=== PATIENT | male | born 1955 | race Caucasian/White ===

== ENCOUNTER 2024-07-01 12:00 | Inpatient (IN) ==
[2024-07-01 13:02] LABS: Basophils # (auto) 0.03 K/uL (0.00-0.20); Basophils % (auto) 0.5 %; Eosinophils # (auto) 0.03 K/uL (0.00-0.50); Eosinophils % (auto) 0.5 %; Hematocrit (blood only) 30.3 % (42.0-52.0); Hemoglobin 11.2 g/dl (14.0-18.0); Immature Granulocytes # (auto) 0.04 K/uL (0.01-0.20); Immature Granulocytes % (auto) 0.6 %; Lymphocytes # (auto) 1.42 K/uL (1.20-3.40); Lymphocytes % (auto) 22.4 %; Mean Corpuscular Hemoglobin 38.4 pg (25.0-34.0); Mean Corpuscular Volume 103.8 fL (80.0-100.0); Mean Platelet Volume 9.4 fL (9.4-12.4); Monocytes # (auto) 0.81 K/uL (0.11-0.59); Monocytes % (auto) 12.8 %; Neutrophils % (auto) 63.2 %; Platelet Count 232 K/uL (130-400); RDW Coefficient of Variation 14.2 % (11.5-14.5); Red Blood Count 2.92 M/uL (4.70-6.10); White Blood Count 6.33 K/ul (4.8-10.8)
[2024-07-01 13:09] LABS: Alanine Aminotransferase 49 U/L (7-52); Alkaline Phosphatase 73 U/L (34-104); Anion Gap 12 (3-11); Aspartate Aminotransferase 97 U/L (13-39); Bilirubin Direct 0.7 mg/dl (0-0.2); Bilirubin,Total 2.5 mg/dl (0.2-1.0); Blood Urea Nitrogen 14 mg/dl (6-23); Calcium 10.3 mg/dl (8.6-10.3); Carbon Dioxide 25 mmol/L (21-32); Chloride 87 mmol/L (98-107); Glucose 103 mg/dl (70-99(Fasting)); Potassium 4.4 mmol/L (3.5-5.1); Sodium 124 mmol/L (136-145); Total Protein 7.7 gm/dl (6.0-8.3)
--- NOTE | 2024-07-01 13:26 | CT Scan Report ---
CT head/brain wo con CLINICAL HISTORY: 69 years-old Male with Fall, head trauma. Acute head trauma status post fall TECHNIQUE: Multiple axial CT images of the head were obtained without contrast. A dose lowering tech nique was utilized adhering to the principles of ALARA. CT DOSE: 625.8 mGy.cm COMPARISON: None. FINDINGS: No acute intracranial hemorrhage, midline shift, intracranial mass, hydrocephalus, territorial ischem ia or abnormal extra-axial collection. Involutional changes with white matter hypodensities suggestiv e of chronic microvascular ischemic disease. The calvarium is intact. The paranasal sinuses, mastoid air cells, and middle ear cavities are clear . IMPRESSION: No acute intracranial abnormality or calvarial fracture. ACT 112: Negative or not required by law. The above report was generated using voice recognition software. It may contain grammatical, syntax o r spelling errors. Electronically signed by: Michael Rangel M.D. 07/01/2024 1:00 PM
--- NOTE | 2024-07-01 13:41 | History & Physical Report ---
Date of Service July 01, 2024 Assessment & Plan (1) Recurrent falls: Plan: Simba is a 69-year-old male without significant PMH. He presented on 07/01 for lower extremity weakness bilaterally and multiple falls over the past several weeks. Patient lives by himself. He presents here today with his sister (Asia) at bedside, who brought him to the hospital today. Patient reports that he has had gait instability for the past 1.5 months. This is led to multiple falls over that period of time. PT/OT evaluations appreciated Fall precautions (2) Hyponatremia: Plan: NA 124 on arrival; no prior for comparison SIADH labs ordered, pending Patient has struck his head over the past 2 months with falls Beer potomania is also within the differential given daily alcohol use Seizure precautions Trend BMP (3) Right rib fracture: Plan: Pain/bruising at right posterior rib cage Chest CT revealed fracture of the medial aspect of T12 near costovertebral junction Lidocaine patch application Incentive spirometry q4h with >1500 goal (4) Tobacco use: Plan: Current everyday tobacco cigarette smoker; just under 1 PPD 20-year pack history Patient reports that his father had lung cancer, and he has never been screened for lung cancer in the past Given significant weight loss, and 20-year history of smoking, chest CT was also to screen for malignancy Nicotine patch PRN (5) Alcohol use: Plan: Everyday alcohol use; scotch Last drink was the evening of 06/30 (3 scotch cocktails) Patient denies history of alcohol withdrawal, seizures, or DTs Last alcohol cessation was around 10 years ago AWSS at risk protocol with Ativan as needed (6) Cachexia: Plan: Patient's sister reports 20 pounds of weight loss over the past 2 months Patient denies any change in diet Weight ordered to calculate BMI Dietitian consult appreciated (7) Megaloblastic anemia: Plan: Hgb 11.2 on arrival; MCV greater than 100 Suspected secondary to alcohol use Vitamin B12 and folate levels ordered, pending Will plan to start supplements (8) Elevated bilirubin: Plan: Elevated bilirubin at 2.5 on arrival AST:ALT 2:1 PT/INR ordered, pending Liver ultrasound ordered, pending Additional labs pending results Trend CMP Plan Disposition: Admit to [facility] telemetry Full code Regular diet VTE PPx: High fall risk; SCDs for now History of Present Illness Chief Complaint: Leg weakness, bilateral Primary Care Provider: NO PCP Simba is a 69-year-old male without significant PMH. He presented on 07/01 for lower extremity weakness bilaterally and multiple falls over the past several weeks. Patient lives by himself. He presents here today with his sister (Asia) at bedside, who brought him to the hospital today. Patient reports that he has had gait instability for the past 1.5 months. This is led to multiple falls over that period of time. He denies any syncope, LOC, or tripping on things. He is not dizzy or lightheaded prior to falling, but reports that his "legs gave out" on him. His most recent/worst fall was on Thursday when he was standing in the kitchen, and "out of the blue", ended up on the ground. Patient struck the back of his head as well as his right rib cage. No LOC. He was able to get back up on his own after a minute or so. Patient is not currently on blood thinners. He does not take any medicine on a daily basis. No recent change in diet. 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 He reports that he has a diet of steak, potatoes, pasta, and fish regularly. Additionally, the patient has lost significant weight over the past 2 months. While he is unsure how much he is lost, his sister believes it is around 20 pounds over the past 2 months. Patient does not weigh himself regularly, but reports he used to be around 165 to 170 pounds. Additionally, the patient has gone from having a regular walk to having a "shuffling" walk. He reports he takes long steps because he is terrified of falling. Patient reports he has no stability when he stands. No sick contacts. No rashes or tick bites noted on his body. He is a current everyday tobacco cigarette smoker; <1 PPD. He is also a current everyday alcohol user; he reports he drinks scotch daily, last had 3 cocktails yesterday evening on 06/30. He denies history of alcohol withdrawal, DTs, or seizures. No PMH of seizures, CVA, stroke, cancer, or diabetes. He does have a family history of cancer (his dad had lung cancer); he reports he does not get normal screenings for lung cancer despite smoking. While patient denies any new life stressors on admission, patient sister at bedside does report that their mother has had health problems recently, which has been stressful. Patient denies any thoughts of self-harm, harming others, or suicidal ideations. Patient's vitals are stable at time of admission. ED course: ROS: Patient endorses gait instability, LE weakness, weight loss, Patient denies fever, chills, night-sweats, dizziness, lightheadedness, headache, changes in vision, tinnitus, ear pain, No numbness/tingling in hands or legs Allergies Allergy/AdvReac Type Severity Reaction Status Date / Time DUST Allergy Unknown Uncoded 07/28/02 16:47 [id number] Allergy Unknown Uncoded 07/28/02 16:47 N Allergy Unknown Uncoded 07/28/02 16:47 Home Medications Medication Instructions Recorded Confirmed Type No Known Home Medications 07/01/24 07/01/24 History Past Med/Surg History Problem List (Updated 07/01/24 @ 16:09 by Fadi Cotton PA-C) Right rib fracture Elevated bilirubin Cachexia Rib pain on right side Megaloblastic anemia Alcohol use Tobacco use Acute head trauma (Acute) Lower extremity weakness (Acute) Hyponatremia (Acute) Recurrent falls (Acute) Social History Smoking Status: Current every day smoker Preferred Language: Maori Feels Safe at Home: Yes Review of Systems Review of Systems: See HPI above Physical Exam Physical Exam: General: no acute distress; pleasant affect; sister at bedside; non-toxic appearing; thin; cachectic-appearing; cooperative; SpO2 100% on RA HEENT: Superficial abrasion and erythematous hematoma noted on the posterior left scalp; no scleral icterus; PERRLA w/ EOMs intact; vision and hearing grossly intact Neck: supple; no lymphadenopathy; trachea midline Skin: Dark purple bruising noted on the left forearm; bruise noted on the posterior right rib cage towards the back; warm, dry without signs of tenting; no cyanosis; no rashes CV: chest wall NTP; RRR; S1/S2 normal; no murmurs/rubs/gallops; pulses intact and symmetric at radial, DP, and PT Lungs: no acute respiratory distress; symmetrical chest wall expansion; clear breath sounds across all lung reich w/o adventitious sounds; no wheezing ABD: Soft, NTP; BS present; no rebound/guarding; no distention MSK: no tics or fasciculations; no edema noted in the LEs b/l, nonerythematous; 3/5 strength in lower extremities bilaterally when lifting from the bed Neuro: A&Ox3; normal mood and affect; fluent speech; no focal deficits; sensation intact and symmetric in lower extremities bilaterally Results & Data Results & Data Vital Signs (Past 12 Hours) Vital Signs Temp Pulse Resp BP Pulse Ox O2 Del Method 07/01/24 12:13 72 07/01/24 12:03 36.1 C L 103 H 16 116/75 100 Room Air Laboratory Results Abnormal lab results 07/01/24 Range/Units 12:30 RBC 2.92 L (4.70-6.10) M/uL Hgb 11.2 L (14.0-18.0) g/dl Hct 30.3 L (42.0-52.0) % MCV 103.8 H (80.0-100.0) fL MCH 38.4 H (25.0-34.0) pg MCHC 37.0 H (32.0-36.0) g/dL RDW Std Deviation 54.0 H (36.4-46.3) fL [place] # (Auto) 0.81 H (0.11-0.59) K/uL Sodium 124 L (136-145) mmol/L Chloride 87 L (98-107) mmol/L Anion Gap 12 H (3-11) Glucose 103 H (70-99(Fasting)) mg/dl Total Bilirubin 2.5 H (0.2-1.0) mg/dl Direct Bilirubin 0.7 H (0-0.2) mg/dl AST 97 H (13-39) U/L Diagnostic Findings Head CT 07/01/24 12:15 CT head/brain wo con CLINICAL HISTORY: 69 years-old Male with Fall, head trauma. Acute head trauma status post fall TECHNIQUE: Multiple axial CT images of the head were obtained without contrast. A dose lowering technique was utilized adhering to the principles of ALARA. CT DOSE: 625.8 mGy.cm COMPARISON: None. FINDINGS: No acute intracranial hemorrhage, midline shift, intracranial mass, hydrocephalus, territorial ischemia or abnormal extra-axial collection. Involutional changes with white matter hypodensities suggestive of chronic microvascular ischemic disease. The calvarium is intact. The paranasal sinuses, mastoid air cells, and middle ear cavities are clear. IMPRESSION: No acute intracranial abnormality or calvarial fracture. ACT 112: Negative or not required by law. The above report was generated using voice recognition software. It may contain grammatical, syntax or spelling errors. Electronically signed by: Michael Rangel M.D. 07/01/2024 1:00 PM Code Status & VTE Plan Code Status Full code VTE Prophylaxis Plan VTE Prophylaxis will be ordered: Yes Supervising Physician Co-Signing Physician Notes Patient seen and examined, chart reviewed, case discussed with Fadi Cotton PA-C and I agree with the assessment and plan as above except as otherwise noted above. 69yo M with a PMHx of weight loss, cachexia, megaloblastic anemia, tobacco abuse, and recurrent falls who presents with bilateral lower extremity weakness, increased global fatigue, and falls. Pt has had difficulty walking and progressive weakness over the last ~6 weeks. Multiple falls, but no focal weakness. CT-H naf. Denies sensory change. He is hyponatremic at 124. SIADH labs pending, ddx includes ETOH, SIADH of malignancy (progressive weight loss, chronic cough, hx intermediate tobacco use, and fhx of lung cancer), and solute depletion. He does have rib pain after his fall. He is focally tender at the right 12th rib at the mid axillary line. Slight scleral icterus is present. No abdominal pain. No significant fluid wave on exam. Appears cachectic. Hyponatremia Differential includes potomania/alcohol induced, solute depletion with poor diet and only eats 1 meal generally only with some form of protein, and SIADH with potential malignancy given progressive weight loss over many weeks and longstanding history of tobacco abuse Sodium 124. BMP every 4 hours. He looks volume contracted, urine studies for SIADH are pending. If urine sodium is elevated then fluid restrict to 1300s, if it is conserved continue rehydration encourage oral intake. He has been started on maintenance fluids. If his sodium drops with these discontinue fluids and again fluid restrict Chronic alcohol use A handle of [employer] last in approximately 1 week. Has been drinking daily for "a very long time ", but did go 10 consecutive alcohol free days last month without any withdrawal symptoms. Suspect moderate risk of alcohol withdrawal. Agree with RENTAL REPRESENTATIVE assess protocol Does show signs of nutritional deficiency including megaloblastic anemia and eats a mostly protein diet with very little vegetable intake. Suspect he is thiamine/B12 depleted. Placed on high-dose thiamine repletion with 300 mg x 1 now, 100 mg IV 3 times daily for 1 day tomorrow, and then 100 mg p.o. daily thereafter in addition to folic acid supplementation Megaloblastic anemia Suspect vitamin deficiency with both poor diet and chronic alcohol use. Repletion as noted. Hemoglobin 11.2. No active bleeding. Trend daily Transaminitis With chronic alcohol use INR ordered. Albumin is normal. No significant fluid wave/ascites on exam. AST is elevated, total bilirubin is elevated. Denies pain with meals Liver ultrasound ordered. Suspect alcohol induced, DDx includes obstructive and infectious although lower suspicion for these Chronic tobacco use With 40 years of 1 pack/day tobacco use, progressive weight loss and weakness, and hyponatremia potentially concerning for SIADH of malignancy CTchest to both evaluate for any pulmonary lesions, and also for right rib pain. No lesions are seen. Does show a fracture of the medial aspect of T12 near its costovertebral junction. Lidocaine patch ordered, supportive care for this. Incentive spirometry ordered. Assessment and management above PG Care Time/CCT Total # of Minutes Spent Total Time Spent with Patient: Total time spent is greater than 50% in coordination of care (as documented) at patient's floor/unit and/or counseling patient: [place] [address] INT INP/OBS CARE 3/75MIN Patient Type New History Comprehensive Exam Comprehensive Medical Decision Making High Complexity Diagnoses Recurrent falls R29.6 Hyponatremia E87.1 Right rib fracture S22.31XA Tobacco use Z72.0 Alcohol use F10.90 Cachexia R64 Megaloblastic anemia D53.1 Elevated bilirubin R17
--- NOTE | 2024-07-01 13:45 | Emergency Department Note ---
Impression & Plan Hyponatremia, Recurrent falls, Lower extremity weakness, Acute head trauma ED Provider Note NAME: DANIEL SHIRLEY AGE: 69 SEX: M : 1955 ARRIVES VIA: Walk-In INFORMANT: Patient, ED PROVIDER(S): Lisa Pereira MD CHIEF COMPLAINT: Balance issues HPI: This is a 69-year-old male present for balance issues and fall. Patient notes that over the past 1+ month he has had difficulty with his ambulation. He states he feels somewhat off balance. This is persistent. He does not feel vertiginous at baseline. Unsure if he had significant weight loss but his sister is concerned that he is lost weight. Otherwise he notes no night sweats, chills, chest pain, nausea, vomiting or diarrhea. He notes he usually eats without much difficulty. Normal appetite. ROS: See above HPI for pertinent positives & negatives. A total of 10 systems reviewed and were otherwise negative. PAST MEDICAL HISTORY: See Below PAST SURGICAL HISTORY: See Below FAMILY HISTORY: See Below SOCIAL HISTORY: See Below HOME MEDICATIONS: See Below ALLERGIES: See Below VITALS: See Below PHYSICAL EXAMINATION: General: resting comfortably in no acute distress thin, cachectic Head: Normocephalic and atraumatic Eyes: Normal inspection, extraocular muscles intact Ear, nose, throat: Normal external exam Neck: Normal range of motion Respiratory: lungs clear to auscultation bilaterally Cardiovascular: Regular rate/rhythm, no murmur GI: soft, nontender, no guarding or rebound Extremities: nontender, moves all extremities Neuro: The patient awake and alert, appropriately conversive, no focal deficits, symmetric faces cranial 2 through 12 grossly intact Skin: Warm, dry, and intact MEDICAL DECISION MAKING: This is a 69-year-old male presenting for balance issues/fall. Patient does not have any night sweats, chills. Otherwise eating and drinking normally as per self-report. Sister concern about weight loss. Will do screening blood work, EKG, CT of the head due to fall with head trauma. -CT head negative -No significant leukocytosis or anemia is noted. Electrolytes are abnormal showing hyponatremia to 124, hypochloremia. Total bilirubin is 2.5 with a direct bili 0.7 with a slight AST elevation. No significant abdominal tenderness on my exam. -The patient's hyponatremia, will have to be required mission at this time -Care discussed Dr. Gatica and SANDRA Cotton PA-C for admission Differential diagnosis: Cancer, intracranial hemorrhage, mass, stroke, hyponatremia, dehydration Independent History obtained from: Sister Diagnostics interpreted by me: ECG: ECG independently interpreted by me with normal sinus rhythm, rate of 71, normal axis, normal MD, normal QRS, normal QTc, no ST segment elevations consistent with STEMI criteria Cardiac Monitoring: An order was placed for continuous cardiac monitoring. The monitor shows a rate of 76 with sinus rhythm. Past Med/Surg History Problem List (Updated 07/01/24 @ 14:37 by Lisa Pereira MD) Acute head trauma (Acute) Lower extremity weakness (Acute) Hyponatremia (Acute) Recurrent falls (Acute) Social History Smoking Status: Current every day smoker Preferred Language: Sierra Leonean Feels Safe at Home: Yes Allergies Allergies Allergy/AdvReac Type Severity Reaction Status Date / Time DUST Allergy Unknown Uncoded 07/28/02 16:47 [id number] Allergy Unknown Uncoded 07/28/02 16:47 N Allergy Unknown Uncoded 07/28/02 16:47 Home Meds Home Medications Medication Instructions Recorded Confirmed No Known Home Medications 07/01/24 07/01/24 Results & Data (ED) Vital Signs Vital Signs - 24 hr 07/01/24 12:03 07/01/24 12:12 07/01/24 12:13 Temperature 36.1 C L Temperature Source Temporal Artery Scan Pulse Rate 103 H 74 72 Pulse Rate from SpO2 Sensor 76 Pulse Strength Normal Respiratory Rate 16 14 Respiratory Effort / Characteristics Non-Labored Spontaneous Respiratory Depth Normal Respiratory Pattern Regular Blood Pressure 116/75 173/103 H Blood Pressure Mean 88 126 Blood Pressure Position Sitting Pulse Oximetry 100 100 Oxygen Delivery Method Room Air Sepsis Recent Fever Within 48 Hours No Sepsis New/Unexplained Change in Mental Status No Sepsis Action Taken by Nursing No Action Required 07/01/24 12:30 07/01/24 12:42 07/01/24 13:03 Temperature Temperature Source Pulse Rate 74 82 73 Pulse Rate from SpO2 Sensor 81 Pulse Strength Respiratory Rate 15 17 12 Respiratory Effort / Characteristics Respiratory Depth Respiratory Pattern Blood Pressure 160/88 H Blood Pressure Mean 100 Blood Pressure Position Pulse Oximetry 100 Oxygen Delivery Method Sepsis Recent Fever Within 48 Hours Sepsis New/Unexplained Change in Mental Status Sepsis Action Taken by Nursing 07/01/24 13:21 07/01/24 13:36 07/01/24 13:42 Temperature Temperature Source Pulse Rate 83 76 76 Pulse Rate from SpO2 Sensor Pulse Strength Respiratory Rate 16 12 16 Respiratory Effort / Characteristics Respiratory Depth Respiratory Pattern Blood Pressure Blood Pressure Mean Blood Pressure Position Pulse Oximetry Oxygen Delivery Method Sepsis Recent Fever Within 48 Hours Sepsis New/Unexplained Change in Mental Status Sepsis Action Taken by Nursing Laboratory Data 07/01/24 12:30 07/01/24 12:30 Lab Results 07/01/24 Range/Units 12:30 WBC 6.33 (4.8-10.8) K/ul RBC 2.92 L (4.70-6.10) M/uL Hgb 11.2 L (14.0-18.0) g/dl Hct 30.3 L (42.0-52.0) % MCV 103.8 H (80.0-100.0) fL MCH 38.4 H (25.0-34.0) pg MCHC 37.0 H (32.0-36.0) g/dL RDW Std Deviation 54.0 H (36.4-46.3) fL RDW Coeff of Selvin 14.2 (11.5-14.5) % Plt Count 232 (130-400) K/uL MPV 9.4 (9.4-12.4) fL Immature Gran % (Auto) 0.6 % Neut % (Auto) 63.2 % Lymph % (Auto) 22.4 % [place] % (Auto) 12.8 % Eos % (Auto) 0.5 % Baso % (Auto) 0.5 % Neut # (Auto) 4.00 (1.40-6.50) K/uL Lymph # (Auto) 1.42 (1.20-3.40) K/uL [place] # (Auto) 0.81 H (0.11-0.59) K/uL Eos # (Auto) 0.03 (0.00-0.50) K/uL Baso # (Auto) 0.03 (0.00-0.20) K/uL Immature Gran # (Auto) 0.04 (0.01-0.20) K/uL Sodium 124 L (136-145) mmol/L Potassium 4.4 (3.5-5.1) mmol/L Chloride 87 L (98-107) mmol/L Carbon Dioxide 25 (21-32) mmol/L Anion Gap 12 H (3-11) BUN 14 (6-23) mg/dl Creatinine 1.08 (0.6-1.4) mg/dl Est Cr Clr Drug Dosing Not Reportable eGFR 74.75 BUN/Creatinine Ratio 13.0 (10-20) Glucose 103 H (70-99(Fasting)) mg/dl Calcium 10.3 (8.6-10.3) mg/dl Total Bilirubin 2.5 H (0.2-1.0) mg/dl Direct Bilirubin 0.7 H (0-0.2) mg/dl AST 97 H (13-39) U/L ALT 49 (7-52) U/L Alkaline Phosphatase 73 (34-104) U/L Total Protein 7.7 (6.0-8.3) gm/dl Albumin 5.0 (3.4-5.0) gm/dl Imaging Data Radiologist's Impression: Head CT 07/01/24 12:15 CT head/brain wo con CLINICAL HISTORY: 69 years-old Male with Fall, head trauma. Acute head trauma status post fall TECHNIQUE: Multiple axial CT images of the head were obtained without contrast. A dose lowering technique was utilized adhering to the principles of ALARA. CT DOSE: 625.8 mGy.cm COMPARISON: None. FINDINGS: No acute intracranial hemorrhage, midline shift, intracranial mass, hydrocephalus, territorial ischemia or abnormal extra-axial collection. Involutional changes with white matter hypodensities suggestive of chronic microvascular ischemic disease. The calvarium is intact. The paranasal sinuses, mastoid air cells, and middle ear cavities are clear. IMPRESSION: No acute intracranial abnormality or calvarial fracture. ACT 112: Negative or not required by law. The above report was generated using voice recognition software. It may contain grammatical, syntax or spelling errors. Electronically signed by: Michael Rangel M.D. 07/01/2024 1:00 PM Discharge Plan Visit Data Chief Complaint: Leg Weakness, Bilateral Stated Complaint: UNBALANCED, WEAK LEGS ED Provider: Lisa Pereira Discharge Problem: Hyponatremia, Recurrent falls, Lower extremity weakness, Acute head trauma Forms Stand Alone Forms: My [facility] [employer] Prescriptions Prescriptions: No Action No Known Home Medications Referrals Referrals: PCP,NO [Primary Care Provider] -
[2024-07-01 14:50] LABS: Magnesium 1.5 mg/dl (1.7-2.4)
[2024-07-01 15:06] LABS: Thyroid Stimulating Hormone 1.916 uIu/ml (0.300-4.500)
[2024-07-01 15:21] LABS: Folate (Folic Acid),Ser orPlas 4.42 ng/ml (>5.38)
--- NOTE | 2024-07-01 16:05 | CT Scan Report ---
CT chest diagnostic wo con CLINICAL HISTORY: Right posterior rib injury/pain; ?malignancy TECHNIQUE: Multidetector row helical CT of the chest was performed. Coronal and sagittal reformations were obtained. Automated dose lowering techniques and/or adjustment according to patient size were u tilized for this exam. CT DOSE: 396.74 mGy.cm Comparison: None available at the time of this dictation. FINDINGS: Lungs and pleura: Normal. Heart and pericardium: Heart size is normal. No pericardial effusion. Vessels: Severe atherosclerotic changes in the aorta and coronary arteries. Mediastinum and melania: Unremarkable. Chest wall and lower neck: Unremarkable. Abdomen: Unremarkable. Bones: There is a fracture of the medial aspect of T12 near the costovertebral junction. IMPRESSION: Fracture of the medial aspect of T12 near the costovertebral junction. ACT 112: Negative or not required by law. Electronically signed by: Charles Huoston M.D. 07/01/2024 3:52 PM
[2024-07-01] MEDS: NICOTINE 14 MG/24 HR PATCH TD SCH (16:18)
[2024-07-01] MEDS: FOLIC ACID 1 MG in SYRINGE 9.8 ML IV STA (16:19)
[2024-07-01] MEDS ORDERED: ONDANSETRON INJ 2 MG/ML 2 ML VIAL IV PRN (17:07)
[2024-07-01] MEDS: SODIUM CHLORIDE 0.9% 1,000 ML IV SCH (17:16)
[2024-07-01] MEDS: THIAMINE HCL 300 MG in SODIUM CHLORIDE 0.9% 50 ML IV STA (17:18)
[2024-07-01 17:22] LABS: INR 0.9 (0.9-1.1); Prothrombin Time 10.3 Seconds (9.0-12.0)
[2024-07-01] MEDS: LIDOCAINE 5% 1 PATCH TD STA (18:18)
[2024-07-01 19:32] LABS: BUN Creatinine Ratio 12.4 (10-20); Calcium 9.6 mg/dl (8.6-10.3); Creatinine Clr Calc Pharmacy 42.4 ml/min; Potassium 3.9 mmol/L (3.5-5.1)
[2024-07-01] MEDS: ACETAMINOPHEN 325 MG TAB PO PRN (19:41)
[2024-07-01 23:23] LABS: BUN Creatinine Ratio 14.1 (10-20); Calcium 9.5 mg/dl (8.6-10.3); Potassium 3.7 mmol/L (3.5-5.1)
--- NOTE | 2024-07-02 02:08 | Ultrasound Report ---
Exam(s): US LIVER EXAM: US Abdomen Limited, Right Upper Quadrant CLINICAL HISTORY: ETOH, transaminitis. TECHNIQUE: Real-time ultrasound of the right upper quadrant with image documentation. COMPARISON: No relevant prior studies available. FINDINGS: Liver: 15.4 cm. Mildly echogenic/fatty No mass. No intrahepatic bile duct dilation. Gallbladder: Contracted. No gallbladder wall thickening or pericholecystic fluid. No gallstones. Common bile duct: 6.3 mm, top normal for age. No stones. . Pancreas: Partially obscured by bowel gas. Visualized pancreas is unremarkable. Right kidney: 10.2 cm length. No stones. No solid mass. No hydronephrosis. IMPRESSION: Mildly echogenic/fatty liver. Contracted gallbladder. Common bile duct top normal in size. No evidence for cholelithiasis or biliary obstruction. Electronically signed by: Simba Painting M.D. 07/02/24 02:08 AM
[2024-07-02 07:17] LABS: Albumin Level 3.9 gm/dl (3.4-5.0); BUN Creatinine Ratio 16.3 (10-20); Bilirubin,Total 1.4 mg/dl (0.2-1.0); Calcium 9.1 mg/dl (8.6-10.3); Creatinine Clr Calc Pharmacy 56.9 ml/min; Potassium 3.8 mmol/L (3.5-5.1); Total Protein 5.9 gm/dl (6.0-8.3)
--- NOTE | 2024-07-02 07:33 | Electrocardiogram Report ---
Test Reason : Blood Pressure : */* mmHG Vent. Rate : 71 BPM Atrial Rate : 71 BPM P-R Int : 134 ms QRS Dur : 70 ms QT Int : 396 ms P-R-T Axes : 78 73 77 degrees QTcB Int : 430 ms Normal sinus rhythm Possible Left atrial enlargement Abnormal ECG No previous ECGs available Confirmed by Pietro Palma ([id number]) on 07/02/2024 7:32:52 AM Referred By: REFERRED SELF Confirmed By: Pietro Palma
[2024-07-02] MEDS: MULTIVITAMIN TAB PO SCH (07:57)
[2024-07-02] MEDS: FOLIC ACID 1 MG TAB PO SCH (07:57)
[2024-07-02] MEDS: THIAMINE HCL 100 MG in SYRINGE 9 ML IV SCH (07:57)
--- NOTE | 2024-07-02 09:58 | Hospitalist Progress Note ---
Date of Service July 02, 2024 Assessment & Plan (1) Recurrent falls: Plan: PT/OT evaluation Fall precautions (2) Hyponatremia: Plan: NA 124 on arrival; now 126 SIADH labs ordered, pending Patient has struck his head over the past 2 months with falls Beer potomania is also within the differential given daily alcohol use Seizure precautions Trend BMP Nephrology consulted (3) Right rib fracture: Plan: Pain/bruising at right posterior rib cage Chest CT revealed fracture of the medial aspect of T12 near costovertebral junction Lidocaine patch application Incentive spirometry q4h with >1500 goal (4) Tobacco use: Plan: Nicotine patch PRN (5) Alcohol use: Plan: AWSS at risk protocol with Ativan as needed (6) Cachexia: Plan: Dietitian consult appreciated (7) Megaloblastic anemia: Plan: -b12, and folate supplementation (8) Elevated bilirubin: Plan: Elevated bilirubin at 2.5 on arrival AST:ALT 2:1 PT/INR ordered, pending Liver ultrasound negative Likely related to etoh use Plan Disposition: Admit to [facility] telemetry Full code Regular diet VTE PPx: High fall risk; SCDs for now Admission and Anticipated Discharge Date Admission Date: July 01, 2024 Subjective No events overnight. Pt resting comfortably in bed. Review of Systems Review of Systems: CONST: Negative for fever, body aches and chills. HENT: Negative for neck pain/stiffness, headache, congestion, sore throat, swelling. EYES: Negative for discharge/pain or vision changes. RESP: Negative for cough/hemoptysis and shortness of breath. CV: Negative chest pain, difficulty breathing, palpitations. ABD: Negative pain, nausea, vomiting. : Negative increase frequency, dysuria, blood in urine or stool. MUSC: Negative for muscle aches, edema. SKIN: Negative rash, lesions/sores. NEURO: Negative headache, dizziness, weakness. Physical Exam Physical Exam: GENERAL APPEARANCE NAD, activity normal for age, well developed/ well nourished, no cyanosis, pallor, or diaphoresis. EYES lids/conjunctiva normal. EARS/NOSE/THROAT Mucous membranes moist, nares normal, lips/teeth normal uvula midline without oral pharyngeal erythema, exudate or swelling TMs normal bilaterally. No lymphangitis/lymphedema. HEAD/NECK normocephalic atraumatic, no facial trauma, neck is supple. RESPIRATORY respiratory effort normal, speaks in full sentences, no tripod position, no accessory muscle use. Lungs clear to auscultation without rhonchi, wheezes, rales CARDIAC Regular rate and rhythm, no edema. ABDOMINAL Soft, ND/NT. No evidence of fluid wave. No pulsatile masses on exam, rebound tenderness, Warner sign or pain over Mcburney's point. MUSCLES/EXTREMITIES No abnormal range of motion, no swelling. SKIN Warm, pink and dry. No rashes, dermatoses, petechiae or lesions. NEUROLOGICAL Speech is clear and appropriate. Normal level of consciousness. Gait and coordination are normal. 5/5 strength in all extremities. PSYCH Normal mood and affect. Judgement/competence is appropriate Results & Data Results & Data Vital Signs (Past 12 Hours) Vital Signs Temp Pulse Pulse Resp BP Pulse Ox O2 Del Method 07/02/24 07:32 36.3 C L 75 18 133/79 99 Room Air 07/02/24 07:30 Room Air 07/02/24 07:07 76 07/02/24 03:57 36.5 C 81 18 129/72 100 Room Air 07/01/24 23:15 36.6 C 99 H 18 105/62 99 Room Air 07/01/24 22:40 87 PG Care Time/CCT Total # of Minutes Spent Total Time Spent with Patient: Total time spent is greater than 50% in coordination of care (as documented) at patient's floor/unit and/or counseling patient: Coding Level of Care Code 59000 SUB INP/OBS CARE 2/35MIN Diagnoses Recurrent falls R29.6 Hyponatremia E87.1 Right rib fracture S22.31XA Tobacco use Z72.0 Alcohol use F10.90 Cachexia R64 Megaloblastic anemia D53.1 Elevated bilirubin R17
--- NOTE | 2024-07-02 11:24 | Nephrology Consultation ---
Date of Consultation July 02, 2024 Assessment & Plan (1) Hyponatremia: * Clinically euvolemic, hypoosmolar hyponatremia. Urine osmolality is inappropriately elevated. Urine sodium greater than 10. Suspect SIADH * Restrict free water to 1500 cc/day * No neurologic symptoms at this time * Patient is able to swallow medications * Start sodium chloride 2 g p.o. twice daily * Start furosemide 20 mg p.o. every morning to reduce urinary concentration * Monitor BMP, Uosm (2) Cachexia: * Unintentional weight loss and cachexia are concerning for underlying malignancy * Chest CT is negative for pulmonary mass * Will order FOBT, PSA (3) Tobacco use: * Will need smoking cessation counseling (4) Alcohol use: * Agree with B12, folate supplementation. * Will need monitoring for withdrawal symptoms History of Present Illness Reason for Consultation: hyponatremia Attending Physician: Gary Valenzuela MD History of Present Illness Mr. Whitaker is a 69-year-old white male who is seen at the request of the [facility] hospitalist service for evaluation of hyponatremia. Information for the HPI is obtained from direct patient interview and review of the EMR. HPI summarized as follows: Mr. Whitaker reports a history of good health. This is his 1st [facility] hospitalization. He does not take any chronic medications. 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 Unfortunately he has a longstanding history of tobacco use. He continues to smoke cigarettes up to 1 pack/day. In addition he drinks alcohol 1-3 glasses each evening. Over the last 2 months Mr. Whitaker has experienced an unintentional 30 pound weight loss. He has also become progressively weak and has fallen on several occasions. Mr. Whitaker presented to the [facility] EMD 07/01/2024 for evaluation of weakness. He was found to be hemodynamically stable. Serum sodium was 124 mmol/L, Uosm 519, Jada 24. Head CT was negative for intracranial abnormality. Chest CT without contrast revealed a fracture of T12 near the costovertebral junction. No infiltrate or lung mass reported. Liver ultrasound revealed a mildly echogenic/fatty liver. No evidence of cholelithiasis or biliary obstruction. Allergies Allergy/AdvReac Type Severity Reaction Status Date / Time DUST Allergy Unknown Uncoded 07/28/02 16:47 [id number] Allergy Unknown Uncoded 07/28/02 16:47 N Allergy Unknown Uncoded 07/28/02 16:47 Home Medications Medication Instructions Recorded Confirmed Type No Known Home Medications 07/01/24 07/01/24 History Patient History Social History Smoking Status: Current every day smoker Tobacco Type: Cigarettes Hx Alcohol Use: Yes Alcohol type: hard liquor Hx Substance Use: No Preferred Language: [place] Communication Ability: Effective Learning Strategist Required: No Beliefs That Will Affect Care: None Current Living Situation: Alone Feels Safe at Home: Yes Safety Concerns: Feels Safe At This Time Assistive Devices: Glasses Review of Systems Constitutional: no fever Eyes: no problem reported Ear, Nose, Mouth, Throat: no problem reported Respiratory: no cough and no dyspnea Cardiovascular: no chest pain Gastrointestinal: no abdominal pain, no nausea, no vomiting and no diarrhea/loose stools Genitourinary: no dysuria, no hematuria or no flank pain Integumentary: no rash Neurologic: + falls Physical Exam Constitutional: + cachectic (6 foot, 123 pounds) Eyes: PERRL, conjunctivae normal, anicteric sclerae ENMT: external ear and nose normal, oropharynx normal Neck: trachea midline, no thyromegaly Respiratory: normal respiratory effort, lungs clear to auscultation Cardiovascular: RRR, no murmur, no edema Gastrointestinal (Abdomen): normal bowel sounds, soft, nontender, no hepatosplenomegaly Musculoskeletal: Extremities: no cyanosis and no clubbing Skin: no rashes, warm and dry Neurologic: Speech / Cognition: normal speech and normal cognition Psychiatric: Affect: euthymic affect Results & Data Vital Signs (Past 12 Hours) Vital Signs Temp Pulse Pulse Resp BP Pulse Ox O2 Del Method 07/02/24 07:32 36.3 C L 75 18 133/79 99 Room Air 07/02/24 07:30 Room Air 07/02/24 07:07 76 07/02/24 03:57 36.5 C 81 18 129/72 100 Room Air 07/01/24 23:15 36.6 C 99 H 18 105/62 99 Room Air Laboratory Results Laboratory Results WBC 6.33 K/ul (4.8-10.8) 07/01/24 12:30 RBC 2.92 M/uL (4.70-6.10) L 07/01/24 12:30 Hgb 11.2 g/dl (14.0-18.0) L 07/01/24 12:30 Hct 30.3 % (42.0-52.0) L 07/01/24 12: MCV 103.8 fL (80.0-100.0) H 07/01/24 12:30 MCH 38.4 pg (25.0-34.0) H 07/01/24 12:30 MCHC 37.0 g/dL (32.0-36.0) H 07/01/24 12:30 RDW Std Deviation 54.0 fL (36.4-46.3) H 07/01/24 12: RDW Coeff of Selvin 14.2 % (11.5-14.5) 07/01/24 12: Plt Count 232 K/uL (130-400) 07/01/24 12: MPV 9.4 fL (9.4-12.4) 07/01/24 12:30 Immature Gran % (Auto) 0.6 % 07/01/24 12:30 Neut % (Auto) 63.2 % 07/01/24 12:30 Lymph % (Auto) 22.4 % 07/01/24 12:30 Cabell % (Auto) 12.8 % 07/01/24 12:30 Eos % (Auto) 0.5 % 07/01/24 12:30 Baso % (Auto) 0.5 % 07/01/24 12:30 Neut # (Auto) 4.00 K/uL (1.40-6.50) 07/01/24 12:30 Lymph # (Auto) 1.42 K/uL (1.20-3.40) 07/01/24 12:30 Cabell # (Auto) 0.81 K/uL (0.11-0.59) H 07/01/24 12:30 Eos # (Auto) 0.03 K/uL (0.00-0.50) 07/01/24 12:30 Baso # (Auto) 0.03 K/uL (0.00-0.20) 07/01/24 12:30 Immature Gran # (Auto) 0.04 K/uL (0.01-0.20) 07/01/24 12:30 PT 10.3 Seconds (9.0-12.0) 07/01/24 12:30 INR 0.9 (0.9-1.1) 07/01/24 12:30 Sodium 126 mmol/L (136-145) L 07/02/24 05:27 Potassium 3.8 mmol/L (3.5-5.1) 07/02/24 05:27 Chloride 93 mmol/L (98-107) L 07/02/24 05:27 Carbon Dioxide 23 mmol/L (21-32) 07/02/24 05:27 Anion Gap 10 (3-11) 07/02/24 05:27 BUN 16 mg/dl (6-23) 07/02/24 05:27 Creatinine 0.98 mg/dl (0.6-1.4) D 07/02/24 05:27 Est Cr Clr Drug Dosing 56.9 ml/min 07/02/24 05:27 eGFR 83.99 07/02/24 05:27 BUN/Creatinine Ratio 16.3 (10-20) 07/02/24 05:27 Glucose 89 mg/dl (70-99(Fasting)) 07/02/24 05:27 Osmolality 264 mOsm/kg (280-300) L 07/01/24 12:30 Calcium 9.1 mg/dl (8.6-10.3) 07/02/24 05:27 Magnesium 1.5 mg/dl (1.7-2.4) L 07/01/24 12:30 Total Bilirubin 1.4 mg/dl (0.2-1.0) H 07/02/24 05:27 Direct Bilirubin 0.7 mg/dl (0-0.2) H 07/01/24 12:30 AST 49 U/L (13-39) H 07/02/24 05:27 ALT 31 U/L (7-52) 07/02/24 05:27 Alkaline Phosphatase 62 U/L (34-104) 07/02/24 05:27 Total Protein 5.9 gm/dl (6.0-8.3) L D 07/02/24 05:27 Albumin 3.9 gm/dl (3.4-5.0) 07/02/24 05:27 Globulin 2.0 gm/dl (2.5-4.0) L 07/02/24 05:27 Albumin/Globulin Ratio 2.0 (0.9-2) 07/02/24 05:27 Vitamin B12 261 pg/ml (180-914) 07/01/24 12:15 Folate 4.42 ng/ml (>5.38) L 07/01/24 12:15 TSH 1.916 uIu/ml (0.300-4.500) 07/01/24 12:30 Urine Osmolality 519 mOsm/kg (500-800) 07/01/24 20:44 Ur Random Sodium 24 mmol/L 07/01/24 20:[address] 07/01/24 12:15 CT head/brain wo con CLINICAL HISTORY: 69 years-old Male with Fall, head trauma. Acute head trauma status post fall TECHNIQUE: Multiple axial CT images of the head were obtained without contrast. A dose lowering technique was utilized adhering to the principles of ALARA. CT DOSE: 625.8 mGy.cm COMPARISON: None. FINDINGS: No acute intracranial hemorrhage, midline shift, intracranial mass, hydrocephalus, territorial ischemia or abnormal extra-axial collection. Involutional changes with white matter hypodensities suggestive of chronic microvascular ischemic disease. The calvarium is intact. The paranasal sinuses, mastoid air cells, and middle ear cavities are clear. IMPRESSION: No acute intracranial abnormality or calvarial fracture. ACT 112: Negative or not required by law. The above report was generated using voice recognition software. It may contain grammatical, syntax or spelling errors. Electronically signed by: Michael Rangel M.D. 07/01/2024 1:[address] 07/01/24 14:35 CT chest diagnostic wo con CLINICAL HISTORY: Right posterior rib injury/pain; ?malignancy TECHNIQUE: Multidetector row helical CT of the chest was performed. Coronal and sagittal reformations were obtained. Automated dose lowering techniques and/or adjustment according to patient size were utilized for this exam. CT DOSE: 396.74 mGy.cm Comparison: None available at the time of this dictation. FINDINGS: Lungs and pleura: Normal. Heart and pericardium: Heart size is normal. No pericardial effusion. Vessels: Severe atherosclerotic changes in the aorta and coronary arteries. Mediastinum and melania: Unremarkable. Chest wall and lower neck: Unremarkable. Abdomen: Unremarkable. Bones: There is a fracture of the medial aspect of T12 near the costovertebral junction. IMPRESSION: Fracture of the medial aspect of T12 near the costovertebral junction. ACT 112: Negative or not required by law. Electronically signed by: Charles Houston M.D. 07/01/2024 3:52 PM Liver Ultrasound 07/01/24 15:55 Exam(s): US LIVER EXAM: US Abdomen Limited, Right Upper Quadrant CLINICAL HISTORY: ETOH, transaminitis. TECHNIQUE: Real-time ultrasound of the right upper quadrant with image documentation. COMPARISON: No relevant prior studies available. FINDINGS: Liver: 15.4 cm. Mildly echogenic/fatty No mass. No intrahepatic bile duct dilation. Gallbladder: Contracted. No gallbladder wall thickening or pericholecystic fluid. No gallstones. Common bile duct: 6.3 mm, top normal for age. No stones. . Pancreas: Partially obscured by bowel gas. Visualized pancreas is unremarkable. Right kidney: 10.2 cm length. No stones. No solid mass. No hydronephrosis. IMPRESSION: Mildly echogenic/fatty liver. Contracted gallbladder. Common bile duct top normal in size. No evidence for cholelithiasis or biliary obstruction. Electronically signed by: Simba Painting M.D. 07/02/24 02:08 AM PG Care Time/CCT Total # of Minutes Spent Total Time Spent with Patient: Total time spent is greater than 50% in coordination of care (as documented) at patient's floor/unit and/or counseling patient: Coding Level of Care Code 79256 IN/OBS CONSULT LVL 5,80M Diagnoses Hyponatremia E87.1 Cachexia R64 Tobacco use Z72.0 Alcohol use F10.90
[2024-07-02] MEDS: SODIUM CHLORIDE 1 GM TABLET PO SCH (12:00)
[2024-07-02] MEDS: FUROSEMIDE 20 MG TAB PO SCH (12:00)
[2024-07-02 16:27] LABS: BUN Creatinine Ratio 15.2 (10-20); Calcium 9.4 mg/dl (8.6-10.3); Creatinine Clr Calc Pharmacy 56.4 ml/min; Potassium 4.1 mmol/L (3.5-5.1)
[2024-07-03 06:33] LABS: BUN Creatinine Ratio 19.8 (10-20); Calcium 9.4 mg/dl (8.6-10.3); Creatinine Clr Calc Pharmacy 61.3 ml/min; Potassium 3.6 mmol/L (3.5-5.1)
[2024-07-03] MEDS: THIAMINE HCL 100 MG TAB PO SCH (08:08)
--- NOTE | 2024-07-03 08:31 | Nephrology Progress Note ---
Date of Service July 03, 2024 Assessment & Plan (1) Hyponatremia: Plan: * Clinically euvolemic, hypoosmolar hyponatremia. Urine osmolality is inappropriately elevated. Urine sodium greater than 10. Suspect SIADH * Continue to restrict free water to 1500 cc/day * No neurologic symptoms at this time * Continue sodium chloride 2 g p.o. twice daily * Uosm as dropped from 519 to 242 mOsm/kg w/ loop diuretic therapy * Continue furosemide 20 mg p.o. every morning to reduce urinary concentration * Recheck BMP, Uosm in am (2) Cachexia: Plan: * Unintentional weight loss and cachexia are concerning for underlying malignancy * Chest CT is negative for pulmonary mass * PSA 0.7 * Await FOBT (3) Tobacco use: Plan: * Will need smoking cessation counseling (4) Alcohol use: Plan: * Agree with B12, folate supplementation. * Will need monitoring for withdrawal symptoms Admission and Anticipated Discharge Date Admission Date: July 01, 2024 Subjective Mr. Farfan was evaluated in his hospital room this morning. He was seated in a chair and reported improved stamina. He is tolerating salt tablets without GI upset and voiced no new medical concerns. Review of Systems Constitutional: no fever Eyes: no problem reported Ear, Nose, Mouth, Throat: no problem reported Respiratory: no cough and no dyspnea Cardiovascular: no chest pain Gastrointestinal: no abdominal pain, no nausea, no vomiting and no diarrhea/loose stools Genitourinary: no dysuria, no hematuria or no flank pain Integumentary: no rash Neurologic: + falls Physical Exam Constitutional: + cachectic (6 foot, 123 pounds) Eyes: PERRL, conjunctivae normal, anicteric sclerae ENMT: external ear and nose normal, oropharynx normal Neck: trachea midline, no thyromegaly Respiratory: normal respiratory effort, lungs clear to auscultation Cardiovascular: RRR, no murmur, no edema Gastrointestinal (Abdomen): normal bowel sounds, soft, nontender, no hepatosplenomegaly Musculoskeletal: Extremities: no cyanosis and no clubbing Skin: no rashes, warm and dry Neurologic: Speech / Cognition: normal speech and normal cognition Psychiatric: Affect: euthymic affect Results & Data Vital Signs (Past 12 Hours) Vital Signs Temp Pulse Pulse Resp BP Pulse Ox O2 Del Method 07/03/24 08:09 36.3 C L 78 16 130/73 100 Room Air 01/19/25 07:10 81 07/03/24 02:40 36.4 C L 82 16 105/60 99 Room Air 07/02/24 23:27 36.7 C 88 16 122/71 99 Room Air 07/02/24 22:30 88 Laboratory Results Laboratory Results - last 24 hr 07/02/24 07/02/24 07/03/24 11:26 15:49 05:44 Sodium 125 L 131 L Potassium 4.1 3.6 Chloride 93 L 97 L Carbon Dioxide 22 26 Anion Gap 10 8 BUN 15 18 Creatinine 0.99 0.91 Est Cr Clr Drug Dosing 56.4 61.3 eGFR 82.98 91.80 BUN/Creatinine Ratio 15.2 19.8 Glucose 95 117 H Calcium 9.4 9.4 Prostate Specific Ag 0.710 PG Care Time/CCT Total # of Minutes Spent Total Time Spent with Patient: Total time spent is greater than 50% in coordination of care (as documented) at patient's floor/unit and/or counseling patient: Coding Level of Care Code 58728 SUB INP/OBS CARE 3/50MIN Diagnoses Hyponatremia E87.1 Cachexia R64 Tobacco use Z72.0 Alcohol use F10.90
--- NOTE | 2024-07-03 10:48 | Hospitalist Progress Note ---
Date of Service July 03, 2024 Assessment & Plan (1) Recurrent falls: Plan: PT/OT evaluation pending Fall precautions (2) Hyponatremia: Plan: NA 124 on arrival; now 131 Nephrology consult appreciated SIADH suspected Con't salt tabs BID Con't lasix Qam to reduce urinary concentration F/U bMP and Uosm in am (3) Right rib fracture: Plan: Pain/bruising at right posterior rib cage Chest CT revealed fracture of the medial aspect of T12 near costovertebral junction Lidocaine patch application Incentive spirometry q4h with >1500 goal (4) Tobacco use: Plan: Nicotine patch PRN (5) Alcohol use: Plan: AWSS at risk protocol with Ativan as needed (6) Cachexia: Plan: Dietitian consult appreciated (7) Megaloblastic anemia: Plan: -b12, and folate supplementation (8) Elevated bilirubin: Plan: Elevated bilirubin at 2.5 on arrival AST:ALT 2:1 PT/INR ordered, pending Liver ultrasound negative Likely related to etoh use Plan Pt is a 69 y/o male who with b/l lower extremity weakness and multiple falls, found to have hyponatremia, and cachexia. 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 F/u Na+ levels in am 07/04, if improving D/C as per PT recommendations. Admission and Anticipated Discharge Date Admission Date: July 01, 2024 Subjective Pt feeling better this am. Has been tolerating his meals. No events overnight. Review of Systems Review of Systems: CONST: Negative for fever, body aches and chills. HENT: Negative for neck pain/stiffness, headache, congestion, sore throat, swelling. EYES: Negative for discharge/pain or vision changes. RESP: Negative for cough/hemoptysis and shortness of breath. CV: Negative chest pain, difficulty breathing, palpitations. ABD: Negative pain, nausea, vomiting. : Negative increase frequency, dysuria, blood in urine or stool. MUSC: Negative for muscle aches, edema. SKIN: Negative rash, lesions/sores. NEURO: Negative headache, dizziness, weakness. Physical Exam Physical Exam: GENERAL APPEARANCE NAD, activity normal for age, well developed/ well nourished, no cyanosis, pallor, or diaphoresis. EYES lids/conjunctiva normal. EARS/NOSE/THROAT Mucous membranes moist, nares normal, lips/teeth normal uvula midline without oral pharyngeal erythema, exudate or swelling TMs normal bilaterally. No lymphangitis/lymphedema. HEAD/NECK normocephalic atraumatic, no facial trauma, neck is supple. RESPIRATORY respiratory effort normal, speaks in full sentences, no tripod position, no accessory muscle use. Lungs clear to auscultation without rhonchi, wheezes, rales CARDIAC Regular rate and rhythm, no edema. ABDOMINAL Soft, ND/NT. No evidence of fluid wave. No pulsatile masses on exam, rebound tenderness, Warner sign or pain over Mcburney's point. MUSCLES/EXTREMITIES No abnormal range of motion, no swelling. SKIN Warm, pink and dry. No rashes, dermatoses, petechiae or lesions. NEUROLOGICAL Speech is clear and appropriate. Normal level of consciousness. Gait and coordination are normal. 5/5 strength in all extremities. PSYCH Normal mood and affect. Judgement/competence is appropriate Results & Data Results & Data Vital Signs (Past 12 Hours) Vital Signs Temp Pulse Pulse Resp BP Pulse Ox O2 Del Method 07/03/24 08:10 Room Air 07/03/24 08:09 36.3 C L 78 16 130/73 100 Room Air 07/03/24 07:10 81 07/03/24 02:40 36.4 C L 82 16 105/60 99 Room Air 07/02/24 23:27 36.7 C 88 16 122/71 99 Room Air PG Care Time/CCT Total # of Minutes Spent Total Time Spent with Patient: Total time spent is greater than 50% in coordination of care (as documented) at patient's floor/unit and/or counseling patient: Coding Level of Care Code 41606 SUB INP/OBS CARE 2/35MIN Diagnoses Recurrent falls R29.6 Hyponatremia E87.1 Right rib fracture S22.31XA Tobacco use Z72.0 Alcohol use F10.90 Cachexia R64 Megaloblastic anemia D53.1 Elevated bilirubin R17
--- NOTE | 2024-07-04 08:32 | Nephrology Progress Note ---
Date of Service July 04, 2024 Assessment & Plan (1) Hyponatremia: Plan: * Clinically euvolemic, hypoosmolar hyponatremia. Urine osmolality is inappropriately elevated. Urine sodium greater than 10. Suspect SIADH * Continue to restrict free water to 1500 cc/day * Continue sodium chloride 2 g p.o. twice daily * Uosm as dropped from 519 to 242 mOsm/kg w/ loop diuretic therapy * Continue furosemide 20 mg p.o. every morning to reduce urinary concentration * Recheck BMP, Uosm in am (2) Cachexia: Plan: * Unintentional weight loss and cachexia are concerning for underlying malignancy * Chest CT is negative for pulmonary mass * PSA 0.7 * Awaiting FOBT. Will order CEA (3) Tobacco use: Plan: * Will need smoking cessation counseling (4) Alcohol use: Plan: * Agree with B12, folate supplementation. * Will need monitoring for withdrawal symptoms Admission and Anticipated Discharge Date Admission Date: July 01, 2024 Subjective Mr. Whitaker was evaluated in his hospital room this morning. He is tolerating salt tablets without GI upset and voiced no new medical concerns. Review of Systems Constitutional: no fever Eyes: no problem reported Ear, Nose, Mouth, Throat: no problem reported Respiratory: no cough and no dyspnea Cardiovascular: no chest pain Gastrointestinal: no abdominal pain, no nausea, no vomiting and no diarrhea/loose stools Genitourinary: no dysuria, no hematuria or no flank pain Integumentary: no rash Neurologic: + falls Physical Exam Constitutional: + cachectic (6 foot, 123 pounds) Eyes: PERRL, conjunctivae normal, anicteric sclerae ENMT: external ear and nose normal, oropharynx normal Neck: trachea midline, no thyromegaly Respiratory: normal respiratory effort, lungs clear to auscultation Cardiovascular: RRR, no murmur, no edema Gastrointestinal (Abdomen): normal bowel sounds, soft, nontender, no hepatosplenomegaly Musculoskeletal: Extremities: no cyanosis and no clubbing Skin: no rashes, warm and dry Neurologic: Speech / Cognition: normal speech and normal cognition Psychiatric: Affect: euthymic affect Results & Data Vital Signs (Past 12 Hours) Vital Signs Temp Pulse Pulse Resp BP Pulse Ox O2 Del Method 07/04/24 07:37 81 07/04/24 03:59 36.6 C 82 16 131/84 99 Room Air 07/04/24 00:23 36.5 C 80 16 126/68 99 Room Air 07/03/24 22:22 91 H Laboratory Results Laboratory Results - last 24 hr 07/04/24 08:30 Sodium 133 L Potassium 3.9 Chloride 100 Carbon Dioxide 27 Anion Gap 6 BUN 22 Creatinine 1.18 Est Cr Clr Drug Dosing 49.7 eGFR 67.21 BUN/Creatinine Ratio 18.6 Glucose 114 H Calcium 9.5 PG Care Time/CCT Total # of Minutes Spent Total Time Spent with Patient: Total time spent is greater than 50% in coordination of care (as documented) at patient's floor/unit and/or counseling patient: Coding Level of Care Code 21199 SUB INP/OBS CARE 3/50MIN Diagnoses Hyponatremia E87.1 Cachexia R64 Tobacco use Z72.0 Alcohol use F10.90
[2024-07-04 09:15] LABS: BUN Creatinine Ratio 18.6 (10-20); Calcium 9.5 mg/dl (8.6-10.3); Creatinine Clr Calc Pharmacy 49.7 ml/min; Potassium 3.9 mmol/L (3.5-5.1)
--- NOTE | 2024-07-04 14:39 | Psychiatric Consultation ---
Date of Consultation July 04, 2024 Impression / Recommendations Impression Consistent with unspecified depression likely adjustment disorder with depressed mood vs depression 2/2 alcohol use. Acute risk of self-harm is low given denial of SI. He consistently speaks to his decision to return home, to alternative options, risks/benefits and his rationale. Can speak to his sister's perspective but also why he feels he will do well at home and why he wishes to return home. Overall, I spent a total of 60 minutes with this case including review of chart records, review of labwork, review of EKG QTc, direct evaluation of the patient at bedside, counseling the patient, discussion of the patient with the hospitalist provider, discussion with the psychiatric liason during clinical rounds and documentation in the electronic health record. (1) Depression: (2) Alcohol use: (3) Hyponatremia: Plan -Consider mirtazapine 15mg HS (monitor Na+, can cause hyponatremia but lower risk compared to SSRIs) -He has dispositional decision making capacity to return home -Liason to look into options for outpatient therapy and/or case management Psych History Identifying Data 69 yo man without significant past medical history admitted for falls and found to have hyponatremia and increased alcohol use. Psychiatry consulted for depression recommendations. Chief Complaint "I function ok, I might have a little depression". History of Present Illness Simba was admitted for recent falls and found to have hyponatremia. He also discussed increased alcohol use and his sister reported concerns about the state of his home noting urine on the couch cushions and fearing that he might not be able to care for himself. Today Simab reports that he was shocked by how much weight he had lost when weighed on admission and that he plans to stop drinking alcohol as this is likely what caused his hyponatremia and falls. He feels he'll be able to do this without needing additional support but understands AA and residential programs are available if needed. Identifies depression due to recent stressors including his mother having dementia and now that his dog had to be put to sleep. He self identifies that his sister has concerns about his living environment but he denies that it is "toxic" noting "it's disorganized and dirty" and reflects he struggled to clean up after his dog's frequent urinary accidents. But he wants to return home and feels he can care for his needs, speaks to how he does this, and is willing to have a professional hand glove cleaner come in. He is open to starting medication to help with depression and getting any additional supports such as CM or therapy if available. He continues to work but is considering retiring. 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 Sleep has been stable. Denies hopelessness. Denies any current or past thoughts of suicide. Allergies Allergy/AdvReac Type Severity Reaction Status Date / Time DUST Allergy Unknown Uncoded 07/28/02 16:47 [id number] Allergy Unknown Uncoded 07/28/02 16:47 N Allergy Unknown Uncoded 07/28/02 16:47 Home Medications Medication Instructions Recorded Confirmed Type No Known Home Medications 07/01/24 07/01/24 History Patient History Social History Smoking Status: Current every day smoker Tobacco Type: Cigarettes Hx Alcohol Use: Yes Alcohol type: hard liquor Hx Substance Use: No Preferred Language: Korean Communication Ability: Effective Head Of Sales And Marketing Required: No Beliefs That Will Affect Care: None Current Living Situation: Alone Feels Safe at Home: Yes Safety Concerns: Feels Safe At This Time Assistive Devices: None Physical Exam Psychiatric: Orientation: alert and oriented x 3 Speech: normal rate/rhyt hm/volume of speech Affect: euthymic affect Mood: + depressed mood Thought Content: reality based without delusions Suicidal Thoughts: denies suicidal thoughts Vital Signs (Past 24 Hours): Last Vital Signs Temp 36.3 C L 07/04/24 12:15 Pulse 85 07/04/24 12:15 Resp 18 07/04/24 12:15 BP 96/57 L 07/04/24 12:15 Pulse Ox 99 07/04/24 12:15 O2 Del Method Room Air 07/04/24 12:15 Results & Data (PSY) Medications Administered Acetaminophen (Acetaminophen 325 Mg Tab) 650 mg PO Q4H PRN PRN Reason: Pain or Fever Stop: 07/31/24 17:06 Last Admin: 07/03/24 21:56 Dose: 650 mg Documented By: Admin: 07/03/24 08:51 Dose: 650 mg Documented By: Admin: 07/02/24 13:48 Dose: 650 mg Documented By: Admin: 07/02/24 07:57 Dose: 650 mg Documented By: Admin: 07/01/24 19:41 Dose: 650 mg Documented By: BMS Folic Acid (Folic Acid 1 Mg Tab) 1 mg PO [facility] Stop: 08/01/24 08:59 Last Admin: 07/04/24 08:55 Dose: 1 mg Documented By: Admin: 07/03/24 08:08 Dose: 1 mg Documented By: Admin: 07/02/24 07:57 Dose: 1 mg Documented By: TMP Furosemide (Furosemide 20 Mg Tab) 20 mg PO [facility] Stop: 08/01/24 11:14 Last Admin: 07/04/24 08:55 Dose: 20 mg Documented By: Admin: 07/03/24 08:08 Dose: 20 mg Documented By: Admin: 07/02/24 12:00 Dose: 20 mg Documented By: TMP Miscellaneous (Remove Nicoderm Patch) 1 each N/A DAILY@0859 [facility] Stop: 08/01/24 08:58 Last Admin: 07/04/24 08:51 Dose: 1 each Documented By: Admin: 07/03/24 08:09 Dose: 1 each Documented By: Admin: 07/02/24 10:42 Dose: 1 each Documented By: ANIL Miscellaneous (Remove Lidoderm Patch) 1 each N/A DAILY@2100 [facility] Stop: 07/31/24 20:59 Last Admin: 07/03/24 21:56 Dose: Not Given Documented By: Admin: 07/02/24 19:34 Dose: Not Given Documented By: Admin: 07/01/24 19:42 Dose: Not Given Documented By: AURORA Multivitamins (Multivitamin Tab) 1 tab PO [facility] Stop: 08/01/24 08:59 Last Admin: 07/04/24 08:55 Dose: 1 tab Documented By: Admin: 07/03/24 08:08 Dose: 1 tab Documented By: Admin: 07/02/24 07:57 Dose: 1 tab Documented By: ANIL Nicotine (Nicotine 14 Mg/24 Hr Patch) 1 patch TD [facility] Stop: 07/31/24 14:59 Last Admin: 07/04/24 08:52 Dose: 1 patch Documented By: Admin: 07/03/24 08:08 Dose: 1 patch Documented By: Admin: 07/02/24 10:41 Dose: 1 patch Documented By: Admin: 07/01/24 16:18 Dose: 1 patch Documented By: ELIAN Sodium Chloride (Sodium Chloride 1 Gm Tablet) 2 gm PO BID [facility] Stop: 08/01/24 11:14 Last Admin: 07/04/24 08:54 Dose: 2 gm Documented By: Admin: 07/03/24 21:56 Dose: 2 gm Documented By: Admin: 07/03/24 08:08 Dose: 2 gm Documented By: Admin: 07/02/24 19:31 Dose: 2 gm Documented By: Admin: 07/02/24 12:00 Dose: 2 gm Documented By: ANIL Thiamine HCl (Thiamine Hcl 100 Mg Tab) 100 mg PO QAM [facility] Stop: 08/02/24 08:59 Last Admin: 07/04/24 08:58 Dose: 100 mg Documented By: Admin: 07/03/24 08:08 Dose: 100 mg Documented By: ANIL Coding Level of Care Code 59560 IN/OBS CONSULT LVL 4,60M Diagnoses Depression F32.A Alcohol use F10.90 Hyponatremia E87.1
--- NOTE | 2024-07-04 21:28 | Hospitalist Progress Note ---
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 Con't salt tabs BID Con't lasix Qam to reduce urinary concentration sodium improved (3) Right rib fracture: Plan: Pain/bruising at right posterior rib cage Chest CT revealed fracture of the medial aspect of T12 near costovertebral junction Lidocaine patch application Incentive spirometry q4h with >1500 goal (4) Tobacco use: Plan: Nicotine patch PRN (5) Alcohol use: Plan: AWSS at risk protocol with Ativan as needed symptoms appear controlled (6) Cachexia: Plan: Dietitian consult appreciated consulted psych for depression (7) Megaloblastic anemia: Plan: -b12, and folate supplementation (8) Elevated bilirubin: Plan: Elevated bilirubin at 2.5 on arrival AST:ALT 2:1 PT/INR ordered, pending Liver ultrasound negative Likely related to etoh use Plan Pt is a 69 y/o male who with b/l lower extremity weakness and multiple falls, found to have hyponatremia, and cachexia. 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 F/u Na+ levels in am 07/04, if improving D/C as per PT recommendations. Admission and Anticipated Discharge Date Admission Date: July 01, 2024 Subjective Patient reports no new tremors. Physical Exam Physical Exam: GENERAL APPEARANCE NAD HEAD/NECK normocephalic atraumatic, no facial trauma, neck is supple. RESPIRATORY respiratory effort normal, speaks in full sentences, no tripod position, no accessory muscle use. Lungs clear to auscultation without rhonchi, wheezes, rales CARDIAC Regular rate and rhythm, no edema. ABDOMINAL Soft, ND/NT. No evidence of fluid wave. No pulsatile masses on exam, rebound tenderness, Warner sign or pain over Mcburney's point. Results & Data Results & Data Vital Signs (Past 12 Hours) Vital Signs Temp Pulse Resp BP BP Pulse Ox O2 Del Method 07/04/24 20:08 36.6 C 87 17 124/74 98 Room Air 07/04/24 16:02 36.4 C L 93 H 18 119/73 99 Room Air 07/04/24 12:15 36.3 C L 85 18 96/57 L 99 Room Air PG Care Time/CCT Total # of Minutes Spent Total Time Spent with Patient: Total time spent is greater than 50% in coordination of care (as documented) at patient's floor/unit and/or counseling patient: Coding Level of Care Code 33543 SUB INP/OBS CARE 2/35MIN Diagnoses Recurrent falls R29.6 Hyponatremia E87.1 Right rib fracture S22.31XA Tobacco use Z72.0 Alcohol use F10.90 Cachexia R64 Megaloblastic anemia D53.1 Elevated bilirubin R17
[2024-07-04] MEDS: MIRTAZAPINE TAB 15 MG TAB PO SCH (21:58)
[2024-07-05 07:21] LABS: Hematocrit (blood only) 26.3 % (42.0-52.0); Hemoglobin 9.3 g/dl (14.0-18.0); Mean Corpuscular Hemoglobin 38.4 pg (25.0-34.0); Mean Corpuscular Hgb Conc 35.4 g/dL (32.0-36.0); Mean Corpuscular Volume 108.7 fL (80.0-100.0); Mean Platelet Volume 9.5 fL (9.4-12.4); Platelet Count 230 K/uL (130-400); RDW Coefficient of Variation 14.9 % (11.5-14.5); RDW Standard Deviation 60.3 fL (36.4-46.3); Red Blood Count 2.42 M/uL (4.70-6.10); White Blood Count 6.23 K/ul (4.8-10.8)
[2024-07-05 08:14] LABS: Albumin Globulin Ratio 1.8 (0.9-2); Albumin Level 3.9 gm/dl (3.4-5.0); BUN Creatinine Ratio 21.7 (10-20); Bilirubin,Total 0.4 mg/dl (0.2-1.0); Calcium 9.8 mg/dl (8.6-10.3); Globulin 2.2 gm/dl (2.5-4.0); Total Protein 6.1 gm/dl (6.0-8.3)
--- NOTE | 2024-07-05 08:25 | Nephrology Progress Note ---
Date of Service July 05, 2024 Assessment & Plan (1) Hyponatremia: Plan: * Clinically euvolemic, hypoosmolar hyponatremia. Urine osmolality is inappropriately elevated. Urine sodium greater than 10. Suspect SIADH * Serum sodium has corrected to 136 mmol/L today * Continue to restrict free water to 1500 cc/day * Reduce sodium chloride 1 g p.o. twice daily * Uosm as dropped from 519 to 242 mOsm/kg w/ loop diuretic therapy * Continue furosemide 20 mg p.o. every morning to reduce urinary concentration * Recheck BMP in am (2) Cachexia: Plan: * Unintentional weight loss and cachexia are concerning for underlying malignancy * Chest CT is negative for pulmonary mass * PSA 0.7 * CEA is mildly elevated * FOBT+ x1 yesterday. Will consult gastroenterology * Patient reports last colonoscopy > 10 years ago (3) Tobacco use: Plan: * Will need smoking cessation counseling (4) Alcohol use: Plan: * Agree with B12, folate supplementation. * Will need monitoring for withdrawal symptoms Admission and Anticipated Discharge Date Admission Date: July 01, 2024 Subjective Mr. Whitaker was evaluated in his hospital room this morning. He is tolerating salt tablets without GI upset and voiced no new medical concerns. FOBT was + x1 yesterday Review of Systems Constitutional: no fever Eyes: no problem reported Ear, Nose, Mouth, Throat: no problem reported Respiratory: no cough and no dyspnea Cardiovascular: no chest pain Gastrointestinal: no abdominal pain, no nausea, no vomiting and no diarrhea/loose stools Genitourinary: no dysuria, no hematuria or no flank pain Integumentary: no rash Neurologic: + falls Physical Exam Constitutional: + cachectic (6 foot, 123 pounds) Eyes: PERRL, conjunctivae normal, anicteric sclerae ENMT: external ear and nose normal, oropharynx normal Neck: trachea midline, no thyromegaly Respiratory: normal respiratory effort, lungs clear to auscultation Cardiovascular: RRR, no murmur, no edema Gastrointestinal (Abdomen): normal bowel sounds, soft, nontender, no hepatosplenomegaly Musculoskeletal: Extremities: no cyanosis and no clubbing Skin: no rashes, warm and dry Neurologic: Speech / Cognition: normal speech and normal cognition Psychiatric: Affect: euthymic affect Results & Data Vital Signs (Past 12 Hours) Vital Signs Temp Pulse Pulse Resp BP Pulse Ox O2 Del Method 07/05/24 07:40 36.6 C 77 16 161/83 H 100 Room Air 07/05/24 03:26 36.5 C 82 17 160/88 H 100 Room Air 07/04/24 23:29 36.6 C 76 17 122/68 99 Room Air 07/04/24 21:51 82 Laboratory Results Laboratory Results - last 24 hr 07/04/24 07/04/24 07/04/24 08:30 11:18 14:27 WBC RBC Hgb Hct MCV MCH MCHC RDW Std Deviation RDW Coeff of Selvin Plt Count MPV Sodium 133 L Potassium 3.9 Chloride 100 Carbon Dioxide 27 Anion Gap 6 BUN 22 Creatinine 1.18 Est Cr Clr Drug Dosing 49.7 eGFR 67.21 BUN/Creatinine Ratio 18.6 Glucose 114 H Calcium 9.5 Total Bilirubin AST ALT Alkaline Phosphatase Total Protein Albumin Globulin Albumin/Globulin Ratio Carcinoembryonic Ag 3.5 H Stool Occult Bld Scrn Positive A 07/05/24 06:51 WBC 6.23 RBC 2.42 L Hgb 9.3 L Hct 26.3 L MCV 108.7 H MCH 38.4 H MCHC 35.4 RDW Std Deviation 60.3 H RDW Coeff of Selvin 14.9 H Plt Count 230 MPV 9.5 Sodium 136 Potassium 4.0 Chloride 102 Carbon Dioxide 28 Anion Gap 6 BUN 25 H Creatinine 1.15 Est Cr Clr Drug Dosing 52.0 eGFR 69.32 BUN/Creatinine Ratio 21.7 H Glucose 97 Calcium 9.8 Total Bilirubin 0.4 AST 29 ALT 20 Alkaline Phosphatase 72 Total Protein 6.1 Albumin 3.9 Globulin 2.2 L Albumin/Globulin Ratio 1.8 Carcinoembryonic Ag Stool Occult Bld Scrn PG Care Time/CCT Total # of Minutes Spent Total Time Spent with Patient: Total time spent is greater than 50% in coordination of care (as documented) at patient's floor/unit and/or counseling patient: Coding Level of Care Code 94654 SUB INP/OBS CARE 3/50MIN Diagnoses Hyponatremia E87.1 Cachexia R64 Tobacco use Z72.0 Alcohol use F10.90
[2024-07-05] MEDS: SODIUM CHLORIDE 1 GM TABLET PO SCH (08:50)
--- NOTE | 2024-07-05 10:36 | Gastrointestinal Consultation ---
Date of Consultation July 05, 2024 Assessment & Plan (1) Weight loss: 69 year old male w/ history of cachexia, weight loss, recurrent falls, SIADH, depression and others below admitted through the ED w/ ambulation difficulty - GI was asked to evaluate for weight loss and FOBT + He denies abd pain, nausea/vomiting, GERD, dysphagia, black/bloody stools or change in bowel habits. He has concerns about the safety of tolerating a bowel preparation at home due to some ambulation concerns and is requesting endoscopic evaluation while admitted if appropriate. 1. Weight loss, anemia, heme positive stools - CTAP w/ IV and oral contrast - EGD/Colonoscopy timing to be determined, tentative plan for - Check iron panel, ferritin - Celiac studies - ETOH cessation - Smoking cessation - Add boost/ensure or some supplemental nutrition - Encouraged to try smaller, more frequent meals I spent a total of 60 minutes on the date of service in review of patient's record, and previously obtained information in person and appropriate medical visit, discussion and education of plan, with patient and/or caregiver, placing orders for tests/referral/procedures as medically necessary and documentation of pertinent clinical information in patient's medical records for their visit today.Thank you for allowing us to participate in the care of this patient. Please call with any acute changes, questions or concerns. Please see addendum below with additional recommendation from my supervising physician. Supervising Physician Co-Signing Physician Notes Reviewed with nurse practitioner. Notes above reviewed. Patient examined at the bedside. Does appear thin and cachectic. Appears orientated x 3. Patient's fall seems to be a balance issue. He has megaloblastic anemia and is currently being supplemented with thiamine and B12. CT scan does show duodenitis versus duodenal ulcer though no obvious neoplasia. It is not clear that his cachexia is related to an absorption problem but may be more related to calorie ingestion. He lives alone and cooks for himself. Does seem to drink on a regular basis. To complete workup for weight loss and cachexia would be reasonable to have him undergo an upper endoscopy. CT does suggest some duodenal changes which will be visualized. Can evaluate for changes of celiac at that time. May consider biopsies for Whipple's disease also. The colon looks normal on CT though we will evaluate for polyps neoplasia and/or Crohn's. Patient's falls may be related to cachexia weakness though cerebellar ataxia from chronic alcoholism is on the differential. Reviewed EGD colonoscopy with the patient is agreeable to proceed. Will do so tomorrow. History of Present Illness Reason for Consultation: weight loss, FOBT + Requesting Physician: Lawrence Hinojosa Attending Physician: Lawrence Hinojosa History of Present Illness 69 year old male w/ history of cachexia, weight loss, recurrent falls, SIADHs, depression and others below admitted through the ED w/ ambulation difficulty - GI was asked to evaluate for weight loss and FOBT +. Pt was seen and evaluated, chart reviewed. Notes he is feeling well. Denies abd pain. No nausea/vomiting. Tolerating PO intake well but endorses chronic decreased appetite and only eats one meal a day. Denies reflux/regurgitation. No dysphagia. Stools move daily. No black or bloody stools. Typically one semi-formed movement daily. He endorses a 20+ lb weight loss over the last 3-4 months. No fever, chills, CP, SOB. NSAIDs: denies ETOH: 3-4 shots daily in mixed drinks Tobacco: 1ppd GI labs: 9.3, MCV 108 GI stools: + occult blood ABD US 2024: Mildly echogenic/fatty liver. Contracted gallbladder. Common bile duct top normal in size. No evidence for cholelithiasis or biliary obstruction. EGD: none Colonoscopy: 10+ years ago in [place] Family history of GI malignancy: none Family history of celiac: none Family history of IBD: none Allergies Allergy/AdvReac Type Severity Reaction Status Date / Time DUST Allergy Unknown Uncoded 07/28/02 16:47 [id number] Allergy Unknown Uncoded 07/28/02 16:47 N Allergy Unknown Uncoded 07/28/02 16:47 Home Medications Medication Instructions Recorded Confirmed Type No Known Home Medications 07/01/24 07/01/24 History Patient History Social History Smoking Status: Current every day smoker Tobacco Type: Cigarettes Hx Alcohol Use: Yes Alcohol type: hard liquor Hx Substance Use: No Preferred Language: [place] Leonean Communication Ability: Effective Shadowgraph Operator Required: No Beliefs That Will Affect Care: None Current Living Situation: Alone Feels Safe at Home: Yes Safety Concerns: Feels Safe At This Time Assistive Devices: None Review of Systems Review of Systems: All other findings negative except as noted in HPI. Physical Exam Constitutional: WD/WN, vitals as above Respiratory: normal respiratory effort, lungs clear to auscultation Cardiovascular: Rate/Rhythm: regular rate and regular rhythm Gastrointestinal (Abdomen): normal bowel sounds, soft, nontender, no hepatosplenomegaly Skin: no rashes, warm and dry Results & Data Vital Signs (Past 12 Hours) Vital Signs Temp Pulse Resp BP Pulse Ox O2 Del Method 07/05/24 07:40 97.9 F 77 16 161/83 H 100 Room Air 07/05/24 03:26 97.7 F 82 17 160/88 H 100 Room Air 07/04/24 23:29 97.9 F 76 17 122/68 99 Room Air Laboratory Results 07/05/24 07/04/24 07/04/24 Range/Units 06:51 14:27 11:18 WBC 6.23 (4.8-10.8) K/ul RBC 2.42 L (4.70-6.10) M/uL Hgb 9.3 L (14.0-18.0) g/dl Hct 26.3 L (42.0-52.0) % MCV 108.7 H (80.0-100.0) fL MCH 38.4 H (25.0-34.0) pg MCHC 35.4 (32.0-36.0) g/dL RDW Std Deviation 60.3 H (36.4-46.3) fL RDW Coeff of Selvin 14.9 H (11.5-14.5) % Plt Count 230 (130-400) K/uL MPV 9.5 (9.4-12.4) fL Sodium 136 (136-145) mmol/L Potassium 4.0 (3.5-5.1) mmol/L Chloride 102 (98-107) mmol/L Carbon Dioxide 28 (21-32) mmol/L Anion Gap 6 (3-11) BUN 25 H (6-23) mg/dl Creatinine 1.15 (0.6-1.4) mg/dl Est Cr Clr Drug Dosing 52.0 ml/min eGFR 69.32 BUN/Creatinine Ratio 21.7 H (10-20) Glucose 97 (70-99(Fasting)) mg/dl Calcium 9.8 (8.6-10.3) mg/dl Total Bilirubin 0.4 (0.2-1.0) mg/dl AST 29 (13-39) U/L ALT 20 (7-52) U/L Alkaline Phosphatase 72 (34-104) U/L Total Protein 6.1 (6.0-8.3) gm/dl Albumin 3.9 (3.4-5.0) gm/dl Globulin 2.2 L (2.5-4.0) gm/dl Albumin/Globulin Ratio 1.8 (0.9-2) Carcinoembryonic Ag 3.5 H (0-2.5) ng/ml Stool Occult Bld Scrn Positive A (Negative) PG Care Time/CCT Total # of Minutes Spent Total Time Spent with Patient: Total time spent is greater than 50% in coordination of care (as documented) at patient's floor/unit and/or counseling patient: Coding Level of Care Code 35806 INT INP/OBS CARE 2/55MIN Diagnoses Weight loss R63.4
[2024-07-05 12:04] LABS: Ferritin 426.2 ng/ml (8-388)
[2024-07-05] MEDS: OPTIRAY 320 100ml IV ONE (13:32)
--- NOTE | 2024-07-05 15:00 | CT Scan Report ---
ABDOMEN AND PELVIS CT WITH IV AND ORAL CONTRAST CT DOSE: 532.82 mGy.cm HISTORY: chachexia/ GI bleed/ cncern for malignancy TECHNIQUE: Multiaxial CT images of the abdomen and pelvis were performed following the IV administrat ion of 90 cc of Optiray and oral contrast. A dose lowering technique was utilized adhering to the pr inciples of RAJIV. COMPARISON STUDY: None FINDINGS: ABDOMEN: There is a tiny cyst in the right hepatic lobe. Otherwise the liver, gallbladder, spleen, pa ncreas, and adrenal glands are unremarkable. Kidneys show no hydronephrosis or calculi. No renal mass . There are scattered atherosclerotic calcifications. No abdominal aortic aneurysm. There is moderate wall thickening at the duodenum, duodenitis versus ulcer. Pelvis: Prostate is mildly enlarged. Urinary bladder is nondistended. There is mild sigmoid diverticu losis. No acute diverticulitis. No bowel inflammation or obstruction. No free fluid, free air, or abs cess. No enlarged adenopathy. Osseous structures: There is degenerative disc disease at L5-S1. IMPRESSION: 1. Duodenitis versus duodenal ulcer. 2. No other acute findings seen. Otherwise as described. ACT 112: Positive. There are findings on this exam that require communication between the performing entity and the patient following Patient Test Result Information Act ([place] Act 112) guidelines. The above report was generated using voice recognition software. It may contain grammatical, syntax o r spelling errors. Electronically signed by: Guzman Perez M.D. 07/05/2024 2:58 PM
[2024-07-05] MEDS: PANTOprazole 40 MG TAB PO SCH (21:15)
--- NOTE | 2024-07-05 22:58 | Hospitalist Progress Note ---
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 Con't salt tabs BID Con't lasix Qam to reduce urinary concentration sodium improved (3) Right rib fracture: Plan: Pain/bruising at right posterior rib cage Chest CT revealed fracture of the medial aspect of T12 near costovertebral junction Lidocaine patch application Incentive spirometry q4h with >1500 goal (4) Tobacco use: Plan: Nicotine patch PRN (5) Alcohol use: Plan: AWSS at risk protocol with Ativan as needed symptoms appear controlled (6) Cachexia: Plan: Dietitian consult appreciated consulted psych for depression due to weight loss will consult gastro as concern ofr gastro malignancy ordered ct scan of abd/pelvis clear liquid diet. (7) Megaloblastic anemia: Plan: -b12, and folate supplementation (8) Elevated bilirubin: Plan: Elevated bilirubin at 2.5 on arrival AST:ALT 2:1 PT/INR ordered, pending Liver ultrasound negative Likely related to etoh use Plan Pt is a 69 y/o male who with b/l lower extremity weakness and multiple falls, found to have hyponatremia, and cachexia. 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 F/u Na+ levels in am 1/20, if improving D/C as per PT recommendations. Admission and Anticipated Discharge Date Admission Date: July 01, 2024 Subjective Patient reports no new symptoms. Physical Exam Physical Exam: GENERAL APPEARANCE NAD HEAD/NECK normocephalic atraumatic, no facial trauma, neck is supple. RESPIRATORY respiratory effort normal, speaks in full sentences, no tripod position, no accessory muscle use. Lungs clear to auscultation without rhonchi, wheezes, rales CARDIAC Regular rate and rhythm, no edema. ABDOMINAL Soft, ND/NT. No evidence of fluid wave. No pulsatile masses on exam, rebound tenderness, Warner sign or pain over Mcburney's point. Results & Data Results & Data Vital Signs (Past 12 Hours) Vital Signs Temp Pulse Pulse Resp BP BP Pulse Ox 07/05/24 22:33 36.4 C L 74 16 157/83 H 100 07/05/24 19:01 36.6 C 92 H 16 128/78 98 07/05/24 15:27 36.6 C 80 18 112/67 95 07/05/24 15:21 80 07/05/24 11:46 36.4 C L 87 18 121/73 100 O2 Del Method 07/05/24 22:33 Room Air 07/05/24 19:01 Room Air 07/05/24 15:27 Room Air 07/05/24 15:21 07/05/24 11:46 Room Air PG Care Time/CCT Total # of Minutes Spent Total Time Spent with Patient: Total time spent is greater than 50% in coordination of care (as documented) at patient's floor/unit and/or counseling patient: Coding Level of Care Code 47041 SUB INP/OBS CARE 3/50MIN Diagnoses Recurrent falls R29.6 Hyponatremia E87.1 Right rib fracture S22.31XA Tobacco use Z72.0 Alcohol use F10.90 Cachexia R64 Megaloblastic anemia D53.1 Elevated bilirubin R17
--- NOTE | 2024-07-06 08:20 | Nephrology Progress Note ---
Date of Service July 06, 2024 Assessment & Plan (1) Hyponatremia: Plan: * Clinically euvolemic, hypoosmolar hyponatremia. Urine osmolality is inappropriately elevated. Urine sodium greater than 10. Suspect SIADH * Serum sodium has corrected to 136 mmol/L today * Continue to restrict free water to 1500 cc/day * Reduce sodium chloride 1 g p.o. twice daily * Uosm as dropped from 519 to 242 mOsm/kg w/ loop diuretic therapy * Continue furosemide 20 mg p.o. every morning to reduce urinary concentration * Recheck BMP in am (2) Cachexia: Plan: * Unintentional weight loss and cachexia are concerning for underlying malignancy * Chest CT is negative for pulmonary mass * PSA 0.7 * CEA is mildly elevated * FOBT+ x1 yesterday. Plan for colonoscopy in am * Patient reports last colonoscopy > 10 years ago (3) Tobacco use: Plan: * Will need smoking cessation counseling (4) Alcohol use: Plan: * Agree with B12, folate supplementation. * Will need monitoring for withdrawal symptoms Admission and Anticipated Discharge Date Admission Date: July 01, 2024 Subjective Mr. Whitaker was evaluated in his hospital room this morning. He is tolerating salt tablets without GI upset and voiced no new medical concerns. He reports colonoscopy is scheduled for am Review of Systems Constitutional: no fever Eyes: no problem reported Ear, Nose, Mouth, Throat: no problem reported Respiratory: no cough and no dyspnea Cardiovascular: no chest pain Gastrointestinal: no abdominal pain, no nausea, no vomiting and no diarrhea/loose stools Genitourinary: no dysuria, no hematuria or no flank pain Integumentary: no rash Neurologic: + falls Physical Exam Constitutional: + cachectic (6 foot, 123 pounds) Eyes: PERRL, conjunctivae normal, anicteric sclerae ENMT: external ear and nose normal, oropharynx normal Neck: trachea midline, no thyromegaly Respiratory: normal respiratory effort, lungs clear to auscultation Cardiovascular: RRR, no murmur, no edema Gastrointestinal (Abdomen): normal bowel sounds, soft, nontender, no hepatosplenomegaly Musculoskeletal: Extremities: no cyanosis and no clubbing Skin: no rashes, warm and dry Neurologic: Speech / Cognition: normal speech and normal cognition Psychiatric: Affect: euthymic affect Results & Data Vital Signs (Past 12 Hours) Vital Signs Temp Pulse Pulse Resp BP BP Pulse Ox 07/06/24 07:52 36.6 C 70 20 164/89 H 97 07/06/24 07:11 74 07/06/24 03:44 36.6 C 75 16 143/69 H 100 07/05/24 22:58 79 07/05/24 22:33 36.4 C L 74 16 157/83 H 100 O2 Del Method 07/06/24 07:52 Room Air 07/06/24 07:11 07/06/24 03:44 Room Air 07/05/24 22:58 07/05/24 22:33 Room Air Laboratory Results Laboratory Results - last 24 hr 07/05/24 07/05/24 11:07 12:18 Iron 45 TIBC 385 Transferrin 275 Transferrin % Sat 12 L Ferritin 426.2 H Urine Osmolality 374 L IgA Pending Tiss Transglutamin IgA Pending Celiac Disease Interp Pending Laboratory Results - last 24 hr 07/05/24 07/05/24 07/06/24 11:07 12:18 07:36 WBC 5.00 RBC 2.45 L Hgb 9.4 L Hct 26.7 L MCV 109.0 H MCH 38.4 H MCHC 35.2 RDW Std Deviation 60.1 H RDW Coeff of Selvin 15.3 H Plt Count 258 MPV 9.4 Sodium 136 Potassium 3.9 Chloride 101 Carbon Dioxide 28 Anion Gap 7 BUN 16 Creatinine 0.91 Est Cr Clr Drug Dosing 64.5 eGFR 91.80 BUN/Creatinine Ratio 17.6 Glucose 93 Calcium 9.5 Iron 45 TIBC 385 Transferrin 275 Transferrin % Sat 12 L Ferritin 426.2 H Urine Osmolality 374 L IgA Pending Tiss Transglutamin IgA Pending Celiac Disease Interp Pending PG Care Time/CCT Total # of Minutes Spent Total Time Spent with Patient: Total time spent is greater than 50% in coordination of care (as documented) at patient's floor/unit and/or counseling patient: Coding Level of Care Code 88265 SUB INP/OBS CARE 3/50MIN Diagnoses Hyponatremia E87.1 Cachexia R64 Tobacco use Z72.0 Alcohol use F10.90
[2024-07-06 08:39] LABS: Hematocrit (blood only) 26.7 % (42.0-52.0); Hemoglobin 9.4 g/dl (14.0-18.0); Mean Corpuscular Hemoglobin 38.4 pg (25.0-34.0); Mean Corpuscular Hgb Conc 35.2 g/dL (32.0-36.0); Mean Platelet Volume 9.4 fL (9.4-12.4); Platelet Count 258 K/uL (130-400); RDW Coefficient of Variation 15.3 % (11.5-14.5); RDW Standard Deviation 60.1 fL (36.4-46.3); Red Blood Count 2.45 M/uL (4.70-6.10)
[2024-07-06 08:56] LABS: BUN Creatinine Ratio 17.6 (10-20); Calcium 9.5 mg/dl (8.6-10.3); Creatinine Clr Calc Pharmacy 64.5 ml/min; Potassium 3.9 mmol/L (3.5-5.1)
--- NOTE | 2024-07-06 09:56 | Gastroenterology Progress Note ---
Date of Service July 06, 2024 Assessment & Plan (1) Weight loss: Plan: 69 year old male w/ history of cachexia, weight loss, recurrent falls, SIADH, depression and others below admitted through the ED w/ ambulation difficulty - GI was asked to evaluate for weight loss and FOBT + He denies abd pain, nausea/vomiting, GERD, dysphagia, black/bloody stools or change in bowel habits. He has concerns about the safety of tolerating a bowel preparation at home due to some ambulation concerns and is requesting endoscopic evaluation while admitted if appropriate. 1. Weight loss, anemia, heme positive stools - CTAP w/ Duodenitis versus duodenal ulcer. - Pantoprazole 40 twice daily - Clear liquid diet today - Golytely bowel prep - NPO after midnight - EGD/Colonoscopy - Check iron panel, ferritin - Celiac studies - ETOH cessation - Smoking cessation - Add boost/ensure or some supplemental nutrition - Encouraged to try smaller, more frequent meals I spent a total of 40 minutes on the date of service in review of patient's record, and previously obtained information in person and appropriate medical visit, discussion and education of plan, with patient and/or caregiver, placing orders for tests/referral/procedures as medically necessary and documentation of pertinent clinical information in patient's medical records for their visit today.Thank you for allowing us to participate in the care of this patient. Please call with any acute changes, questions or concerns. Please see addendum below with additional recommendation from my supervising physician. Admission and Anticipated Discharge Date Admission Date: July 01, 2024 Supervising Physician Co-Signing Physician Notes Patient was seen at the bedside. Appears comfortable. Drinking his GoLytely. Plan for EGD colonoscopy tomorrow. Evaluate for weight loss failure to thrive. Subjective Offers no concerns this AM. Denies abd pain, nausea/vomiting. Moving bowels, brown stools. No report of black or bloody stools. Feels stronger, more steady w/ ambulation. GI labs: 9.09/07, MCV 108 GI stools: + occult blood CTAP 2024: Duodenitis versus duodenal ulcer. ABD US 2024: Mildly echogenic/fatty liver. Contracted gallbladder. Common bile duct top normal in size. No evidence for cholelithiasis or biliary obstruction. EGD: none Colonoscopy: 10+ years ago in [place] Family history of GI malignancy: none Family history of celiac: none Family history of IBD: none Review of Systems Review of Systems: All other findings negative except as noted in HPI. Physical Exam Constitutional: WD/WN, vitals as above Respiratory: normal respiratory effort Cardiovascular: Rate/Rhythm: regular rate Gastrointestinal (Abdomen): normal bowel sounds, soft, nontender, no hepatosplenomegaly Skin: no rashes, warm and dry Results & Data Results & Data Vital Signs (Past 12 Hours) Vital Signs Temp Pulse Pulse Resp BP BP Pulse Ox 07/06/24 09:08 07/06/24 07:52 97.9 F 70 20 164/89 H 97 07/06/24 07:11 74 07/06/24 03:44 97.9 F 75 16 143/69 H 100 07/05/24 22:58 79 07/05/24 22:33 97.5 F L 74 16 157/83 H 100 O2 Del Method 07/06/24 09:08 Room Air 07/06/24 07:52 Room Air 07/06/24 07:11 07/06/24 03:44 Room Air 07/05/24 22:58 07/05/24 22:33 Room Air Laboratory Results 07/06/24 07/05/24 07/05/24 Range/Units 07:36 12:18 11:07 WBC 5.00 (4.8-10.8) K/ul RBC 2.45 L (4.70-6.10) M/uL Hgb 9.4 L (14.0-18.0) g/dl Hct 26.7 L (42.0-52.0) % MCV 109.0 H (80.0-100.0) fL MCH 38.4 H (25.0-34.0) pg MCHC 35.2 (32.0-36.0) g/dL RDW Std Deviation 60.1 H (36.4-46.3) fL RDW Coeff of Selvin 15.3 H (11.5-14.5) % Plt Count 258 (130-400) K/uL MPV 9.4 (9.4-12.4) fL Sodium 136 (136-145) mmol/L Potassium 3.9 (3.5-5.1) mmol/L Chloride 101 (98-107) mmol/L Carbon Dioxide 28 (21-32) mmol/L Anion Gap 7 (3-11) BUN 16 (6-23) mg/dl Creatinine 0.91 (0.6-1.4) mg/dl Est Cr Clr Drug Dosing 64.5 ml/min eGFR 91.80 BUN/Creatinine Ratio 17.6 (10-20) Glucose 93 (70-99(Fasting)) mg/dl Calcium 9.5 (8.6-10.3) mg/dl Iron 45 (35-175) mcg/dl TIBC 385 (250-450) mcg/dl Transferrin 275 (200-360) mg/dl Transferrin % Sat 12 L (20-50) % Ferritin 426.2 H (8-388) ng/ml Urine Osmolality 374 L (500-800) mOsm/kg IgA Pending Tiss Transglutamin IgA Pending Celiac Disease Interp Pending PG Care Time/CCT Total # of Minutes Spent Total Time Spent with Patient: Total time spent is greater than 50% in coordination of care (as documented) at patient's floor/unit and/or counseling patient: Coding Level of Care Code 76336 SUB INP/OBS CARE 1/25MIN Diagnoses Weight loss R63.4
[2024-07-06] MEDS: LAVAGE SOLUTION 4000ML PO SCH (16:11)
[2024-07-06] MEDS: LORazepam 2 MG/1 ML VIAL IV PRN (20:34)
--- NOTE | 2024-07-06 22:29 | Hospitalist Progress Note ---
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 Con't salt tabs BID Con't lasix Qam to reduce urinary concentration sodium improved (3) Right rib fracture: Plan: Pain/bruising at right posterior rib cage Chest CT revealed fracture of the medial aspect of T12 near costovertebral junction Lidocaine patch application Incentive spirometry q4h with >1500 goal (4) Tobacco use: Plan: Nicotine patch PRN (5) Alcohol use: Plan: AWSS at risk protocol with Ativan as needed symptoms appear controlled (6) Cachexia: Plan: Dietitian consult appreciated consulted psych for depression due to weight loss will consult gastro as concern ofr gastro malignancy ordered ct scan of abd/pelvis: negative. due to +fobt and weight loss will plan for scope on 07/07 upper and lower GI by gastroenterology reviewed blood work on 07/06, hemoglobin stable. (7) Megaloblastic anemia: Plan: -b12, and folate supplementation (8) Elevated bilirubin: Plan: Elevated bilirubin at 2.5 on arrival AST:ALT 2:1 PT/INR ordered, pending Liver ultrasound negative Likely related to etoh use Plan Pt is a 69 y/o male who with b/l lower extremity weakness and multiple falls, found to have hyponatremia, and cachexia. 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 F/u Na+ levels in am 20, if improving D/C as per PT recommendations. Admission and Anticipated Discharge Date Admission Date: July 01, 2024 Subjective 69 yo male reports no new symptoms. Review of Systems Review of Systems: All systems reviewed & are unremarkable except as noted in HPI & below Physical Exam Physical Exam: GENERAL APPEARANCE NAD HEAD/NECK normocephalic atraumatic, no facial trauma, neck is supple. RESPIRATORY respiratory effort normal, speaks in full sentences, no tripod position, no accessory muscle use. Lungs clear to auscultation without rhonchi, wheezes, rales CARDIAC Regular rate and rhythm, no edema. ABDOMINAL Soft, ND/NT. No evidence of fluid wave. No pulsatile masses on exam, rebound tenderness, Warner sign or pain over Mcburney's point. Results & Data Results & Data Vital Signs (Past 12 Hours) Vital Signs Temp Pulse Pulse Resp BP BP Pulse Ox 07/06/24 20:52 07/06/24 19:30 36.5 C 77 16 172/95 H 100 07/06/24 16:01 36.6 C 71 16 146/84 H 100 07/06/24 13:56 91 H 07/06/24 11:54 36.6 C 68 16 143/80 H 100 O2 Del Method 07/06/24 20:52 Room Air 07/06/24 19:30 Room Air 07/06/24 16:01 Room Air 07/06/24 13:56 07/06/24 11:54 Room Air PG Care Time/CCT Total # of Minutes Spent Total Time Spent with Patient: Total time spent is greater than 50% in coordination of care (as documented) at patient's floor/unit and/or counseling patient: Coding Level of Care Code 29113 SUB INP/OBS CARE 3/50MIN Diagnoses Recurrent falls R29.6 Hyponatremia E87.1 Right rib fracture S22.31XA Tobacco use Z72.0 Alcohol use F10.90 Cachexia R64 Megaloblastic anemia D53.1 Elevated bilirubin R17
[2024-07-07 01:27] LABS: IgA Serum 176 mg/dL (70-320); Tis Trans IgA <1.0 U/mL
[2024-07-07 06:08] LABS: Hematocrit (blood only) 26.9 % (42.0-52.0); Hemoglobin 9.4 g/dl (14.0-18.0); Mean Corpuscular Hemoglobin 37.8 pg (25.0-34.0); Mean Corpuscular Hgb Conc 34.9 g/dL (32.0-36.0); Platelet Count 276 K/uL (130-400); RDW Coefficient of Variation 14.7 % (11.5-14.5); RDW Standard Deviation 57.9 fL (36.4-46.3); Red Blood Count 2.49 M/uL (4.70-6.10); White Blood Count 5.07 K/ul (4.8-10.8)
[2024-07-07 06:26] LABS: BUN Creatinine Ratio 12.5 (10-20); Calcium 9.5 mg/dl (8.6-10.3); Creatinine Clr Calc Pharmacy 62.7 ml/min; Potassium 3.9 mmol/L (3.5-5.1)
--- NOTE | 2024-07-07 08:20 | Nephrology Progress Note ---
Date of Service July 07, 2024 Assessment & Plan (1) Hyponatremia: Plan: * Clinically euvolemic, hypoosmolar hyponatremia. Urine osmolality is inappropriately elevated. Urine sodium greater than 10. Suspect SIADH * Serum sodium has corrected to 136 mmol/L today * Continue to restrict free water to 1500 cc/day * Reduce sodium chloride 1 g p.o. twice daily * Uosm as dropped from 519 to 242 mOsm/kg w/ loop diuretic therapy * Continue furosemide 20 mg po every morning to reduce urinary concentration * Recheck BMP in am (2) Cachexia: Plan: * Unintentional weight loss and cachexia are concerning for underlying malignancy * Chest CT is negative for pulmonary mass * PSA 0.7 * CEA is mildly elevated * FOBT+ x1 yesterday. Plan for colonoscopy today * Patient reports last colonoscopy > 10 years ago (3) Tobacco use: Plan: * Will need smoking cessation counseling (4) Alcohol use: Plan: * Agree with B12, folate supplementation. * Will need monitoring for withdrawal symptoms Admission and Anticipated Discharge Date Admission Date: July 01, 2024 Subjective Mr. Whitaker was evaluated in his hospital room this morning. He is tolerating salt tablets without GI upset and voiced no new medical concerns. He is awaiting colonoscopy Review of Systems Constitutional: no fever Eyes: no problem reported Ear, Nose, Mouth, Throat: no problem reported Respiratory: no cough and no dyspnea Cardiovascular: no chest pain Gastrointestinal: no abdominal pain, no nausea, no vomiting and no diarrhea/loose stools Genitourinary: no dysuria, no hematuria or no flank pain Integumentary: no rash Neurologic: + falls Physical Exam Constitutional: + cachectic (6 foot, 123 pounds) Eyes: PERRL, conjunctivae normal, anicteric sclerae ENMT: external ear and nose normal, oropharynx normal Neck: trachea midline, no thyromegaly Respiratory: normal respiratory effort, lungs clear to auscultation Cardiovascular: RRR, no murmur, no edema Gastrointestinal (Abdomen): normal bowel sounds, soft, nontender, no hepatosplenomegaly Musculoskeletal: Extremities: no cyanosis and no clubbing Skin: no rashes, warm and dry Neurologic: Speech / Cognition: normal speech and normal cognition Psychiatric: Affect: euthymic affect Results & Data Vital Signs (Past 12 Hours) Vital Signs Temp Pulse Pulse Resp BP BP Pulse Ox 07/07/24 07:33 36.5 C 76 20 154/83 H 99 07/07/24 07:18 70 07/07/24 02:49 36.6 C 77 18 153/77 H 99 07/07/24 00:44 74 07/06/24 22:30 36.4 C L 72 16 163/87 H 99 07/06/24 20:52 O2 Del Method 07/07/24 07:33 Room Air 07/07/24 07:18 07/07/24 02:49 Room Air 07/07/24 00:44 07/06/24 22:30 Room Air 07/06/24 20:52 Room Air Laboratory Results Laboratory Results - last 24 hr 07/05/24 07/06/24 07/07/24 11:07 07:36 05:28 WBC 5.00 5.07 RBC 2.45 L 2.49 L Hgb 9.4 L 9.4 L Hct 26.7 L 26.9 L MCV 109.0 H 108.0 H MCH 38.4 H 37.8 H MCHC 35.2 34.9 RDW Std Deviation 60.1 H 57.9 H RDW Coeff of Selvin 15.3 H 14.7 H Plt Count 258 276 MPV 9.4 9.0 L Sodium 136 136 Potassium 3.9 3.9 Chloride 101 100 Carbon Dioxide 28 28 Anion Gap 7 8 BUN 16 12 Creatinine 0.91 0.96 Est Cr Clr Drug Dosing 64.5 62.7 eGFR 91.80 86.10 BUN/Creatinine Ratio 17.6 12.5 Glucose 93 85 Calcium 9.5 9.5 IgA 176 Tiss Transglutamin IgA <1.0 Celiac Disease Interp SEE NOTE PG Care Time/CCT Total # of Minutes Spent Total Time Spent with Patient: Total time spent is greater than 50% in coordination of care (as documented) at patient's floor/unit and/or counseling patient: Coding Level of Care Code 79486 SUB INP/OBS CARE 3/50MIN Diagnoses Hyponatremia E87.1 Cachexia R64 Tobacco use Z72.0 Alcohol use F10.90
--- NOTE | 2024-07-07 09:51 | Gastroenterology Progress Note ---
Date of Service July 07, 2024 Assessment & Plan (1) Weight loss: Plan: 69 year old male w/ history of cachexia, weight loss, recurrent falls, SIADH, depression and others below admitted through the ED w/ ambulation difficulty - GI was asked to evaluate for weight loss and FOBT + He denies abd pain, nausea/vomiting, GERD, dysphagia, black/bloody stools or change in bowel habits. He has concerns about the safety of tolerating a bowel preparation at home due to some ambulation concerns and is requesting endoscopic evaluation while admitted if appropriate. Maintain NPO status for EGD/Colon today. Pantoprazole 40 twice daily We appreciate assistance in the management of any serological abnormality and corrections to include: hemoglobin >7, INR <2, platelets >50,000, potassium levels >3.5 but <5.3, and sodium levels within 5 points of the reference range prior to endoscopic evaluation. Plan EGD colon Admission and Anticipated Discharge Date Admission Date: July 01, 2024 Subjective Tolerated prep Endorses liquid, clear stools. No black or bloody stools with prep Review of Systems Review of Systems: All other findings negative except as noted in HPI. Physical Exam Constitutional: WD/WN, vitals as above Respiratory: normal respiratory effort, lungs clear to auscultation Cardiovascular: Rate/Rhythm: regular rate and regular rhythm Gastrointestinal (Abdomen): normal bowel sounds, soft, nontender, no hepatosplenomegaly Skin: no rashes, warm and dry Results & Data Results & Data Vital Signs (Past 12 Hours) Vital Signs Temp Pulse Pulse Resp BP BP Pulse Ox 07/07/24 08:51 07/07/24 07:33 97.7 F 76 20 154/83 H 99 07/07/24 07:18 70 07/07/24 02:49 97.9 F 77 18 153/77 H 99 07/07/24 00:44 74 07/06/24 22:30 97.5 F L 72 16 163/87 H 99 O2 Del Method 07/07/24 08:51 Room Air 07/07/24 07:33 Room Air 07/07/24 07:18 07/07/24 02:49 Room Air 07/07/24 00:44 07/06/24 22:30 Room Air Laboratory Results 07/07/24 07/05/24 Range/Units 05:28 11:07 WBC 5.07 (4.8-10.8) K/ul RBC 2.49 L (4.70-6.10) M/uL Hgb 9.4 L (14.0-18.0) g/dl Hct 26.9 L (42.0-52.0) % MCV 108.0 H (80.0-100.0) fL MCH 37.8 H (25.0-34.0) pg MCHC 34.9 (32.0-36.0) g/dL RDW Std Deviation 57.9 H (36.4-46.3) fL RDW Coeff of Selvin 14.7 H (11.5-14.5) % Plt Count 276 (130-400) K/uL MPV 9.0 L (9.4-12.4) fL Sodium 136 (136-145) mmol/L Potassium 3.9 (3.5-5.1) mmol/L Chloride 100 (98-107) mmol/L Carbon Dioxide 28 (21-32) mmol/L Anion Gap 8 (3-11) BUN 12 (6-23) mg/dl Creatinine 0.96 (0.6-1.4) mg/dl Est Cr Clr Drug Dosing 62.7 ml/min eGFR 86.10 BUN/Creatinine Ratio 12.5 (10-20) Glucose 85 (70-99(Fasting)) mg/dl Calcium 9.5 (8.6-10.3) mg/dl IgA 176 (70-320) mg/dL Tiss Transglutamin IgA <1.0 U/mL Celiac Disease Interp SEE NOTE PG Care Time/CCT Total # of Minutes Spent Total Time Spent with Patient: Total time spent is greater than 50% in coordination of care (as documented) at patient's floor/unit and/or counseling patient: Coding Level of Care Code None Diagnoses Weight loss R63.4
[2024-07-07] MEDS: SODIUM CHLORIDE 0.9% 500 ML IV SCH (10:47)
--- NOTE | 2024-07-07 10:53 | Communication Note ---
Date of Service: July 07, 2024 Preop assessment. Patient states he feels well. No chest pain no shortness of breath. States he did well with his colon preparation and believes his return is clear. Proceed with EGD colonoscopy today for evaluation of failure to thrive and weight loss risks benefits discussed informed consent obtained for both upper and lower endoscopy
--- NOTE | 2024-07-07 11:07 | Anesthesiology Consultation ---
Date of Service July 07, 2024 Assessment & Plan Chart Review Chart Review: Acceptable Risk for Surgery and Patient NOT seen in Pre Admission Testing Consults Requested none ASA ASA4 Proposed Anesthesia Anesthesia Type: MAC History Surgery Operation Date: 07/07/24 16:30 Proposed Procedures p Colonoscopy EGD Dr. Jacob James MD Height/Weight Height: 6 ft Weight: 60.2 kg Allergies Allergy/AdvReac Type Severity Reaction Status Date / Time DUST Allergy Unknown Uncoded 07/28/02 16:47 [id number] Allergy Unknown Uncoded 07/28/02 16:47 N Allergy Unknown Uncoded 07/28/02 16:47 Medications Home Medications Medication Instructions Recorded Confirmed Last Taken No Known Home Medications 07/01/24 07/01/24 Unknown Active Medications Generic Name Dose Route Start Last Admin Trade Name Freq PRN Reason Stop Dose Admin Acetaminophen 650 mg 07/01/24 17:07 07/06/24 20:34 Acetaminophen 325 Mg Tab PO 07/31/24 17:06 650 mg Q4H PRN Administration Pain or Fever Folic Acid 1 mg 07/02/24 09:00 07/07/24 08:42 Folic Acid 1 Mg Tab PO 08/01/24 08:59 1 mg QAM RAKAN Administration Furosemide 20 mg 07/02/24 11:15 07/07/24 08:42 Furosemide 20 Mg Tab PO 08/01/24 11:14 20 mg QAM RAKAN Administration Sodium Chloride 500 mls @ 15 mls/hr 07/07/24 07:30 07/07/24 10:47 Nss IV 07/08/24 07:29 15 mls/hr .Q24H RAKAN Administration Mirtazapine 15 mg 07/04/24 21:35 07/06/24 20:29 Mirtazapine Tab 15 Mg Tab PO 08/03/24 21:34 15 mg HS RAKAN Administration Miscellaneous 1 each 07/02/24 08:59 07/07/24 08:43 Remove Nicoderm Patch N/A 08/01/24 08:58 1 each DAILY@0859 RAKAN Administration Miscellaneous 1 each 07/01/24 21:00 07/06/24 20:29 Remove Lidoderm Patch N/A 07/31/24 20:59 Not Given DAILY@2100 RAKAN Multivitamins 1 tab 07/02/24 09:00 07/07/24 08:42 Multivitamin Tab PO 08/01/24 08:59 1 tab QAM RAKAN Administration Nicotine 1 patch 07/01/24 15:00 07/07/24 08:42 Nicotine 14 Mg/24 Hr Patch TD 07/31/24 14:59 1 patch QAM RAKAN Administration Pantoprazole Sodium 40 mg 07/05/24 21:00 07/07/24 08:42 Pantoprazole 40 Mg Tab PO 08/04/24 20:59 40 mg BID RAKAN Administration Sodium Chloride 1 gm 07/05/24 09:00 07/07/24 08:42 Sodium Chloride 1 Gm Tablet PO 08/04/24 08:59 1 gm BID RAKAN Administration Thiamine HCl 100 mg 07/03/24 09:00 07/07/24 08:42 Thiamine Hcl 100 Mg Tab PO 08/02/24 08:59 100 mg QAM RAKAN Administration NPO Date Last Intake of Fluids: 07/07/24 Time Last Intake of Fluids: 08:00 Date Last Intake of Solids: 07/05/24 Time Last Intake of Solids: 16:30 Past Medical History anemia weight loss cachexia tobacco abuse ETOH abuse HLD ASCVD Aorta/CAD Hyponatremia Exercise / Class Metabolic Activity III < 4 Walking/Shop/Light housework Past Anesthesia History No Hx of Anesthesia Complications and No Family Hx of Anesthesia Complications History of PONV No Hx of PONV and No Hx of Motion Sickness Social History Smoking Status: Current every day smoker Hx Alcohol Use: Yes Alcohol type: hard liquor alcohol intake frequency: 3 or more drinks per day Alcohol Intake Frequency Comment: scotch, max 4/day Hx Substance Use: No substance use type: does not use Physical Exam Vital Signs Last Vital Signs Temp 36.4 C L 07/07/24 10:39 Pulse 88 07/07/24 10:39 Resp 16 07/07/24 10:39 BP 154/93 H 07/07/24 10:39 Pulse Ox 99 07/07/24 10:39 O2 Del Method Room Air 07/07/24 10:39 Testing Laboratory Results 07/07/24 05:28 07/07/24 05:28 PT 10.3 Seconds (9.0-12.0) 07/01/24 12:30 INR 0.9 (0.9-1.1) 07/01/24 12:30 Electrocardiogram Date: 07/01/24 Findings: + NSR @ (@ 71)
[2024-07-07] MEDS ORDERED: ePHEDrine sulfate 50 MG/ML AMP IV PRN (11:09)
[2024-07-07] MEDS ORDERED: ATROPINE SULFATE 0.1 MG/ML 10ML SYR IV PRN (11:09)
--- NOTE | 2024-07-07 12:37 | GI REPORT ---
[facility] Patient: DANIEL SHIRLEY : 1955 Sex at : Male Age: 69 Years Procedure: Upper GI endoscopy Date: 07/07/2024 Attending Physician: Max James MD Referring MD: Referred Self Indications: - Weight loss failure to thrive. Abnormal CT of the duodenum Medications: - Monitored Anesthesia Care Complications: - No immediate complications. Estimated Blood Loss: - Estimated blood loss was minimal. Procedure: - The egd scope was introduced through the mouth and advanced to the third part of the duodenum. - The upper GI endoscopy was accomplished without difficulty. - The patient tolerated the procedure well. Findings: - LA Grade B (one or more mucosal breaks greater than 5 mm, not extending between the tops of two mucosal folds) esophagitis with no bleeding was found at the gastroesophageal junction (on retroflexion). - Multiple small erosions were found in the prepyloric region of the stomach. Biopsies were taken with a cold forceps for histology. Estimated blood loss was minimal. - Four non-bleeding cratered duodenal ulcers with no stigmata of bleeding were found in the duodenal bulb. The largest lesion was 20 mm in largest dimension. Biopsies were taken with a cold forceps for histology. Estimated blood loss was minimal. - Patchy mild mucosal changes characterized by flattening were found in the second portion of the duodenum. Biopsies were taken with a cold forceps for histology. Estimated blood loss was minimal. Impression: - LA Grade B reflux esophagitis with no bleeding. - Erosive gastropathy. Biopsied. - Non-bleeding duodenal ulcers with no stigmata of bleeding. Biopsied. - Mucosal changes in the duodenum. Biopsied. Recommendation: - Await pathology results. - PPI therapy. Treat H. pylori if present. Based on multiple duodenal ulcers through the bulb and into the second part of the duodenum perform a serum gastrin. Procedure Code(s): - 01202, Esophagogastroduodenoscopy, flexible, transoral; with biopsy, single or multiple Diagnosis Code(s): - K21.00, Gastro-esophageal reflux disease with esophagitis, without bleeding - K31.89, Other diseases of stomach and duodenum - K26.9, Duodenal ulcer, unspecified as acute or chronic, without hemorrhage or perforation CPT(R) - 202 copyright [employer]. All Rights Reserved. The CPT codes, CCI edits and ICD codes generated are intended as suggestions and were generated based on input data. These codes are preliminary and upon continuing education specialist review may be revised to meet current compliance and payer requirements. The provider is responsible for the final determination of appropriate codes, and modifiers. Max James MD This document has been electronically signed. Note Initiated:07/07/2024 Note Completed:07/07/2024 12:36 PM [email or web address]\Results\[email or web address]\[id number]
--- NOTE | 2024-07-07 12:40 | GI REPORT ---
[facility] Patient: DANIEL SHIRLEY : 1955 Sex at : Male Age: 69 Years Procedure: Colonoscopy Date: 07/07/2024 Attending Physician: Max Jamse MD Referring MD: Indications: - Weight loss heme positive stool Medications: - Monitored Anesthesia Care Complications: - No immediate complications. Estimated Blood Loss: - Estimated blood loss was minimal. Procedure: - The adult colonoscope was introduced through the anus and advanced to the terminal ileum, with identification of the appendiceal orifice and ileocecal valve. - The colonoscopy was performed without difficulty. - The quality of the bowel preparation was good. Findings: - The perianal examination was normal. - A small (4-6 mm) polyp was found in the sigmoid colon. The polyp was sessile. The polyp was removed with a cold snare. Resection and retrieval were complete. - A medium (7-9 mm) polyp was found in the transverse colon. The polyp was sessile. The polyp was removed with a cold snare. Resection and retrieval were complete. - The terminal ileum appeared normal. Dilated internal hemorrhoids identified - A small (4-6 mm) polyp was found in the rectum. The polyp was sessile. The polyp was removed with a cold snare. Resection and retrieval were complete. Impression: - One small (4-6 mm) polyp in the sigmoid colon, removed with a cold snare. Resected and retrieved. - One medium (7-9 mm) polyp in the transverse colon, removed with a cold snare. Resected and retrieved. - The examined portion of the ileum was normal. - One small (4-6 mm) polyp in the rectum, removed with a cold snare. Resected and retrieved. Recommendation: - Await pathology results. - Repeat colonoscopy in 5 years for surveillance. Procedure Code(s): - 17834, Colonoscopy, flexible; with removal of tumor(s), polyp(s), or other lesion(s) by snare technique Diagnosis Code(s): - D12.5, Benign neoplasm of sigmoid colon - D12.3, Benign neoplasm of transverse colon (hepatic flexure or splenic flexure) - D12.8, Benign neoplasm of rectum CPT(R) - 202 copyright [employer]. All Rights Reserved. The CPT codes, CCI edits and ICD codes generated are intended as suggestions and were generated based on input data. These codes are preliminary and upon senior software systems engineer review may be revised to meet current compliance and payer requirements. The provider is responsible for the final determination of appropriate codes, and modifiers. Max James MD This document has been electronically signed. Note Initiated:07/07/2024 Note Completed:07/07/2024 12:39 PM [email or web address]\Results\[email or web address]\[id number]
--- NOTE | 2024-07-07 12:41 | Communication Note ---
Date of Service: July 07, 2024 Date of Service: July 07, 2024 EGD For duodenal ulcers. Ulcers are irregular. With significant weight loss and the multiple ulcers found we did biopsy for histology. Also did biopsies of the duodenum for celiac and Whipple's. He did have flattening of the duodenum mucosa which I believe is probably peptic in nature. PPI therapy. Avoid NSAIDs. Treat H. pylori if present. Colonoscopy multiple polyps await pathology.
--- NOTE | 2024-07-07 13:19 | Anesthesiology Progress Note ---
Date of Service July 07, 2024 Anesthesia Post Procedure Vital Signs Vital Signs: Temp Pulse Pulse Resp BP BP Pulse Ox 07/07/24 13:01 63 18 160/87 H 99 07/07/24 12:46 65 16 157/86 H 100 07/07/24 12:31 72 12 125/88 100 07/07/24 10:39 36.4 C L 88 16 154/93 H 99 07/07/24 08:51 07/07/24 07:33 36.5 C 76 20 154/83 H 99 07/07/24 07:18 70 07/07/24 02:49 36.6 C 77 18 153/77 H 99 07/07/24 00:44 74 07/06/24 22:30 36.4 C L 72 16 163/87 H 99 07/06/24 20:52 07/06/24 19:30 36.5 C 77 16 172/95 H 100 07/06/24 16:01 36.6 C 71 16 146/84 H 100 07/06/24 13:56 91 H O2 Del Method 07/07/24 13:01 Room Air 07/07/24 12:46 Room Air 07/07/24 12:31 Room Air 07/07/24 10:39 Room Air 07/07/24 08:51 Room Air 07/07/24 07:33 Room Air 07/07/24 07:18 07/07/24 02:49 Room Air 07/07/24 00:44 07/06/24 22:30 Room Air 07/06/24 20:52 Room Air 07/06/24 19:30 Room Air 07/06/24 16:01 Room Air 07/06/24 13:56 Transfer of Care Handoff Completed per policy Notes Mental Status: alert / awake / arousable Patient Amnestic to Procedure: Yes Nausea / Vomiting: adequately controlled Pain: adequately controlled Airway Patency, RR, SpO2: stable & adequate BP & HR: stable & adequate Hydration State: stable & adequate Anesthetic Complications: no major complications apparent
[2024-07-07] MEDS: LIDOCAINE 2% 2 ML VIAL/AMP(20MG/ML) INFIL ONE (14:26)
[2024-07-07] MEDS: PROPOFOL IV EMULSION 10 MG/ML 20 ML VIAL IV ONE (14:27)
[2024-07-07] MEDS: ONDANSETRON INJ 2 MG/ML 2 ML VIAL ONE (14:27)
--- NOTE | 2024-07-07 22:58 | Hospitalist Progress Note ---
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 Con't salt tabs BID Con't lasix Qam to reduce urinary concentration sodium improved (3) Right rib fracture: Plan: Pain/bruising at right posterior rib cage Chest CT revealed fracture of the medial aspect of T12 near costovertebral junction Lidocaine patch application Incentive spirometry q4h with >1500 goal (4) Tobacco use: Plan: Nicotine patch PRN (5) Alcohol use: Plan: AWSS at risk protocol with Ativan as needed symptoms appear controlled (6) Cachexia: Plan: Dietitian consult appreciated consulted psych for depression due to weight loss will consult gastro as concern ofr gastro malignancy ordered ct scan of abd/pelvis: negative. due to +fobt and weight loss : colonoscopy showed polyps which were removed, upper scope showed signs of pepsia. continue PPI. reviewed blood work on 07/06, hemoglobin stable. (7) Megaloblastic anemia: Plan: -b12, and folate supplementation (8) Elevated bilirubin: Plan: Elevated bilirubin at 2.5 on arrival AST:ALT 2:1 PT/INR ordered, pending Liver ultrasound negative Likely related to etoh use Plan Pt is a 69 y/o male who with b/l lower extremity weakness and multiple falls, found to have hyponatremia, and cachexia. 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 Physical Exam Physical Exam: GENERAL APPEARANCE NAD HEAD/NECK normocephalic atraumatic, no facial trauma, neck is supple. RESPIRATORY respiratory effort normal, speaks in full sentences, no tripod position, no accessory muscle use. Lungs clear to auscultation without rhonchi, wheezes, rales CARDIAC Regular rate and rhythm, no edema. ABDOMINAL Soft, ND/NT. No evidence of fluid wave. No pulsatile masses on exam, rebound tenderness, Warner sign or pain over Mcburney's point. Results & Data Results & Data Vital Signs (Past 12 Hours) Vital Signs Temp Pulse Pulse Resp BP BP Pulse Ox 07/07/24 22:55 36.6 C 72 18 152/59 H 96 07/07/24 22:10 07/07/24 19:30 36.7 C 88 18 154/77 H 100 07/07/24 16:01 36.4 C L 95 H 18 137/73 100 07/07/24 13:50 75 07/07/24 13:01 63 18 160/87 H 99 07/07/24 12:46 65 16 157/86 H 100 07/07/24 12:31 72 12 125/88 100 O2 Del Method 07/07/24 22:55 Room Air 07/07/24 22:10 Room Air 07/07/24 19:30 Room Air 07/07/24 16:01 Room Air 07/07/24 13:50 07/07/24 13:01 Room Air 07/07/24 12:46 Room Air 07/07/24 12:31 Room Air PG Care Time/CCT Total # of Minutes Spent Total Time Spent with Patient: Total time spent is greater than 50% in coordination of care (as documented) at patient's floor/unit and/or counseling patient: Coding Level of Care Code 75451 SUB INP/OBS CARE 2/35MIN Diagnoses Recurrent falls R29.6 Hyponatremia E87.1 Right rib fracture S22.31XA Tobacco use Z72.0 Alcohol use F10.90 Cachexia R64 Megaloblastic anemia D53.1 Elevated bilirubin R17
[2024-07-08 07:45] LABS: Hematocrit (blood only) 25.6 % (42.0-52.0); Hemoglobin 8.9 g/dl (14.0-18.0); Mean Corpuscular Hemoglobin 37.6 pg (25.0-34.0); Mean Corpuscular Hgb Conc 34.8 g/dL (32.0-36.0); Mean Platelet Volume 8.9 fL (9.4-12.4); Platelet Count 292 K/uL (130-400); RDW Coefficient of Variation 14.7 % (11.5-14.5); RDW Standard Deviation 58.1 fL (36.4-46.3); Red Blood Count 2.37 M/uL (4.70-6.10); White Blood Count 5.97 K/ul (4.8-10.8)
[2024-07-08 08:03] LABS: BUN Creatinine Ratio 10.9 (10-20); Calcium 9.4 mg/dl (8.6-10.3); Creatinine Clr Calc Pharmacy 45.1 ml/min; Potassium 3.8 mmol/L (3.5-5.1)
--- NOTE | 2024-07-08 08:30 | Nephrology Progress Note ---
Date of Service July 08, 2024 Assessment & Plan (1) Hyponatremia: Plan: * Clinically euvolemic, hypoosmolar hyponatremia. Urine osmolality is inappropriately elevated. Urine sodium greater than 10. Suspect SIADH * Serum sodium has corrected to 136 mmol/L today * Continue to restrict free water to 1500 cc/day * Continue NaCl 1 g po BID * Continue furosemide 20 mg po qAM to reduce urinary concentration * No further nephrology testing indicated at this time. Will sign off. Recommend that patient follow up w/ PCP in 7-14 days for general medical reevaluation and ongoing monitoring of serum sodium (2) Cachexia: Plan: * Unintentional weight loss and cachexia are concerning for underlying malignancy * Chest CT is negative for pulmonary mass * PSA 0.7 * CEA is mildly elevated * FOBT+ x1 yesterday. * 07/07/24 colonoscopy - no overt malignancy reported. Polyps removed. Pathology pending (3) Tobacco use: Plan: * Will need smoking cessation counseling (4) Alcohol use: Plan: * Agree with B12, folate supplementation. * Will need monitoring for withdrawal symptoms Admission and Anticipated Discharge Date Admission Date: July 01, 2024 Subjective Mr. Whitaker was evaluated in his hospital room this morning. He is tolerating salt tablets without GI upset and voiced no new medical concerns. He reports that colonoscopy was negative for malignancy Review of Systems Constitutional: no fever Eyes: no problem reported Ear, Nose, Mouth, Throat: no problem reported Respiratory: no cough and no dyspnea Cardiovascular: no chest pain Gastrointestinal: no abdominal pain, no nausea, no vomiting and no diarrhea/loose stools Genitourinary: no dysuria, no hematuria or no flank pain Integumentary: no rash Neurologic: + falls Physical Exam Constitutional: + cachectic (6 foot, 123 pounds) Eyes: PERRL, conjunctivae normal, anicteric sclerae ENMT: external ear and nose normal, oropharynx normal Neck: trachea midline, no thyromegaly Respiratory: normal respiratory effort, lungs clear to auscultation Cardiovascular: RRR, no murmur, no edema Gastrointestinal (Abdomen): normal bowel sounds, soft, nontender, no hepatosp lenomegaly Musculoskeletal: Extremities: no cyanosis and no clubbing Skin: no rashes, warm and dry Neurologic: Speech / Cognition: normal speech and normal cognition Psychiatric: Affect: euthymic affect Results & Data Vital Signs (Past 12 Hours) Vital Signs Temp Pulse Pulse Resp BP BP Pulse Ox 07/08/24 08:15 36.7 C 85 20 151/80 H 100 07/08/24 07:26 74 07/08/24 03:55 36.8 C 83 18 153/80 H 98 07/07/24 22:55 36.6 C 72 18 152/59 H 96 07/07/24 22:10 07/07/24 21:51 91 H O2 Del Method 07/08/24 08:15 Room Air 07/08/24 07:26 07/08/24 03:55 Room Air 07/07/24 22:55 Room Air 07/07/24 22:10 Room Air 07/07/24 21:51 Laboratory Results Laboratory Results - last 24 hr 07/08/24 07:19 WBC 5.97 RBC 2.37 L Hgb 8.9 L Hct 25.6 L MCV 108.0 H MCH 37.6 H MCHC 34.8 RDW Std Deviation 58.1 H RDW Coeff of Selvin 14.7 H Plt Count 292 MPV 8.9 L Sodium 136 Potassium 3.8 Chloride 103 Carbon Dioxide 26 Anion Gap 7 BUN 14 Creatinine 1.29 D Est Cr Clr Drug Dosing 45.1 eGFR 60.40 BUN/Creatinine Ratio 10.9 Glucose 95 Calcium 9.4 Gastrin Pending PG Care Time/CCT Total # of Minutes Spent Total Time Spent with Patient: Total time spent is greater than 50% in coordination of care (as documented) at patient's floor/unit and/or counseling patient: Coding Level of Care Code 96908 SUB INP/OBS CARE 3/50MIN Diagnoses Hyponatremia E87.1 Cachexia R64 Tobacco use Z72.0 Alcohol use F10.90
[2024-07-08 14:39] VITALS: RESP 18; O2SAT 100
[2024-07-08 15:11] LABS: Hematocrit (blood only) 28.8 % (42.0-52.0); Hemoglobin 9.8 g/dl (14.0-18.0); Mean Corpuscular Hemoglobin 37.4 pg (25.0-34.0); Mean Corpuscular Volume 109.9 fL (80.0-100.0); Mean Platelet Volume 8.9 fL (9.4-12.4); Platelet Count 301 K/uL (130-400); RDW Coefficient of Variation 14.8 % (11.5-14.5); RDW Standard Deviation 59.6 fL (36.4-46.3); Red Blood Count 2.62 M/uL (4.70-6.10); White Blood Count 5.65 K/ul (4.8-10.8)
[2024-07-08 15:25] LABS: BUN Creatinine Ratio 10.1 (10-20); Calcium 9.7 mg/dl (8.6-10.3); Creatinine Clr Calc Pharmacy 42.2 ml/min; Potassium 4.2 mmol/L (3.5-5.1)
[2024-07-08 16:12] VITALS: BP 131/86; PULSE 84; TEMP 98.6
--- NOTE | 2024-07-09 08:58 | Discharge Summary ---
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 will continue on discharge (3) Right rib fracture: Pain/bruising at right posterior rib cage Chest CT revealed fracture of the medial aspect of T12 near costovertebral junction Lidocaine patch application Incentive spirometry q4h with >1500 goal (4) Tobacco use: Nicotine patch PRN (5) Alcohol use: AWSS at risk protocol with Ativan as needed symptoms appear controlled will discharge on thiamine and folic acid. (6) Cachexia: severe malnutrition Dietitian consult appreciated consulted psych for depression due to weight loss will consult gastro as concern of gastro malignancy ordered ct scan of abd/pelvis: negative. due to +fobt and weight loss : colonoscopy showed polyps which were removed, upper scope showed signs of non bleeding duodenal ulcers will be placed on PPI BID. reviewed blood work on 07/06, hemoglobin stable. (7) Megaloblastic anemia: -b12, and folate supplementation (8) Elevated bilirubin: Elevated bilirubin at 2.5 on arrival AST:ALT 2:1 PT/INR : 1.1 Liver ultrasound negative Likely related to etoh use Plan Pt is a 69 y/o male who with b/l lower extremity weakness and multiple falls, found to have hyponatremia, and cachexia. His sodium has been corrected, likely 2nd to SIADH, started on boost shakes for his cachexia,will discharge on 07/08 Admission HPI Per Admitting Provider Simba is a 69-year-old male without significant PMH. He presented on 07/01 for lower extremity weakness bilaterally and multiple falls over the past several weeks. Patient lives by himself. He presents here today with his sister (Asia) at bedside, who brought him to the hospital today. Patient reports that he has had gait instability for the past 1.5 months. This is led to multiple falls over that period of time. He denies any syncope, LOC, or tripping on things. He is not dizzy or lightheaded prior to falling, but reports that his "legs gave out" on him. His most recent/worst fall was on Thursday when he was standing in the kitchen, and "out of the blue", ended up on the ground. Patient struck the back of his head as well as his right rib cage. No LOC. He was able to get back up on his own after a minute or so. Patient is not currently on blood thinners. He does not take any medicine on a daily basis. No recent change in diet. 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 He reports that he has a diet of steak, potatoes, pasta, and fish regularly. Additionally, the patient has lost significant weight over the past 2 months. While he is unsure how much he is lost, his sister believes it is around 20 pounds over the past 2 months. Patient does not weigh himself regularly, but reports he used to be around 165 to 170 pounds. Additionally, the patient has gone from having a regular walk to having a "shuffling" walk. He reports he takes long steps because he is terrified of falling. Patient reports he has no stability when he stands. No sick contacts. No rashes or tick bites noted on his body. He is a current everyday tobacco cigarette smoker; <1 PPD. He is also a current everyday alcohol user; he reports he drinks scotch daily, last had 3 cocktails yesterday evening on 06/30. He denies history of alcohol withdrawal, DTs, or seizures. No PMH of seizures, CVA, stroke, cancer, or diabetes. He does have a family history of cancer (his dad had lung cancer); he reports he does not get normal screenings for lung cancer despite smoking. While patient denies any new life stressors on admission, patient sister at bedside does report that their mother has had health problems recently, which has been stressful. Patient d enies any thoughts of self-harm, harming others, or suicidal ideations. Patient's vitals are stable at time of admission. ED course: ROS: Patient endorses gait instability, LE weakness, weight loss, Patient denies fever, chills, night-sweats, dizziness, lightheadedness, headache, changes in vision, tinnitus, ear pain, No numbness/tingling in hands or legs Discharge Exam GENERAL APPEARANCE NAD HEAD/NECK normocephalic atraumatic, no facial trauma, neck is supple. RESPIRATORY respiratory effort normal, speaks in full sentences, no tripod position, no accessory muscle use. Lungs clear to auscultation without rhonchi, wheezes, rales CARDIAC Regular rate and rhythm, no edema. ABDOMINAL Soft, ND/NT. No evidence of fluid wave. No pulsatile masses on exam, rebound tenderness, Warner sign or pain over Mcburney's point. Discharge Plan Discharge Items Patient Disposition: Home - Self-Care Reason For Visit: RECURRENT FALLS, HYPONATREMIA Discharge Diagnosis: recurrent falls. Activity: Resume your previous activity Non-emergency contact: Primary Care Provider Call non-emergency contact if: you have any medication questions Follow-up/Referrals: PCP,NO [Primary Care Provider] - Diet: Regular Fluids: 1500ml (6 cups) Addtl Attending Provider Instructions: Recommend followup with PCP in 1-2 weeks Recommend rechecking Hemoglobin, creatinine and sodium level at your next appointment Please continue to abstain from alcohol. Pending Studies at Discharge: No Stand-Alone Forms: [employer], Work/School Release, Smoking Cessation Medications and DC Order Prescriptions: New nicotine 7 mg/24 hr Patch 24 Hour 1 patch transdermal QAM Qty: 28 0RF furosemide 20 mg Tablet 20 mg PO QAM Qty: 30 0RF mirtazapine 15 mg Tablet 15 mg PO HS Qty: 30 0RF pantoprazole 40 mg Tablet,Delayed Release (Dr/Ec) 40 mg PO BID Qty: 60 0RF sodium chloride 1,000 mg Tablet,Soluble 1,000 mg PO BID Qty: 60 0RF thiamine HCl (vitamin B1) 100 mg Tablet 100 mg PO QAM Qty: 30 0RF folic acid 1 mg Tablet 1 mg PO QAM Qty: 30 0RF Discharge Orders: Discharge Order (Routine); Ordered 07/08/24 Ordered By: Lawrence Hinojosa Admission Data Admit Date/Time: 07/01/24 14:37 Attending Provider: Lawrence Hinojosa Admit Provider: Jarred Gatica Primary Care Provider: PCP,NO Other Providers: Jarred Gatica; Barak Fernandes; Gricelda Mathis; Guzman Alicea; Dottie Garner; Amie Paredes; Timothy Zamora; Yocasta Coyle; Shira Benites; Romi Vines; Angel Galeas; Karishma Groves; Fidelina Melgar; Jacqui Lobato; Susannah Grigsby; Favian Coffey; Kathia Brantley; Mariluz Calderón; Vivek Carranza; Ronel Zamora; Dasha Smith; Daly Gil; Adry Eckert; Brady Guadalupe; Mango Tavarez; Maci Duvall; Pepe Plunkett Jr; Barry Rodriguez; Bonifacio Carlin; Tomasz Mar; Connor Ziegler; Cyndi Trujillo; Radhames Bass I; Imani Lopez; Max James Other Interventions: Discharge Summary Assessment (RN) Last Done: 07/08/24 15:37 Hospital Stay Data Consultations 07/01/24 13:47 ED Decision to Admit Stat 07/02/24 07:47 Consult Nephrology Routine 07/04/24 10:48 Consult Psychiatry Routine 07/05/24 10:21 Consult Gastroenterology Routine Procedures Performed Operation Date: 07/07/24 16:30 Actual Procedures p EGD Biopsy Cytology - Max James MD s Colonoscopy Polypectomy - Max James MD Diagnostic Imagining Performed 07/01/24 12:15 CT head/brain wo con Stat 07/01/24 14:35 CT chest diagnostic wo con Stat 07/01/24 15:55 US liver Urgent 07/05/24 10:44 CT Abd and Pelvis [CT abd pelvis oral and IV con] Urgent Pending Results Patient Have Any Pending Studies at Discharge: No Discharge Instructions Given to Patient (Per Discharging Provider) Recommend followup with PCP in 1-2 weeks Recommend rechecking Hemoglobin, creatinine and sodium level at your next appointment Please continue to abstain from alcohol. Total Time Total Time Spent Total Time Spent (In Minutes): 32 Coding Level of Care Code 51071 INP/OBS DISCH >30 MIN Diagnoses Recurrent falls R29.6 Hyponatremia E87.1 Right rib fracture S22.31XA Tobacco use Z72.0 Alcohol use F10.90 Cachexia R64 Megaloblastic anemia D53.1 Elevated bilirubin R17
== END 2024-07-08 17:08 | disposition home or self-care (01) | DRG 377 ==
LOC: ED 12:00 → SUATTDRO 14:37 → 2N 14:37

== ENCOUNTER 2024-12-18 09:09 | Inpatient (IN) ==
[2024-12-18 09:52] LABS: Hematocrit (blood only) 35.4 % (42.0-52.0); Hemoglobin 10.7 g/dl (14.0-18.0); Immature Granulocytes # (auto) 0.08 K/uL (0.01-0.20); Immature Granulocytes % (auto) 0.6 %; Mean Corpuscular Hemoglobin 27.6 pg (25.0-34.0); Mean Corpuscular Volume 91.2 fL (80.0-100.0); Platelet Count 445 K/uL (130-400); RDW Standard Deviation 50.4 fL (36.4-46.3); Red Blood Count 3.88 M/uL (4.70-6.10); White Blood Count 13.42 K/ul (4.8-10.8)
[2024-12-18 09:59] LABS: Base Excess VBG 9.6 mEq/L; HCO3 VBG 36 mmol/L; Oxygen Saturation VBG < 60.0 %; PCO2 VBG 54 mmHg (38-50); PO2 VBG 33 mmHg; pH VBG 7.43 (7.36-7.41)
--- NOTE | 2024-12-18 09:59 | Emergency Department Note ---
Impression & Plan Pneumonia, Dehydration, Hypercalcemia, Chronic hypoxic respiratory failure ED Provider Note ED Provider Note NAME: DANIEL SHIRLEY AGE:69 SEX: Male : 1955 ARRIVES VIA: EMS INFORMANT: Patient ED PROVIDER(s): Lisa Childers DO CHIEF COMPLAINT: cough, pneumonia on x-ray HPI: This is a 69-year-old female who presents to the emergency department due to concern for cough and recent diagnosis of an outpatient pneumonia. Her coming records from the facility were utilized patient was started on Levaquin yesterday. Patient does wear oxygen chronically. Patient with a prior significant admission for sepsis secondary to pneumonia back in August at an outside facility which ultimately required placement of a tracheostomy as well as a feeding tube. Patient does not otherwise take anything by mouth since that time and is still receiving tube feeds. His trach has since been decannulated and he states it is healing well. Patient states he does have a cough but it is only intermittently productive. He states he does not otherwise have any complaints and denies chest pain, fevers or chills, weakness, dizziness, abdominal pain, or nausea. PAST MEDICAL HISTORY:See Below PAST SURGICAL HISTORY:See Below FAMILY HISTORY:See Below SOCIAL HISTORY:See Below HOME MEDICATIONS:See Below ALLERGIES:See Below VITALS:See Below PHYSICAL EXAMINATION: GENERAL: alert, unwell appearing, frail appearing, no distress, non-toxic EYE EXAM: normal conjunctiva, PERRL and EOM's grossly intact OROPHARYNX: no exudate, no erythema, lips, buccal mucosa, and tongue normal and mucous membranes are moist NECK: supple, no nuchal rigidity, no adenopathy, non-tender,. Patient presents stoma well-appearing and healing, no drainage or bleeding, no surrounding erythema LUNGS: Decreased bilateral to auscultation. Normal chest wall mechanics, bilateral rhonchi, bilateral rails HEART: no murmurs, S1 normal and S2 normal ABDOMEN: abdomen soft, non-tender, normo-active bowel sounds, no masses, no rebound or guarding. SKIN: no rashes, petechiae, orbruising UPPER EXTREMITIES: upper extremities are grossly normal. FROM, nml pulses b/l. LOWER EXTREMITIES: No pitting edema. FROM, nml pulses b/l. NEURO EXAM: Normal sensorium, cranial nerves II-XII grossly intact, normal speech, no facial droop,nogross weakness of arms, no gross weakness of legs. Gross sensation intact. No ataxia. Vital Signs: reviewed and remarkable Differential Diagnosis: pneumonia, bronchitis, COPD/Asthma exacerbation, pneumothorax, pulmonary embolism, congestive heart failure, acute coronary syndrome, as well as others were considered MEDICAL DECISION MAKING: This is an ill-appearing 69-year-old male with a complicated recent past medical history who presents from a local rehab facility due to concern for recent diagnosis of pneumonia and worsening conditions. Patient labs drawn and sent, IV established, EKG and chest ray performed at bedside interpreted reviewed patient monitored on telemetry. He was started on gentle IV fluid hydration as he did appear clinically dehydrated. I did review outside facility notes which did accompany him showing that patient did have an outpatient chest x-ray confirming a new pneumonia and he was started on Levaquin. Patient with a complicated course of pneumonia requiring hospitalization for sepsis and mechanical ventilation in August. Patient noted to have a right upper lobe infiltrate here. Blood cultures were obtained and sent additionally. Lactic acid and procalcitonin reassuring. Patient did have a mild leukocytosis. Results discussed with patient at bedside. Upon arrival the patient's sister she was able to fill in with more details regarding his course through the spring and now at the facility where he was supposed to be performing rehab as well as for concerns for his care there. Given concern for high risk of deterioration, chronic oxygen requirements, recurrent infection and risk of recurrent pneumonia, case discussed with hospitalist team for additional evaluation and management. Patient also noted to be hypercalcemic. Unclear if this is related to dehydration, medication list, malignancy, or parathyroid dysfunction. Patient's BNP also noted to be elevated although sister denies any knowledge of any history of heart failure. Appearance of pulmonary edema also noted by read on chest x-ray. Consultation(s): 1220: Discussed with Dr. eMlgar, MELANI hospitalist team for additional evaluation and management. ER Treatment Provided: See below 1145: Stated extensive bedside conversation with patient's sister who presents to bedside. She discussed significant illness from what became a necrotizing bacterial lung infection requiring his admission to the ICU out at [facility] back in August. She states that he was initially to a stepdown rehab and then most recently to the [facility] and [facility]. She states he has not had any speech therapy or physical therapy. She states he completed long courses of antibiotics while in stepdown. Team through she had wanted him to be closer to home once he ran out of days and stepped on rehab however the only facility available was in [place]. She states since he has been there he has not had good care. She states the end of last week he started mentioning that he was not feeling well again. She was concerned that he was dehydrated. She states they also noted that their dietitian had quite and they had been giving him the wrong amount of his feeding in his tube. She states they did have an outpatient x-ray upon her request that confirmed a new pneumonia and he was started on Levaquin. He has been reports that he is sister reports no history of heart problems to her knowledge. Diagnostics Interpreted By Me: -ECG: Normal sinus at 90, normal axis, normal intervals, no acute ST/T wave changes -Cardiac Monitoring: An order was placed for continuous cardiac monitoring. The monitor shows a rate of 90 with normal sinus rhythm. -Laboratory studies: As stated above and show below. -Imaging studies: cxr: RUL pna, b/l effusions, incr interstitial markings b/l Triage Nursing Note Reviewed Prior/Outside Records Reviewed Critical Care: Critical care of 39 min performed to assess and manage high likelihood of life-threatening pneumonia, involving labs and imaging performed with assessment to evaluate dyspnea and chronic oxygen therapy diagnosis with frequent reassessment. This time includes bedside time, treatment discussions with patient/family/consultants, documentation time and excludes procedure time. Past Med/Surg History Problem List (Updated 12/18/24 @ 16:50 by Lisa Childers DO) Chronic hypoxic respiratory failure (Acute) Hypercalcemia (Acute) Dehydration (Acute) Pneumonia (Acute) Weight loss Depression Right rib fracture Elevated bilirubin Cachexia Rib pain on right side Megaloblastic anemia Alcohol use Tobacco use Acute head trauma (Acute) Lower extremity weakness (Acute) Hyponatremia (Acute) Recurrent falls (Acute) Social History Smoking Status: Former smoker Tobacco Type: Cigarettes Hx Alcohol Use: Yes Alcohol type: hard liquor Hx Substance Use: No Preferred Language: Romansh Communication Ability: Effective 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 Beliefs That Will Affect Care: None Current Living Situation: Alone Feels Safe at Home: Yes Assistive Devices: None Allergies Allergies Allergy/AdvReac Type Severity Reaction Status Date / Time DUST Allergy Unknown Uncoded 07/28/02 16:47 [id number] Allergy Unknown Uncoded 07/28/02 16:47 N Allergy Unknown Uncoded 07/28/02 16:47 Home Meds Previous Rx's Medication Instructions Recorded folic acid 1 mg tablet 1 mg PO QAM #30 tabs 07/08/24 furosemide 20 mg tablet 20 mg PO QAM #30 tabs 07/08/24 mirtazapine 15 mg tablet 15 mg PO HS #30 tabs 07/08/24 nicotine 7 mg/24 hr daily 1 patch transdermal QAM #28 ea 07/08/24 transdermal patch pantoprazole 40 mg tablet,delayed 40 mg PO BID #60 tabs 07/08/24 release sodium chloride 1,000 mg soluble 1,000 mg PO BID #60 tabs 07/08/24 tablet thiamine HCl (vitamin B1) 100 mg 100 mg PO QAM #30 tabs 07/08/24 tablet Results & Data (ED) Vital Signs Vital Signs - 24 hr 12/18/24 09:16 12/18/24 09:25 12/18/24 09:30 Temperature 37.0 C Temperature Source Oral Pulse Rate 93 H 89 90 Pulse Rate from SpO2 Sensor 90 Pulse Rhythm Regular Respiratory Rate 20 18 Respiratory Effort / Characteristics Non-Labored Spontaneous Respiratory Depth Normal Respiratory Pattern Regular Blood Pressure 130/70 145/76 H Blood Pressure Mean 90 99 Blood Pressure Position Sitting Pulse Oximetry 98 99 Oxygen Delivery Method Room Air Oxygen Flow Rate Sepsis Recent Fever Within 48 Hours No Sepsis New/Unexplained Change in Mental Status No Sepsis Action Taken by Nursing No Action Required 12/18/24 09:31 12/18/24 10:00 12/18/24 10:24 Temperature Temperature Source Pulse Rate 89 91 H Pulse Rate from SpO2 Sensor 87 91 H Pulse Rhythm Respiratory Rate 17 18 Respiratory Effort / Characteristics Respiratory Depth Respiratory Pattern Blood Pressure 135/75 Blood Pressure Mean 95 Blood Pressure Position Pulse Oximetry 98 100 100 Oxygen Delivery Method Nasal Cannula Nasal Cannula Oxygen Flow Rate 5 5 Sepsis Recent Fever Within 48 Hours Sepsis New/Unexplained Change in Mental Status Sepsis Action Taken by Nursing 12/18/24 10:27 12/18/24 10:30 12/18/24 10:45 Temperature Temperature Source Pulse Rate 89 88 Pulse Rate from SpO2 Sensor 89 Pulse Rhythm Respiratory Rate 15 17 Respiratory Effort / Characteristics Respiratory Depth Respiratory Pattern Blood Pressure 128/67 Blood Pressure Mean 82 Blood Pressure Position Pulse Oximetry 100 Oxygen Delivery Method Oxygen Flow Rate Sepsis Recent Fever Within 48 Hours Sepsis New/Unexplained Change in Mental Status Sepsis Action Taken by Nursing 12/18/24 11:06 12/18/24 11:24 12/18/24 11:30 Temperature Temperature Source Pulse Rate 86 89 Pulse Rate from SpO2 Sensor 86 89 Pulse Rhythm Respiratory Rate 15 14 Respiratory Effort / Characteristics Respiratory Depth Respiratory Pattern Blood Pressure 140/76 Blood Pressure Mean 100 Blood Pressure Position Pulse Oximetry 100 100 Oxygen Delivery Method Oxygen Flow Rate Sepsis Recent Fever Within 48 Hours Sepsis New/Unexplained Change in Mental Status Sepsis Action Taken by Nursing 12/18/24 11:30 12/18/24 11:30 12/18/24 11:42 Temperature Temperature Source Pulse Rate 87 86 Pulse Rate from SpO2 Sensor 86 90 Pulse Rhythm Respiratory Rate 17 20 Respiratory Effort / Characteristics Respiratory Depth Respiratory Pattern Blood Pressure 140/76 Blood Pressure Mean 100 Blood Pressure Position Pulse Oximetry 100 99 Oxygen Delivery Method Oxygen Flow Rate Sepsis Recent Fever Within 48 Hours Sepsis New/Unexplained Change in Mental Status Sepsis Action Taken by Nursing 12/18/24 12:00 12/18/24 12:06 Temperature Temperature Source Pulse Rate 91 H 89 Pulse Rate from SpO2 Sensor 91 H 89 Pulse Rhythm Respiratory Rate 19 16 Respiratory Effort / Characteristics Respiratory Depth Respiratory Pattern Blood Pressure Blood Pressure Mean Blood Pressure Position Pulse Oximetry 100 100 Oxygen Delivery Method Oxygen Flow Rate Sepsis Recent Fever Within 48 Hours Sepsis New/Unexplained Change in Mental Status Sepsis Action Taken by Nursing Laboratory Data 12/18/24 09:25 12/18/24 09:25 Lab Results 12/18/24 12/18/24 12/18/24 Range/Units 09:25 09:48 10:50 WBC 13.42 H (4.8-10.8) K/ul RBC 3.88 L (4.70-6.10) M/uL Hgb 10.7 L (14.0-18.0) g/dl Hct 35.4 L (42.0-52.0) % MCV 91.2 (80.0-100.0) fL MCH 27.6 (25.0-34.0) pg MCHC 30.2 L (32.0-36.0) g/dL RDW Std Deviation 50.4 H (36.4-46.3) fL RDW Coeff of Selvin 15.2 H (11.5-14.5) % Plt Count 445 H (130-400) K/uL MPV 9.7 (9.4-12.4) fL Immature Gran % (Auto) 0.6 % Neut % (Auto) 70.7 % Lymph % (Auto) 12.1 % Tripp % (Auto) 9.2 % Eos % (Auto) 7.0 % Baso % (Auto) 0.4 % Neut # (Auto) 9.49 H (1.40-6.50) K/uL Lymph # (Auto) 1.62 (1.20-3.40) K/uL Tripp # (Auto) 1.23 H (0.11-0.59) K/uL Eos # (Auto) 0.94 H (0.00-0.50) K/uL Baso # (Auto) 0.06 (0.00-0.20) K/uL Immature Gran # (Auto) 0.08 (0.01-0.20) K/uL PT 11.2 (9.0-12.0) Seconds INR 1.0 (0.9-1.1) VBG pH 7.43 H (7.36-7.41) VBG pCO2 54 H (38-50) mmHg VBG pO2 33 mmHg VBG HCO3 36 mmol/L VBG O2 Saturation < 60.0 % VBG Base Excess 9.6 mEq/L Sodium 131 L (136-145) mmol/L Potassium 4.2 (3.5-5.1) mmol/L Chloride 92 L (98-107) mmol/L Carbon Dioxide 33 H (21-32) mmol/L Anion Gap 6 (3-11) BUN 63 H (6-23) mg/dl Creatinine 1.43 H (0.6-1.4) mg/dl Est Cr Clr Drug Dosing 39.7 ml/min eGFR 53.37 BUN/Creatinine Ratio 44.1 H (10-20) Glucose 101 H (70-99(Fasting)) mg/dl Lactate 0.9 (0.4-2.0) mmol/L Calcium 12.6 H* (8.6-10.3) mg/dl Magnesium 2.1 (1.7-2.4) mg/dl Total Bilirubin 0.3 (0.2-1.0) mg/dl Direct Bilirubin 0.1 (0-0.2) mg/dl AST 60 H (13-39) U/L ALT 91 H (7-52) U/L Alkaline Phosphatase 153 H (34-104) U/L Troponin I High Sens 11.8 (0-20) pg/ml B-Natriuretic Peptide 386 H (0-100) pg/ml Total Protein 9.4 H (6.0-8.3) gm/dl Albumin 3.8 (3.4-5.0) gm/dl Procalcitonin 0.24 (0-0.5) ng/ml Urine Color Yellow Urine Appearance Turbid A (Clear) Urine pH 7.5 (4.5-7.5) Ur Specific [place] 1.012 (1.000-1.030) Urine Protein 1+ H (Negative) Urine Glucose (UA) Negative (Negative) Urine Ketones Negative (Negative) Urine Blood 1+ H (Negative) Urine Nitrite Positive A (Negative) Urine Bilirubin Negative (Negative) Urine Urobilinogen Negative (Negative) Ur Leukocyte Esterase 3+ H (Negative) Urine WBC (Auto) >50 H (0-5) /hpf Urine RBC (Auto) 0-2 (0-2) /hpf U Hyaline Cast (Auto) 6-10 H (0-2) /lpf U Epithel Cells (Auto) 0-2 (0-2) /hpf Urine Bacteria (Auto) 4+ H (None Seen) Ur Random Sodium 63 mmol/L Urine Comment Administered Medications Sodium Chloride (Nss) 1,000 mls @ 125 mls/hr IV .Q8H [facility] Stop: 12/21/24 10:14 Last Admin: 12/18/24 10:47 Dose: 125 mls/hr Documented By: MNE Discontinued Medications Vancomycin HCl 1,250 mg/ (Sodium Chloride) 525 mls @ 200 mls/hr IV NOW ONE Stop: 12/18/24 14:56 Last Admin: 12/18/24 12:41 Dose: 200 mls/hr Documented By: WESLEY Piperacillin Sod/Tazobactam Sod (Zosyn) 4.5 gm in 100 mls @ 200 mls/hr IV NOW ONE; Protocol Stop: 12/18/24 12:48 Last Infusion: 12/18/24 13:23 Dose: Infused Documented By: Admin: 12/18/24 12:31 Dose: 200 mls/hr Documented By: WESLEY Imaging Data Radiologist's Impression: Chest X-Ray 12/18/24 09:31 XR chest 1V portable CLINICAL HISTORY: Sepsis. COMPARISON STUDY: Chest CT July 01, 2024. FINDINGS: There is no pneumothorax. Small bilateral pleural effusions have developed. Cardiomediastinal silhouette is normal. Interstitial thickening has developed and there are bibasilar and right upper lung airspace opacities. IMPRESSION: 1. Interval development of interstitial pulmonary edema and small bilateral pleural effusions. 2. Right upper lung airspace opacity which is new since prior exam. This could represent pneumonia or alveolar pulmonary edema. Radiographic follow-up is recommended. Bibasilar opacities could represent atelectasis or pneumonia can be assessed on follow-up exams. ACT 112: Negative or not required by law. Electronically signed by: Neil Darden M.D. 12/18/2024 10:24 AM Discharge Plan Visit Data Chief Complaint: Cough Stated Complaint: ILLNESS ED Provider: Lisa Childers Discharge Problem: Pneumonia, Dehydration, Hypercalcemia, Chronic hypoxic respiratory failure Patient Disposition: Admitted As Inpatient Condition: Fair Discharge Instructions Interventions: ED Discharge Assessment Last Done: 12/18/24 15:30
[2024-12-18 10:13] LABS: Alanine Aminotransferase 91.0 U/L (7-52); Alkaline Phosphatase 153.0 U/L (34-104); Anion Gap 6.0 (3-11); Bilirubin,Total 0.3 mg/dl (0.2-1.0); Blood Urea Nitrogen 63.0 mg/dl (6-23); Calcium 12.6 mg/dl (8.6-10.3); Carbon Dioxide 33.0 mmol/L (21-32); Chloride 92.0 mmol/L (98-107); Creatinine Clr Calc Pharmacy 39.7 ml/min; Glucose 101.0 mg/dl (70-99(Fasting)); Magnesium 2.1 mg/dl (1.7-2.4); Potassium 4.2 mmol/L (3.5-5.1); Sodium 131.0 mmol/L (136-145); Total Protein 9.4 gm/dl (6.0-8.3)
[2024-12-18 10:17] LABS: INR 1.0 (0.9-1.1); Prothrombin Time 11.2 Seconds (9.0-12.0)
--- NOTE | 2024-12-18 10:26 | XRay Report ---
XR chest 1V portable CLINICAL HISTORY: Sepsis. COMPARISON STUDY: Chest CT July 01, 2024. FINDINGS: There is no pneumothorax. Small bilateral pleural effusions have developed. Cardiomediastin al silhouette is normal. Interstitial thickening has developed and there are bibasilar and right uppe r lung airspace opacities. IMPRESSION: 1. Interval development of interstitial pulmonary edema and small bilateral pleural effusions. 2. Right upper lung airspace opacity which is new since prior exam. This could represent pneumonia or alveolar pulmonary edema. Radiographic follow-up is recommended. Bibasilar opacities could represent atelectasis or pneumonia can be assessed on follow-up exams. ACT 112: Negative or not required by law. Electronically signed by: Neil Darden M.D. 12/18/2024 10:24 AM
[2024-12-18] MEDS: SODIUM CHLORIDE 0.9% 1,000 ML IV SCH (10:47)
--- NOTE | 2024-12-18 11:56 | Electrocardiogram Report ---
Test Reason : Blood Pressure : */* mmHG Vent. Rate : 90 BPM Atrial Rate : 90 BPM P-R Int : 140 ms QRS Dur : 70 ms QT Int : 346 ms P-R-T Axes : 43 -4 67 degrees QTcB Int : 423 ms Normal sinus rhythm Normal ECG When compared with ECG of 01-Jul-2024 12:21, Questionable change in QRS axis Confirmed by Charles Quinonez ([id number]) on 12/18/2024 11:56:31 AM Referred By: REFERRED SELF Confirmed By: Charles Quinonez
[2024-12-18] MEDS ORDERED: VANCOMYCIN CONSULT ACTIVE PRN ×2 (12:19→12:26)
[2024-12-18] MEDS ORDERED: ACETAMINOPHEN 325 MG TAB PO PRN (12:21)
[2024-12-18] MEDS ORDERED: VANCOMYCIN HCL 1,000 MG/270 ML BAG IV ONE (12:26)
[2024-12-18] MEDS: PIPERACILLIN/TAZOBACTAM 4.5 GM/100 ML BAG IV ONE (12:31)
[2024-12-18] MEDS: VANCOMYCIN HCL 1,250 MG in SODIUM CHLORIDE 0.9% 500 ML IV ONE (12:41)
[2024-12-18 13:21] LABS: Appearance Urine Turbid (Clear); Bacteria Urine Automated 4+ (None Seen); Epithelial Cell Urine Auto 0-2 /hpf (0-2); Glucose Urine UA Negative (Negative); RBC Urine Automated 0-2 /hpf (0-2); WBC Urine Automated >50 /hpf (0-5)
[2024-12-18 14:03] LABS: Chlamydia pneumoniae PCR Not Detected (NotDetected); Coronavirus 229E PCR Not Detected (NotDetected); Coronavirus CoV-2 (COVID19)PCR Not Detected (NotDetected); Coronavirus HKU1 PCR Not Detected (NotDetected); Coronavirus NL63 PCR Not Detected (NotDetected); Coronavirus OC43PCR Not Detected (NotDetected); Human Metapneumovirus PCR Not Detected (NotDetected); Parainfluenza Virus 1 PCR Not Detected (NotDetected); Parainfluenza Virus 2 PCR Not Detected (NotDetected); Parainfluenza Virus 3 PCR Not Detected (NotDetected); Parainfluenza Virus 4 PCR Not Detected (NotDetected); Respiratory Syncytial VirusPCR Not Detected (NotDetected); Rhinovirus/Enterovirus PCR Not Detected (NotDetected)
--- NOTE | 2024-12-18 17:00 | History & Physical Report ---
Date of Service December 18, 2024 Assessment & Plan (1) Sepsis: Plan: As above in the HPI. (2) Acute hyponatremia: Plan: As above in the HPI. (3) Hypercalcemia: Plan: As above in the HPI. (4) Acute kidney injury: Plan: As above in the HPI. (5) Transaminitis: Plan: As above in the HPI. (6) Sacral decubitus ulcer, stage III: Plan: As above in the HPI. (7) Failure to thrive in adult: Plan: As above in the HPI. Admission and Anticipated Discharge Date Admission Date: December 18, 2024 History of Present Illness Chief Complaint: "I feel weak and chilly, and I'm coughing a lot now. No blood, no mucous; can't spit it out. No fevers or sweats. I had a chest x-ray done last night (12/17/2024, 8:00pm) @ [facility] ([place], [place]), and it came back positive for pneumonia. They were treating me worse than an animal @ [facility] ([place]), so my si ster/POA, Ms. Asia Henry ( ) stood up for me and got me out of there and into [facility] ER today. I don't wanna go back to [facility] ([place]). I only saw the doctor there once, and that was on the day I entered [facility] ([place], [place])(11/19/2024). The cigar making machine operator never saw me once, and was ordering tube feeds for me on the basis of a 5' 1" tall man. I am 6' 1" tall. So, I was underfed @ [facility] ([place], [place])." Primary Care Provider: Jose Eduardo Allen DO 69 years old male with PMH of DNR/DNI @ [facility] ([place], [place]), since 11/19/2024, chronic macrocytic, hypochromic anemia with baseline Hb range, 9.3 - 9.8 g/dL (07/01/2024 - 07/08/2024), chronic hypovolemic hyponatremia with baseline Na range, 123-133 mmol/L (07/01/2024 - 07/04/2024), now on NaCl 1g PO bid with subsequent new baseline Na range, 136-138 mmol/L (07/05/2024 - 07/08/2024), former tobacco abuse with subsequent diagnosis of COPD, now on 5 liters/minute O2 via nasal cannula since admission to [facility] ([place], [place]) on 11/19/2024, not on home steroids, former ETOH abuse, abstinent since 06/15/2024, who was admitted to [facility] ([place], [place]) on 08/22/2024 with severe septic shock due to multi-lobar necrotizing CAP and acute hypoxic respiratory failure, followed by intubation (08/22/2024), failed extubation, s/p tracheostomy (09/05/2024, [facility] ([place], [place])), failure to thrive s/p PEG (09/05/2024, [facility]), followed by D/C to LTAC ([facility] ([place], [place])) on 10/01/2024, s/p decannulation of tracheostomy (10/06/2024, [place], [place]), followed by D/C to [facility] ([place], [place]) on 11/19/2024, with patient unable to ambulate at all leading to subsequent development of chronic stage III sacral decubitus ulcer (oblong, 7 cm x 13 cm), multiple stage II left lateral sole, left lateral 5th toe, and left lateral malleolar decubiti (circular, 1 cm in diameter or smaller), and central crown ulcer with scab formation (apple shape, 4 cm in diameter), excoriation/lichenification of penis and scrotum with diaper soaked in urine, present on admission date 12/18/2024, and experiencing non-bilious emesis without hematemesis x 1 episode while receiving tube feeds via PEG on (12/15/2024), for which patient was tentatively being considered for modified barium swallow @ On license of [facility] ([place], [place]) to evaluate patient for possible aspiration, but which was never scheduled or performed, followed by patient's complaints of: "I feel weak and chilly, and I'm coughing a lot now. No blood, no mucous; can't spit it out. No fevers or sweats. I had a chest x-ray done last night (12/17/2024, 8:00pm) @ [facility] ([place]), and it came back positive for pneumonia. They were treating me worse than an animal @ [facility] ([place]), so my sister/POA, Ms. Asia Henry ( ) stood up for me and got me out of there and into [facility] ER today. I don't wanna go back to [facility] ([place]). I only saw the doctor there once, and that was on the day I entered [facility] ([place])(11/19/2024). The cigar making machine operator never saw me once, and was ordering tube feeds for me on the basis of a 5' 1" tall man. I am 6' 1" tall. So, I was underfed @ [facility] ([place])." Patient also complains of 30 pounds of unintentional weight loss over the past 3 months with no complaints of early satiety, night sweats, or persistent vomiting/diarrhea/laxative (ab)use. Patient concedes to using lasix 20mg PO daily on a regular basis, but reports that he is "not peeing so much that I lost 30 pounds from peeing alone." Patient denies antecedent/coincident fevers, diaphoresis, wheeze, sore throat, hemoptysis, chest pains, palpitations, pleurisy, nausea, diarrhea, abdominal pain, pelvic pain, flank pain, hematemesis, hematochezia, melena, hematuria, dysuria, frequency, urgency, headaches, dizziness, lightheadedness, visual changes, hearing changes, falls, syncope, trauma, travel history, sick contacts, or food/drug ingestions novel or new. All other review of systems are reported as negative by the patient on admission date 12/18/2024. In [facility] ER bed #C7, patient was afebrile @ 37.0 degrees Celsius, HR 93, RR 20, O2 sat 98% on room air, and BP 130/70 (12/18/2024, 9:16am). Exam was noted for cachexia with bitemporal atrophy, dry skin with skin tenting, but no delay in capillary refill time > 2 seconds. In addition, patient's skin was in poor condition from head to toe, includin. Central crown ulcer with scab formation (apple shape, 4 cm in diameter), present on admission date 12/18/2024. 2. Multiple stage II left lateral sole, left lateral 5th toe, and left lateral malleolar decubiti (circular, 1 cm in diameter or smaller), present on admission date 12/18/2024. 3. Solitary stage III sacral decubitus ulcer (oblong, 7 cm x 13 cm) with surrounding erythema, warmth, and serous-suppurative discharge, but no tenderness, fluctuance, crepitus, malodor, or lymphangitic streaking, present on admission date 12/18/2024. 4. Excoriation/lichenification of penis and scrotum with diaper soaked in urine, present on admission date 12/18/2024. In addition, patient coughed frequently during my examination of the patient, but remained too weak to expectorate any mucous per se. Auscultation of chest revealed coarse breath sounds bilaterally, but no audible expiratory wheeze, egophony, pectoriloquy, increase in tactile fremitus, or flatness/dullness to percussion at the bases. Labs in [facility] ER bed #C7 included: WBC 13.42, N71 l12 M9 E7, Hb 10.7, MCV 91.2, MCHC 30.2, platelet 445 (12/18/2024, 9:25am). Lactic acid #1 0.9 mmol/L (12/18/2024, 9:48am). Lactic acid #2 0.9 mmol/L (12/18/2024, 1:06pm). Procalcitonin #1 0.24 ng/mL (12/18/2024, 9:25am). U/A: turbid yellow, LE 3+, nitrite+, WBC > 50, RBC 0-2, epithelial cells -2, bacteria 4+ (12/18/2024, 10:50am). Urine culture (12/18/2024, 10:50am): Blood culture #1 (12/18/2024, 9:25am): Blood culture #2 (12/18/2024, 9:48am): Sacral wound culture (12/18/2024, 7:16pm): __ MRSA nares negative (12/18/2024, 12:56pm). BIOFIRE respiratory pathogen panel negative (12/18/2024, 12:56pm). VBG 7.43 / 54 / 33 / 36 / O2 sat < 60% (12/18/2024, 9:48am). Na 131, K 4.2, BUN 63, creatinine 1.43, GFR 53.4 mL/min, glucose 101, Ca 12.6, Mg 2.1 (12/18/2024, 9:25am). AST 60, ALT 91, ALK PHOS 153, TBili 0.1 (12/18/2024, 9:25am). INR 1.0 (12/18/2024, 9:25am). Additional testing in [facility] ER bed #C7 included: Portable CXR (12/18/2024, 9:31am): 1. RUL, RLL, LLL infiltrates. Bilateral effusions. 2. No cardiomegaly, pulmonary vascular congestion, or pneumothorax. (by my review). EKG (12/18/2024, 9:22am): NSR @ 90, TN 140, QTC 423, no TWI, no acute ST depressions/elevations (by my review). EKG (07/01/2024, 12:21pm): NSR @ 71, TN 134, QTC 430, TWI in aVL, V2, no acute ST depressions/elevations (by my review). Patient was subsequently admitted to the inpatient hospitalist service @ [facility] on 12/18/2024 with the following diagnoses: 1. Sepsis due to (a) acute multi-lobar CAP and (2) acute UTI; R/O gram negative wil-associated bacteremia; R/O sacral wound infection. 2. Acute hypovolemic hyponatremia with admission Na 131 mmol/L (12/18/2024, 9:25am). 3. Acute hypercalcemia with admission Ca 12.6 mg/dL (12/18/2024, 9:25am). 4. Acute kidney injury with admission creatinine 1.43 mg/dL, GFR 53.4 mL/min (12/18/2024, 9:25am). 5. Acute transaminitis with admission AST 60 U/L, ALT 91 U/L, ALK PHOS 153 U/L (12/18/2024, 9:25am). 6. Chronic stage III sacral decubitus ulcer (oblong, 7 cm x 13 cm), multiple stage II left lateral sole, left lateral 5th toe, and left lateral malleolar decubiti (circular, 1 cm in diameter or smaller), and central crown ulcer with scab formation (apple shape, 4 cm in diameter), excoriation/lichenification of penis and scrotum with diaper soaked in urine, present on admission date 12/18/2024. 7. Chronic dgucdwo-ed-jsoiri s/p PEG (09/05/2024, [facility]), s/p non-bilious emesis without hematemesis x 1 episode while receiving tube feeds via PEG on (12/15/2024), for which patient was tentatively being considered for modified barium swallow @ On license of [facility] ([place], [place]) to evaluate patient for possible aspiration, but which was never scheduled or performed. 8. s/p decannulation of tracheostomy (10/06/2024, [facility] ([place], [place]). To address #1, patient received zosyn 4.5g IV x 1 dose (12/18/2024, 12:31pm) and vancomycin 1.25g IV x 1 dose (12/18/2024, 12:41pm) in [facility] ER bed #C7. Patient will continue with monotherapy utilizing zosyn 4.5g IV q8 (day #06/21 on 12/18, 5:46pm) in [facility] PCU bed #E219-1. I will check vitals, chest exam, genito-urinary exam (with olmedo catheter subsequently inserted in [facility] PCU bed #E219-1 on 12/18/2024, 5:30pm, to mitigate further penile, scrotal, and gluteal skin breakdown given the finding of wet diaper soaked in urine on arrival of patient from [facility] ([place], [place]) to [facility] ER on 12/18/2024, 9:00am), WBC w/diff, lactic acid, procalcitonin, urine culture (12/18/2024, 10:50am), blood culture #1 (12/18/2024, 9:25am), blood culture #2 (, 9:48am) and sacral wound culture (12/18/2024, 7:16pm) in the 12/19/2024 am. To address #2, patient received 1 liter of 0.9% NS @ 125 mL/hr (12/18/2024, 10:47am) in [facility] ER bed #C7. Patient was subsequently started on 1 liter of 0.9% NS @ 125 mL/hr (12/18/2024, 5:46pm) [facility]. I will check repeat Na level in the 12/19/2024 am while holding off patient's home-scheduled furosemide 20mg PO qam (given potential for this medication to exacerbate acute hypovolemic hyponatremia by inducing natri-uresis). Patient is also being held off his home-scheduled NaCl 1g PO bid given potential risk for aspiration of his home-scheduled NaCl 1g PO bid. To address #3, patient received 1 liter of 0.9% NS @ 125 mL/hr (12/18/2024, 10:47am) in [facility] ER bed #C7. Patient was subsequently started on 1 liter of 0.9% NS @ 125 mL/hr (12/18/2024, 5:46pm) [facility]. I will check repeat Ca level in the 12/19/2024 am while holding off patient's home-scheduled furosemide 20mg PO qam (given potential for this medication to exacerbate acute hypercalcemia by causing further acute dehydration, which is the principal cause of patient's acute hypercalcemia). To address #4, patient received 1 liter of 0.9% NS @ 125 mL/hr (12/18/2024, 10:47am) in [facility] ER bed #C7. Patient was subsequently started on 1 liter of 0.9% NS @ 125 mL/hr (12/18/2024, 5:46pm) in [facility] PCU bed #E219-1. I will check repeat creatinine level in the 12/19/2024 am while holding off patient's home- scheduled furosemide 20mg PO qam (given potential for this medication to cause further renal embarrassment, which is the principal cause of patient's acute kidney injury). To address #5, patient is being held off his home-scheduled mirtazapine 15mg PO qhs, which is a potential contributor to patient's acute transaminitis. I will check repeat LFT in the 12/19/2024 am. to address #6, patient awaits formal Wound Care Nurse evaluation in the 12/19/2024 am. In the interim, patient has been started on Mepilex dressing to the sacral decubitus and bed position changes q2h to mitigate further skin breakdown. In addition, patient was placed on a specialty bed with low air loss to offload pressure on patient's sacral decubitus and multiple stage II left lateral sole, left lateral 5th toe, and left lateral malleolar decubiti (circular, 1 cm in diameter or smaller). In addition, olmedo catheter was subsequently inserted [facility] on 12/18/2024, 5:30pm, to mitigate further penile, scrotal, and gluteal skin breakdown given the finding of wet diaper soaked in urine on arrival of patient from [facility] ([place], [place]) to [facility] ER on 12/18/2024, 9:00am. To address #7, patient awaits bedside swallow exam by nursing staff [facility]. Patient also awaits formal Engineering Research Manager Service evaluation in the 12/19/2024 am. To address #8, patient's sister/POA Ms. Asia Henry ( ) requested ENT Service evaluation to see if patient's former tracheostomy site c an be sutured/closed by ENT Service. Hence, I have solicited formal ENT Service evaluation with Dr. Fred Hawkins ( ) for the 12/19/2024 am. Allergies Allergy/AdvReac Type Severity Reaction Status Date / Time DUST Allergy Unknown Uncoded 07/28/02 16:47 [id number] Allergy Unknown Uncoded 07/28/02 16:47 N Allergy Unknown Uncoded 07/28/02 16:47 Home Medications Medication Instructions Recorded Confirmed Type folic acid 1 mg tablet 1 mg PO QAM #30 tabs 07/08/24 Rx furosemide 20 mg tablet 20 mg PO QAM #30 tabs 07/08/24 Rx mirtazapine 15 mg tablet 15 mg PO HS #30 tabs 07/08/24 Rx nicotine 7 mg/24 hr daily 1 patch transdermal QAM #28 ea 07/08/24 Rx transdermal patch pantoprazole 40 mg tablet,delayed 40 mg PO BID #60 tabs 07/08/24 Rx release sodium chloride 1,000 mg soluble 1,000 mg PO BID #60 tabs 07/08/24 Rx tablet thiamine HCl (vitamin B1) 100 mg 100 mg PO QAM #30 tabs 07/08/24 Rx tablet Past Med/Surg History Problem List (Updated 12/18/24 @ 19:15 by Josr Melgar MD, PhD) Failure to thrive in adult Sacral decubitus ulcer, stage III Transaminitis Acute kidney injury Acute hyponatremia Sepsis Chronic hypoxic respiratory failure (Acute) Hypercalcemia (Acute) Dehydration (Acute) Pneumonia (Acute) Weight loss Depression Right rib fracture Elevated bilirubin Cachexia Rib pain on right side Megaloblastic anemia Alcohol use Tobacco use Acute head trauma (Acute) Lower extremity weakness (Acute) Hyponatremia (Acute) Recurrent falls (Acute) Social History Smoking Status: Former smoker Tobacco Type: Cigarettes Second Hand Exposure: No; Do You Dip or Chew Tobacco: No; Hx Alcohol Use: No Hx Substance Use: No Preferred Language: Thai Communication Ability: Effective Personal Care Home Administrator Required: No Beliefs That Will Affect Care: None Current Living Situation: Alone Feels Safe at Home: Yes Assistive Devices: Other Review of Systems Constitutional: As above in the HPI. Physical Exam Constitutional: General: Comfortable, coherent, and cooperative. Not confused or obtunded, but lethargic. Patient speaks very slowly, but in complete, fluent, and articulate 3-5 word sentences without pause, interruption, cough, or wheeze with O2 sat 98% on room air (12/18/2024, 9:16am). HEENT: Normocephalic, atraumatic. No nystagmus, gaze paresis, anisocoria, miosis, mydriasis, hyphema, scleral injection, conjunctivitis, or pterygium. No otorrhea or rhinorrhea. No pharyngeal erythema, edema, or discharge. Neck: Supple, no stridor, bruit, goiter, or hepato-jugular reflux. Jugular venous pressure is estimated to be 3 cm above the sternal angle of Burke, which in turn, is 5 cm above the level of the right atrium; with jugular venous pressure estimated to be 8 cm, then, there is no jugular venous distention on 12/18/2024. Tracheostomy site well-healed, no underlying erythema, edema, induration, warmth, tenderness, crepitus, fluctuance, discharge, or lymphangitic streaking. Lymphatics: No cervical (anterior/posterior), supraclavicular, infraclavicular, axillary, epitrochlear, or inguinal adenopathy. Chest: Symmetric rise and fall with respirations. Non-tender to palpation. Lungs: Coarse breath sounds bilaterally. No audible expiratory wheeze, egophony, pectoriloquy, increase in tactile fremitus, or flatness/dullness to percussion at the bases. Heart: Regular rate and rhythm. S1 and S2 noted. No S3 or S4 summation gallop. No tripartite friction rub. Grade II/ early systolic murmur @ LLSB without radiation to the carotids, axilla, or back, and which remains invariant in regards to the respiratory cycle. Abdomen: Soft, non-tender, non-distended. No rebound, guarding, Warner's sign, or organomegaly. Bowel sounds auscultated in all 4 quadrants. Extremities: No clubbing, cyanosis, or edema. Skin: No exanthem or enanthem. Skin: 1. Central crown ulcer with scab format ion (apple shape, 4 cm in diameter), present on admission date 12/18/2024. 2. Multiple stage II left lateral sole, left lateral 5th toe, and left lateral malleolar decubiti (circular, 1 cm in diameter or smaller), present on admission date 12/18/2024. 3. Solitary stage III sacral decubitus ulcer (oblong, 7 cm x 13 cm) with surrounding erythema, warmth, and serous-suppurative discharge, but no tenderness, fluctuance, crepitus, malodor, or lymphangitic streaking, present on admission date 12/18/2024. 4. Excoriation/lichenification of penis and scrotum with diaper soaked in urine, present on admission date 12/18/2024. Neuro: Awake and oriented in regards to person, place, time, and situation. DTR+. 5/5 motor strength in all 4 extremities, both proximally and distally. No myoclonus, tremors, or tics. Genito-urinary: No urethral discharge. No olmedo catheter in [facility] ER bed #C7. Olmedo catheter subsequently inserted in [facility] PCU bed #E219-1 on 12/18/2024, 5:30pm, to mitigate further penile, scrotal, and gluteal skin breakdown given the finding of wet diaper soaked in urine on arrival of patient from [facility] ([place], [place]) to [facility] ER on 12/18/2024, 9:00am. Results & Data Results & Data Vital Signs (Past 12 Hours) Vital Signs Temp Pulse Resp BP Pulse Ox O2 Del Method O2 Flow Rate 12/18/24 15:30 91 H 18 134/82 98 Nasal Cannula 5 12/18/24 13:30 87 18 100 12/18/24 13:30 138/70 12/18/24 13:30 138/70 12/18/24 13:30 138/70 12/18/24 13:24 88 12/18/24 13:12 87 18 100 12/18/24 13:03 84 20 100 12/18/24 13:00 127/66 12/18/24 12:51 92 H 16 99 12/18/24 12:45 86 22 98 12/18/24 12:36 88 19 100 12/18/24 12:30 142/75 H 12/18/24 12:30 142/75 H 12/18/24 12:06 89 16 100 12/18/24 12:00 91 H 19 100 12/18/24 11:42 86 20 99 12/18/24 11:30 87 17 100 12/18/24 11:30 140/76 12/18/24 11:30 140/76 12/18/24 11:24 89 14 100 12/18/24 11:06 86 15 100 12/18/24 10:45 88 17 12/18/24 10:30 128/67 12/18/24 10:27 89 15 100 12/18/24 10:24 91 H 18 100 12/18/24 10:00 89 17 135/75 100 Nasal Cannula 5 12/18/24 09:31 98 Nasal Cannula 5 12/18/24 09:30 90 18 145/76 H 99 12/18/24 09:25 89 12/18/24 09:16 37.0 C 93 H 20 130/70 98 Room Air Laboratory Results As above in the HPI. Diagnostic Findings As above in the HPI. Medications Administered As above in the HPI. Code Status & VTE Plan Code Status DNR/DNI @ [facility] ([place], [place]), since 11/19/2024 VTE Prophylaxis Plan VTE Prophylaxis will be ordered: Yes PG Care Time/CCT Total # of Minutes Spent Total Time Spent with Patient: Total time spent is greater than 50% in coordination of care (as documented) at patient's floor/unit and/or counseling patient: Coding Level of Care Code 95712 INT INP/OBS CARE 3/75MIN Diagnoses Sepsis A41.9 Acute hyponatremia E87.1 Hypercalcemia E83.52 Acute kidney injury N17.9 Transaminitis R74.01 Sacral decubitus ulcer, stage III L89.153 Failure to thrive in adult R62.7
[2024-12-18] MEDS: PIPERACILLIN/TAZOBACTAM 4.5 GM/100 ML BAG IV SCH (17:46)
--- NOTE | 2024-12-18 19:12 | Ultrasound Report ---
DVT ULTRASOUND OF THE LEFT LOWER EXTREMITY INDICATION: Pain TECHNIQUE: Grayscale and color Doppler evaluation of the LEFT femoral-popliteal venous system was performed. A duplex Doppler study was performed, consisting of integrated two-dimensional (2D) real-time imaging: Color flow Doppler and Doppler spectral analysis. COMPARISON: None. FINDINGS: LEFT common femoral, femoral and popliteal veins: Normal compressibility, color flow, respiratory variation. No intraluminal echogenic material. IMPRESSION: No evidence of deep venous thrombus in the left femoral-popliteal venous system. Electronically signed by Riley Toledo 12-18-2024 7:09 PM
[2024-12-18] MEDS ORDERED: ALBUT/IPRATROP 3MG/0.5MG NEB 3 ML VIAL NEB PRN (20:28)
[2024-12-18] MEDS: HEPARIN SOD 5,000 UNIT/0.5 ML VIAL SQ SCH (21:41)
[2024-12-19 07:38] LABS: Hematocrit (blood only) 29.3 % (42.0-52.0); Hemoglobin 8.9 g/dl (14.0-18.0); Immature Granulocytes # (auto) 0.07 K/uL (0.01-0.20); Immature Granulocytes % (auto) 0.7 %; Mean Corpuscular Hemoglobin 27.8 pg (25.0-34.0); Mean Corpuscular Volume 91.6 fL (80.0-100.0); Platelet Count 406 K/uL (130-400); RDW Standard Deviation 50.9 fL (36.4-46.3); Red Blood Count 3.20 M/uL (4.70-6.10); White Blood Count 9.55 K/ul (4.8-10.8)
[2024-12-19 07:55] LABS: Alanine Aminotransferase 63.0 U/L (7-52); Albumin Globulin Ratio 0.7 (0.9-2); Alkaline Phosphatase 99.0 U/L (34-104); Anion Gap 8.0 (3-11); Bilirubin,Total 0.7 mg/dl (0.2-1.0); Blood Urea Nitrogen 54.0 mg/dl (6-23); Calcium 10.9 mg/dl (8.6-10.3); Carbon Dioxide 27.0 mmol/L (21-32); Chloride 100.0 mmol/L (98-107); Creatinine Clr Calc Pharmacy 41.2 ml/min; Globulin 4.6 gm/dl (2.5-4.0); Glucose 102.0 mg/dl (70-99(Fasting)); Potassium 3.9 mmol/L (3.5-5.1); Sodium 135.0 mmol/L (136-145); Total Protein 7.9 gm/dl (6.0-8.3)
[2024-12-19] MEDS ORDERED: VANCOMYCIN HCL 1,000 MG/270 ML BAG IV SCH (09:00)
[2024-12-19] MEDS: NUTREN LIQD 2.0 1,000 ML BAG GT SCH (13:15)
[2024-12-19] MEDS: TUBE FEEDING WATER FLUSH GT SCH (13:26)
--- NOTE | 2024-12-19 17:41 | ENT Consultation ---
Date of Consultation December 19, 2024 Assessment & Plan (1) Tracheocutaneous fistula following tracheostomy: 69M admitted for pneumonia with recent trach/peg s/p decannulation of trach (10/06/24) with consult for TCF closure to facilitate swallowing. Although a large TCF may contribute to some dysphagia due to air leakage out the fistula, Mr Whitaker has no auditory air leakage when speaking and the fistula is only 5- 10mm in diameter. As such, there is no significant contribution to dysphagia due to his TCF. Additionally would not consider closing the TCF due to his active infection. -No acute ENT intervention History of Present Illness Reason for Consultation: Consideration for TCF closure Attending Physician: Josr Melgar MD, PhD History of Present Illness 69M who presented to [facility] with pneumonia on Thursday, 12/18 following a longer hospitalization including trach/peg in August 2024 subsequently discharged and decannulated. Consult from primary team on TCF closure to facilitate swallowing. Patient is currently NPO with a pending MBS scheduled for 12/20. Has had a dressing over the trach stoma. Voice strong, denies any significant air leakage from the TCF. Notes some drainage from the TCF during this acute admission but no significant drainage prior this. [place] Hospitalization: [facility] ([place]) on 08/22/2024 with severe septic shock due to multi-lobar necrotizing CAP and acute hypoxic respiratory failure, followed by intubation (08/22/2024), failed extubation, s/p tracheostomy (09/05/2024, [facility] ([place])), failure to thrive s/p PEG (09/05/2024, [facility]) Allergies Allergy/AdvReac Type Severity Reaction Status Date / Time DUST Allergy Unknown Uncoded 07/28/02 16:47 [id number] Allergy Unknown Uncoded 07/28/02 16:47 N Allergy Unknown Uncoded 07/28/02 16:47 Home Medications Medication Instructions Recorded Confirmed Type folic acid 1 mg tablet 1 mg PO QAM #30 tabs 07/08/24 Rx furosemide 20 mg tablet 20 mg PO QAM #30 tabs 07/08/24 Rx mirtazapine 15 mg tablet 15 mg PO HS #30 tabs 07/08/24 Rx nicotine 7 mg/24 hr daily 1 patch transdermal QAM #28 ea 07/08/24 Rx transdermal patch pantoprazole 40 mg tablet,delayed 40 mg PO BID #60 tabs 07/08/24 Rx release sodium chloride 1,000 mg soluble 1,000 mg PO BID #60 tabs 07/08/24 Rx tablet thiamine HCl (vitamin B1) 100 mg 100 mg PO QAM #30 tabs 07/08/24 Rx tablet Patient History Social History Smoking Status: Former smoker Tobacco Type: Cigarettes Second Hand Exposure: No; Do You Dip or Chew Tobacco: No; Tobacco Cessation Education Requested by Patient: No Hx Alcohol Use: No Hx Substance Use: No Preferred Language: Chinese Communication Ability: Effective Guide Alpine Required: No Beliefs That Will Affect Care: None Current Living Situation: Alone Other Information That Helps Us Care for You: No Feels Safe at Home: Yes Safety Concerns: Feels Safe At This Time Assistive Devices: Other Assistive Devices Comment: bedbound at the time Review of Systems Review of Systems: per HPI Physical Exam Physical Exam: Frail elderly male. Strong voice, no auditory air leakage from TCF TCF with thick drainage on dressing, however fistula with only about 5-10mm of opening Results & Data Vital Signs (Past 12 Hours) Vital Signs Temp Pulse Pulse Resp BP Pulse Ox O2 Del Method 12/19/24 15:46 12/19/24 15:23 83 12/19/24 14:31 36.6 C 87 17 129/68 99 Nasal Cannula 12/19/24 10:57 36.7 C 84 17 144/70 H 100 Nasal Cannula 12/19/24 08:00 90 12/19/24 08:00 Nasal Cannula 12/19/24 07:32 36.6 C 89 20 107/65 100 Nasal Cannula O2 Flow Rate O2 Flow Rate 12/19/24 15:46 5 12/19/24 15:23 12/19/24 14:31 5 12/19/24 10:57 5 12/19/24 08:00 12/19/24 08:00 5 12/19/24 07:32 5 PG Care Time/CCT Total # of Minutes Spent Total Time Spent with Patient: Total time spent is greater than 50% in coordination of care (as documented) at patient's floor/unit and/or counseling patient: [place] [address] Inpt Consult Level 1 Patient Type New Medical Decision Making Low Complexity Diagnoses Tracheocutaneous fistula following tracheostomy J95.04
--- NOTE | 2024-12-19 21:29 | Hospitalist Progress Note ---
Date of Service December 19, 2024 Assessment & Plan (1) Sepsis due to pneumonia: Plan: Patient was subsequently admitted to the inpatient hospitalist service @ [facility] on 12/18/2024 with the following diagnoses: 1. Sepsis due to (a) acute multi-lobar CAP and (2) acute E. coli UTI; R/O gram negative wil-associated bacteremia; R/O sacral wound infection. 2. Acute hypovolemic hyponatremia with admission Na 131 mmol/L (12/18/2024, 9:25am). 3. Acute hypercalcemia with admission Ca 12.6 mg/dL (12/18/2024, 9:25am). 4. Acute kidney injury with admission creatinine 1.43 mg/dL, GFR 53.4 mL/min (12/18/2024, 9:25am). 5. Acute transaminitis with admission AST 60 U/L, ALT 91 U/L, ALK PHOS 153 U/L (12/18/2024, 9:25am). 6. Chronic stage III sacral decubitus ulcer (oblong, 7 cm x 13 cm), multiple stage II left lateral sole, left lateral 5th toe, and left lateral malleolar decubiti (circular, 1 cm in diameter or smaller), and central crown ulcer with scab formation (apple shape, 4 cm in diameter), excoriation/lichenification of penis and scrotum with diaper soaked in urine, present on admission date 12/18/2024. 7. Chronic [id number] s/p PEG (09/05/2024, [facility]), s/p non-bilious emesis without hematemesis x 1 episode while receiving tube feeds via PEG on (12/15/2024), for which patient was tentatively being considered for modified barium swallow @ [facility] ([place], [place]) to evaluate patient for possible aspiration, but which was never scheduled or performed. 8. Severe protein-calorie malnutrition. 9. 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 10.s/p decannulation of tracheostomy (10/06/2024, [facility] ([place], [place]). To address #1, patient received zosyn 4.5g IV x 1 dose (12/18/2024, 12:31pm) and vancomycin 1.25g IV x 1 dose (12/18/2024, 12:41pm) in [facility] ER bed #C7. Patient will continue with monotherapy utilizing zosyn 4.5g IV q8 (day #06/21 on 12/18/2024, 5:46pm) [facility]. I will check vitals, chest exam, genito-urinary exam (with olmedo catheter subsequently [facility] on 12/18/2024, 5:30pm, to mitigate further penile, scrotal, and gluteal skin breakdown given the finding of wet diaper soaked in urine on arrival of patient from [facility] ([place], [place]) to [facility] ER on 12/18/2024, 9:00am), WBC w/diff, lactic acid, procalcitonin, urine culture (12/18/2024, 10:50am), blood culture #1 (12/18/2024, 9:25am), blood culture #2 (, 9:48am) and sacral wound culture (12/18/2024, 7:16pm) in the 12/20/2024 am. To address #2, patient received 1 liter of 0.9% NS @ 125 mL/hr (12/18/2024, 10:47am) in [facility] ER bed #C7. Patient received 1 liter of 0.9% NS @ 125 mL/hr (12/18/2024, 5:46pm) [facility]. Patient is subsequently receiving his 4th liter of 0.9% NS @ 125 mL/hr (12/20/2024, 9:27pm) [facility]. I will check repeat Na level in the 12/20/2024 am while holding off patient's home-scheduled furosemide 20mg PO qam (given potential for this medication to exacerbate acute hypovolemic hyponatremia by inducing natri- uresis). Patient is also being held off his home-scheduled NaCl 1g PO bid given potential risk for aspiration of his home-scheduled NaCl 1g PO bid. To address #3, patient received 1 liter of 0.9% NS @ 125 mL/hr (12/18/2024, 10:47am) in [facility] ER bed #C7. Patient received 1 liter of 0.9% NS @ 125 mL/hr (12/18/2024, 5:46pm) in [facility] bed #E219-1. Patient is subsequently receiving his 4th liter of 0.9% NS @ 125 mL/hr (12/20/2024, 9:27pm) [facility] 1 I will check repeat Ca level in the 12/20/2024 am while holding off patient's home-scheduled furosemide 20mg PO qam (given potential for this medication to exacerbate acute hypercalcemia by causing further acute dehydration, which is the principal cause of patient's acute hypercalcemia). To address #4, patient received 1 liter of 0.9% NS @ 125 mL/hr (12/18/2024, 10:47am) in [facility] ER bed #C7. Patient received 1 liter of 0.9% NS @ 125 mL/hr (12/18/2024, 5:46pm) [facility]. Patient is subsequently receiving his 4th liter of 0.9% NS @ 125 mL/hr (12/20/2024, 9:27pm) [facility]. I will check repeat creatinine level in the 12/20/2024 am while holding off patient's home-scheduled furosemide 20mg PO qam (given potential for this medication to cause further renal embarrassment, which is the principal cause of patient's acute kidney injury). To address #5, patient is being held off his home-scheduled mirtazapine 15mg PO qhs, which is a potential contributor to patient's acute transaminitis. I will check repeat LFT in the 12/20/2024 am. to address #6, patient awaits formal Wound Care Nurse evaluation in the 12/20/2024 am. In the interim, patient was started on Mepilex dressing to the sacral decubitus and bed position changes q2h to mitigate further skin breakdown. In addition, patient was placed on a specialty bed with low air loss to offload pressure on patient's sacral decubitus and multiple stage II left lateral sole, left lateral 5th toe, and left lateral malleolar decubiti (circular, 1 cm in diameter or smaller). In addition, olmedo catheter was subsequently inserted in [facility]U bed #E219-1 on 12/18/2024, 5:30pm, to mitigate further penile, scrotal, and gluteal skin breakdown given the finding of wet diaper soaked in urine on arrival of patient from [facility] ([place]) to [facility] ER on 12/18/2024, 9:00am. To address #7, patient awaits bedside swallow exam by nursing staff in [facility] PCU bed #E219-1. Patient also awaits formal Environmental Services Supervisor Service evaluation in the 12/20/2024 am. In the interim, patient was started on his home-scheduled Nutren 2.0 1,000 mL GT daily @ 8:00am. To address #8, patient meets the criteria for definition of severe protein calorie malnutrition, as demonstrated by BMI 17.0 (height 182.9 cm; weight 56.8 kg), ongoing parenteral nutrition with PEG, multiple pressure ulcers present on admission date 12/18/2024, cachexia, vomiting/diarrhea, early satiety, and failure to thrive. Hence, patient awaits daily formal Environmental Services Supervisor Service evaluation in the 12/20/2024 am and will undergo daily weights and strict I/O while patient remains in [facility]. To address #9, patient meets the criteria for definition of cachexia, as demonstrated by BMI 17.0 (height 182.9 cm; weight 56.8 kg), ongoing parenteral nutrition with PEG, vomiting/diarrhea, early satiety, and failure to thrive. Hence, patient awaits daily formal Environmental Services Supervisor Service evaluation in the 12/20/2024 am and will undergo daily weights and strict I/O while patient remains in [facility]. To address #10, patient's sister/POA Ms. Asia Henry ( ) requested ENT Service evaluation to see if patient's former tracheostomy site, now replaced with a tracheo-cutaneous fistula can be sutured/closed by ENT Service. Hence, I solicited formal ENT Service evaluation with Dr. Fred Hawkins ( ) for the 12/19/2024 am. Subsequently, Dr. Li evaluated the patient and recommends holding OFF closure of tracheo-cutaneous fistula as closure of tracheo-cutaneous fistula in proximity to patient's acute multi-lobar CAP may actually entail development of skin infection. Admission and Anticipated Discharge Date Admission Date: December 18, 2024 Subjective "I feel better after the antibiotics were started yesterday. I feel stronger, but I am still weak you know. I also need to get my depression medicine today; I take bupropion 150mg PO bid." Review of Systems Constitutional: Generalized weakness. 30 pounds of unintentional weight loss o chau the past 3 months with no complaints of early satiety, night sweats, or persistent vomiting/diarrhea/laxative (ab)use. Patient concedes to using lasix 20mg PO daily on a regular basis, but reports that he is "not peeing so much that I lost 30 pounds from peeing alone." Patient denies antecedent/coincident fevers, diaphoresis, wheeze, sore throat, hemoptysis, chest pains, palpitations, pleurisy, nausea, diarrhea, abdominal pain, pelvic pain, flank pain, hematemesis, hematochezia, melena, hematuria, dysuria, frequency, urgency, headaches, dizziness, lightheadedness, visual changes, hearing changes, falls, syncope, trauma, travel history, sick contacts, or food/drug ingestions novel or new. All other review of systems are reported as negative by the patient on admission date 12/18/2024 or current date 12/19/2024. Physical Exam Constitutional: General: Comfortable, coherent, and cooperative. Not confused or obtunded, but lethargic. Patient speaks very slowly, but in complete, fluent, and articulate 3-5 word sentences without pause, interruption, cough, or wheeze with O2 sat 98% on room air (12/18/2024, 9:16am). Cachectic with bi-temporal atrophy. HEENT: Normocephalic, atraumatic. No nystagmus, gaze paresis, anisocoria, miosis, mydriasis, hyphema, scleral injection, conjunctivitis, or pterygium. No otorrhea or rhinorrhea. No pharyngeal erythema, edema, or discharge. Neck: Supple, no stridor, bruit, goiter, or hepato-jugular reflux. Jugular venous pressure is estimated to be 3 cm above the sternal angle of Burke, which in turn, is 5 cm above the level of the right atrium; with jugular venous pressure estimated to be 8 cm, then, there is no jugular venous distention on 12/19/2024. 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 Lymphatics: No cervical (anterior/posterior), supraclavicular, infraclavicular, axillary, epitrochlear, or inguinal adenopathy. Chest: Symmetric rise and fall with respirations. Non-tender to palpation. Lungs: Coarse breath sounds bilaterally. No audible expiratory wheeze, egophony, pectoriloquy, increase in tactile fremitus, or flatness/dullness to percussion at the bases. Heart: Regular rate and rhythm. S1 and S2 noted. No S3 or S4 summation gallop. No tripartite friction rub. Grade II/ early systolic murmur @ LLSB without radiation to the carotids, axilla, or back, and which remains invariant in regards to the respiratory cycle. Abdomen: Soft, non-tender, non-distended. No rebound, guarding, Warner's sign, or organomegaly. Bowel sounds auscultated in all 4 quadrants. Extremities: No clubbing, cyanosis, or edema. Skin: No exanthem or enanthem. Skin: 1. Central crown ulcer with scab format ion (apple shape, 4 cm in diameter), present on admission date 12/18/2024. 2. Multiple stage II left lateral sole, left lateral 5th toe, and left lateral malleolar decubiti (circular, 1 cm in diameter or smaller), present on admission date 12/18/2024. 3. Solitary stage III sacral decubitus ulcer (oblong, 7 cm x 13 cm) with surrounding erythema, warmth, and serous-suppurative discharge, but no tenderness, fluctuance, crepitus, malodor, or lymphangitic streaking, present on admission date 12/18/2024. 4. Excoriation/lichenification of penis and scrotum with diaper soaked in urine, present on admission date 12/18/2024. Neuro: Awake and oriented in regards to person, place, time, and situation. DTR+. 5/5 motor strength in all 4 extremities, both proximally and distally. No myoclonus, tremors, or tics. Genito-urinary: No urethral discharge. No olmedo catheter in [facility] ER bed #C7. Olmedo catheter subsequently inserted in [facility] PCU bed #E219-1 on 12/18/2024, 5:30pm, to mitigate further penile, scrotal, and gluteal skin breakdown given the finding of wet diaper soaked in urine on arrival of patient from [facility] ([place]) to [facility] ER on 12/18/2024, 9:00am. Results & Data Results & Data Vital Signs (Past 12 Hours) Vital Signs Temp Pulse Pulse Resp BP Pulse Ox O2 Del Method 12/19/24 19:18 36.6 C 83 20 145/79 H 100 Room Air 12/19/24 15:46 12/19/24 15:23 83 12/19/24 14:31 36.6 C 87 17 129/68 99 Nasal Cannula 12/19/24 10:57 36.7 C 84 17 144/70 H 100 Nasal Cannula O2 Flow Rate O2 Flow Rate 12/19/24 19:18 12/19/24 15:46 5 12/19/24 15:23 12/19/24 14:31 5 12/19/24 10:57 5 Laboratory Results WBC 13.42, N71 l12 M9 E 7, Hb 10.7, MCV 91.2, MCHC 30.2, platelet 445 (12/18/2024, 9:25am). WBC 9.66, N62 L13 M9 E15 B1, Hb 8.9, MCV 91.6, MCHC 30.4, platelet 406 (12/19/2024, 7:26am). Lactic acid #1 0.9 mmol/L (12/18/2024, 9:48am). Lactic acid #2 0.9 mmol/L (12/18/2024, 1:06pm). Lactic acid #3 0.5 mmol/L (12/19/2024, 7:26am). Procalcitonin #1 0.24 ng/mL (12/18/2024, 9:25am). Procalcitonin #2 0.24 ng/mL (12/19/2024, 7:26am). U/A: turbid yellow, LE 3+, nitrite+, WBC > 50, RBC 0-2, epithelial cells -2, bacteria 4+ (12/18/2024, 10:50am). Urine culture (12/18/2024, 10:50am): > 100,000 cfu/mL E. coli Blood culture #1 (12/18/2024, 9:25am): Blood culture #2 (12/18/2024, 9:48am): Sacral wound culture (12/18/2024, 7:16pm): __ MRSA nares negative (12/18/2024, 12:56pm). BIOFIRE respiratory pathogen panel negative (12/18/2024, 12:56pm). VBG 7.43 / 54 / 33 / 36 / O2 sat < 60% (12/18/2024, 9:48am). Na 131, K 4.2, BUN 63, creatinine 1.43, GFR 53.4 mL/min, glucose 101, Ca 12.6, Mg 2.1 (12/18/2024, 9:25am). Na 135, K 3.9, BUN 54, creatinine 1.38, GFR 55.7 mL/min, glucose 102, Ca 10.9 (12/19/2024, 7:26am). AST 60, ALT 91, ALK PHOS 153, TBili 0.1 (12/18/2024, 9:25am). AST 39, ALT 63, ALK PHOS 99, TBili 0.7 (12/19/2024, 7:26am). INR 1.0 (12/18/2024, 9:25am). Diagnostic Findings Portable CXR (12/18/2024, 9:31am): 1. RUL, RLL, LLL infiltrates. Bilateral effusions. 2. No cardiomegaly, pulmonary vascular congestion, or pneumothorax. (by my review). EKG (12/18/2024, 9:22am): NSR @ 90, TN 140, QTC 423, no TWI, no acute ST depressions/elevations (by my review). EKG (07/01/2024, 12:21pm): NSR @ 71, TN 134, QTC 430, TWI in aVL, V2, no acute ST depressions/elevations (by my review). PG Care Time/CCT Total # of Minutes Spent Total Time Spent with Patient: Total time spent is greater than 50% in coordination of care (as documented) at patient's floor/unit and/or counseling patient: Coding Level of Care Code 17042 SUB INP/OBS CARE 3/50MIN Diagnoses Sepsis due to pneumonia J18.9; A41.9
[2024-12-20 06:34] LABS: Hematocrit (blood only) 28.1 % (42.0-52.0); Hemoglobin 8.5 g/dl (14.0-18.0); Immature Granulocytes # (auto) 0.06 K/uL (0.01-0.20); Immature Granulocytes % (auto) 0.7 %; Mean Corpuscular Hemoglobin 27.9 pg (25.0-34.0); Mean Corpuscular Volume 92.1 fL (80.0-100.0); Platelet Count 377 K/uL (130-400); RDW Standard Deviation 50.8 fL (36.4-46.3); Red Blood Count 3.05 M/uL (4.70-6.10); White Blood Count 8.83 K/ul (4.8-10.8)
[2024-12-20 07:06] LABS: Alanine Aminotransferase 51.0 U/L (7-52); Albumin Globulin Ratio 0.7 (0.9-2); Alkaline Phosphatase 117.0 U/L (34-104); Anion Gap 7.0 (3-11); Bilirubin,Total 0.4 mg/dl (0.2-1.0); Blood Urea Nitrogen 41.0 mg/dl (6-23); Calcium 9.8 mg/dl (8.6-10.3); Carbon Dioxide 26.0 mmol/L (21-32); Chloride 104.0 mmol/L (98-107); Creatinine Clr Calc Pharmacy 42.7 ml/min; Globulin 4.2 gm/dl (2.5-4.0); Glucose 135.0 mg/dl (70-99(Fasting)); Potassium 3.7 mmol/L (3.5-5.1); Sodium 137.0 mmol/L (136-145); Total Protein 7.3 gm/dl (6.0-8.3)
[2024-12-20] MEDS ORDERED: NUTREN LIQD 2.0 1,000 ML BAG GT SCH (08:00)
[2024-12-20] MEDS: NUTREN LIQD 2.0 1,000 ML BAG GT SCH (08:13)
[2024-12-20] MEDS: cefTRIAXone SODIUM 1,000 MG/50 ML BAG IV SCH (10:13)
[2024-12-20] MEDS: MAGNESIUM CITRATE 296 ML/BTL PO STA (14:01)
--- NOTE | 2024-12-20 15:27 | Fluoroscopy Report ---
VIDEO SWALLOW STUDY CLINICAL HISTORY: History of aspiration pneumonia. Intubations. Fluoro time: 2.29 minutes. Ka,r: 9.3 mGy FINDINGS: Fluoroscopic guidance is provided to the Department of speech pathology in performing a vid eo swallow study. The patient consumed barium-impregnated pudding, nectar-thick liquids, and thin bar ium with the swallowing mechanism was observed in real-time. Pharyngeal penetration and aspiration wa s seen with thin barium. No aspiration was clearly seen with the remaining sampled textures on the sw allows. There is an apparent abnormal/fistulous subglottic connection between the lower larynx/upper esophagus and the trachea suggestive of fistula formation. There was saturnino aspiration to this connect ion with all sampled textures. This included aspiration pharyngeal residuals. IMPRESSION: 1. There is penetration with aspiration seen with thin barium. 2. 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 There was aspiration seen through this connection, which was visualize d on all sampled textures. Correlation with direct visualization is recommended. Dictated: 12/20/2024 2:30 PM Transcribed: 12/20/2024 2:46 PM Ashok [id number] [email or web address] Electronically signed by: Chad Be M.D. 12/20/2024 3:26 PM
--- NOTE | 2024-12-20 20:38 | Hospitalist Progress Note ---
Date of Service December 20, 2024 Assessment & Plan (1) Sepsis due to pneumonia: Plan: Patient was subsequently admitted to the inpatient hospitalist service @ [facility] on 12/18/2024 with the following diagnoses: 1. Sepsis due to (a) acute multi-lobar CAP and (2) acute E. coli UTI; R/O gram negative wil-associated bacteremia; R/O sacral wound infection. 2. Acute hypovolemic hyponatremia with admission Na 131 mmol/L (12/18/2024, 9:25am). 3. Acute hypercalcemia with admission Ca 12.6 mg/dL (12/18/2024, 9:25am). 4. Acute kidney injury with admission creatinine 1.43 mg/dL, GFR 53.4 mL/min (12/18/2024, 9:25am). 5. Acute transaminitis with admission AST 60 U/L, ALT 91 U/L, ALK PHOS 153 U/L (12/18/2024, 9:25am). 6. Chronic stage III sacral decubitus ulcer (oblong, 7 cm x 13 cm), multiple stage II left lateral sole, left lateral 5th toe, and left lateral malleolar decubiti (circular, 1 cm in diameter or smaller), and central crown ulcer with scab formation (apple shape, 4 cm in diameter), excoriation/lichenification of penis and scrotum with diaper soaked in urine, present on admission date 12/18/2024. 7. Chronic ulhungz-sv-rloows s/p PEG (09/05/2024, [facility]), s/p non-bilious emesis without hematemesis x 1 episode while receiving tube feeds via PEG on (12/15/2024), for which patient was tentatively being considered for modified barium swallow @ [facility] ([place], [place]) to evaluate patient for possible aspiration, but which was never scheduled or performed. 8. Severe protein-calorie malnutrition. 9. 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 10.s/p decannulation of tracheostomy (10/06/2024, [facility] ([place], [place]). To address #1, patient received zosyn 4.5g IV x 1 dose (12/18/2024, 12:31pm) and vancomycin 1.25g IV x 1 dose (12/18/2024, 12:41pm) in [facility] ER bed #C7. Patient continued with monotherapy utilizing zosyn 4.5g IV q8 (day #/ on 12/18/2024, 5:46pm) [facility]. Given publication of urine culture (12/18/2024, 10:50am): > 100,000 cfu/mL ampicillin-resistant, ciprofloxacin- resistant, levofloxacin-resistant, ceftriaxone-sensitive E. coli, I chose to de- escalate antibiotic therapy from zosyn 4.5g IV q8 (day #3 on 12/20/2024, 3:19am) to ceftriaxone 1g IV daily (day #/ on 12/20/2024, 10:13am). I will check vi tals, chest exam, genito-urinary exam (with olmedo catheter subsequently [facility] on 12/18/2024, 5:30pm, to mitigate further penile, scrotal, and gluteal skin breakdown given the finding of wet diaper soaked in urine on arrival of patient from [facility] ([place], [place]) to [facility] ER on 12/18/2024, 9:00am), WBC w/diff, lactic acid, procalcitonin, blood culture #1 (12/18/2024, 9:25am), blood culture #2 (, 9:48am) and sacral wound culture (12/18/2024, 7:16pm) in the 12/21/2024 am. To address #2, patient received 1 liter of 0.9% NS @ 125 mL/hr (12/18/2024, 10:47am) in [facility] ER bed #C7. Patient received 1 liter of 0.9% NS @ 125 mL/hr (12/18/2024, 5:46pm) [facility]. Patient subsequently received his 4th liter of 0.9% NS @ 125 mL/hr (12/20/2024, 9:27pm) [facility]. Acute hypovolemic hyponatremia subsequently improved to Na 135 mmol/L (12/19/2024, 7:26am), and then RESOLVED with post-hydration Na 137 mmol/L (12/20/2024, 6:14am). I will check repeat Na level in the 12/21/2024 am while continuing to hold off further IV fluid rehydration as patient was restarted on his home-scheduled Nutren 2.0 @ 1000 mL via PEG q8am (12/20/2024, 8:13am). In addition, patient continues to be held off his home-scheduled furosemide 20mg PO qam (given potential for this medication to exacerbate acute hypovolemic hyponatremia by inducing natri-uresis). Patient also continues to be held off his home-scheduled NaCl 1g PO bid given potential risk for aspiration of his home-scheduled NaCl 1g PO bid. To address #3, patient received 1 liter of 0.9% NS @ 125 mL/hr (12/18/2024, 10:47am) in [facility] ER bed #C7. Patient received 1 liter of 0.9% NS @ 125 mL/hr (12/18/2024, 5:46pm) in [facility] PCU bed #E219-1. Patient subsequently received his 4th liter of 0.9% NS @ 125 mL/hr (12/20/2024, 9:27pm) [facility]. Acute hypercalcemia subsequently improved to Ca 10.9 mg/dL (12/19/2024, 7:26am), and then RESOLVED with post-hydration Ca 9.8 mg/dL (12/20/2024, 6:14am). I will check repeat Ca level in the 12/21/2024 am while continuing to hold off further IV fluid rehydration as patient was restarted on his home-scheduled Nutren 2.0 @ 1000 mL via PEG q8am (12/20/2024, 8:13am). In addition, patient continues to be held off his home-scheduled furosemide 20mg PO qam (given potential for this medication to exacerbate acute hypercalcemia by causing further acute dehydration, which is the principal cause of patient's acute hypercalcemia). To address #4, patient received 1 liter of 0.9% NS @ 125 mL/hr (12/18/2024, 10:47am) in [facility] ER bed #C7. Patient received 1 liter of 0.9% NS @ 125 mL/hr (12/18/2024, 5:46pm) in [facility] PCU bed #E219-1. Patient subsequently received his 4th liter of 0.9% NS @ 125 mL/hr (12/20/2024, 9:27pm) in [facility] PCU bed #E219-1. Acute kidney injury subsequently improved to creatinine 1.38 mg/dL (12/19/2024, 7:26am), and then RESOLVED with post-hydration creatinine 1.33 mg/dL (12/20/2024, 6:14am). I will check repeat creatinine level in the 12/21/2024 am while continuing to hold off further IV fluid rehydration as patient was restarted on his home-scheduled Nutren 2.0 @ 1000 mL via PEG q8am (12/20/2024, 8:13am). In addition, patient continues to be held off his home-scheduled furosemide 20mg PO qam (given potential for this medication to cause further renal embarrassment, which is the principal cause of patient's acute kidney injury). To address #5, patient continues to be held off his home-scheduled mirtazapine 15mg PO qhs, which is a potential contributor to patient's acute transaminitis. Acute transaminitis subsequently improved with progressive decreases in AST to 39 U/L (12/19/2024, 7:26am) to 31 U/L (12/20/2024, 6:14am); progressive decreases in ALT to 63 U/L (12/19/2024, 7:26am) to 51 U/L (12/20/2024, 6:14am); initial decrease in ALK PHOS to 99 U/L (12/19/2024, 7:26am), followed by a spike up to 117 U/L (12/20/2024, 6:14am). I will check repeat LFT in the 12/21/2024 am. to address #6, patient awaits formal Wound Care Nurse evaluation in the 12/21/2024 am. In the interim, patient was started on Mepilex dressing to the sacral decubitus and bed position changes q2h to mitigate further skin breakdown. In addition, patient was placed on a specialty bed with low air loss to offload pressure on patient's sacral decubitus and multiple stage II left lateral sole, left lateral 5th toe, and left lateral malleolar decubiti (circular, 1 cm in diameter or smaller). In addition, olmedo catheter was subsequently inserted in [facility] PCU bed #E219-1 on 12/18/2024, 5:30pm, to mitigate further penile, scrotal, and gluteal skin breakdown given the finding of wet diaper soaked in urine on arrival of patient from [facility] ([place], [place]) to [facility] ER on 12/18/2024, 9:00am. To address #7, patient underwent modified barium swallow (12/20/2024, 10:30am), which revealed: 1. Penetration with aspiration seen with thin barium. 2. 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 There was aspiration seen through this connection, which was visualized on all sampled textures. Correlation with direct visualization is recommended. Subsequently, Speech & Swallow Pathologist Dr. Lucy Carrasco shared with me the findings above, and with ENT Dr. Fred Hawkins, both of whom recommended that patient be transferred to [facility] to undergo ENT Service evaluation for possible repair of fistula connecting piriform sinus with trachea. Subsequently, I spoke with [facility] ENT Dr. Mati Rick, who reviewed the images of the modified barium swallow (12/20/2024, 10:30am), and who opined that patient is aspirating, but may not have a alanna kamila fistula connecting the piriform sinus with trachea. To test this hypothesis, Dr. Donald Johnson recommended that patient undergo gastrografin leak test and CT abd/pelvis with oral contrast to delineate patient's anatomy with higher resolution than that provided by the modified barium swallow (12/20/2024, 10:30am), and that if such fistulous connection between the piriform sinus and trachea is present on gastrografin leak test and/or CT abd/pelvis with oral contrast, that I call him back with such results before initiating/executing patient transfer from [facility] to [facility]. In the interim, patient may remain in [facility] on 12/20/2024 pm, and in order to allow passage of the barium through/out the patient's GI tract, patient will not undergo gastrografin leak test and CT abd/pelvis with oral contrast until the 12/21/2024 am/pm. To address #8, patient meets the criteria for definition of severe protein calorie malnutrition, as demonstrated by BMI 17.0 (height 182.9 cm; weight 56.8 kg), ongoing parenteral nutrition with PEG, multiple pressure ulcers present on admission date 12/18/2024, cachexia, vomiting/diarrhea, early satiety, and failure to thrive. Hence, patient awaits daily formal [employer] Ad[employer] Service evaluation in the 12/20/2024 am and will undergo daily weights and strict I/O while patient remains in [facility]. To address #9, patient meets the criteria for definition of cachexia, as demonstrated by BMI 17.0 (height 182.9 cm; weight 56.8 kg), ongoing parenteral nutrition with PEG, vomiting/diarrhea, early satiety, and failure to thrive. Hence, patient awaits daily formal [employer] Advisor Service evaluation in the 12/20/2024 am and will undergo daily weights and strict I/O while patient remains in [facility]. To address #10, patient's sister/POA Ms. Asia Henry ( ) requested ENT Service evaluation to see if patient's former tracheostomy site, now replaced with a tracheo-cutaneous fistula can be sutured/closed by ENT Service. Hence, I solicited formal ENT Service evaluation with Dr. Fred Hawkins ( ) in the 12/19/2024 am. Subsequently, Dr. Li evaluated the patient and recommends holding OFF closure of tracheo-cutaneous fistula as closure of tracheo-cutaneous fistula in proximity to patient's acute multi-lobar CAP may actually entail development of skin infection. Admission and Anticipated Discharge Date Admission Date: December 18, 2024 Subjective "I feel better after the antibiotics were started when I got to the ER (12/18/2024). I feel stronger, but I am still weak." Review of Systems Constitutional: Generalized weakness. 30 pounds of unintentional weight loss o chau the past 3 months with no complaints of early satiety, night sweats, or persistent vomiting/diarrhea/laxative (ab)use. Patient concedes to using lasix 20mg PO daily on a regular basis, but reports that he is "not peeing so much that I lost 30 pounds from peeing alone." Patient denies antecedent/coincident fevers, diaphoresis, wheeze, sore throat, hemoptysis, chest pains, palpitations, pleurisy, nausea, diarrhea, abdominal pain, pelvic pain, flank pain, hematemesis, hematochezia, melena, hematuria, dysuria, frequency, urgency, headaches, dizziness, lightheadedness, visual changes, hearing changes, falls, syncope, trauma, travel history, sick contacts, or food/drug ingestions novel or new. All other review of systems are reported as negative by the patient on admission date 12/18/2024 or current date 12/20/2024. Physical Exam Constitutional: General: Comfortable, coherent, and cooperative. Not confused or obtunded, but lethargic. Patient speaks very slowly, but in complete, fluent, and articulate 3-5 word sentences without pause, interruption, cough, or wheeze with O2 sat 98% on room air (12/18/2024, 9:16am). Cachectic with bi-temporal atrophy. HEENT: Normocephalic, atraumatic. No nystagmus, gaze paresis, anisocoria, miosis, mydriasis, hyphema, scleral injection, conjunctivitis, or pterygium. No otorrhea or rhinorrhea. No pharyngeal erythema, edema, or discharge. Neck: Supple, no stridor, bruit, goiter, or hepato-jugular reflux. Jugular venous pressure is estimated to be 3 cm above the sternal angle of Burke, which in turn, is 5 cm above the level of the right atrium; with jugular venous pressure estimated to be 8 cm, then, there is no jugular venous distention on 12/20/2024. 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 Lymphatics: No cervical (anterior/posterior), supraclavicular, infraclavicular, axillary, epitrochlear, or inguinal adenopathy. Chest: Symmetric rise and fall with respirations. Non-tender to palpation. Lungs: Coarse breath sounds bilaterally. No audible expiratory wheeze, egophony, pectoriloquy, increase in tactile fremitus, or flatness/dullness to percussion at the bases. Heart: Regular rate and rhythm. S1 and S2 noted. No S3 or S4 summation gallop. No tripartite friction rub. Grade II/ early systolic murmur @ LLSB without radiation to the carotids, axilla, or back, and which remains invariant in regards to the respiratory cycle. Abdomen: Soft, non-tender, non-distended. No rebound, guarding, Warner's sign, or organomegaly. Bowel sounds auscultated in all 4 quadrants. Extremities: No clubbing, cyanosis, or edema. Skin: No exanthem or enanthem. Skin: 1. Central crown ulcer with scab format ion (apple shape, 4 cm in diameter), present on admission date 12/18/2024. 2. Multiple stage II left lateral sole, left lateral 5th toe, and left lateral malleolar decubiti (circular, 1 cm in diameter or smaller), present on admission date 12/18/2024. 3. Solitary stage III sacral decubitus ulcer (oblong, 7 cm x 13 cm) with surrounding erythema, warmth, and serous-suppurative discharge, but no tenderness, fluctuance, crepitus, malodor, or lymphangitic streaking, present on admission date 12/18/2024. 4. Excoriation/lichenification of penis and scrotum with diaper soaked in urine, present on admission date 12/18/2024. Neuro: Awake and oriented in regards to person, place, time, and situation. DTR+. 5/5 motor strength in all 4 extremities, both proximally and distally. No myoclonus, tremors, or tics. Genito-urinary: No urethral discharge. No olmedo catheter in [facility] ER bed #C7. Olmedo catheter subsequently inserted in [facility] PCU bed #E219-1 on 12/18/2024, 5:30pm, to mitigate further penile, scrotal, and gluteal skin breakdown given the finding of wet diaper soaked in urine on arrival of patient from [facility] ([place], [place]) to [facility] ER on 12/18/2024, 9:00am. Results & Data Results & Data Vital Signs (Past 12 Hours) Vital Signs Temp Pulse Pulse Resp BP Pulse Ox O2 Del Method 12/20/24 19:18 36.7 C 84 18 169/78 H 99 Nasal Cannula 12/20/24 18:37 91 H 12/20/24 16:08 36.6 C 80 17 164/80 H 100 Nasal Cannula 12/20/24 11:05 36.4 C L 83 17 158/78 H 99 Nasal Cannula O2 Flow Rate 12/20/24 19:18 5 12/20/24 18:37 12/20/24 16:08 5 12/20/24 11:05 5 Laboratory Results WBC 13.42, N71 l12 M9 E 7, Hb 10.7, MCV 91.2, MCHC 30.2, platelet 445 (12/18/2024, 9:25am). WBC 9.55, N62 L13 M9 E15 B1, Hb 8.9, MCV 91.6, MCHC 30.4, platelet 406 (12/19/2024, 7:26am). WBC 8.83, N57 L16 M9 E17 B1, Hb 8.5, MCV 92.1, MCHC 30.2, platelet 377 (12/20/2024, 6:14am). Lactic acid #1 0.9 mmol/L (12/18/2024, 9:48am). Lactic acid #2 0.9 mmol/L (12/18/2024, 1:06pm). Lactic acid #3 0.5 mmol/L (12/19/2024, 7:26am). Lactic acid #4 0.5 mmol/L (12/20/2024, 6:14am). Procalcitonin #1 0.24 ng/mL (12/18/2024, 9:25am). Procalcitonin #2 0.24 ng/mL (12/19/2024, 7:26am). Procalcitonin #3 0.15 ng/mL (12/20/2024, 6:14am). U/A: turbid yellow, LE 3+, nitrite+, WBC > 50, RBC 0-2, epithelial cells -2, bacteria 4+ (12/18/2024, 10:50am). Urine culture (12/18/2024, 10:50am): > 100,000 cfu/mL ampicillin-resistant, ciprofloxacin-resistant, levofloxacin-resistant, ceftriaxone-sensitive E. coli Blood culture #1 (12/18/2024, 9:25am): Blood culture #2 (12/18/2024, 9:48am): Sacral wound culture (12/18/2024, 7:16pm): __ MRSA nares negative (12/18/2024, 12:56pm). SofeaE respiratory pathogen panel negative (12/18/2024, 12:56pm). VBG 7.43 / 54 / 33 / 36 / O2 sat < 60% (12/18/2024, 9:48am). Na 131, K 4.2, BUN 63, creatinine 1.43, GFR 53.4 mL/min, glucose 101, Ca 12.6, Mg 2.1 (12/18/2024, 9:25am). Na 135, K 3.9, BUN 54, creatinine 1.38, GFR 55.7 mL/min, glucose 102, Ca 10.9 (12/19/2024, 7:26am). Na 137, K 3.7, BUN 41, creatinine 1.33, GFR 58.2 mL/min, glucose 135, Ca 9.8 (12/20/2024, 6:14am). AST 60, ALT 91, ALK PHOS 153, TBili 0.1 (12/18/2024, 9:25am). AST 39, ALT 63, ALK PHOS 99, TBili 0.7 (12/19/2024, 7:26am). AST 31, ALT 51, ALK PHOS 117, TBili 0.4 (12/20/2024, 6:14am). INR 1.0 (12/18/2024, 9:25am). Diagnostic Findings Portable CXR (12/18/2024, 9:31am): 1. RUL, RLL, LLL infiltrates. Bilateral effusions. 2. No cardiomegaly, pulmonary vascular congestion, or pneumothorax. (by my review). EKG (12/18/2024, 9:22am): NSR @ 90, IL 140, QTC 423, no TWI, no acute ST depressions/elevations (by my review). EKG (07/01/2024, 12:21pm): NSR @ 71, IL 134, QTC 430, TWI in aVL, V2, no acute ST depressions/elevations (by my review). PG Care Time/CCT Total # of Minutes Spent Total Time Spent with Patient: Total time spent is greater than 50% in coordination of care (as documented) at patient's floor/unit and/or counseling patient: Coding Level of Care Code 13877 SUB INP/OBS CARE 3/50MIN Diagnoses Sepsis due to pneumonia J18.9; A41.9
[2024-12-21] MEDS: [UNRECOGNIZED DRUG - REMARK] ONE (00:04)
[2024-12-21 07:17] LABS: Hematocrit (blood only) 27.8 % (42.0-52.0); Hemoglobin 8.3 g/dl (14.0-18.0); Immature Granulocytes # (auto) 0.10 K/uL (0.01-0.20); Immature Granulocytes % (auto) 1.2 %; Mean Corpuscular Hemoglobin 27.5 pg (25.0-34.0); Mean Corpuscular Volume 92.1 fL (80.0-100.0); Platelet Count 346 K/uL (130-400); RDW Standard Deviation 50.6 fL (36.4-46.3); Red Blood Count 3.02 M/uL (4.70-6.10); White Blood Count 8.61 K/ul (4.8-10.8)
[2024-12-21 07:42] LABS: Alanine Aminotransferase 40.0 U/L (7-52); Albumin Globulin Ratio 0.7 (0.9-2); Alkaline Phosphatase 111.0 U/L (34-104); Anion Gap 6.0 (3-11); Bilirubin,Total 0.3 mg/dl (0.2-1.0); Blood Urea Nitrogen 30.0 mg/dl (6-23); Calcium 9.2 mg/dl (8.6-10.3); Carbon Dioxide 25.0 mmol/L (21-32); Chloride 105.0 mmol/L (98-107); Creatinine Clr Calc Pharmacy 55.7 ml/min; Globulin 4.2 gm/dl (2.5-4.0); Glucose 93.0 mg/dl (70-99(Fasting)); Potassium 3.7 mmol/L (3.5-5.1); Sodium 136.0 mmol/L (136-145); Total Protein 7.2 gm/dl (6.0-8.3)
[2024-12-21] MEDS: OPTIRAY 320 100ml IV ONE (09:39)
--- NOTE | 2024-12-21 10:23 | CT Scan Report ---
CT soft tissue neck w con HISTORY: 69 years-old Male R/O fistula from piriform sinus to trachea acute neck pain COMPARISON: CT chest and head 07/01/2024 TECHNIQUE: Multiple axial CT images of the soft tissues of the neck were obtained with IV contrast. A dose lowering technique was used consistent with the principals of RAJIV. FINDINGS: Moderate right and large left pleural effusions. Intralobular septal thickening. No pneumothorax. Rig ht paratracheal lymph nodes measure up to 1.2 x 0.9 cm. Subcentimeter supraclavicular lymph nodes leobardo sure up to 9 mm on the right, image 27 series 10. Subcentimeter cervical chain lymph nodes. Mild nons pecific asymmetric prominence of the right sternocleidomastoid muscle. Patent airway. No acute inflam matory changes or fluid collections. Normal epiglottis, glottis and subglottic airway. The vallecula and piriform sinuses are within normal limits. No prevertebral edema. Possible old tracheostomy site, image 290 series 10. The imaged intracranial structures are within normal limits. There is atherosclerosis with at least m ild stenosis of the proximal internal carotid arteries. Rightward bowing and spurring of the nasal se ptum. Severe mucosal thickening of the left sphenoid sinus. Unremarkable imaged upper esophagus. Dege nerative changes of the cervical spine result in multilevel central canal and neural foraminal stenos is. Levoscoliosis of the cervicothoracic junction. No suspicious bone lesions. IMPRESSION: 1. No acute inflammatory changes or fluid collections. 2. Unremarkable appearance of the piriform sinuses. 3. Pulmonary edema with pleural effusions. 4. There are nonspecific subcentimeter lymph nodes measuring within the upper limits of normal within the upper mediastinum and right supraclavicular tissues, increased in size from the 07/01/2024 study. Attention at follow-up recommended. ACT 112: Negative or not required by law. The above report was generated using voice recognition software. It may contain grammatical, syntax o r spelling errors. Electronically signed by: Michael Rangel M.D. 12/21/2024 10:21 AM
--- NOTE | 2024-12-21 10:36 | CT Scan Report ---
CT OF THE ABDOMEN AND PELVIS WITH AND WITHOUT CONTRAST CLINICAL HISTORY: gastrografin leak test COMPARISON STUDY: CT of the abdomen and pelvis July 05, 2024. TECHNIQUE: Axial images of the abdomen and pelvis were obtained before and after intravenous administ ration of 93 cc Optiray 320 IV. Water-soluble contrast was injected into the gastrostomy tube. Automa sharyn exposure control was utilized for the study. A dose lowering technique was utilized adhering to the principles of ALARA. CT DOSE: 1753.13 mGy.cm FINDINGS: Moderate left and small right pleural effusions are partially imaged. Associated bibasilar lateral lower lobe airspace opacity is present. There is no pneumatosis, free air or portal venous ga s. Percutaneous gastrostomy tube is well-positioned. No extraluminal contrast is identified. There is opacification of the stomach and proximal small bowel following water-soluble contrast injection. Li chau, spleen, adrenal glands, kidneys and pancreas are unremarkable. Is no biliary or pancreatic ducta l dilatation. There is a small amount of fluid within the pelvis. There is no evidence for a bowel ob struction. There is moderate aortoiliac atherosclerotic plaque. A White balloon and small amount of g as within the bladder is noted. There are small bladder calculi. Bladder wall thickening is likely ch ronic. Sacral decubitus ulcer is noted. Subtle erosion of the posterior cortex of the second coccygea l segment is new since CT of July 05, 2024. IMPRESSION: 1. Appropriately positioned PEG tube. No contrast extravasation. 2. Moderate sized left and small right pleural effusions. Associated bibasilar opacities could repres ent atelectasis or pneumonia. 3. Sacral decubitus ulcer. Interval development of bony erosion of the posterior cortex of the second coccygeal segment suggestive of osteomyelitis. 4. Small amount of fluid within the pelvis. 5. No bowel obstruction. 6. Bladder wall thickening, likely chronic. Several small bladder calculi. ACT 112: Negative or not required by law. Electronically signed by: Neil Darden M.D. 12/21/2024 10:35 AM
[2024-12-21] MEDS: COLLAGENASE OINT 30 GM TUBE EXT SCH (16:56)
--- NOTE | 2024-12-21 20:39 | Hospitalist Progress Note ---
Date of Service December 21, 2024 Assessment & Plan (1) Sepsis due to pneumonia: Plan: Patient was subsequently admitted to the inpatient hospitalist service @ [facility] on 12/18/2024 with the following diagnoses: 1. Sepsis due to (a) acute multi-lobar CAP and (2) acute E. coli UTI; R/O gram negative wil-associated bacteremia; R/O sacral wound infection. 2. Acute hypovolemic hyponatremia with admission Na 131 mmol/L (12/18/2024, 9:25am). 3. Acute hypercalcemia with admission Ca 12.6 mg/dL (12/18/2024, 9:25am). 4. Acute kidney injury with admission creatinine 1.43 mg/dL, GFR 53.4 mL/min (12/18/2024, 9:25am). 5. Acute transaminitis with admission AST 60 U/L, ALT 91 U/L, ALK PHOS 153 U/L (12/18/2024, 9:25am). 6. Chronic stage III sacral decubitus ulcer (oblong, 7 cm x 13 cm), multiple stage II left lateral sole, left lateral 5th toe, and left lateral malleolar decubiti (circular, 1 cm in diameter or smaller), and central crown ulcer with scab formation (apple shape, 4 cm in diameter), excoriation/lichenification of penis and scrotum with diaper soaked in urine, present on admission date 12/18/2024. 7. Chronic [id number] s/p PEG (09/05/2024, [facility]), s/p non-bilious emesis without hematemesis x 1 episode while receiving tube feeds via PEG on (12/15/2024), for which patient was tentatively being considered for modified barium swallow @ [facility] ([place], [place]) to evaluate patient for possible aspiration, but which was never scheduled or performed. 8. Severe protein-calorie malnutrition. 9. 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 10.s/p decannulation of tracheostomy (10/06/2024, [facility] ([place], [place]). To address #1, patient received zosyn 4.5g IV x 1 dose (12/18/2024, 12:31pm) and vancomycin 1.25g IV x 1 dose (12/18/2024, 12:41pm) in [facility] ER bed #C7. Patient continued with monotherapy utilizing zosyn 4.5g IV q8 (day #/ on 12/18/2024, 5:46pm) [facility] bed [facility]. Given publication of urine culture (12/18/2024, 10:50am): > 100,000 cfu/mL ampicillin-resistant, ciprofloxacin- resistant, levofloxacin-resistant, ceftriaxone-sensitive E. coli, I chose to de- escalate antibiotic therapy from zosyn 4.5g IV q8 (day #3 on 12/20/2024, 3:19am) to ceftriaxone 1g IV daily (day #/ on 12/20/2024, 10:13am). I will check vi tals, chest exam, genito-urinary exam (with olmedo catheter subsequently inserted [facility] on 12/18/2024, 5:30pm, to mitigate further penile, scrotal, and gluteal skin breakdown given the finding of wet diaper soaked in urine on arrival of patient from [facility] ([place], [place]) to [facility] ER on 12/18/2024, 9:00am), WBC w/diff, lactic acid, procalcitonin, blood culture #1 (12/18/2024, 9:25am), blood culture #2 (, 9:48am) and sacral wound culture (12/18/2024, 7:16pm) in the 12/22/2024 am. To address #2, patient received 1 liter of 0.9% NS @ 125 mL/hr (12/18/2024, 10:47am) in [facility] ER bed #C7. Patient received 1 liter of 0.9% NS @ 125 mL/hr (12/18/2024, 5:46pm) [facility]. Patient subsequently received his 4th liter of 0.9% NS @ 125 mL/hr (12/20/2024, 9:27pm) in [facility]. Acute hypovolemic hyponatremia subsequently improved to Na 135 mmol/L (12/19/2024, 7:26am), and then RESOLVED with post-hydration Na 137 mmol/L (12/20/2024, 6:14am). I will check repeat Na level in the 12/22/2024 am while continuing to hold off further IV fluid rehydration as patient was restarted on his home-scheduled Nutren 2.0 @ 1000 mL via PEG q8am (12/20/2024, 8:13am). In addition, patient continues to be held off his home-scheduled furosemide 20mg PO qam (given potential for this medication to exacerbate acute hypovolemic hyponatremia by inducing natri-uresis). Patient also continues to be held off his home-scheduled NaCl 1g PO bid given potential risk for aspiration of his home-scheduled NaCl 1g PO bid. To address #3, patient received 1 liter of 0.9% NS @ 125 mL/hr (12/18/2024, 10:47am) in [facility] ER bed #C7. Patient received 1 liter of 0.9% NS @ 125 mL/hr (12/18/2024, 5:46pm) in [facility] PCU bed #E219-1. Patient subsequently received his 4th liter of 0.9% NS @ 125 mL/hr (12/20/2024, 9:27pm) in [facility]. Acute hypercalcemia subsequently improved to Ca 10.9 mg/dL (12/19/2024, 7:26am), and then RESOLVED with post-hydration Ca 9.8 mg/dL (12/20/2024, 6:14am). I will check repeat Ca level in the 12/22/2024 am while continuing to hold off further IV fluid rehydration as patient was restarted on his home-scheduled Nutren 2.0 @ 1000 mL via PEG q8am (12/20/2024, 8:13am). In addition, patient continues to be held off his home-scheduled furosemide 20mg PO qam (given potential for this medication to exacerbate acute hypercalcemia by causing further acute dehydration, which is the principal cause of patient's acute hypercalcemia). To address #4, patient received 1 liter of 0.9% NS @ 125 mL/hr (12/18/2024, 10:47am) in [facility] ER bed #C7. Patient received 1 liter of 0.9% NS @ 125 mL/hr (12/18/2024, 5:46pm) in [facility] PCU bed #E219-1. Patient subsequently received his 4th liter of 0.9% NS @ 125 mL/hr (12/20/2024, 9:27pm) in [facility] PCU bed #E219-1. Acute kidney injury subsequently improved to creatinine 1.38 mg/dL (12/19/2024, 7:26am), and then RESOLVED with post-hydration creatinine 1.33 mg/dL (12/20/2024, 6:14am). I will check repeat creatinine level in the 12/21/2024 am while continuing to hold off further IV fluid rehydration as patient was restarted on his home-scheduled Nutren 2.0 @ 1000 mL via PEG q8am (12/20/2024, 8:13am). In addition, patient continues to be held off his home-scheduled furosemide 20mg PO qam (given potential for this medication to cause further renal embarrassment, which is the principal cause of patient's acute kidney injury). To address #5, patient continues to be held off his home-scheduled mirtazapine 15mg PO qhs, which is a potential contributor to patient's acute transaminitis. Acute transaminitis subsequently improved with progressive decreases in AST to 39 U/L (12/19/2024, 7:26am) to 31 U/L (12/20/2024, 6:14am); progressive decreases in ALT to 63 U/L (12/19/2024, 7:26am) to 51 U/L (12/20/2024, 6:14am); initial decrease in ALK PHOS to 99 U/L (12/19/2024, 7:26am), followed by a spike up to 117 U/L (12/20/2024, 6:14am). I will check repeat LFT in the 12/22/2024 am. to address #6, patient awaits formal Wound Care Nurse re-evaluation in the 12/22/2024 am. In the interim, patient was started on Mepilex dressing to the sacral decubitus and bed position changes q2h to mitigate further skin breakdown. In addition, patient was placed on a specialty bed with low air loss to offload pressure on patient's sacral decubitus and multiple stage II left lateral sole, left lateral 5th toe, and left lateral malleolar decubiti (circular, 1 cm in diameter or smaller). In addition, olmedo catheter was subsequently inserted in [facility] PCU bed #E219-1 on 12/18/2024, 5:30pm, to mitigate further penile, scrotal, and gluteal skin breakdown given the finding of wet diaper soaked in urine on arrival of patient from [facility] ([place], [place]) to [facility] ER on 12/18/2024, 9:00am. To address #7, patient underwent modified barium swallow (12/20/2024, 10:30am), which revealed: 1. Penetration with aspiration seen with thin barium. 2. 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 There was aspiration seen through this connection, which was visualized on all sampled textures. Correlation with direct visualization is recommended. Subsequently, Speech & Swallow Pathologist Dr. Lucy Carrasco shared with me the findings above, and with ENT Dr. Fred Hawkins, both of whom recommended that patient be transferred to [facility] to undergo ENT Service evaluation for possible repair of fistula connecting piriform sinus with trachea. Subsequently, I spoke with [facility] ENT Dr. Mati Rick, who reviewed the images of the modified barium swallow (12/20/2024, 10:30am), and who opined that patient is aspirating, but may not have a alanna kamila fistula connecting the piriform sinus with trachea. To test this hypothesis, Dr. Rick recommended that patient undergo gastrografin leak test and CT abd/pelvis with oral contrast to delineate patient's anatomy with higher resolution than that provided by the modified barium swallow (12/20/2024, 10:30am), and that if such fistulous connection between the piriform sinus and trachea is present on gastrografin leak test and/or CT abd/pelvis with oral contrast, that I call him back with such results before initiating/executing patient transfer from [facility] to [facility]. In the interim, patient may remain in [facility] on 12/20/2024 pm, and in order to allow passage of the barium through/out the patient's GI tract, patient did not undergo gastrografin leak test and CT abd/pelvis with oral contrast until the 12/21/2024 am/pm. Subsequently, patient underwent: CT neck with oral contrast (12/20/2024, 2:51pm): 1. No acute inflammatory changes or fluid collections. 2. Unremarkable appearance of the piriform sinuses. 3. Pulmonary edema with pleural effusions. 4. There are nonspecific subcentimeter lymph nodes measuring within the upper limits of normal within the upper mediastinum and right supraclavicular tissues, increased in size from the 07/01/[address] abd/pelvis with oral contrast (12/20/2024, 2:56pm): 1. Appropriately positioned PEG tube. No contrast extravasation. 2. Moderate sized left and small right pleural effusions. Associated bibasilar opacities could represent atelectasis or pneumonia. 3. Sacral decubitus ulcer. Interval development of bony erosion of the posterior cortex of the second coccygeal segment suggestive of osteomyelitis. 4. Small amount of fluid within the pelvis. 5. No bowel obstruction. 6. Bladder wall thickening, likely chronic. Several small bladder calculi. Consequently, patient does NOT have a fistulous tract connecting patient's piriform sinuses with his trachea. To address #8, patient meets the criteria for definition of severe protein calorie malnutrition, as demonstrated by BMI 17.0 (height 182.9 cm; weight 56.8 kg), ongoing parenteral nutrition with PEG, multiple pressure ulcers present on admission date 12/18/2024, cachexia, vomiting/diarrhea, early satiety, and failure to thrive. Hence, patient awaits daily formal Brake Holder Service evaluation in the 12/22/2024 am and will undergo daily weights and strict I/O while patient remains in [facility]. To address #9, patient meets the criteria for definition of cachexia, as demonstrated by BMI 17.0 (height 182.9 cm; weight 56.8 kg), ongoing parenteral nutrition with PEG, vomiting/diarrhea, early satiety, and failure to thrive. Hence, patient awaits daily formal Brake Holder Service evaluation in the 12/22/2024 am and will undergo daily weights and strict I/O while patient remains in [facility]. To address #10, patient's sister/POA Ms. Asia Henry ( ) requested ENT Service evaluation to see if patient's former tracheostomy site, now replaced with a tracheo-cutaneous fistula can be sutured/closed by ENT Service. Hence, I solicited formal ENT Service evaluation with Dr. Fred Hawkins ( ) in the 12/19/2024 am. Subsequently, Dr. Li evaluated the patient and recommends holding OFF closure of tracheo-cutaneous fistula as closure of tracheo-cutaneous fistula in proximity to patient's acute multi-lobar CAP may actually entail development of skin infection. Admission and Anticipated Discharge Date Admission Date: December 18, 2024 Subjective "I feel a lot better today (12/21/2024), after the antibiotics were started when I got to the ER (12/18/2024). I feel a lot stronger today. I want to eat." Review of Systems Constitutional: Generalized weakness. 30 pounds of unintentional weight loss o chau the past 3 months with no complaints of early satiety, night sweats, or persistent vomiting/diarrhea/laxative (ab)use. Patient concedes to using lasix 20mg PO daily on a regular basis, but reports that he is "not peeing so much that I lost 30 pounds from peeing alone." Patient denies antecedent/coincident fevers, diaphoresis, wheeze, sore throat, hemoptysis, chest pains, palpitations, pleurisy, nausea, diarrhea, abdominal pain, pelvic pain, flank pain, hematemesis, hematochezia, melena, hematuria, dysuria, frequency, urgency, headaches, dizziness, lightheadedness, visual changes, hearing changes, falls, syncope, trauma, travel history, sick contacts, or food/drug ingestions novel or new. All other review of systems are reported as negative by the patient on admission date 12/18/2024 or current date 12/21/2024. Physical Exam Constitutional: General: Comfortable, coherent, and cooperative. Not confused or obtunded, but lethargic. Patient speaks very slowly, but in complete, fluent, and articulate 3-5 word sentences without pause, interruption, cough, or wheeze with O2 sat 99% on 5 liters/minute O2 via nasal cannula (12/21/2024, 7:31pm). Cachectic with bi-temporal atrophy. HEENT: Normocephalic, atraumatic. No nystagmus, gaze paresis, anisocoria, miosis, mydriasis, hyphema, scleral injection, conjunctivitis, or pterygium. No otorrhea or rhinorrhea. No pharyngeal erythema, edema, or discharge. Neck: Supple, no stridor, bruit, goiter, or hepato-jugular reflux. Jugular venous pressure is estimated to be 3 cm above the sternal angle of Burke, which in turn, is 5 cm above the level of the right atrium; with jugular venous pressure estimated to be 8 cm, then, there is no jugular venous distention on 12/21/2024. 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 Lymphatics: No cervical (anterior/posterior), supraclavicular, infraclavicular, axillary, epitrochlear, or inguinal adenopathy. Chest: Symmetric rise and fall with respirations. Non-tender to palpation. Lungs: Coarse breath sounds bilaterally. No audible expiratory wheeze, egophony, pectoriloquy, increase in tactile fremitus, or flatness/dullness to percussion at the bases. Heart: Regular rate and rhythm. S1 and S2 noted. No S3 or S4 summation gallop. No tripartite friction rub. Grade II/ early systolic murmur @ LLSB without radiation to the carotids, axilla, or back, and which remains invariant in regards to the respiratory cycle. Abdomen: Soft, non-tender, non-distended. No rebound, guarding, Warner's sign, or organomegaly. Bowel sounds auscultated in all 4 quadrants. Extremities: No clubbing, cyanosis, or edema. Skin: No exanthem or enanthem. Skin: 1. Central crown ulcer with scab format ion (apple shape, 4 cm in diameter), present on admission date 12/18/2024. 2. Multiple stage II left lateral sole, left lateral 5th toe, and left lateral malleolar decubiti (circular, 1 cm in diameter or smaller), present on admission date 12/18/2024. 3. Solitary stage III sacral decubitus ulcer (oblong, 7 cm x 13 cm) with surrounding erythema, warmth, and serous-suppurative discharge, but no tenderness, fluctuance, crepitus, malodor, or lymphangitic streaking, present on admission date 12/18/2024. 4. Excoriation/lichenification of penis and scrotum with diaper soaked in urine, present on admission date 12/18/2024.Neuro: Awake and oriented in regards to person, place, time, and situation. DTR+. 5/5 motor strength in all 4 extremities, both proximally and distally. No myoclonus, tremors, or tics. Genito-urinary: No urethral discharge. No olmedo catheter in [facility] ER bed #C7. Olmedo catheter subsequently inserted in [facility] PCU bed #E219-1 on 12/18/2024, 5:30pm, to mitigate further penile, scrotal, and gluteal skin breakdown given the finding of wet diaper soaked in urine on arrival of patient from [facility] ([place], [place]) to [facility] ER on 12/18/2024, 9:00am. Results & Data Results & Data Vital Signs (Past 12 Hours) Vital Signs Temp Pulse Pulse Resp BP Pulse Ox O2 Del Method 12/21/24 19:31 36.9 C 93 H 18 163/79 H 99 Nasal Cannula 12/21/24 17:14 84 12/21/24 15:52 36.9 C 90 19 157/80 H 98 Nasal Cannula 12/21/24 15:20 Room Air 12/21/24 11:09 36.3 C L 87 19 165/81 H 100 Nasal Cannula O2 Flow Rate 12/21/24 19:31 5 12/21/24 17:14 12/21/24 15:52 6 12/21/24 15:20 12/21/24 11:09 6 Laboratory Results WBC 13.42, N71 l12 M9 E 7, Hb 10.7, MCV 91.2, MCHC 30.2, platelet 445 (12/18/2024, 9:25am). WBC 9.55, N62 L13 M9 E15 B1, Hb 8.9, MCV 91.6, MCHC 30.4, platelet 406 (12/19/2024, 7:26am). WBC 8.83, N57 L16 M9 E17 B1, Hb 8.5, MCV 92.1, MCHC 30.2, platelet 377 (12/20/2024, 6:14am). WBC 8.61, N56 L19 M9 E14 B1, Hb 8.3, MCV 92.1, MCHC 29.9, platelet 346 (12/21/2024, 7:00am). Lactic acid #1 0.9 mmol/L (12/18/2024, 9:48am). Lactic acid #2 0.9 mmol/L (12/18/2024, 1:06pm). Lactic acid #3 0.5 mmol/L (12/19/2024, 7:26am). Lactic acid #4 0.5 mmol/L (12/20/2024, 6:14am). Lactic acid #5 0.5 mmol/L (12/21/2024, 7:00am). Procalcitonin #1 0.24 ng/mL (12/18/2024, 9:25am). Procalcitonin #2 0.24 ng/mL (12/19/2024, 7:26am). Procalcitonin #3 0.15 ng/mL (12/20/2024, 6:14am). Procalcitonin #4 0.12 ng/mL (12/21/2024, 7:00am). U/A: turbid yellow, LE 3+, nitrite+, WBC > 50, RBC 0-2, epithelial cells -2, ba cteria 4+ (12/18/2024, 10:50am). Urine culture (12/18/2024, 10:50am): > 100,000 cfu/mL ampicillin-resistant, ciprofloxacin-resistant, levofloxacin-resistant, ceftriaxone-sensitive E. coli Blood culture #1 (12/18/2024, 9:25am): Blood culture #2 (12/18/2024, 9:48am): Sacral wound culture (12/18/2024, 7:16pm): __ MRSA nares negative (12/18/2024, 12:56pm). BIOFIRE respiratory pathogen panel negative (12/18/2024, 12:56pm). VBG 7.43 / 54 / 33 / 36 / O2 sat < 60% (12/18/2024, 9:48am). Na 131, K 4.2, BUN 63, creatinine 1.43, GFR 53.4 mL/min, glucose 101, Ca 12.6, Mg 2.1 (12/18/2024, 9:25am). Na 135, K 3.9, BUN 54, creatinine 1.38, GFR 55.7 mL/min, glucose 102, Ca 10.9 (12/19/2024, 7:26am). Na 137, K 3.7, BUN 41, creatinine 1.33, GFR 58.2 mL/min, glucose 135, Ca 9.8 (12/20/2024, 6:14am). AST 60, ALT 91, ALK PHOS 153, TBili 0.1 (12/18/2024, 9:25am). AST 39, ALT 63, ALK PHOS 99, TBili 0.7 (12/19/2024, 7:26am). AST 31, ALT 51, ALK PHOS 117, TBili 0.4 (12/20/2024, 6:14am). INR 1.0 (12/18/2024, 9:25am). Diagnostic Findings Portable CXR (12/18/2024, 9:31am): 1. RUL, RLL, LLL infiltrates. Bilateral effusions. 2. No cardiomegaly, pulmonary vascular congestion, or pneumothorax. (by my review). EKG (12/18/2024, 9:22am): NSR @ 90, WI 140, QTC 423, no TWI, no acute ST depressions/elevations (by my review). EKG (07/01/2024, 12:21pm): NSR @ 71, WI 134, QTC 430, TWI in aVL, V2, no acute ST depressions/elevations (by my review). CT neck with oral contrast (12/20/2024, 2:51pm): 1. No acute inflammatory changes or fluid collections. 2. Unremarkable appearance of the piriform sinuses. 3. Pulmonary edema with pleural effusions. 4. There are nonspecific subcentimeter lymph nodes measuring within the upper limits of normal within the upper mediastinum and right supraclavicular tissues, increased in size from the 07/01/[address] abd/pelvis with oral contrast (12/20/2024, 2:56pm): 1. Appropriately positioned PEG tube. No contrast extravasation. 2. Moderate sized left and small right pleural effusions. Associated bibasilar opacities could represent atelectasis or pneumonia. 3. Sacral decubitus ulcer. Interval development of bony erosion of the posterior cortex of the second coccygeal segment suggestive of osteomyelitis. 4. Small amount of fluid within the pelvis. 5. No bowel obstruction. 6. Bladder wall thickening, likely chronic. Several small bladder calculi. PG Care Time/CCT Total # of Minutes Spent Total Time Spent with Patient: Total time spent is greater than 50% in coordination of care (as documented) at patient's floor/unit and/or counseling patient: Coding Level of Care Code 48554 SUB INP/OBS CARE 3/50MIN Diagnoses Sepsis due to pneumonia J18.9; A41.9
[2024-12-22 07:17] LABS: Hematocrit (blood only) 28.6 % (42.0-52.0); Hemoglobin 8.7 g/dl (14.0-18.0); Immature Granulocytes # (auto) 0.10 K/uL (0.01-0.20); Immature Granulocytes % (auto) 1.0 %; Mean Corpuscular Hemoglobin 27.5 pg (25.0-34.0); Mean Corpuscular Volume 90.5 fL (80.0-100.0); Platelet Count 356 K/uL (130-400); RDW Standard Deviation 49.4 fL (36.4-46.3); Red Blood Count 3.16 M/uL (4.70-6.10); White Blood Count 10.12 K/ul (4.8-10.8)
[2024-12-22 07:34] LABS: Anion Gap 6.0 (3-11); Blood Urea Nitrogen 27.0 mg/dl (6-23); Calcium 9.3 mg/dl (8.6-10.3); Carbon Dioxide 26.0 mmol/L (21-32); Chloride 101.0 mmol/L (98-107); Creatinine Clr Calc Pharmacy 58.6 ml/min; Glucose 90.0 mg/dl (70-99(Fasting)); Potassium 3.8 mmol/L (3.5-5.1); Sodium 133.0 mmol/L (136-145)
[2024-12-22] MEDS: ACETAMINOPHEN 1,000 MG/100 ML VIAL IV PRN (16:49)
--- NOTE | 2024-12-22 22:26 | Hospitalist Progress Note ---
Date of Service December 22, 2024 Assessment & Plan (1) Sepsis due to pneumonia: Plan: Patient was subsequently admitted to the inpatient hospitalist service @ [facility] on 12/18/2024 with the following diagnoses: 1. Sepsis due to (a) acute multi-lobar CAP and (2) acute E. coli UTI; R/O gram negative wil-associated bacteremia; R/O sacral wound infection. 2. Acute hypovolemic hyponatremia with admission Na 131 mmol/L (12/18/2024, 9:25am). 3. Acute hypercalcemia with admission Ca 12.6 mg/dL (12/18/2024, 9:25am). 4. Acute kidney injury with admission creatinine 1.43 mg/dL, GFR 53.4 mL/min (12/18/2024, 9:25am). 5. Acute transaminitis with admission AST 60 U/L, ALT 91 U/L, ALK PHOS 153 U/L (12/18/2024, 9:25am). 6. Chronic stage III sacral decubitus ulcer (oblong, 7 cm x 13 cm), multiple stage II left lateral sole, left lateral 5th toe, and left lateral malleolar decubiti (circular, 1 cm in diameter or smaller), and central crown ulcer with scab formation (apple shape, 4 cm in diameter), excoriation/lichenification of penis and scrotum with diaper soaked in urine, present on admission date 12/18/2024. 7. Chronic [id number] s/p PEG (09/05/2024, [facility]), s/p non-bilious emesis without hematemesis x 1 episode while receiving tube feeds via PEG on (12/15/2024), for which patient was tentatively being considered for modified barium swallow @ [facility] ([place], [place]) to evaluate patient for possible aspiration, but which was never scheduled or performed. 8. Severe protein-calorie malnutrition. 9. 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 10.s/p decannulation of tracheostomy (10/06/2024, [facility] ([place], [place]). To address #1, patient received zosyn 4.5g IV x 1 dose (12/18/2024, 12:31pm) and vancomycin 1.25g IV x 1 dose (12/18/2024, 12:41pm) in [facility] ER bed #C7. Patient continued with monotherapy utilizing zosyn 4.5g IV q8 (day #/ on 12/18/2024, 5:46pm) [facility]. Given publication of urine culture (12/18/2024, 10:50am): > 100,000 cfu/mL ampicillin-resistant, ciprofloxacin- resistant, levofloxacin-resistant, ceftriaxone-sensitive E. coli, I chose to de- escalate antibiotic therapy from zosyn 4.5g IV q8 (day #3 on 12/20/2024, 3:19am) to ceftriaxone 1g IV daily (day #/ on 12/20/2024, 10:13am). I will check v itals, chest exam, genito-urinary exam (with olmedo catheter subsequently [facility] on 12/18/2024, 5:30pm, to mitigate further penile, scrotal, and gluteal skin breakdown given the finding of wet diaper soaked in urine on arrival of patient from [facility] ([place], [place]) to [facility] ER on 12/18/2024, 9:00am), WBC w/diff, lactic acid, procalcitonin, blood culture #1 (12/18/2024, 9:25am), blood culture #2 (, 9:48am) and sacral wound culture (12/18/2024, 7:16pm) in the 12/23/2024 am. To address #2, patient received 1 liter of 0.9% NS @ 125 mL/hr (12/18/2024, 10:47am) in [facility] ER bed #C7. Patient received 1 liter of 0.9% NS @ 125 mL/hr (12/18/2024, 5:46pm) [facility]. Patient subsequently received his 4th liter of 0.9% NS @ 125 mL/hr (12/20/2024, 9:27pm) [facility]. Acute hypovolemic hyponatremia subsequently improved to Na 135 mmol/L (12/19/2024, 7:26am), and then RESOLVED with post-hydration Na 137 mmol/L (12/20/2024, 6:14am). I will check repeat Na level in the 12/22/2024 am while continuing to hold off further IV fluid rehydration as patient was restarted on his home-scheduled Nutren 2.0 @ 1000 mL via PEG q8am (12/20/2024, 8:13am). In addition, patient continues to be held off his home-scheduled furosemide 20mg PO qam (given potential for this medication to exacerbate acute hypovolemic hyponatremia by inducing natri-uresis). Patient also continues to be held off his home-scheduled NaCl 1g PO bid given potential risk for aspiration of his home-scheduled NaCl 1g PO bid. To address #3, patient received 1 liter of 0.9% NS @ 125 mL/hr (12/18/2024, 10:47am) in [facility] ER bed #C7. Patient received 1 liter of 0.9% NS @ 125 mL/hr (12/18/2024, 5:46pm) in [facility] PCU bed #E219-1. Patient subsequently received his 4th liter of 0.9% NS @ 125 mL/hr (12/20/2024, 9:27pm) [facility]. Acute hypercalcemia subsequently improved to Ca 10.9 mg/dL (12/19/2024, 7:26am), and then RESOLVED with post-hydration Ca 9.8 mg/dL (12/20/2024, 6:14am). I will check repeat Ca level in the 12/22/2024 am while continuing to hold off further IV fluid rehydration as patient was restarted on his home-scheduled Nutren 2.0 @ 1000 mL via PEG q8am (12/20/2024, 8:13am). In addition, patient continues to be held off his home-scheduled furosemide 20mg PO qam (given potential for this medication to exacerbate acute hypercalcemia by causing further acute dehydration, which is the principal cause of patient's acute hypercalcemia). To address #4, patient received 1 liter of 0.9% NS @ 125 mL/hr (12/18/2024, 10:47am) in [facility] ER bed #C7. Patient received 1 liter of 0.9% NS @ 125 mL/hr (12/18/2024, 5:46pm) in [facility] PCU bed #E219-1. Patient subsequently received his 4th liter of 0.9% NS @ 125 mL/hr (12/20/2024, 9:27pm) in [facility] PCU bed #E219-1. Acute kidney injury subsequently improved to creatinine 1.38 mg/dL (12/19/2024, 7:26am), and then RESOLVED with post-hydration creatinine 1.33 mg/dL (12/20/2024, 6:14am). I will check repeat creatinine level in the 12/21/2024 am while continuing to hold off further IV fluid rehydration as patient was restarted on his home-scheduled Nutren 2.0 @ 1000 mL via PEG q8am (12/20/2024, 8:13am). In addition, patient continues to be held off his home-scheduled furosemide 20mg PO qam (given potential for this medication to cause further renal embarrassment, which is the principal cause of patient's acute kidney injury). To address #5, patient continues to be held off his home-scheduled mirtazapine 15mg PO qhs, which is a potential contributor to patient's acute transaminitis. Acute transaminitis subsequently improved with progressive decreases in AST to 39 U/L (12/19/2024, 7:26am) to 31 U/L (12/20/2024, 6:14am); progressive decreases in ALT to 63 U/L (12/19/2024, 7:26am) to 51 U/L (12/20/2024, 6:14am); initial decrease in ALK PHOS to 99 U/L (12/19/2024, 7:26am), followed by a spike up to 117 U/L (12/20/2024, 6:14am). I will check repeat LFT in the 12/22/2024 am. to address #6, patient awaits formal Wound Care Nurse re-evaluation in the 12/22/2024 am. In the interim, patient was started on Mepilex dressing to the sacral decubitus and bed position changes q2h to mitigate further skin breakdown. In addition, patient was placed on a specialty bed with low air loss to offload pressure on patient's sacral decubitus and multiple stage II left lateral sole, left lateral 5th toe, and left lateral malleolar decubiti (circular, 1 cm in diameter or smaller). In addition, olmedo catheter was subsequently inserted in [facility] PCU bed #E219-1 on 12/18/2024, 5:30pm, to mitigate further penile, scrotal, and gluteal skin breakdown given the finding of wet diaper soaked in urine on arrival of patient from [facility] ([place], [place]) to [facility] ER on 12/18/2024, 9:00am. To address #7, patient underwent modified barium swallow (12/20/2024, 10:30am), which revealed: 1. Penetration with aspiration seen with thin barium. 2. 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 There was aspiration seen through this connection, which was visualized on all sampled textures. Correlation with direct visualization is recommended. Subsequently, Speech & Swallow Pathologist Dr. Lucy Carrasco shared with me the findings above, and with ENT Dr. Fred Hawkins, both of whom recommended that patient be transferred to [facility] to undergo ENT Service evaluation for possible repair of fistula connecting piriform sinus with trachea. Subsequently, I spoke with [facility] ENT Dr. Mati Rick, who reviewed the images of the modified barium swallow (12/20/2024, 10:30am), and who opined that patient is aspirating, but may not have a alanna kamila fistula connecting the piriform sinus with trachea. To test this hypothesis, Dr. Rick recommended that patient undergo gastrografin leak test and CT abd/pelvis with oral contrast to delineate patient's anatomy with higher resolution than that provided by the modified barium swallow (12/20/2024, 10:30am), and that if such fistulous connection between the piriform sinus and trachea is present on gastrografin leak test and/or CT abd/pelvis with oral contrast, that I call him back with such results before initiating/executing patient transfer from [facility] to [facility]. In the interim, patient may remain in [facility] on 12/20/2024 pm, and in order to allow passage of the barium through/out the patient's GI tract, patient did not undergo gastrografin leak test and CT abd/pelvis with oral contrast until the 12/21/2024 am/pm. Subsequently, patient underwent: CT neck with oral contrast (12/20/2024, 2:51pm): 1. No acute inflammatory changes or fluid collections. 2. Unremarkable appearance of the piriform sinuses. 3. Pulmonary edema with pleural effusions. 4. There are nonspecific subcentimeter lymph nodes measuring within the upper limits of normal within the upper mediastinum and right supraclavicular tissues, increased in size from the 07/01/[address] abd/pelvis with oral contrast (12/20/2024, 2:56pm): 1. Appropriately positioned PEG tube. No contrast extravasation. 2. Moderate sized left and small right pleural effusions. Associated bibasilar opacities could represent atelectasis or pneumonia. 3. Sacral decubitus ulcer. Interval development of bony erosion of the posterior cortex of the second coccygeal segment suggestive of osteomyelitis. 4. Small amount of fluid within the pelvis. 5. No bowel obstruction. 6. Bladder wall thickening, likely chronic. Several small bladder calculi. Consequently, patient does NOT have a fistulous tract connecting patient's piriform sinuses with his trachea. To address #8, patient meets the criteria for definition of severe protein calorie malnutrition, as demonstrated by BMI 17.0 (height 182.9 cm; weight 56.8 kg), ongoing parenteral nutrition with PEG, multiple pressure ulcers present on admission date 12/18/2024, cachexia, vomiting/diarrhea, early satiety, and failure to thrive. Hence, patient awaits daily formal Diving Supervisor Service evaluation in the 12/23/2024 am and will undergo daily weights and strict I/O while patient remains in [facility]. To address #9, patient meets the criteria for definition of cachexia, as demonstrated by BMI 17.0 (height 182.9 cm; weight 56.8 kg), ongoing parenteral nutrition with PEG, vomiting/diarrhea, early satiety, and failure to thrive. Hence, patient awaits daily formal Diving Supervisor Service evaluation in the 12/23/2024 am and will undergo daily weights and strict I/O while patient remains in [facility]. To address #10, patient's sister/POA Ms. Asia Henry ( ) requested ENT Service evaluation to see if patient's former tracheostomy site, now replaced with a tracheo-cutaneous fistula can be sutured/closed by ENT Service. Hence, I solicited formal ENT Service evaluation with Dr. Fred Hawkins ( ) in the 12/19/2024 am. Subsequently, Dr. Li evaluated the patient and recommends holding OFF closure of tracheo-cutaneous fistula as closure of tracheo-cutaneous fistula in proximity to patient's acute multi-lobar CAP may actually entail development of skin infection. Admission and Anticipated Discharge Date Admission Date: December 18, 2024 Subjective "I feel a lot better today (12/22/2024), after the antibiotics were started when I got to the ER (12/18/2024). I feel a lot stronger today. I want to eat." Review of Systems Constitutional: Generalized weakness. 30 pounds of unintentional weight loss o chau the past 3 months with no complaints of early satiety, night sweats, or persistent vomiting/diarrhea/laxative (ab)use. Patient concedes to using lasix 20mg PO daily on a regular basis, but reports that he is "not peeing so much that I lost 30 pounds from peeing alone." Patient denies antecedent/coincident fevers, diaphoresis, wheeze, sore throat, hemoptysis, chest pains, palpitations, pleurisy, nausea, diarrhea, abdominal pain, pelvic pain, flank pain, hematemesis, hematochezia, melena, hematuria, dysuria, frequency, urgency, headaches, dizziness, lightheadedness, visual changes, hearing changes, falls, syncope, trauma, travel history, sick contacts, or food/drug ingestions novel or new. All other review of systems are reported as negative by the patient on admission date 12/18/2024 or current date 12/22/2024. Physical Exam Constitutional: General: Comfortable, coherent, and cooperative. Not confused or obtunded, but lethargic. Patient speaks very slowly, but in complete, fluent, and articulate 3-5 word sentences without pause, interruption, cough, or wheeze with O2 sat 99% on 5 liters/minute O2 via nasal cannula (12/21/2024, 7:31pm)(0 12/22/2024, 7:37pm). Cachectic with bi-temporal atrophy. HEENT: Normocephalic, atraumatic. No nystagmus, gaze paresis, anisocoria, miosis, mydriasis, hyphema, scleral injection, conjunctivitis, or pterygium. No otorrhea or rhinorrhea. No pharyngeal erythema, edema, or discharge. Neck: Supple, no stridor, bruit, goiter, or hepato-jugular ref lux. Jugular venous pressure is estimated to be 3 cm above the sternal angle of Burke, which in turn, is 5 cm above the level of the right atrium; with jugular venous pressure estimated to be 8 cm, then, there is no jugular venous distention on 12/22/2024. 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 Lymphatics: No cervical (anterior/posterior), supraclavicular, infraclavicular, axillary, epitrochlear, or inguinal adenopathy. Chest: Symmetric rise and fall with respirations. Non-tender to palpation. Lungs: Coarse breath sounds bilaterally. No audible expiratory wheeze, egophony, pectoriloquy, increase in tactile fremitus, or flatness/dullness to percussion at the bases. Heart: Regular rate and rhythm. S1 and S2 noted. No S3 or S4 summation gallop. No tripartite friction rub. Grade II/ early systolic murmur @ LLSB without radiation to the carotids, axilla, or back, and which remains invariant in regards to the respiratory cycle. Abdomen: Soft, non-tender, non-distended. No rebound, guarding, Warner's sign, or organomegaly. Bowel sounds auscultated in all 4 quadrants. Extremities: No clubbing, cyanosis, or edema. Skin: No exanthem or enanthem. Skin: 1. Central crown ulcer with scab format ion (apple shape, 4 cm in diameter), present on admission date 12/18/2024. 2. Multiple stage II left lateral sole, left lateral 5th toe, and left lateral malleolar decubiti (circular, 1 cm in diameter or smaller), present on admission date 12/18/2024. 3. Solitary stage III sacral decubitus ulcer (oblong, 7 cm x 13 cm) with surrounding erythema, warmth, and serous-suppurative discharge, but no tenderness, fluctuance, crepitus, malodor, or lymphangitic streaking, present on admission date 12/18/2024. 4. Excoriation/lichenification of penis and scrotum with diaper soaked in urine, present on admission date 12/18/2024.Neuro: Awake and oriented in regards to person, place, time, and situation. DTR+. 5/5 motor strength in all 4 extremities, both proximally and distally. No myoclonus, tremors, or tics.Genito-urinary: No urethral discharge. No olmedo catheter in [facility] ER bed #C7. Olmedo catheter subsequently inserted in [facility] PCU bed #E219-1 on 12/18/2024, 5:30pm, to mitigate further penile, scrotal, and gluteal skin breakdown given the finding of wet diaper soaked in urine on arrival of patient from [facility] ([place], [place]) to [facility] ER on 12/18/2024, 9:00am. Results & Data Results & Data Vital Signs (Past 12 Hours) Vital Signs Temp Pulse Pulse Resp BP Pulse Ox O2 Del Method 12/22/24 19:37 36.4 C L 84 17 160/80 H 99 Nasal Cannula 12/22/24 17:55 Nasal Cannula 12/22/24 15:36 90 12/22/24 14:57 36.4 C L 91 H 19 154/72 H 94 Nasal Cannula 12/22/24 11:34 36.4 C L 83 20 163/84 H 100 Nasal Cannula O2 Flow Rate 12/22/24 19:37 5 12/22/24 17:55 4 12/22/24 15:36 12/22/24 14:57 5 12/22/24 11:34 5 Laboratory Results WBC 13.42, N71 l12 M9 E 7, Hb 10.7, MCV 91.2, MCHC 30.2, platelet 445 (12/18/2024, 9:25am). WBC 9.55, N62 L13 M9 E15 B1, Hb 8.9, MCV 91.6, MCHC 30.4, platelet 406 (12/19/2024, 7:26am). WBC 8.83, N57 L16 M9 E17 B1, Hb 8.5, MCV 92.1, MCHC 30.2, platelet 377 (12/20/2024, 6:14am). WBC 8.61, N56 L19 M9 E14 B1, Hb 8.3, MCV 92.1, MCHC 29.9, platelet 346 (12/21/2024, 7:00am). WBC 10.12, N61 L17 M9 E11 B1, Hb 8.7, MCV 90.5, MCHC 30.4, platelet 356 (12/22/2024, 6:45am). Lactic acid #1 0.9 mmol/L (12/18/2024, 9:48am). Lactic acid #2 0.9 mmol/L (12/18/2024, 1:06pm). Lactic acid #3 0.5 mmol/L (12/19/2024, 7:26am). Lactic acid #4 0.5 mmol/L (12/20/2024, 6:14am). Lactic acid #5 0.5 mmol/L (12/21/2024, 7:00am). Procalcitonin #1 0.24 ng/mL (12/18/2024, 9:25am). Procalcitonin #2 0.24 ng/mL (12/19/2024, 7:26am). Procalcitonin #3 0.15 ng/mL (12/20/2024, 6:14am). Procalcitonin #4 0.12 ng/mL (12/21/2024, 7:00am). Procalcitonin #5 0.11 ng/mL (12/22/2024, 7:0am). U/A: turbid yellow, LE 3+, nitrite+, WBC > 50, RBC 0-2, epithelial cells -2, bacteria 4+ (12/18/2024, 10:50am). Urine culture (12/18/2024, 10:50am): > 100,000 cfu/mL ampicillin-resistant, ciprofloxacin-resistant, levofloxacin-resistant, ceftriaxone-sensitive E. coli Blood culture #1 (12/18/2024, 9:25am): Blood culture #2 (12/18/2024, 9:48am): Sacral wound culture (12/18/2024, 7:16pm): __ MRSA nares negative (12/18/2024, 12:56pm). BIOFIRE respiratory pathogen panel negative (12/18/2024, 12:56pm). VBG 7.43 / 54 / 33 / 36 / O2 sat < 60% (12/18/2024, 9:48am). Na 131, K 4.2, BUN 63, creatinine 1.43, GFR 53.4 mL/min, glucose 101, Ca 12.6, Mg 2.1 (12/18/2024, 9:25am). Na 135, K 3.9, BUN 54, creatinine 1.38, GFR 55.7 mL/min, glucose 102, Ca 10.9 (12/19/2024, 7:26am). Na 137, K 3.7, BUN 41, creatinine 1.33, GFR 58.2 mL/min, glucose 135, Ca 9.8 (12/20/2024, 6:14am). Na 133, K 3.8, BUN 27, creatinine 0.97, GFR 85.0 mL/min, glucose 129, Ca 9.3 (12/22/2024, 6:45am). AST 60, ALT 91, ALK PHOS 153, TBili 0.1 (12/18/2024, 9:25am). AST 39, ALT 63, ALK PHOS 99, TBili 0.7 (12/19/2024, 7:26am). AST 31, ALT 51, ALK PHOS 117, TBili 0.4 (12/20/2024, 6:14am). INR 1.0 (12/18/2024, 9:25am). Diagnostic Findings Portable CXR (12/18/2024, 9:31am): 1. RUL, RLL, LLL infiltrates. Bilateral effusions. 2. No cardiomegaly, pulmonary vascular congestion, or pneumothorax. (by my review). EKG (12/18/2024, 9:22am): NSR @ 90, MN 140, QTC 423, no TWI, no acute ST depressions/elevations (by my review). EKG (07/01/2024, 12:21pm): NSR @ 71, MN 134, QTC 430, TWI in aVL, V2, no acute ST depressions/elevations (by my review). CT neck with oral contrast (12/20/2024, 2:51pm): 1. No acute inflammatory changes or fluid collections. 2. Unremarkable appearance of the piriform sinuses. 3. Pulmonary edema with pleural effusions. 4. There are nonspecific subcentimeter lymph nodes measuring within the upper limits of normal within the upper mediastinum and right supraclavicular tissues, increased in size from the 07/01/[address] abd/pelvis with oral contrast (12/20/2024, 2:56pm): 1. Appropriately positioned PEG tube. No contrast extravasation. 2. Moderate sized left and small right pleural effusions. Associated bibasilar opacities could represent atelectasis or pneumonia. 3. Sacral decubitus ulcer. Interval development of bony erosion of the posterior cortex of the second coccygeal segment suggestive of osteomyelitis. 4. Small amount of fluid within the pelvis. 5. No bowel obstruction. 6. Bladder wall thickening, likely chronic. Several small bladder calcu PG Care Time/CCT Total # of Minutes Spent Total Time Spent with Patient: Total time spent is greater than 50% in coordination of care (as documented) at patient's floor/unit and/or counseling patient: Coding Level of Care Code 46580 SUB INP/OBS CARE 2/35MIN Diagnoses Sepsis due to pneumonia J18.9; A41.9
--- NOTE | 2024-12-23 14:12 | Palliative Care Consultation ---
Date of Consultation December 23, 2024 Assessment & Plan (1) Palliative care by specialist: Introduced Palliative Medicine and explained our role in advanced care planning, symptom management and navigation through the progression of life limiting disease. Patient was receptive to palliative services for goals of care discussions. Reviewed we are different from hospice, a home health nurse visiting service. (2) Counseling regarding advanced directives and goals of care: Met wit pt at bedside to discuss goals of care. Spent 30 minutes discussing pt values and goals. Pt expressed that he was pretty healthy until he fell and had a subsequent lengthy admission due to sepsis. He shared that improved mobility is most important to him and he is working hard to at least be able to be mobile in a wheelchair. 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 He shared desire to continue to work with PT/OT and speech to regain functional ability. He shared that he is hopeful that he can eventually eat again to improve his quality of life. We discussed concern that he has continued to lose weight despite PEG tube feeding and it will be an uphill jeffries for him to recover from this given his current state of deconditioning. He shared belief that with more attentive nursing care and better PT/OT/ST than he had been recieving, he feels that he could at least become mobile in wheel chair and perhaps eat real food again. He expressed desire to try but is requesting placement in different facility. He shared that he and his sister were disappointed that [facility] did not work out and is hopeful that things will change with insurance to make that possible. Goals of care are clearly established at this time for DNR/DNI but continue all life porlonging therapies otherwise. Plan as above History of Present Illness Reason for Consultation: goals of care Requesting Physician: Josr Melgar MD, PhD Attending Physician: Josr Melgar MD, PhD History of Present Illness 69 years old male with PMH of chronic macrocytic, hypochromic anemia with baseline Hb range, 9.3 - 9.8 g/dL (07/01/2024 - 07/08/2024), chronic hypovolemic hyponatremia, multiple chronic decubitus ulcer, former tobacco abuse, COPD (baseline 5L NC), former ETOH abuse, who was admitted to [facility] ([place]) on 08/22/2024 with severe septic shock due to multi-lobar necrotizing CAP and acute hypoxic respiratory failure, followed by intubation (08/22/2024), failed extubation, s/p tracheostomy / PEG (09/05/2024, [facility]). He was susequnetly D/C to [facility] ([place], [place])) on 10/01/2024 with decannulation of tracheostomy on 10/06/2024. He was then transferred to [facility] ([place]) on 11/19/2024. He arrived in ED on 12/18/24 2/2 several days of feeling weak with nonproductive cough. Pt reportedly had non-bilious emesis without hematemesis x 1 episode while receiving tube feeds via PEG on (12/15/2024) He arrived in ED with excoriation/lichenification of penis and scrotum with diaper soaked in urine as well as several chronic decubitius ulcers and multiple complaints about poor care at [facility], requesting placement elsewhere. Allergies Allergy/AdvReac Type Severity Reaction Status Date / Time [facility] Allergy Unknown Uncoded 07/28/02 16:47 [id number] Allergy Unknown Uncoded 07/28/02 16:47 N Allergy Unknown Uncoded 07/28/02 16:47 Home Medications Medication Instructions Recorded Confirmed Type folic acid 1 mg tablet 1 mg PO QAM #30 tabs 07/08/24 Rx furosemide 20 mg tablet 20 mg PO QAM #30 tabs 07/08/24 Rx mirtazapine 15 mg tablet 15 mg PO HS #30 tabs 07/08/24 Rx nicotine 7 mg/24 hr daily 1 patch transdermal QAM #28 ea 07/08/24 Rx transdermal patch pantoprazole 40 mg tablet,delayed 40 mg PO BID #60 tabs 07/08/24 Rx release sodium chloride 1,000 mg soluble 1,000 mg PO BID #60 tabs 07/08/24 Rx tablet thiamine HCl (vitamin B1) 100 mg 100 mg PO QAM #30 tabs 07/08/24 Rx tablet Patient History Social History Smoking Status: Former smoker Tobacco Type: Cigarettes Second Hand Exposure: No; Do You Dip or Chew Tobacco: No; Hx Alcohol Use: No Hx Substance Use: No Preferred Language: Romanian Communication Ability: Effective 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 Melting Required: No Beliefs That Will Affect Care: Spiritual Current Living Situation: Alone Feels Safe at Home: Yes Assistive Devices: Other Review of Systems Review of Systems: All systems reviewed & are unremarkable except as noted in Subjective Physical Exam Constitutional: + ill appearing and + cachectic; no acut e distress Eyes: PERRL, conjunctivae normal, anicteric sclerae ENMT: external ear and nose normal, oropharynx normal Neck: trachea midline, no thyromegaly Respiratory: normal respiratory effort, lungs clear to auscultation Cardiovascular: RRR, no murmur, no edema Gastrointestinal (Abdomen): normal bowel sounds, soft, nontender, no hepatosplenomegaly Musculoskeletal: Extremities: no cyanosis and no clubbing Skin: no rashes, warm and dry Neurologic: Speech / Cognition: normal speech and normal cognition Psychiatric: Affect: euthymic affect Results & Data Vital Signs (Past 12 Hours) Vital Signs Temp Pulse Pulse Resp BP Pulse Ox O2 Del Method 12/23/24 11:13 36.4 C L 94 H 22 129/75 98 Nasal Cannula 12/23/24 08:00 91 H 12/23/24 07:40 36.5 C 90 22 166/84 H 100 Nasal Cannula 12/23/24 03:10 36.9 C 91 H 19 142/81 H 99 Nasal Cannula O2 Flow Rate 12/23/24 11:13 5 12/23/24 08:00 12/23/24 07:40 5 12/23/24 03:10 5 Laboratory Results Abnormal lab results 12/23/24 12/23/24 Range/Units 00:09 11:57 POC Glucose 109 H 113 H (70-99) mg/dl Diagnostic Findings Chest X-Ray 12/18/24 09:31 XR chest 1V portable CLINICAL HISTORY: Sepsis. COMPARISON STUDY: Chest CT July 01, 2024. FINDINGS: There is no pneumothorax. Small bilateral pleural effusions have developed. Cardiomediastinal silhouette is normal. Interstitial thickening has developed and there are bibasilar and right upper lung airspace opacities. IMPRESSION: 1. Interval development of interstitial pulmonary edema and small bilateral pleu ral effusions. 2. Right upper lung airspace opacity which is new since prior exam. This could represent pneumonia or alveolar pulmonary edema. Radiographic follow-up is recommended. Bibasilar opacities could represent atelectasis or pneumonia can be assessed on follow-up exams. ACT 112: Negative or not required by law. Electronically signed by: Neil Darden M.D. 12/18/2024 10:24 AM Venous Doppler Study 12/18/24 11:53 DVT ULTRASOUND OF THE LEFT LOWER EXTREMITY INDICATION: Pain TECHNIQUE: Grayscale and color Doppler evaluation of the LEFT femoral-popliteal venous system was performed. A duplex Doppler study was performed, consisting of integrated two-dimensional (2D) real-time imaging: Color flow Doppler and Doppler spectral analysis. COMPARISON: None. FINDINGS: LEFT common femoral, femoral and popliteal veins: Normal compressibility, color flow, respiratory variation. No intraluminal echogenic material. IMPRESSION: No evidence of deep venous thrombus in the left femoral-popliteal venous system. Electronically signed by Riley Toledo 12-18-2024 7:09 PM Videofluoroscopic Swallow 12/20/24 10:30 VIDEO SWALLOW STUDY CLINICAL HISTORY: History of aspiration pneumonia. Intubations. Fluoro time: 2.29 minutes. Ka,r: 9.3 mGy FINDINGS: Fluoroscopic guidance is provided to the Department of speech pathology in performing a video swallow study. The patient consumed barium- impregnated pudding, nectar-thick liquids, and thin barium with the swallowing mechanism was observed in real-time. Pharyngeal penetration and aspiration was seen with thin barium. No aspiration was clearly seen with the remaining sampled textures on the swallows. There is an apparent abnormal/fistulous subglottic connection between the lower larynx/upper esophagus and the trachea suggestive of fistula formation. There was saturnino aspiration to this connection with all sampled textures. This included aspiration pharyngeal residuals. IMPRESSION: 1. There is penetration with aspiration seen with thin barium. 2. 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 There was aspiration seen through this connection, which was visualized on all sampled textures. Correlation with direct visualization is recommended. Dictated: 12/20/2024 2:30 PM Transcribed: 12/20/2024 2:46 PM Ashok [id number] Electronically signed by: Chad Be M.D. 12/20/2024 3:[address] 12/20/24 14:51 CT soft tissue neck w con HISTORY: 69 years-old Male R/O fistula from piriform sinus to trachea acute neck pain COMPARISON: CT chest and head 07/01/2024 TECHNIQUE: Multiple axial CT images of the soft tissues of the neck were obtained with IV contrast. A dose lowering technique was used consistent with the principals of RAJIV. FINDINGS: Moderate right and large left pleural effusions. Intralobular septal thickening. No pneumothorax. Right paratracheal lymph nodes measure up to 1.2 x 0.9 cm. Subcentimeter supraclavicular lymph nodes measure up to 9 mm on the right, image 27 series 10. Subcentimeter cervical chain lymph nodes. Mild nonspecific asymmetric prominence of the right sternocleidomastoid muscle. Patent airway. No acute inflammatory changes or fluid collections. Normal epiglottis, glottis and subglottic airway. The vallecula and piriform sinuses are within normal limits. No prevertebral edema. Possible old tracheostomy site, image 290 series 10. The imaged intracranial structures are within normal limits. There is atherosclerosis with at least mild stenosis of the proximal internal carotid arteries. Rightward bowing and spurring of the nasal septum. Severe mucosal thickening of the left sphenoid sinus. Unremarkable imaged upper esophagus. Degenerative changes of the cervical spine result in multilevel central canal and neural foraminal stenosis. Levoscoliosis of the cervicothoracic junction. No suspicious bone lesions. IMPRESSION: 1. No acute inflammatory changes or fluid collections. 2. Unremarkable appearance of the piriform sinuses. 3. Pulmonary edema with pleural effusions. 4. There are nonspecific subcentimeter lymph nodes measuring within the upper limits of normal within the upper mediastinum and right supraclavicular tissues, increased in size from the 07/01/2024 study. Attention at follow-up recommended. ACT 112: Negative or not required by law. The above report was generated using voice recognition software. It may contain grammatical, syntax or spelling errors. Electronically signed by: Michael Rangel M.D. 12/21/2024 10:21 AM Abdomen/Pelvis CT 12/20/24 14:56 CT OF THE ABDOMEN AND PELVIS WITH AND WITHOUT CONTRAST CLINICAL HISTORY: gastrografin leak test COMPARISON STUDY: CT of the abdomen and pelvis July 05, 2024. TECHNIQUE: Axial images of the abdomen and pelvis were obtained before and after intravenous administration of 93 cc Optiray 320 IV. Water-soluble contrast was injected into the gastrostomy tube. Automated exposure control was utilized for the study. A dose lowering technique was utilized adhering to the principles of ALARA. CT DOSE: 1753.13 mGy.cm FINDINGS: Moderate left and small right pleural effusions are partially imaged. Associated bibasilar lateral lower lobe airspace opacity is present. There is no pneumatosis, free air or portal venous gas. Percutaneous gastrostomy tube is well-positioned. No extraluminal contrast is identified. There is opacification of the stomach and proximal small bowel following water-soluble contrast injection. Liver, spleen, adrenal glands, kidneys and pancreas are unremarkable. Is no biliary or pancreatic ductal dilatation. There is a small amount of fluid within the pelvis. There is no evidence for a bowel obstruction. There is moderate aortoiliac atherosclerotic plaque. A White balloon and small amount of gas within the bladder is noted. There are small bladder calculi. Bladder wall thickening is likely chronic. Sacral decubitus ulcer is noted. Subtle erosion of the posterior cortex of the second coccygeal segment is new since CT of July 05, 2024. IMPRESSION: 1. Appropriately positioned PEG tube. No contrast extravasation. 2. Moderate sized left and small right pleural effusions. Associated bibasilar opacities could represent atelectasis or pneumonia. 3. Sacral decubitus ulcer. Interval development of bony erosion of the posterior cortex of the second coccygeal segment suggestive of osteomyelitis. 4. Small amount of fluid within the pelvis. 5. No bowel obstruction. 6. Bladder wall thickening, likely chronic. Several small bladder calculi. ACT 112: Negative or not required by law. Electronically signed by: Neil Darden M.D. 12/21/2024 10:35 AM Medications Administered Current Inpatient Medications Albuterol (Albut/Ipratrop 3mg/0.5mg Neb 3 Ml Vial) 3 ml NEB Q6R PRN; Protocol PRN Reason: Wheezing Stop: 01/17/25 20:27 Bupropion HCl (Bupropion Hcl 75 Mg Tablet) 150 mg PO BID RAKAN Stop: 01/18/25 16:34 Last Admin: 12/23/24 07:48 Dose: 150 mg Collagenase (Collagenase Oint 30 Gm Tube) 1 appln EXT DAILY RAKAN Stop: 01/20/25 14:29 Last Admin: 12/23/24 07:49 Dose: 1 appln Heparin Sodium (Porcine) (Heparin Sod 5,000 Unit/0.5 Ml Vial) 5,000 units SQ Q12 RAKAN Stop: 01/17/25 20:59 Last Admin: 12/23/24 07:51 Dose: 5,000 units Ceftriaxone Sodium (Rocephin) 1,000 mg in 50 mls @ 100 mls/hr IV Q24H RAKAN Stop: 12/24/24 09:59 Last Infusion: 12/23/24 09:51 Dose: Infused Acetaminophen (Ofirmev) 1,000 mg in 100 mls @ 400 mls/hr IV Q8H PRN PRN Reason: pain 1-10,headache,T>100.4F Stop: 12/25/24 16:15 Last Infusion: 12/23/24 13:49 Dose: Infused Nutritional Formula (Nutren Liqd 2.0 1,000 Ml Bag) 1,000 ml GT DAILY@0800 [facility]; Protocol Stop: 01/19/25 07:59 Last Admin: 12/23/24 07:44 Dose: 1,000 ml Sterile Water (Tube Feeding Water Flush) 225 ml GT Q4H [facility] Stop: 01/18/25 12:14 Last Admin: 12/23/24 13:29 Dose: 225 ml PG Care Time/CCT Total # of Minutes Spent Total Time Spent with Patient: Total time spent is greater than 50% in coordination of care (as documented) at patient's floor/unit and/or counseling patient: Advanced Care Planning 23688 Advanced Care Planning 30 [place] [address] IN/OBS CONSULT LVL 3,45M Patient Type New History Expanded Problem Focused Exam Expanded Problem Focused Medical Decision Making Low Complexity Diagnoses Palliative care by specialist Z51.5 Counseling regarding advanced directives and goals of care Z71.89 Additional Codes Advanced Care Planning - 32021 Advanced Care Planning 30 Min: 99267 Advanced Care Planning 30 Min ([id number])
--- NOTE | 2024-12-23 17:07 | Psychiatric Consultation ---
Date of Consultation December 23, 2024 Impression / Recommendations Impression Diagnostically consistent with adjustment disorder with depressed mood in setting of weight loss, failure to thrive with feeding tube, and worsening weakness and respiratory issues. Acute risk of self-harm is low given denial of active SI, future-oriented, lack of access to guns, strong deterrents to suicide and hopeful. History of mirtazapine trial during June hospitalization and newly started Wellbutrin. Recommendations per below. Overall, I spent a total of 80 minutes with this case including review of chart records, review of labwork, review of EKG QTc, direct evaluation of the patient at bedside, counseling the patient, discussion of the patient with the hospitalist provider, discussion with the psychiatric liason during clinical rounds, review of collateral historian information from the family and documentation in the electronic health record. 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 If tolerated can then increase to 200mg daily after ~3 days. If he remains on this would ensure that QTc remains <500ms and no new cardiac concerns arise. 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 Psych History Identifying Data Simba Whitaker is a 69 yo man with a history of anemia, hyponatremia, COPD, severe septic shock due to multi-lobar necrotizing CAP in August 2024 s/p tracheostomy and s/p PEG, now with ambulatory dysfunction and has been at a physical rehab admitted for sepsis 2/2 pneumonia. Psychiatry consulted for help optimizing depression management. Chief Complaint "There's not much lifting my spirits". History of Present Illness Simba is known to me from previous psychiatry consult in June 2024 for weight loss and weakness. Unfortunately after brief improvement and return to work he then started having more challenging medical issues again following an episode of sepsis and intubation in August requiring hospitalization at [facility] followed by feeding tube placement and aspiration concerns. Since then he's been in physical rehab facilities and reports he's been on tube feeds for the last few months. He endorses some depression due to ongoing medical challenges. He reflects that he had hoped to spend his snf spending time with his friends and doing hobbies but instead has been dealing with medical issues. Some days he thinks he would be better off but denies any active SI and wants to get better. He states strong deterrents to suicide including his family and friends and feels that 'i would never do that". Feels a little more hopeful after meeting with PT today as he hopes he can regain some strength as currently he can't put weight on his feet or legs below his knees. He's also hopeful he can return to eating at some point. Allergies Allergy/AdvReac Type Severity Reaction Status Date / Time DUST Allergy Unknown Uncoded 07/28/02 16:47 [id number] Allergy Unknown Uncoded 07/28/02 16:47 N Allergy Unknown Uncoded 07/28/02 16:47 Home Medications Medication Instructions Recorded Confirmed Type folic acid 1 mg tablet 1 mg PO QAM #30 tabs 07/08/24 Rx furosemide 20 mg tablet 20 mg PO QAM #30 tabs 07/08/24 Rx mirtazapine 15 mg tablet 15 mg PO HS #30 tabs 07/08/24 Rx nicotine 7 mg/24 hr daily 1 patch transdermal QAM #28 ea 07/08/24 Rx transdermal patch pantoprazole 40 mg tablet,delayed 40 mg PO BID #60 tabs 07/08/24 Rx release sodium chloride 1,000 mg soluble 1,000 mg PO BID #60 tabs 07/08/24 Rx tablet thiamine HCl (vitamin B1) 100 mg 100 mg PO QAM #30 tabs 07/08/24 Rx tablet Patient History Social History Smoking Status: Former smoker Tobacco Type: Cigarettes Second Hand Exposure: No; Do You Dip or Chew Tobacco: No; Hx Alcohol Use: No Hx Substance Use: No Preferred Language: Nepali Communication Ability: Effective Fruit Thinner Required: No Beliefs That Will Affect Care: Spiritual Current Living Situation: Alone Feels Safe at Home: Yes Assistive Devices: Other Physical Exam Vital Signs (Past 24 Hours): Last Vital Signs Temp 36.3 C L 12/23/24 16:01 Pulse 88 12/23/24 16:01 Resp 21 12/23/24 16:01 BP 153/79 H 12/23/24 16:01 Pulse Ox 100 12/23/24 16:01 O2 Del Method Nasal Cannula 12/23/24 16:01 O2 Flow Rate 5 12/23/24 16:01 Results & Data (PSY) Medications Administered Bupropion HCl (Bupropion Hcl 75 Mg Tablet) 150 mg PO BID RAAKN Stop: 01/18/25 16:34 Last Admin: 12/23/24 07:48 Dose: 150 mg Documented By: Admin: 12/22/24 20:10 Dose: 150 mg Documented By: Admin: 12/22/24 08:19 Dose: 150 mg Documented By: Admin: 12/21/24 22:38 Dose: 150 mg Documented By: Admin: 12/21/24 10:37 Dose: 150 mg Documented By: Admin: 12/20/24 21:30 Dose: 150 mg Documented By: Admin: 12/20/24 08:13 Dose: 150 mg Documented By: Admin: 12/19/24 21:51 Dose: 150 mg Documented By: Admin: 12/19/24 17:30 Dose: 150 mg Documented By: KALYANI Collagenase (Collagenase Oint 30 Gm Tube) 1 appln EXT DAILY RAKAN Stop: 01/20/25 14:29 Last Admin: 12/23/24 07:49 Dose: 1 appln Documented By: Admin: 12/22/24 08:19 Dose: 1 appln Documented By: Admin: 12/21/24 16:56 Dose: 1 appln Documented By: AM Heparin Sodium (Porcine) (Heparin Sod 5,000 Unit/0.5 Ml Vial) 5,000 units SQ Q12 RAKAN Stop: 01/17/25 20:59 Last Admin: 12/23/24 07:51 Dose: 5,000 units Documented By: Admin: 12/22/24 20:09 Dose: Not Given Documented By: Admin: 12/22/24 08:20 Dose: 5,000 units Documented By: Admin: 12/21/24 22:35 Dose: Not Given Documented By: Admin: 12/21/24 08:49 Dose: 5,000 units Documented By: Admin: 12/20/24 21:30 Dose: 5,000 units Documented By: Admin: 12/20/24 08:15 Dose: 5,000 units Documented By: Admin: 12/19/24 21:51 Dose: 5,000 units Documented By: Admin: 12/19/24 10:14 Dose: 5,000 units Documented By: Admin: 12/18/24 21:41 Dose: 5,000 units Documented By: HDC Ceftriaxone Sodium (Rocephin) 1,000 mg in 50 mls @ 100 mls/hr IV Q24H RAKAN Stop: 12/24/24 09:59 Last Infusion: 12/23/24 09:51 Dose: Infused Documented By: Admin: 12/23/24 07:49 Dose: 100 mls/hr Documented By: Infusion: 12/22/24 09:02 Dose: Infused Documented By: Admin: 12/22/24 08:28 Dose: 100 mls/hr Documented By: Infusion: 12/21/24 09:08 Dose: Infused Documented By: Admin: 12/21/24 08:36 Dose: 100 mls/hr Documented By: Infusion: 12/20/24 11:17 Dose: Infused Documented By: OJose Admin: 12/20/24 10:13 Dose: 100 mls/hr Documented By: KALYANI Acetaminophen (Ofirmev) 1,000 mg in 100 mls @ 400 mls/hr IV Q8H PRN PRN Reason: pain 1-10,headache,T>100.4F Stop: 12/25/24 16:15 Last Infusion: 12/23/24 13:49 Dose: Infused Documented By: Admin: 12/23/24 13:29 Dose: 400 mls/hr Documented By: Infusion: 12/23/24 00:41 Dose: Infused Documented By: Admin: 12/22/24 23:55 Dose: 400 mls/hr Documented By: Infusion: 12/22/24 17:04 Dose: Infused Documented By: Admin: 12/22/24 16:49 Dose: 400 mls/hr Documented By: UNRULY Nutritional Formula (Nutren Liqd 2.0 1,000 Ml Bag) 1,000 ml GT DAILY@0800 PENDING SALE TO [facility]; Protocol Stop: 01/19/25 07:59 Last Admin: 12/23/24 07:44 Dose: 1,000 ml Documented By: Admin: 12/22/24 08:16 Dose: 1,000 ml Documented By: Admin: 12/21/24 11:19 Dose: 1,000 ml Documented By: Admin: 12/20/24 08:13 Dose: 1,000 ml Documented By: KALYANI Sterile Water (Tube Feeding Water Flush) 225 ml GT Q4H RAKAN Stop: 01/18/25 12:14 Last Admin: 12/23/24 13:29 Dose: 225 ml Documented By: Admin: 12/23/24 07:44 Dose: 225 ml Documented By: Admin: 12/23/24 04:15 Dose: 225 ml Documented By: Admin: 12/22/24 23:56 Dose: 225 ml Documented By: Admin: 12/22/24 20:08 Dose: 225 ml Documented By: Admin: 12/22/24 16:09 Dose: 225 ml Documented By: Admin: 12/22/24 11:36 Dose: 225 ml Documented By: Admin: 12/22/24 08:16 Dose: 225 ml Documented By: Admin: 12/22/24 05:00 Dose: 225 ml Documented By: Admin: 12/22/24 00:30 Dose: 225 ml Documented By: Admin: 12/21/24 22:45 Dose: 225 ml Documented By: Admin: 12/21/24 16:56 Dose: 225 ml Documented By: Admin: 12/21/24 11:32 Dose: 225 ml Documented By: Admin: 12/21/24 10:37 Dose: 225 ml Documented By: Admin: 12/21/24 05:15 Dose: 225 ml Documented By: Admin: 12/21/24 00:04 Dose: 225 ml Documented By: Admin: 12/20/24 21:30 Dose: 225 ml Documented By: Admin: 12/20/24 17:04 Dose: 225 ml Documented By: Admin: 12/20/24 13:50 Dose: 225 ml Documented By: Admin: 12/20/24 08:13 Dose: 225 ml Documented By: Admin: 12/20/24 04:14 Dose: 225 ml Documented By: Admin: 12/19/24 23:45 Dose: 225 ml Documented By: Admin: 12/19/24 20:11 Dose: 225 ml Documented By: Admin: 12/19/24 16:24 Dose: 225 ml Documented By: Admin: 12/19/24 13:26 Dose: 225 ml Documented By: OO Coding Level of Care Code 58114 IN/OBS CONSULT LVL 5,80M Diagnoses Adjustment disorder with depressed mood F43.21 Chronic hypoxic respiratory failure J96.11
[2024-12-23] MEDS: KETOROLAC TROMETHAMINE 15 MG/ML VIAL IV ONE (17:13)
[2024-12-23 17:28] LABS: Hematocrit (blood only) 30.1 % (42.0-52.0); Hemoglobin 9.2 g/dl (14.0-18.0); Immature Granulocytes # (auto) 0.09 K/uL (0.01-0.20); Immature Granulocytes % (auto) 0.9 %; Mean Corpuscular Hemoglobin 27.4 pg (25.0-34.0); Mean Corpuscular Volume 89.6 fL (80.0-100.0); Platelet Count 385 K/uL (130-400); RDW Standard Deviation 49.0 fL (36.4-46.3); Red Blood Count 3.36 M/uL (4.70-6.10); White Blood Count 10.45 K/ul (4.8-10.8)
[2024-12-23 17:44] LABS: Anion Gap 6.0 (3-11); Blood Urea Nitrogen 28.0 mg/dl (6-23); Calcium 9.8 mg/dl (8.6-10.3); Carbon Dioxide 26.0 mmol/L (21-32); Chloride 97.0 mmol/L (98-107); Creatinine Clr Calc Pharmacy 56.2 ml/min; Glucose 88.0 mg/dl (70-99(Fasting)); Potassium 4.2 mmol/L (3.5-5.1); Sodium 129.0 mmol/L (136-145)
[2024-12-23] MEDS: SERTRALINE HCL 50 MG TABLET PO ONE (18:13)
--- NOTE | 2024-12-23 19:38 | Hospitalist Progress Note ---
Date of Service December 23, 2024 Assessment & Plan (1) Sepsis due to pneumonia: Plan: Patient was subsequently admitted to the inpatient hospitalist service @ [facility] on 12/18/2024 with the following diagnoses: 1. Sepsis due to (a) acute multi-lobar CAP and (2) acute E. coli UTI; R/O gram negative wil-associated bacteremia; R/O sacral wound infection. 2. Acute hypovolemic hyponatremia with admission Na 131 mmol/L (12/18/2024, 9:25am). 3. Acute hypercalcemia with admission Ca 12.6 mg/dL (12/18/2024, 9:25am). 4. Acute kidney injury with admission creatinine 1.43 mg/dL, GFR 53.4 mL/min (12/18/2024, 9:25am). 5. Acute transaminitis with admission AST 60 U/L, ALT 91 U/L, ALK PHOS 153 U/L (12/18/2024, 9:25am). 6. Chronic stage III sacral decubitus ulcer (oblong, 7 cm x 13 cm), multiple stage II left lateral sole, left lateral 5th toe, and left lateral malleolar decubiti (circular, 1 cm in diameter or smaller), and central crown ulcer with scab formation (apple shape, 4 cm in diameter), excoriation/lichenification of penis and scrotum with diaper soaked in urine, present on admission date 12/18/2024. 7. Chronic [id number] s/p PEG (09/05/2024, [facility]), s/p non-bilious emesis without hematemesis x 1 episode while receiving tube feeds via PEG on (12/15/2024), for which patient was tentatively being considered for modified barium swallow @ [facility] Adrianna (LAVELL Rodas) to evaluate patient for possible aspiration, but which was never scheduled or performed. 8. Severe protein-calorie malnutrition with 30 pounds of unintentional weight loss over the past 3 months, R/O underlying severe depression. 9. 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 10.s/p decannulation of tracheostomy (10/06/2024, [facility] ([place], [place]). To address #1, patient received zosyn 4.5g IV x 1 dose (12/18/2024, 12:31pm) and vancomycin 1.25g IV x 1 dose (12/18/2024, 12:41pm) in [facility] ER bed #C7. Patient continued with monotherapy utilizing zosyn 4.5g IV q8 (day #/ on 12/18/2024, 5:46pm) [facility]. Given publication of urine culture (12/18/2024, 10:50am): > 100,000 cfu/mL ampicillin-resistant, ciprofloxacin- resistant, levofloxacin-resistant, ceftriaxone-sensitive E. coli, I chose to de- escalate antibiotic therapy from zosyn 4.5g IV q8 (day #3 on 12/20/2024, 3:19am) to ceftriaxone 1g IV daily (day #/ on 12/20/2024, 10:13am). I will check vitals, chest exam, genito-urinary exam (with olmedo catheter subsequently inserted in [facility] PCU bed #E219-1 on 12/18/2024, 5:30pm, to mitigate further penile, scrotal, and gluteal skin breakdown given the finding of wet diaper soaked in urine on arrival of patient from [facility] ([place], [place]) to [facility] ER on 12/18/2024, 9:00am), WBC w/diff, lactic acid, and procalcitonin levels in the 12/24/2024 am. To address #2, patient received 1 liter of 0.9% NS @ 125 mL/hr (12/18/2024, 10:47am) in [facility] ER bed #C7. Patient received 1 liter of 0.9% NS @ 125 mL/hr (12/18/2024, 5:46pm) [facility]. Patient subsequently received his 4th liter of 0.9% NS @ 125 mL/hr (12/20/2024, 9:27pm) [facility]. Acute hypovolemic hyponatremia subsequently improved to Na 135 mmol/L (12/19/2024, 7:26am), and then RESOLVED with post-hydration Na 137 mmol/L (12/20/2024, 6:14am). I will check repeat Na level in the 12/22/2024 am while continuing to hold off further IV fluid rehydration as patient was restarted on his home-scheduled Nutren 2.0 @ 1000 mL via PEG q8am (12/20/2024, 8:13am). In addition, patient continues to be held off his home-scheduled furosemide 20mg PO qam (given potential for this medication to exacerbate acute hypovolemic hyponatremia by inducing natri-uresis). Patient also continues to be held off his home-scheduled NaCl 1g PO bid given potential risk for aspiration of his home-scheduled NaCl 1g PO bid. To address #3, patient received 1 liter of 0.9% NS @ 125 mL/hr (12/18/2024, 10:47am) in [facility] ER bed #C7. Patient received 1 liter of 0.9% NS @ 125 mL/hr (12/18/2024, 5:46pm) in [facility] PCU bed #E219-1. Patient subsequently received his 4th liter of 0.9% NS @ 125 mL/hr (12/20/2024, 9:27pm) in [facility] PCU bed #E219-1. Acute hypercalcemia subsequently improved to Ca 10.9 mg/dL (12/19/2024, 7:26am), and then RESOLVED with post-hydration Ca 9.8 mg/dL (12/20/2024, 6:14am). I will check repeat Ca level in the 12/22/2024 am while continuing to hold off further IV fluid rehydration as patient was restarted on his home-scheduled Nutren 2.0 @ 1000 mL via PEG q8am (12/20/2024, 8:13am). In addition, patient continues to be held off his home-scheduled furosemide 20mg PO qam (given potential for this medication to exacerbate acute hypercalcemia by causing further acute dehy dration, which is the principal cause of patient's acute hypercalcemia). To address #4, patient received 1 liter of 0.9% NS @ 125 mL/hr (12/18/2024, 10:47am) in [facility] ER bed #C7. Patient received 1 liter of 0.9% NS @ 125 mL/hr (12/18/2024, 5:46pm) in [facility] PCU bed #E219-1. Patient subsequently received his 4th liter of 0.9% NS @ 125 mL/hr (12/20/2024, 9:27pm) in [facility] PCU bed #E219-1. Acute kidney injury subsequently improved to creatinine 1.38 mg/dL (12/19/2024, 7:26am), and then RESOLVED with post-hydration creatinine 1.33 mg/dL (12/20/2024, 6:14am). I will check repeat creatinine level in the 12/21/2024 am while continuing to hold off further IV fluid rehydration as patient was restarted on his home-scheduled Nutren 2.0 @ 1000 mL via PEG q8am (12/20/2024, 8:13am). In addition, patient continues to be held off his home-scheduled furosemide 20mg PO qam (given potential for this medication to cause further renal embarrassment, which is the principal cause of patient's acute kidney injury). To address #5, patient continues to be held off his home-scheduled mirtazapine 15mg PO qhs, which is a potential contributor to patient's acute transaminitis. Acute transaminitis subsequently improved with progressive decreases in AST to 39 U/L (12/19/2024, 7:26am) to 31 U/L (12/20/2024, 6:14am); progressive decreases in ALT to 63 U/L (12/19/2024, 7:26am) to 51 U/L (12/20/2024, 6:14am); initial decrease in ALK PHOS to 99 U/L (12/19/2024, 7:26am), followed by a spike up to 117 U/L (12/20/2024, 6:14am). I will check repeat LFT in the 12/22/2024 am. to address #6, patient awaits formal Wound Care Nurse re-evaluation in the 12/24/2024 am. In the interim, patient was started on Mepilex dressing to the sacral decubitus and bed position changes q2h to mitigate further skin breakdown. In addition, patient was placed on a specialty bed with low air loss to offload pressure on patient's sacral decubitus and multiple stage II left lateral sole, left lateral 5th toe, and left lateral malleolar decubiti (circular, 1 cm in diameter or smaller). In addition, olmedo catheter was subsequently inserted in [facility] PCU bed #E219-1 on 12/18/2024, 5:30pm, to mitigate further penile, scrotal, and gluteal skin breakdown given the finding of wet diaper soaked in urine on arrival of patient from [facility] ([place], [place]) to [facility] ER on 12/18/2024, 9:00am. To address #7, patient underwent modified barium swallow (12/20/2024, 10:30am), which revealed: 1. Penetration with aspiration seen with thin barium. 2. 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 There was aspiration seen through this connection, which was visualized on all sampled textures. Correlation with direct visualization is recommended. Subsequently, Speech & Swallow Pathologist Dr. Lucy Carrasco shared with me the findings above, and with ENT Dr. Fred Hawkins, both of whom recommended that patient be transferred to [facility] to undergo ENT Service evaluation for possible repair of fistula connecting piriform sinus with trache a. Subsequently, I spoke with [facility] ENT Dr. Mati Rick, who reviewed the images of the modified barium swallow (12/20/2024, 10:30am), and who opined that patient is aspirating, but may not have a alanna kamila fistula connecting the piriform sinus with trachea. To test this hypothesis, Dr. Rick recommended that patient undergo gastrografin leak test and CT abd/pelvis with oral contrast to delineate patient's anatomy with higher resolution than that provided by the modified barium swallow (12/20/2024, 10:30am), and that if such fistulous connection between the piriform sinus and trachea is present on gastrografin leak test and/or CT abd/pelvis with oral contrast, that I call him back with such results before initiating/executing patient transfer from [facility] to [facility]. In the interim, patient may remain in [facility] on 12/20/2024 pm, and in order to allow passage of the barium through/out the patient's GI tract, patient did not undergo gastrografin leak test and CT abd/pelvis with oral contrast until the 12/21/2024 am/pm. Subsequently, patient underwent: CT neck with oral contrast (12/20/2024, 2:51pm): 1. No acute inflammatory changes or fluid collections. 2. Unremarkable appearance of the piriform sinuses. 3. Pulmonary edema with pleural effusions. 4. There are nonspecific subcentimeter lymph nodes measuring within the upper limits of normal within the upper mediastinum and right supraclavicular tissues, increased in size from the 07/01/[address] abd/pelvis with oral contrast (12/20/2024, 2:56pm): 1. Appropriately positioned PEG tube. No contrast extravasation. 2. Moderate sized left and small right pleural effusions. Associated bibasilar opacities could represent atelectasis or pneumonia. 3. Sacral decubitus ulcer. Interval development of bony erosion of the posterior cortex of the second coccygeal segment suggestive of osteomyelitis. 4. Small amount of fluid within the pelvis. 5. No bowel obstruction. 6. Bladder wall thickening, likely chronic. Several small bladder calculi. Consequently, patient does NOT have a fistulous tract connecting patient's piriform sinuses with his trachea. To address #8, patient meets the criteria for definition of severe protein bang orie malnutrition, as demonstrated by BMI 17.0 (height 182.9 cm; weight 56.8 kg), ongoing parenteral nutrition with PEG, multiple pressure ulcers present on admission date 12/18/2024, cachexia, vomiting/diarrhea, early satiety, and failure to thrive. Hence, patient awaits daily formal Director [employer] Service evaluation in the 12/24/2024 am and will undergo daily weights and strict I/O while patient remains in [facility]. In the interim, patient underwent Psychiatry Service evaluation with Dr. Gricelda Mathis (12/23/2024, 5:06pm), and who recommended: a. stimulating antidepressant such as modafinil 100mg PO (crushed) daily, titrating up to 200mg PO (crushed) daily. b. SSRI antidepressant such as sertraline 50mg PO (crushed) daily. To this end, by treating patient's suspected major depression (no suicidal ideation on 12/23/2024), patient may be stimulated to eat more food, and consequently, gain weight. Hence, I started patient on modafinil 100mg PO (crushed) daily on 12/23/2024, 6:13pm, and sertraline 50mg PO (crushed) daily on 12/23/2024, 6:13pm. Stay tuned! To address #9, patient meets the criteria for definition of cachexia, as demonstrated by BMI 17.0 (height 182.9 cm; weight 56.8 kg), ongoing parenteral nutrition with PEG, vomiting/diarrhea, early satiety, and failure to thrive. Hence, patient awaits daily formal [employer] Service evaluation in the 0 12/24/2024 am and will undergo daily weights and strict I/O while patient remains in [facility]. To address #10, patient's sister/POA Ms. Asia Henry ( ) requested ENT Service evaluation to see if patient's former tracheostomy site, now replaced with a tracheo-cutaneous fistula can be sutured/closed by ENT Service. Hence, I solicited formal ENT Service evaluation with Dr. Fred Hawkins ( ) in the 12/19/2024 am. Subsequently, Dr. Li evaluated the patient and recommends holding OFF closure of tracheo-cutaneous fistula as closure of tracheo-cutaneous fistula in proximity to patient's acute multi-lobar CAP may actually entail development of skin infection. Admission and Anticipated Discharge Date Admission Date: December 18, 2024 Subjective "I feel a lot better today (12/23/2024), after the antibiotics were started when I got to the ER (12/18/2024). I feel a lot stronger today. I want to eat." Review of Systems Constitutional: Generalized weakness. 30 pounds of unintentional weight loss o chau the past 3 months with no complaints of early satiety, night sweats, or persistent vomiting/diarrhea/laxative (ab)use. Patient concedes to using lasix 20mg PO daily on a regular basis, but reports that he is "not peeing so much that I lost 30 pounds from peeing alone." Patient denies antecedent/coincident fevers, diaphoresis, wheeze, sore throat, hemoptysis, chest pains, palpitations, pleurisy, nausea, diarrhea, abdominal pain, pelvic pain, flank pain, hematemesis, hematochezia, melena, hematuria, dysuria, frequency, urgency, headaches, dizziness, lightheadedness, visual changes, hearing changes, falls, syncope, trauma, travel history, sick contacts, or food/drug ingestions novel or new. All other review of systems are reported as negative by the patient on admission date 12/18/2024 or current date 12/23/2024. Physical Exam Constitutional: General: Comfortable, coherent, and cooperative. Not confused or obtunded, but lethargic. Patient speaks very slowly, but in complete, fluent, and articulate 3-5 word sentences without pause, interruption, cough, or wheeze with O2 sat 99% on 5 liters/minute O2 via nasal cannula (12/21/2024, 7:31pm)(12/22/2024, 7:37pm). O2 sat 100% on 5 liters/minute O2 via nasal cannula (12/23/2024, 6:06pm). Cachectic with bi-temporal atrophy. HEENT: Normocephalic, atraumatic. No nystagmus, gaze paresis, anisocoria, miosis, mydriasis, hyphema, scleral injection, conjunctivitis, or pterygium. No otorrhea or rhinorrhea. No pharyngeal erythema, edema, or discharge. Neck: Supple, no stridor, bruit, goiter, or hepato-jugular reflux. Jugular venous pressure is estimated to be 3 cm above the sternal angle of Burke, which in turn, is 5 cm above the level of the right atrium; with jugular venous pressure estimated to be 8 cm, then, there is no jugular venous distention on 12/23/2024. 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 Lymphatics: No cervical (anterior/posterior), supraclavicular, infraclavicular, axillary, epitrochlear, or inguinal adenopathy. Chest: Symmetric rise and fall with respirations. Non-tender to palpation. Lungs: Coarse breath sounds bilaterally. No audible expiratory wheeze, egophony, pectoriloquy, increase in tactile fremitus, or flatness/dullness to percussion at the bases. Heart: Regular rate and rhythm. S1 and S2 noted. No S3 or S4 s ummation gallop. No tripartite friction rub. Grade II/ early systolic murmur @ LLSB without radiation to the carotids, axilla, or back, and which remains invariant in regards to the respiratory cycle. Abdomen: Soft, non-tender, non-distended. No rebound, guarding, Warner's sign, or organomegaly. Bowel sounds auscultated in all 4 quadrants. Extremities: No clubbing, cyanosis, or edema. Skin: No exanthem or enanthem. Skin: 1. Central crown ulcer with scab format ion (apple shape, 4 cm in diameter), present on admission date 12/18/2024. 2. Multiple stage II left lateral sole, left lateral 5th toe, and left lateral malleolar decubiti (circular, 1 cm in diameter or smaller), present on admission date 12/18/2024. 3. Solitary stage III sacral decubitus ulcer (oblong, 7 cm x 13 cm) with surrounding erythema, warmth, and serous-suppurative discharge, but no tenderness, fluctuance, crepitus, malodor, or lymphangitic streaking, present on admission date 12/18/2024. 4. Excoriation/lichenification of penis and scrotum with diaper soaked in urine, present on admission date 12/18/2024.Neuro: Awake and oriented in regards to person, place, time, and situation. DTR+. 5/5 motor strength in all 4 extremities, both proximally and distally. No myoclonus, tremors, or tics.Genito-urinary: No urethral discharge. No olmedo catheter in [facility] ER bed #C7. Olmedo catheter subsequently inserted in [facility] PCU bed #E219-1 on 12/18/2024, 5:30pm, to mitigate further penile, scrotal, and gluteal skin breakdown given the finding of wet diaper soaked in urine on arrival of patient from [facility] ([place], [place]) to [facility] ER on 12/18/2024, 9:00am. Results & Data Results & Data Vital Signs (Past 12 Hours) Vital Signs Temp Pulse Pulse Resp BP Pulse Ox O2 Del Method 12/23/24 18:06 94 H 12/23/24 16:01 36.3 C L 88 21 153/79 H 100 Nasal Cannula 12/23/24 11:13 36.4 C L 94 H 22 129/75 98 Nasal Cannula 12/23/24 08:00 91 H 12/23/24 07:40 36.5 C 90 22 166/84 H 100 Nasal Cannula O2 Flow Rate 12/23/24 18:06 12/23/24 16:01 5 12/23/24 11:13 5 12/23/24 08:00 12/23/24 07:40 5 Laboratory Results WBC 13.42, N71 l12 M9 E 7, Hb 10.7, MCV 91.2, MCHC 30.2, platelet 445 (12/18/2024, 9:25am). WBC 9.55, N62 L13 M9 E15 B1, Hb 8.9, MCV 91.6, MCHC 30.4, platelet 406 (12/19/2024, 7:26am). WBC 8.83, N57 L16 M9 E17 B1, Hb 8.5, MCV 92.1, MCHC 30.2, platelet 377 (12/20/2024, 6:14am). WBC 8.61, N56 L19 M9 E14 B1, Hb 8.3, MCV 92.1, MCHC 29.9, platelet 346 (12/21/2024, 7:00am). WBC 10.12, N61 L17 M9 E11 B1, Hb 8.7, MCV 90.5, MCHC 30.4, platelet 356 (12/22/2024, 6:45am). WBC 10.45, N65 L17 M7 E10 B1, Hb 9.2, MCV 89.6, MCHC 30.6, platelet 385 (, 5:04pm). Lactic acid #1 0.9 mmol/L (12/18/2024, 9:48am). Lactic acid #2 0.9 mmol/L (12/18/2024, 1:06pm). Lactic acid #3 0.5 mmol/L (12/19/2024, 7:26am). Lactic acid #4 0.5 mmol/L (12/20/2024, 6:14am). Lactic acid #5 0.5 mmol/L (12/21/2024, 7:00am). Lactic acid #6 0.6 mmol/L (12/22/2024, 6:45am). Lactic acid #7 0.8 mmol/L (12/23/2024, 5:04pm). Procalcitonin #1 0.24 ng/mL (12/18/2024, 9:25am). Procalcitonin #2 0.24 ng/mL (12/19/2024, 7:26am). Procalcitonin #3 0.15 ng/mL (12/20/2024, 6:14am). Procalcitonin #4 0.12 ng/mL (12/21/2024, 7:00am). Procalcitonin #5 0.11 ng/mL (12/22/2024, 7:00am). Procalcitonin #6 0.10 ng/mL (12/23/2024, 5:04pm). U/A: turbid yellow, LE 3+, nitrite+, WBC > 50, RBC 0-2, epithelial cells -2, bacteria 4+ (12/18/2024, 10:50am). Urine culture (12/18/2024, 10:50am): > 100,000 cfu/mL ampicillin-resistant, ciprofloxacin-resistant, levofloxacin-resistant, ceftriaxone-sensitive E. coli Blood culture #1 (12/18/2024, 9:25am): negative Blood culture #2 (12/18/2024, 9:48am): negative Sacral wound culture (12/18/2024, 7:16pm): __ MRSA nares negative (12/18/2024, 12:56pm). BIOFIRE respiratory pathogen panel negative (12/18/2024, 12:56pm). VBG 7.43 / 54 / 33 / 36 / O2 sat < 60% (12/18/2024, 9:48am). Na 131, K 4.2, BUN 63, creatinine 1.43, GFR 53.4 mL/min, glucose 101, Ca 12.6, Mg 2.1 (12/18/2024, 9:25am). Na 135, K 3.9, BUN 54, creatinine 1.38, GFR 55.7 mL/min, glucose 102, Ca 10.9 (12/19/2024, 7:26am). Na 137, K 3.7, BUN 41, creatinine 1.33, GFR 58.2 mL/min, glucose 135, Ca 9.8 (12/20/2024, 6:14am). Na 133, K 3.8, BUN 27, creatinine 0.97, GFR 85.0 mL/min, glucose 129, Ca 9.3 (12/22/2024, 6:45am). Na 129, K 4.2, BUN 28, creatinine 1.01, GFR 81.0 mL/min, glucose 88, Ca 9.8 (12/23/2024, 5:04pm). AST 60, ALT 91, ALK PHOS 153, TBili 0.1 (12/18/2024, 9:25am). AST 39, ALT 63, ALK PHOS 99, TBili 0.7 (12/19/2024, 7:26am). AST 31, ALT 51, ALK PHOS 117, TBili 0.4 (12/20/2024, 6:14am). INR 1.0 (12/18/2024, 9:25am). Diagnostic Findings Portable CXR (12/18/2024, 9:31am): 1. RUL, RLL, LLL infiltrates. Bilateral effusions. 2. No cardiomegaly, pulmonary vascular congestion, or pneumothorax. (by my review). EKG (12/18/2024, 9:22am): NSR @ 90, NH 140, QTC 423, no TWI, no acute ST depressions/elevations (by my review). EKG (07/01/2024, 12:21pm): NSR @ 71, NH 134, QTC 430, TWI in aVL, V2, no acute ST depressions/elevations (by my review). CT neck with oral contrast (12/20/2024, 2:51pm): 1. No acute inflammatory changes or fluid collections. 2. Unremarkable appearance of the piriform sinuses. 3. Pulmonary edema with pleural effusions. 4. There are nonspecific subcentimeter lymph nodes measuring within the upper limits of normal within the upper mediastinum and right supraclavicular tissues, increased in size from the 07/01/[address] abd/pelvis with oral contrast (12/20/2024, 2:56pm): 1. Appropriately positioned PEG tube. No contrast extravasation. 2. Moderate sized left and small right pleural effusions. Associated bibasilar opacities could represent atelectasis or pneumonia. 3. Sacral decubitus ulcer. Interval development of bony erosion of the posterior cortex of the second coccygeal segment suggestive of osteomyelitis. 4. Small amount of fluid within the pelvis. 5. No bowel obstruction. 6. Bladder wall thickening, likely chronic. Several small bladder calcu PG Care Time/CCT Total # of Minutes Spent Total Time Spent with Patient: Total time spent is greater than 50% in coordination of care (as documented) at patient's floor/unit and/or counseling patient: Coding Level of Care Code 17996 SUB INP/OBS CARE 3/50MIN Diagnoses Sepsis due to pneumonia J18.9; A41.9
[2024-12-24 05:53] LABS: Hematocrit (blood only) 27.9 % (42.0-52.0); Hemoglobin 8.6 g/dl (14.0-18.0); Immature Granulocytes # (auto) 0.07 K/uL (0.01-0.20); Immature Granulocytes % (auto) 0.6 %; Mean Corpuscular Hemoglobin 27.7 pg (25.0-34.0); Mean Corpuscular Volume 89.7 fL (80.0-100.0); Platelet Count 370 K/uL (130-400); RDW Standard Deviation 49.7 fL (36.4-46.3); Red Blood Count 3.11 M/uL (4.70-6.10); White Blood Count 10.91 K/ul (4.8-10.8)
[2024-12-24 06:07] LABS: Anion Gap 5.0 (3-11); Blood Urea Nitrogen 29.0 mg/dl (6-23); Calcium 9.3 mg/dl (8.6-10.3); Carbon Dioxide 28.0 mmol/L (21-32); Chloride 97.0 mmol/L (98-107); Creatinine Clr Calc Pharmacy 54.6 ml/min; Glucose 97.0 mg/dl (70-99(Fasting)); Potassium 4.2 mmol/L (3.5-5.1); Sodium 130.0 mmol/L (136-145)
[2024-12-24] MEDS: SERTRALINE HCL 50 MG TABLET PO SCH (10:44)
[2024-12-24] MEDS: KETOROLAC TROMETHAMINE 15 MG/ML VIAL IV ONE (13:14)
--- NOTE | 2024-12-24 21:37 | Hospitalist Progress Note ---
Date of Service December 24, 2024 Assessment & Plan (1) Sepsis due to pneumonia: Plan: Patient was subsequently admitted to the inpatient hospitalist service @ [facility] on 12/18/2024 with the following diagnoses: 1. Sepsis due to (a) acute multi-lobar CAP and (2) acute E. coli UTI; R/O gram negative wil-associated bacteremia; R/O sacral wound infection. 2. Acute hypovolemic hyponatremia with admission Na 131 mmol/L (12/18/2024, 9:25am). 3. Acute hypercalcemia with admission Ca 12.6 mg/dL (12/18/2024, 9:25am). 4. Acute kidney injury with admission creatinine 1.43 mg/dL, GFR 53.4 mL/min (12/18/2024, 9:25am). 5. Acute transaminitis with admission AST 60 U/L, ALT 91 U/L, ALK PHOS 153 U/L (12/18/2024, 9:25am). 6. Chronic stage III sacral decubitus ulcer (oblong, 7 cm x 13 cm), multiple stage II left lateral sole, left lateral 5th toe, and left lateral malleolar decubiti (circular, 1 cm in diameter or smaller), and central crown ulcer with scab formation (apple shape, 4 cm in diameter), excoriation/lichenification of penis and scrotum with diaper soaked in urine, present on admission date 12/18/2024. 7. Chronic [id number] s/p PEG (09/05/2024, [facility]), s/p non-bilious emesis without hematemesis x 1 episode while receiving tube feeds via PEG on (12/15/2024), for which patient was tentatively being considered for modified barium swallow @ [facility] Adrianna (LAVELL Rodas) to evaluate patient for possible aspiration, but which was never scheduled or performed. 8. Severe protein-calorie malnutrition with 30 pounds of unintentional weight loss over the past 3 months, R/O underlying severe depression. 9. 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 10.s/p decannulation of tracheostomy (10/06/2024, [facility] ([place], [place]). To address #1, patient received zosyn 4.5g IV x 1 dose (12/18/2024, 12:31pm) and vancomycin 1.25g IV x 1 dose (12/18/2024, 12:41pm) in [facility] ER bed #C7. Patient continued with monotherapy utilizing zosyn 4.5g IV q8 (day #/ on 12/18/2024, 5:46pm) [facility]. Given publication of urine culture (12/18/2024, 10:50am): > 100,000 cfu/mL ampicillin-resistant, ciprofloxacin- resistant, levofloxacin-resistant, ceftriaxone-sensitive E. coli, I chose to de- escalate antibiotic therapy from zosyn 4.5g IV q8 (day #3 on 12/20/2024, 3:19am) to ceftriaxone 1g IV daily (day #/ on 12/20/2024, 10:13am). I will check vitals, chest exam, genito-urinary exam (with olmedo catheter subsequently inserted in [facility] PCU bed #E219-1 on 12/18/2024, 5:30pm, to mitigate further penile, scrotal, and gluteal skin breakdown given the finding of wet diaper soaked in urine on arrival of patient from [facility] ([place], [place]) to [facility] ER on 12/18/2024, 9:00am), WBC w/diff, lactic acid, and procalcitonin levels in the 12/24/2024 am. To address #2, patient received 1 liter of 0.9% NS @ 125 mL/hr (12/18/2024, 10:47am) in [facility] ER bed #C7. Patient received 1 liter of 0.9% NS @ 125 mL/hr (12/18/2024, 5:46pm) [facility]. Patient subsequently received his 4th liter of 0.9% NS @ 125 mL/hr (12/20/2024, 9:27pm) [facility]. Acute hypovolemic hyponatremia subsequently improved to Na 135 mmol/L (12/19/2024, 7:26am), and then RESOLVED with post-hydration Na 137 mmol/L (12/20/2024, 6:14am). I will check repeat Na level in the 12/22/2024 am while continuing to hold off further IV fluid rehydration as patient was restarted on his home-scheduled Nutren 2.0 @ 1000 mL via PEG q8am (12/20/2024, 8:13am). In addition, patient continues to be held off his home-scheduled furosemide 20mg PO qam (given potential for this medication to exacerbate acute hypovolemic hyponatremia by inducing natri-uresis). Patient also continues to be held off his home-scheduled NaCl 1g PO bid given potential risk for aspiration of his home-scheduled NaCl 1g PO bid. To address #3, patient received 1 liter of 0.9% NS @ 125 mL/hr (12/18/2024, 10:47am) in [facility] ER bed #C7. Patient received 1 liter of 0.9% NS @ 125 mL/hr (12/18/2024, 5:46pm) in [facility] PCU bed #E219-1. Patient subsequently received his 4th liter of 0.9% NS @ 125 mL/hr (12/20/2024, 9:27pm) in [facility] PCU bed #E219-1. Acute hypercalcemia subsequently improved to Ca 10.9 mg/dL (12/19/2024, 7:26am), and then RESOLVED with post-hydration Ca 9.8 mg/dL (12/20/2024, 6:14am). I will check repeat Ca level in the 12/22/2024 am while continuing to hold off further IV fluid rehydration as patient was restarted on his home-scheduled Nutren 2.0 @ 1000 mL via PEG q8am (12/20/2024, 8:13am). In addition, patient continues to be held off his home-scheduled furosemide 20mg PO qam (given potential for this medication to exacerbate acute hypercalcemia by causing further acute dehy dration, which is the principal cause of patient's acute hypercalcemia). To address #4, patient received 1 liter of 0.9% NS @ 125 mL/hr (12/18/2024, 10:47am) in [facility] ER bed #C7. Patient received 1 liter of 0.9% NS @ 125 mL/hr (12/18/2024, 5:46pm) in [facility] PCU bed #E219-1. Patient subsequently received his 4th liter of 0.9% NS @ 125 mL/hr (12/20/2024, 9:27pm) in [facility] PCU bed #E219-1. Acute kidney injury subsequently improved to creatinine 1.38 mg/dL (12/19/2024, 7:26am), and then RESOLVED with post-hydration creatinine 1.33 mg/dL (12/20/2024, 6:14am). I will check repeat creatinine level in the 12/21/2024 am while continuing to hold off further IV fluid rehydration as patient was restarted on his home-scheduled Nutren 2.0 @ 1000 mL via PEG q8am (12/20/2024, 8:13am). In addition, patient continues to be held off his home-scheduled furosemide 20mg PO qam (given potential for this medication to cause further renal embarrassment, which is the principal cause of patient's acute kidney injury). To address #5, patient continues to be held off his home-scheduled mirtazapine 15mg PO qhs, which is a potential contributor to patient's acute transaminitis. Acute transaminitis subsequently improved with progressive decreases in AST to 39 U/L (12/19/2024, 7:26am) to 31 U/L (12/20/2024, 6:14am); progressive decreases in ALT to 63 U/L (12/19/2024, 7:26am) to 51 U/L (12/20/2024, 6:14am); initial decrease in ALK PHOS to 99 U/L (12/19/2024, 7:26am), followed by a spike up to 117 U/L (12/20/2024, 6:14am). I will check repeat LFT in the 12/22/2024 am. to address #6, patient awaits formal Wound Care Nurse re-evaluation in the 12/24/2024 am. In the interim, patient was started on Mepilex dressing to the sacral decubitus and bed position changes q2h to mitigate further skin breakdown. In addition, patient was placed on a specialty bed with low air loss to offload pressure on patient's sacral decubitus and multiple stage II left lateral sole, left lateral 5th toe, and left lateral malleolar decubiti (circular, 1 cm in diameter or smaller). In addition, olmedo catheter was subsequently inserted in [facility] PCU bed #E219-1 on 12/18/2024, 5:30pm, to mitigate further penile, scrotal, and gluteal skin breakdown given the finding of wet diaper soaked in urine on arrival of patient from [facility] ([place], [place]) to [facility] ER on 12/18/2024, 9:00am. To address #7, patient underwent modified barium swallow (12/20/2024, 10:30am), which revealed: 1. Penetration with aspiration seen with thin barium. 2. 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 There was aspiration seen through this connection, which was visualized on all sampled textures. Correlation with direct visualization is recommended. Subsequently, Speech & Swallow Pathologist Dr. Lucy Carrasco shared with me the findings above, and with ENT Dr. Fred Hawkins, both of whom recommended that patient be transferred to [facility] to undergo ENT Service evaluation for possible repair of fistula connecting piriform sinus with trache a. Subsequently, I spoke with [facility] ENT Dr. Mati Rick, who reviewed the images of the modified barium swallow (12/20/2024, 10:30am), and who opined that patient is aspirating, but may not have a alanna kamila fistula connecting the piriform sinus with trachea. To test this hypothesis, Dr. Rick recommended that patient undergo gastrografin leak test and CT abd/pelvis with oral contrast to delineate patient's anatomy with higher resolution than that provided by the modified barium swallow (12/20/2024, 10:30am), and that if such fistulous connection between the piriform sinus and trachea is present on gastrografin leak test and/or CT abd/pelvis with oral contrast, that I call him back with such results before initiating/executing patient transfer from [facility] to [facility]. In the interim, patient may remain in [facility] on 12/20/2024 pm, and in order to allow passage of the barium through/out the patient's GI tract, patient did not undergo gastrografin leak test and CT abd/pelvis with oral contrast until the 12/21/2024 am/pm. Subsequently, patient underwent: CT neck with oral contrast (12/20/2024, 2:51pm): 1. No acute inflammatory changes or fluid collections. 2. Unremarkable appearance of the piriform sinuses. 3. Pulmonary edema with pleural effusions. 4. There are nonspecific subcentimeter lymph nodes measuring within the upper limits of normal within the upper mediastinum and right supraclavicular tissues, increased in size from the 07/01/[address] abd/pelvis with oral contrast (12/20/2024, 2:56pm): 1. Appropriately positioned PEG tube. No contrast extravasation. 2. Moderate sized left and small right pleural effusions. Associated bibasilar opacities could represent atelectasis or pneumonia. 3. Sacral decubitus ulcer. Interval development of bony erosion of the posterior cortex of the second coccygeal segment suggestive of osteomyelitis. 4. Small amount of fluid within the pelvis. 5. No bowel obstruction. 6. Bladder wall thickening, likely chronic. Several small bladder calculi. Consequently, patient does NOT have a fistulous tract connecting patient's piriform sinuses with his trachea. Subsequently, I discontinued NPO status and started patient on a regular diet consisting of sandwich and unsweetened, ice tea, as requested by the patient, on 12/24/2024, 9:25pm. To address #8, patient meets the criteria for definition of severe protein calorie malnutrition, as demonstrated by BMI 17.0 (height 182.9 cm; weight 56.8 kg), ongoing parenteral nutrition with PEG, multiple pressure ulcers present on admission date 12/18/2024, cachexia, vomiting/diarrhea, early satiety, and failure to thrive. Hence, patient awaits daily formal [place] Service evaluation in the 12/25/2024 am and will undergo daily weights and strict I/O while patient remains in [facility]. In the interim, patient underwent Psychiatry Service evaluation with Dr. Gricelda Mathis (12/23/2024, 5:06pm), and who recommended: a. stimulating antidepressant such as modafinil 100mg PO (crushed) daily, titrating up to 200mg PO (crushed) daily. b. SSRI antidepressant such as sertraline 50mg PO (crushed) daily. To this end, by treating patient's suspected major depression (no suicidal ideation on 12/23/2024), patient may be stimulated to eat more food, and consequently, gain weight. Hence, I started patient on modafinil 100mg PO (crushed) daily on 12/23/2024, 6:13pm, and sertraline 50mg PO (crushed) daily on 12/23/2024, 6:13pm. Subsequently, patient reports feeling "better" after starting modafinil 100mg PO (crushed) daily on 12/23/2024, 6:13pm, and sertraline 50mg PO (crushed) daily on 12/23/2024, 6:13pm, and moreover, "I want to eat now, Doc." Subsequently, I discontinued NPO status and started patient on a regular diet co nsisting of sandwich and unsweetened, ice tea, as requested by the patient, on 12/24/2024, 9:25pm. To address #9, patient meets the criteria for definition of cachexia, as demonstrated by BMI 17.0 (height 182.9 cm; weight 56.8 kg), ongoing parenteral nutrition with PEG, vomiting/diarrhea, early satiety, and failure to thrive. Hence, patient awaits daily formal [place] Service evaluation in the 12/25/2024 am and will undergo daily weights and strict I/O while patient remains in [facility]. To address #10, patient's sister/POA Ms. Asia Henry ( ) requested ENT Service evaluation to see if patient's former tracheostomy site, now replaced with a tracheo-cutaneous fistula can be sutured/closed by ENT Service. Hence, I solicited formal ENT Service evaluation with Dr. Fred Hawkins ( ) in the 12/19/2024 am. Subsequently, Dr. Li evaluated the patient and recommends holding OFF closure of tracheo-cutaneous fistula as c losure of tracheo-cutaneous fistula in proximity to patient's acute multi-lobar CAP may actually entail development of skin infection. Admission and Anticipated Discharge Date Admission Date: December 18, 2024 Subjective "I feel a lot better today (12/24/2024), after the antibiotics were started when I got to the ER (12/18/2024). I feel a lot stronger today. I want to eat." Review of Systems Constitutional: Generalized weakness. 30 pounds of unintentional weight loss o chau the past 3 months with no complaints of early satiety, night sweats, or persistent vomiting/diarrhea/laxative (ab)use. Patient concedes to using lasix 20mg PO daily on a regular basis, but reports that he is "not peeing so much that I lost 30 pounds from peeing alone." Patient denies antecedent/coincident fevers, diaphoresis, wheeze, sore throat, hemoptysis, chest pains, palpitations, pleurisy, nausea, diarrhea, abdominal pain, pelvic pain, flank pain, hematemesis, hematochezia, melena, hematuria, dysuria, frequency, urgency, headaches, dizziness, lightheadedness, visual changes, hearing changes, falls, syncope, trauma, travel history, sick contacts, or food/drug ingestions novel or new. All other review of systems are reported as negative by the patient on admission date 12/18/2024 or current date 12/24/2024. Physical Exam Constitutional: General: Comfortable, coherent, and cooperative. Not confused or obtunded, but lethargic. Patient speaks very slowly, but in complete, fluent, and articulate 3-5 word sentences without pause, interruption, cough, or wheeze with O2 sat 99% on 5 liters/minute O2 via nasal cannula (12/21/2024, 7:31pm)(12/22/2024, 7:37pm). O2 sat 100% on 5 liters/minute O2 via nasal cannula (12/23/2024, 6:06pm). O2 sat 94% on room air (12/24/2024, 8:15pm). Cachectic with bi-temporal atrophy. HEENT: Normocephalic, atraumatic. No nystagmus, gaze paresis, anisocoria, miosis, mydriasis, hyphema, scleral injection, conjunctivitis, or pterygium. No otorrhea or rhinorrhea. No pharyngeal erythema, edema, or discharge. Neck: Supple, no stridor, bruit, goiter, or hepato-jugular reflux. Jugular venous pressure is estimated to be 3 cm above the sternal angle of Burke, which in turn, is 5 cm above the level of the right atrium; with jugular venous pressure estimated to be 8 cm, then, there is no jugular venous distention on 12/24/2024. 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 Lymphatics: No cervical (anterior/posterior), supraclavicular, infraclavicular, axillary, epitrochlear, or inguinal adenopathy. Chest: Symmetric rise and fall with respirations. Non-tender to palpation. Lungs: Coarse breath sounds bilaterally. No audible expiratory wheeze, egophony, pectoriloquy, increase in tactile fremitus, or flatness/dullness to percussion at the bases. Heart: Regular rate and rhythm. S1 and S2 noted. No S3 or S4 summation gallop. No tripartite friction rub. Grade II/ early systolic murmur @ LLSB without radiation to the carotids, axilla, or back, and which remains invariant in regards to the respiratory cycle. Abdomen: Soft, non-tender, non-distended. No rebound, guarding, Warner's sign, or organomegaly. Bowel sounds auscultated in all 4 quadrants. Extremities: No clubbing, cyanosis, or edema. Skin: No exanthem or enanthem. Skin: 1. Central crown ulcer with scab format ion (apple shape, 4 cm in diameter), present on admission date 12/18/2024. 2. Multiple stage II left lateral sole, left lateral 5th toe, and left lateral malleolar decubiti (circular, 1 cm in diameter or smaller), present on admission date 12/18/2024. 3. Solitary stage III sacral decubitus ulcer (oblong, 7 cm x 13 cm) with surrounding erythema, warmth, and serous-suppurative discharge, but no tenderness, fluctuance, crepitus, malodor, or lymphangitic streaking, present on admission date 12/18/2024. 4. Excoriation/lichenification of penis and scrotum with diaper soaked in urin e, present on admission date 12/18/2024.Neuro: Awake and oriented in regards to person, place, time, and situation. DTR+. 5/5 motor strength in all 4 extremities, both proximally and distally. No myoclonus, tremors, or tics.Genito-urinary: No urethral discharge. No olmedo catheter in [facility] ER bed #C7. Olmedo catheter subsequently inserted in [facility] PCU bed #E219-1 on 12/18/2024, 5:30pm, to mitigate further penile, scrotal, and gluteal skin breakdown given the finding of wet diaper soaked in urine on arrival of patient from [facility] ([place], [place]) to [facility] ER on 12/18/2024, 9:00am. Results & Data Results & Data Vital Signs (Past 12 Hours) Vital Signs Temp Pulse Resp BP Pulse Ox O2 Del Method 12/24/24 20:15 36.7 C 94 H 17 154/76 H 94 Room Air 12/24/24 16:06 36.6 C 87 21 158/79 H 95 Room Air 12/24/24 11:04 36.8 C 90 20 146/73 H 95 Room Air Laboratory Results WBC 13.42, N71 l12 M9 E 7, Hb 10.7, MCV 91.2, MCHC 30.2, platelet 445 (12/18/2024, 9:25am). WBC 9.55, N62 L13 M9 E15 B1, Hb 8.9, MCV 91.6, MCHC 30.4, platelet 406 (12/19/2024, 7:26am). WBC 8.83, N57 L16 M9 E17 B1, Hb 8.5, MCV 92.1, MCHC 30.2, platelet 377 (12/20/2024, 6:14am). WBC 8.61, N56 L19 M9 E14 B1, Hb 8.3, MCV 92.1, MCHC 29.9, platelet 346 (12/21/2024, 7:00am). WBC 10.12, N61 L17 M9 E11 B1, Hb 8.7, MCV 90.5, MCHC 30.4, platelet 356 (12/22/2024, 6:45am). WBC 10.45, N65 L17 M7 E10 B1, Hb 9.2, MCV 89.6, MCHC 30.6, platelet 385 (12/23/2024, 5:04pm). WBC 10.91, N63 L17 M8 E10 B1, Hb 8.6, MCV 89.7, MCHC 30.8, platelet 380 (12/24/2024, 5:27am). Lactic acid #1 0.9 mmol/L (12/18/2024, 9:48am). Lactic acid #2 0.9 mmol/L (12/18/2024, 1:06pm). Lactic acid #3 0.5 mmol/L (12/19/2024, 7:26am). Lactic acid #4 0.5 mmol/L (12/20/2024, 6:14am). Lactic acid #5 0.5 mmol/L (12/21/2024, 7:00am). Lactic acid #6 0.6 mmol/L (12/22/2024, 6:45am). Lactic acid #7 0.8 mmol/L (12/23/2024, 5:04pm). Lactic acid #8 1.0 mmol/L (12/24/2024, 5:27am). Procalcitonin #1 0.24 ng/mL (12/18/2024, 9:25am). Procalcitonin #2 0.24 ng/mL (12/19/2024, 7:26am). Procalcitonin #3 0.15 ng/mL (12/20/2024, 6:14am). Procalcitonin #4 0.12 ng/mL (12/21/2024, 7:00am). Procalcitonin #5 0.11 ng/mL (12/22/2024, 7:00am). Procalcitonin #6 0.10 ng/mL (12/23/2024, 5:04pm). Procalcitonin #7 0.13 ng/mL (12/24/2024, 5:27am). U/A: turbid yellow, LE 3+, nitrite+, WBC > 50, RBC 0-2, epithelial cells -2, bacteria 4+ (12/18/2024, 10:50am). Urine culture (12/18/2024, 10:50am): > 100,000 cfu/mL ampicillin-resistant, ciprofloxacin-resistant, levofloxacin-resistant, ceftriaxone-sensitive E. coli Blood culture #1 (12/18/2024, 9:25am): negative Blood culture #2 (12/18/2024, 9:48am): negative Sacral wound culture (12/18/2024, 7:16pm): __ MRSA nares negative (12/18/2024, 12:56pm). BIOFIRE respiratory pathogen panel negative (12/18/2024, 12:56pm). VBG 7.43 / 54 / 33 / 36 / O2 sat < 60% (12/18/2024, 9:48am). Na 131, K 4.2, BUN 63, creatinine 1.43, GFR 53.4 mL/min, glucose 101, Ca 12.6, Mg 2.1 (12/18/2024, 9:25am). Na 135, K 3.9, BUN 54, creatinine 1.38, GFR 55.7 mL/min, glucose 102, Ca 10.9 (12/19/2024, 7:26am). Na 137, K 3.7, BUN 41, creatinine 1.33, GFR 58.2 mL/min, glucose 135, Ca 9.8 (12/20/2024, 6:14am). Na 133, K 3.8, BUN 27, creatinine 0.97, GFR 85.0 mL/min, glucose 129, Ca 9.3 (12/22/2024, 6:45am). Na 129, K 4.2, BUN 28, creatinine 1.01, GFR 81.0 mL/min, glucose 88, Ca 9.8 (12/23/2024, 5:04pm). Na 130, K 4.2, BUN 29, creatinine 1.04, GFR 78.2 mL/min, glucose 97, Ca 9.3 (12/24/2024, 5:27am). AST 60, ALT 91, ALK PHOS 153, TBili 0.1 (12/18/2024, 9:25am). AST 39, ALT 63, ALK PHOS 99, TBili 0.7 (12/19/2024, 7:26am). AST 31, ALT 51, ALK PHOS 117, TBili 0.4 (12/20/2024, 6:14am). INR 1.0 (12/18/2024, 9:25am). Diagnostic Findings Portable CXR (12/18/2024, 9:31am): 1. RUL, RLL, LLL infiltrates. Bilateral effusions. 2. No cardiomegaly, pulmonary vascular congestion, or pneumothorax. (by my review). EKG (12/18/2024, 9:22am): NSR @ 90, LA 140, QTC 423, no TWI, no acute ST depressions/elevations (by my review). EKG (07/01/2024, 12:21pm): NSR @ 71, LA 134, QTC 430, TWI in aVL, V2, no acute ST depressions/elevations (by my review). CT neck with oral contrast (12/20/2024, 2:51pm): 1. No acute inflammatory changes or fluid collections. 2. Unremarkable appearance of the piriform sinuses. 3. Pulmonary edema with pleural effusions. 4. There are nonspecific subcentimeter lymph nodes measuring within the upper limits of normal within the upper mediastinum and right supraclavicular tissues, increased in size from the 07/01/[address] abd/pelvis with oral contrast (12/20/2024, 2:56pm): 1. Appropriately positioned PEG tube. No contrast extravasation. 2. Moderate sized left and small right pleural effusions. Associated bibasilar opacities could represent atelectasis or pneumonia. 3. Sacral decubitus ulcer. Interval development of bony erosion of the posterior cortex of the second coccygeal segment suggestive of osteomyelitis. 4. Small amount of fluid within the pelvis. 5. No bowel obstruction. 6. Bladder wall thickening, likely chronic. Several small bladder calculi. PG Care Time/CCT Total # of Minutes Spent Total Time Spent with Patient: Total time spent is greater than 50% in coordination of care (as documented) at patient's floor/unit and/or counseling patient: Coding Level of Care Code 92606 SUB INP/OBS CARE MIN Diagnoses Sepsis due to pneumonia J18.9; A41.9
[2024-12-24] MEDS: LIDOCAINE 4% CREAM 15 GM TUBE EXT SCH (22:04)
[2024-12-25 06:03] LABS: Hematocrit (blood only) 28.2 % (42.0-52.0); Hemoglobin 8.8 g/dl (14.0-18.0); Immature Granulocytes # (auto) 0.11 K/uL (0.01-0.20); Immature Granulocytes % (auto) 0.9 %; Mean Corpuscular Hemoglobin 28.1 pg (25.0-34.0); Mean Corpuscular Volume 90.1 fL (80.0-100.0); Platelet Count 388 K/uL (130-400); RDW Standard Deviation 50.4 fL (36.4-46.3); Red Blood Count 3.13 M/uL (4.70-6.10); White Blood Count 12.44 K/ul (4.8-10.8)
[2024-12-25 06:32] LABS: Anion Gap 9.0 (3-11); Calcium 9.7 mg/dl (8.6-10.3); Carbon Dioxide 25.0 mmol/L (21-32); Chloride 96.0 mmol/L (98-107); Potassium 4.3 mmol/L (3.5-5.1); Sodium 130.0 mmol/L (136-145)
[2024-12-25 06:37] LABS: Blood Urea Nitrogen 30.0 mg/dl (6-23); Creatinine Clr Calc Pharmacy 54.6 ml/min; Glucose 88.0 mg/dl (70-99(Fasting))
--- NOTE | 2024-12-25 20:31 | Hospitalist Progress Note ---
Date of Service December 25, 2024 Assessment & Plan (1) Sepsis due to pneumonia: Plan: Patient was subsequently admitted to the inpatient hospitalist service @ [facility] on 12/18/2024 with the following diagnoses: 1. Sepsis due to (a) acute multi-lobar CAP and (2) acute E. coli UTI; R/O gram negative wil-associated bacteremia; R/O sacral wound infection. 2. Acute hypovolemic hyponatremia with admission Na 131 mmol/L (12/18/2024, 9:25am). 3. Acute hypercalcemia with admission Ca 12.6 mg/dL (12/18/2024, 9:25am). 4. Acute kidney injury with admission creatinine 1.43 mg/dL, GFR 53.4 mL/min (12/18/2024, 9:25am). 5. Acute transaminitis with admission AST 60 U/L, ALT 91 U/L, ALK PHOS 153 U/L (12/18/2024, 9:25am). 6. Chronic stage III sacral decubitus ulcer (oblong, 7 cm x 13 cm), multiple stage II left lateral sole, left lateral 5th toe, and left lateral malleolar decubiti (circular, 1 cm in diameter or smaller), and central crown ulcer with scab formation (apple shape, 4 cm in diameter), excoriation/lichenification of penis and scrotum with diaper soaked in urine, present on admission date 12/18/2024. 7. Chronic [id number]-[id number] s/p PEG (09/05/2024, [facility]), s/p non-bilious emesis without hematemesis x 1 episode while receiving tube feeds via PEG on (12/15/2024), for which patient was tentatively being considered for modified barium swallow @ [facility] Adrianna (LAVELL Rodas) to evaluate patient for possible aspiration, but which was never scheduled or performed. 8. Severe protein-calorie malnutrition with 30 pounds of unintentional weight loss over the past 3 months, R/O underlying severe depression. 9. 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 10.s/p decannulation of tracheostomy (10/06/2024, [facility] ([place], [place]). To address #1, patient received zosyn 4.5g IV x 1 dose (12/18/2024, 12:31pm) and vancomycin 1.25g IV x 1 dose (12/18/2024, 12:41pm) in [facility] ER bed #C7. Patient continued with monotherapy utilizing zosyn 4.5g IV q8 (day #06/21 on 12/18/2024, 5:46pm) [facility]. Given publication of urine culture (12/18/2024, 10:50am): > 100,000 cfu/mL ampicillin-resistant, ciprofloxacin- resistant, levofloxacin-resistant, ceftriaxone-sensitive E. coli, I chose to de- escalate antibiotic therapy from zosyn 4.5g IV q8 (day #3 on 12/20/2024, 3:19am) to ceftriaxone 1g IV daily (day #/ on 12/20/2024, 10:13am). I will check vitals, chest exam, genito-urinary exam (with olmedo catheter subsequently inserted in [facility] PCU bed #E219-1 on 12/18/2024, 5:30pm, to mitigate further penile, scrotal, and gluteal skin breakdown given the finding of wet diaper soaked in urine on arrival of patient from [facility] ([place], [place]) to [facility] ER on 12/18/2024, 9:00am), WBC w/diff, lactic acid, and procalcitonin levels in the 12/26/2024 am. To address #2, patient received 1 liter of 0.9% NS @ 125 mL/hr (12/18/2024, 10:47am) in [facility] ER bed #C7. Patient received 1 liter of 0.9% NS @ 125 mL/hr (12/18/2024, 5:46pm) [facility]. Patient subsequently received his 4th liter of 0.9% NS @ 125 mL/hr (12/20/2024, 9:27pm) [facility]. Acute hypovolemic hyponatremia subsequently improved to Na 135 mmol/L (12/19/2024, 7:26am), and then RESOLVED with post-hydration Na 137 mmol/L (12/20/2024, 6:14am). I will check repeat Na level in the 12/22/2024 am while continuing to hold off further IV fluid rehydration as patient was restarted on his home-scheduled Nutren 2.0 @ 1000 mL via PEG q8am (12/20/2024, 8:13am). In addition, patient continues to be held off his home-scheduled furosemide 20mg PO qam (given potential for this medication to exacerbate acute hypovolemic hyponatremia by inducing natri-uresis). Patient also continues to be held off his home-scheduled NaCl 1g PO bid given potential risk for aspiration of his home-scheduled NaCl 1g PO bid. To address #3, patient received 1 liter of 0.9% NS @ 125 mL/hr (12/18/2024, 10:47am) in [facility] ER bed #C7. Patient received 1 liter of 0.9% NS @ 125 mL/hr (12/18/2024, 5:46pm) in [facility] PCU bed #E219-1. Patient subsequently received his 4th liter of 0.9% NS @ 125 mL/hr (12/20/2024, 9:27pm) in [facility] PCU bed #E219-1. Acute hypercalcemia subsequently improved to Ca 10.9 mg/dL (12/19/2024, 7:26am), and then RESOLVED with post-hydration Ca 9.8 mg/dL (12/20/2024, 6:14am). I will check repeat Ca level in the 12/22/2024 am while continuing to hold off further IV fluid rehydration as patient was restarted on his home-scheduled Nutren 2.0 @ 1000 mL via PEG q8am (12/20/2024, 8:13am). In addition, patient continues to be held off his home-scheduled furosemide 20mg PO qam (given potential for this medication to exacerbate acute hypercalcemia by causing further acute dehy dration, which is the principal cause of patient's acute hypercalcemia). To address #4, patient received 1 liter of 0.9% NS @ 125 mL/hr (12/18/2024, 10:47am) in [facility] ER bed #C7. Patient received 1 liter of 0.9% NS @ 125 mL/hr (12/18/2024, 5:46pm) in [facility] PCU bed #E219-1. Patient subsequently received his 4th liter of 0.9% NS @ 125 mL/hr (12/20/2024, 9:27pm) in [facility] PCU bed #E219-1. Acute kidney injury subsequently improved to creatinine 1.38 mg/dL (12/19/2024, 7:26am), and then RESOLVED with post-hydration creatinine 1.33 mg/dL (12/20/2024, 6:14am). I will check repeat creatinine level in the 12/21/2024 am while continuing to hold off further IV fluid rehydration as patient was restarted on his home-scheduled Nutren 2.0 @ 1000 mL via PEG q8am (12/20/2024, 8:13am). In addition, patient continues to be held off his home-scheduled furosemide 20mg PO qam (given potential for this medication to cause further renal embarrassment, which is the principal cause of patient's acute kidney injury). To address #5, patient continues to be held off his home-scheduled mirtazapine 15mg PO qhs, which is a potential contributor to patient's acute transaminitis. Acute transaminitis subsequently improved with progressive decreases in AST to 39 U/L (12/19/2024, 7:26am) to 31 U/L (12/20/2024, 6:14am); progressive decreases in ALT to 63 U/L (12/19/2024, 7:26am) to 51 U/L (12/20/2024, 6:14am); initial decrease in ALK PHOS to 99 U/L (12/19/2024, 7:26am), followed by a spike up to 117 U/L (12/20/2024, 6:14am). I will check repeat LFT in the 12/22/2024 am. to address #6, patient awaits formal Wound Care Nurse re-evaluation in the 12/24/2024 am. In the interim, patient was started on Mepilex dressing to the sacral decubitus and bed position changes q2h to mitigate further skin breakdown. In addition, patient was placed on a specialty bed with low air loss to offload pressure on patient's sacral decubitus and multiple stage II left lateral sole, left lateral 5th toe, and left lateral malleolar decubiti (circular, 1 cm in diameter or smaller). In addition, olmedo catheter was subsequently inserted in [facility] PCU bed #E219-1 on 12/18/2024, 5:30pm, to mitigate further penile, scrotal, and gluteal skin breakdown given the finding of wet diaper soaked in urine on arrival of patient from [facility] ([place], [place]) to [facility] ER on 12/18/2024, 9:00am. To address #7, patient underwent modified barium swallow (12/20/2024, 10:30am), which revealed: 1. Penetration with aspiration seen with thin barium. 2. 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 There was aspiration seen through this connection, which was visualized on all sampled textures. Correlation with direct visualization is recommended. Subsequently, Speech & Swallow Pathologist Dr. Lucy Carrasco shared with me the findings above, and with ENT Dr. Fred Hawkins, both of whom recommended that patient be transferred to [facility] to undergo ENT Service evaluation for possible repair of fistula connecting piriform sinus with trache a. Subsequently, I spoke with [facility] ENT Dr. Mati Rick, who reviewed the images of the modified barium swallow (12/20/2024, 10:30am), and who opined that patient is aspirating, but may not have a alanna kamila fistula connecting the piriform sinus with trachea. To test this hypothesis, Dr. Rick recommended that patient undergo gastrografin leak test and CT abd/pelvis with oral contrast to delineate patient's anatomy with higher resolution than that provided by the modified barium swallow (12/20/2024, 10:30am), and that if such fistulous connection between the piriform sinus and trachea is present on gastrografin leak test and/or CT abd/pelvis with oral contrast, that I call him back with such results before initiating/executing patient transfer from [facility] to [facility]. In the interim, patient may remain in [facility] on 12/20/2024 pm, and in order to allow passage of the barium through/out the patient's GI tract, patient did not undergo gastrografin leak test and CT abd/pelvis with oral contrast until the 12/21/2024 am/pm. Subsequently, patient underwent: CT neck with oral contrast (12/20/2024, 2:51pm): 1. No acute inflammatory changes or fluid collections. 2. Unremarkable appearance of the piriform sinuses. 3. Pulmonary edema with pleural effusions. 4. There are nonspecific subcentimeter lymph nodes measuring within the upper limits of normal within the upper mediastinum and right supraclavicular tissues, increased in size from the 07/01/[address] abd/pelvis with oral contrast (12/20/2024, 2:56pm): 1. Appropriately positioned PEG tube. No contrast extravasation. 2. Moderate sized left and small right pleural effusions. Associated bibasilar opacities could represent atelectasis or pneumonia. 3. Sacral decubitus ulcer. Interval development of bony erosion of the posterior cortex of the second coccygeal segment suggestive of osteomyelitis. 4. Small amount of fluid within the pelvis. 5. No bowel obstruction. 6. Bladder wall thickening, likely chronic. Several small bladder calculi. Consequently, patient does NOT have a fistulous tract connecting patient's piriform sinuses with his trachea. Subsequently, I discontinued NPO status and started patient on a regular diet consisting of sandwich and unsweetened, ice tea, as requested by the patient, on 12/24/2024, 9:25pm. To address #8, patient meets the criteria for definition of severe protein calorie malnutrition, as demonstrated by BMI 17.0 (height 182.9 cm; weight 56.8 kg), ongoing parenteral nutrition with PEG, multiple pressure ulcers present on admission date 12/18/2024, cachexia, vomiting/diarrhea, early satiety, and failure to thrive. Hence, patient awaits daily formal Industrial Order Clerk Service evaluation in the 12/25/2024 am and will undergo daily weights and strict I/O while patient remains in [facility]. In the interim, patient underwent Psychiatry Service evaluation with Dr. Gricelda Mathis (12/23/2024, 5:06pm), and who recommended: a. stimulating antidepressant such as modafinil 100mg PO (crushed) daily, titrating up to 200mg PO (crushed) daily. b. SSRI antidepressant such as sertraline 50mg PO (crushed) daily. To this end, by treating patient's suspected major depression (no suicidal ideation on 12/23/2024), patient may be stimulated to eat more food, and consequently, gain weight. Hence, I started patient on modafinil 100mg PO (crushed) daily on 12/23/2024, 6:13pm, and sertraline 50mg PO (crushed) daily on 12/23/2024, 6:13pm. Subsequently, patient reports feeling "better" after starting modafinil 100mg PO (crushed) daily on 12/23/2024, 6:13pm, and sertraline 50mg PO (crushed) daily on 12/23/2024, 6:13pm, and moreover, "I want to eat now, Doc." Subsequently, I discontinued NPO status and started patient on a regular diet co nsisting of sandwich and unsweetened, ice tea, as requested by the patient, on 12/24/2024, 9:25pm. Subsequently, patient tolerated sandwich and unsweetened, ice tea fine, as per patient's report on 12/24/2024, 9:25pm. Patient reports that he wants to continue eating food and drinking liquids by mouth, and acknowledges the risk of aspirating food/liquid when eating by mouth, and despite Speech & Swallow Service recommendations that patient remain NPO and receive only tube feeds via PEG. Patient reports that he understands that he is going against the recommendations of Speech & Swallow Service, but states, "It is my body and it's me who will be surviving or dying by not eating or drinking. I'm hungry, and I am gonna do what I want to do, aspiration or no aspiration. I hope you can unde rstand my point." To address #9, patient meets the criteria for definition of cachexia, as demonstrated by BMI 17.0 (height 182.9 cm; weight 56.8 kg), ongoing parenteral nutrition with PEG, vomiting/diarrhea, early satiety, and failure to thrive. Hence, patient awaits daily formal Industrial Order Clerk Service evaluation in the 12/25/2024 am and will undergo daily weights and strict I/O while patient remains in [facility]. To address #10, patient's sister/POA Ms. Asia Henry ( ) requested ENT Service evaluation to see if patient's former tracheostomy site, now replaced with a tracheo-cutaneous fistula can be sutured/closed by ENT Service. Hence, I solicited formal ENT Service evaluation with Dr. Fred Hawkins ( ) in the 12/19/2024 am. Subsequently, Dr. Li evaluated the patient and recommends holding OFF closure of tracheo-cutaneous fistula as closure of tracheo-cutaneous fistula in proximity to patient's acute multi-lobar CAP may actually entail development of skin infection. Admission and Anticipated Discharge Date Admission Date: December 18, 2024 Subjective "I feel a lot better today (12/25/2024), after the antibiotics were started when I got to the ER (12/18/2024). I feel a lot stronger today. I ate a sandwich yesterday and drank unsweetened ice tea last night for the first time. No problems. No aspirating. I feel fine. I want to continue eating and drinking, Doc." Review of Systems Constitutional: Generalized weakness. 30 pounds of unintentional weight loss o chau the past 3 months with no complaints of early satiety, night sweats, or persistent vomiting/diarrhea/laxative (ab)use. Patient concedes to using lasix 20mg PO daily on a regular basis, but reports that he is "not peeing so much that I lost 30 pounds from peeing alone." Patient denies antecedent/coincident fevers, diaphoresis, wheeze, sore throat, hemoptysis, chest pains, palpitations, pleurisy, nausea, diarrhea, abdominal pain, pelvic pain, flank pain, hematemesis, hematochezia, melena, hematuria, dysuria, frequency, urgency, headaches, dizziness, lightheadedness, visual changes, hearing changes, falls, syncope, trauma, travel history, sick contacts, or food/drug ingestions novel or new. All other review of systems are reported as negative by the patient on admission date 12/18/2024 or current date 12/25/2024. Physical Exam Constitutional: General: Comfortable, coherent, and cooperative. Not confused or obtunded, but lethargic. Patient speaks very slowly, but in complete, fluent, and articulate 3-5 word sentences without pause, interruption, cough, or wheeze with O2 sat 99% on 5 liters/minute O2 via nasal cannula (12/21/2024, 7:31pm)(12/22/2024, 7:37pm). O2 sat 100% on 5 liters/minute O2 via nasal cannula (12/23/2024, 6:06pm). O2 sat 94% on room air (12/24/2024, 8:15pm)(, 8:13pm). Cachectic with bi-temporal atrophy. HEENT: Normocephalic, atraumatic. No nystagmus, gaze paresis, anisocoria, miosis, mydriasis, hyphema, scleral injection, conjunctivitis, or pterygium. No otorrhea or rhinorrhea. No pharyngeal erythema, edema, or discharge. Neck: Supple, no stridor, bruit, goiter, or hepato-jugular reflux. Jugular venous pressure is estimated to be 3 cm above the sternal angle of Burke, which in turn, is 5 cm above the level of the right atrium; with jugular venous pressure estimated to be 8 cm, then, there is no jugular venous distention on 12/25/2024. 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 Lymphatics: No cervical (anterior/posterior), supraclavicular, infraclavicular, axillary, epitrochlear, or inguinal adenopathy. Chest: Symmetric rise and fall with respirations. Non-tender to palpation. Lungs: Coarse breath sounds bilaterally. No audible expiratory wheeze, egophony, pectoriloquy, increase in tactile fremitus, or flatness/dullness to percussion at the bases. Heart: Regular rate and rhythm. S1 and S2 noted. No S3 or S4 summation gallop. No tripartite friction rub. Grade II/ early systolic murmur @ LLSB without radiation to the carotids, axilla, or back, and which remains invariant in regards to the respiratory cycle. Abdomen: Soft, non-tender, non-distended. No rebound, guarding, Warner's sign, or organomegaly. Bowel sounds auscultated in all 4 quadrants. Extremities: No clubbing, cyanosis, or edema. Skin: No exanthem or enanthem. Skin: 1. Central crown ulcer with scab format ion (apple shape, 4 cm in diameter), present on admission date 12/18/2024. 2. Multiple stage II left lateral sole, left lateral 5th toe, and left lateral malleolar decubiti (circular, 1 cm in diameter or smaller), present on admission date 12/18/2024. 3. Solitary stage III sacral decubitus ulcer (oblong, 7 cm x 13 cm) with surrounding erythema, warmth, and serous-suppurative discharge, but no tenderness, fluctuance, crepitus, malodor, or lymphangitic streaking, present on admission date 12/18/2024. 4. Excoriation/lichenification of penis and scrotum with diaper soaked in urine, present on admission date 12/18/2024.Neuro: Awake and oriented in regards to person, place, time, and situation. DTR+. 5/5 motor strength in all 4 extremities, both proximally and distally. No myoclonus, tremors, or tics.Genito-urinary: No urethral discharge. No olmedo catheter in [facility] ER bed #C7. Olmedo catheter subsequently inserted in [facility] PCU bed #E219-1 on 12/18/2024, 5:30pm, to mitigate further penile, scrotal, and gluteal skin breakdown given the finding of wet diaper soaked in urine on arrival of patient from [facility] ([place], [place]) to [facility] ER on 12/18/2024, 9:00am. Results & Data Results & Data Vital Signs (Past 12 Hours) Vital Signs Temp Pulse Pulse Resp BP Pulse Ox O2 Del Method 12/25/24 20:13 36.8 C 96 H 17 152/69 H 94 Room Air 12/25/24 13:48 104 H 12/25/24 11:33 36.6 C 104 H 22 146/81 H 94 Room Air Laboratory Results WBC 13.42, N71 l12 M9 E 7, Hb 10.7, MCV 91.2, MCHC 30.2, platelet 445 (12/18/2024, 9:25am). WBC 9.55, N62 L13 M9 E15 B1, Hb 8.9, MCV 91.6, MCHC 30.4, platelet 406 (12/19/2024, 7:26am). WBC 8.83, N57 L16 M9 E17 B1, Hb 8.5, MCV 92.1, MCHC 30.2, platelet 377 (12/20/2024, 6:14am). WBC 8.61, N56 L19 M9 E14 B1, Hb 8.3, MCV 92.1, MCHC 29.9, platelet 346 (12/21/2024, 7:00am). WBC 10.12, N61 L17 M9 E11 B1, Hb 8.7, MCV 90.5, MCHC 30.4, platelet 356 (12/22/2024, 6:45am). WBC 10.45, N65 L17 M7 E10 B1, Hb 9.2, MCV 89.6, MCHC 30.6, platelet 385 (12/23/2024, 5:04pm). WBC 10.91, N63 L17 M8 E10 B1, Hb 8.6, MCV 89.7, MCHC 30.8, platelet 380 (12/24/2024, 5:27am). WBC 12.44, N63 L19 M8 E 9 B1, Hb 8.8, MCV 90.1, MCHC 31.2, platelet 388 (0 12/25/2024, 5:41am). Lactic acid #1 0.9 mmol/L (12/18/2024, 9:48am). Lactic acid #2 0.9 mmol/L (12/18/2024, 1:06pm). Lactic acid #3 0.5 mmol/L (12/19/2024, 7:26am). Lactic acid #4 0.5 mmol/L (12/20/2024, 6:14am). Lactic acid #5 0.5 mmol/L (12/21/2024, 7:00am). Lactic acid #6 0.6 mmol/L (12/22/2024, 6:45am). Lactic acid #7 0.8 mmol/L (12/23/2024, 5:04pm). Lactic acid #8 1.0 mmol/L (12/24/2024, 5:27am). Lactic acid #9 1.4 mmol/L (12/25/2024, 5:41am). Procalcitonin #1 0.24 ng/mL (12/18/2024, 9:25am). Procalcitonin #2 0.24 ng/mL (12/19/2024, 7:26am). Procalcitonin #3 0.15 ng/mL (12/20/2024, 6:14am). Procalcitonin #4 0.12 ng/mL (12/21/2024, 7:00am). Procalcitonin #5 0.11 ng/mL (12/22/2024, 7:00am). Procalcitonin #6 0.10 ng/mL (12/23/2024, 5:04pm). Procalcitonin #7 0.13 ng/mL (12/24/2024, 5:27am). Procalcitonin #8 0.12 ng/mL (12/25/2024, 5:41am). U/A: turbid yellow, LE 3+, nitrite+, WBC > 50, RBC 0-2, epithelial cells -2, bacteria 4+ (12/18/2024, 10:50am). Urine culture (12/18/2024, 10:50am): > 100,000 cfu/mL ampicillin-resistant, ciprofloxacin-resistant, levofloxacin-resistant, ceftriaxone-sensitive E. coli Blood culture #1 (12/18/2024, 9:25am): negative Blood culture #2 (12/18/2024, 9:48am): negative Sacral wound culture (12/18/2024, 7:16pm): __ MRSA nares negative (12/18/2024, 12:56pm). BIOFIRE respiratory pathogen panel negative (12/18/2024, 12:56pm). VBG 7.43 / 54 / 33 / 36 / O2 sat < 60% (12/18/2024, 9:48am). Na 131, K 4.2, BUN 63, creatinine 1.43, GFR 53.4 mL/min, glucose 101, Ca 12.6, Mg 2.1 (12/18/2024, 9:25am). Na 135, K 3.9, BUN 54, creatinine 1.38, GFR 55.7 mL/min, glucose 102, Ca 10.9 (12/19/2024, 7:26am). Na 137, K 3.7, BUN 41, creatinine 1.33, GFR 58.2 mL/min, glucose 135, Ca 9.8 (12/20/2024, 6:14am). Na 133, K 3.8, BUN 27, creatinine 0.97, GFR 85.0 mL/min, glucose 129, Ca 9.3 (12/22/2024, 6:45am). Na 129, K 4.2, BUN 28, creatinine 1.01, GFR 81.0 mL/min, glucose 88, Ca 9.8 (12/23/2024, 5:04pm). Na 130, K 4.2, BUN 29, creatinine 1.04, GFR 78.2 mL/min, glucose 97, Ca 9.3 (12/24/2024, 5:27am). Na 130, K 4.3, BUN 30, creatinine 1.04, GFR 78.2 mL/min, glucose 88, Ca 9.7 (12/25/2024, 5:41am). AST 60, ALT 91, ALK PHOS 153, TBili 0.1 (12/18/2024, 9:25am). AST 39, ALT 63, ALK PHOS 99, TBili 0.7 (12/19/2024, 7:26am). AST 31, ALT 51, ALK PHOS 117, TBili 0.4 (12/20/2024, 6:14am). INR 1.0 (12/18/2024, 9:25am). Diagnostic Findings Portable CXR (12/18/2024, 9:31am): 1. RUL, RLL, LLL infiltrates. Bilateral effusions. 2. No cardiomegaly, pulmonary vascular congestion, or pneumothorax. (by my review). EKG (12/18/2024, 9:22am): NSR @ 90, MA 140, QTC 423, no TWI, no acute ST depressions/elevations (by my review). EKG (07/01/2024, 12:21pm): NSR @ 71, MA 134, QTC 430, TWI in aVL, V2, no acute ST depressions/elevations (by my review). CT neck with oral contrast (12/20/2024, 2:51pm): 1. No acute inflammatory changes or fluid collections. 2. Unremarkable appearance of the piriform sinuses. 3. Pulmonary edema with pleural effusions. 4. There are nonspecific subcentimeter lymph nodes measuring within the upper limits of normal within the upper mediastinum and right supraclavicular tissues, increased in size from the 07/01/[address] abd/pelvis with oral contrast (12/20/2024, 2:56pm): 1. Appropriately positioned PEG tube. No contrast extravasation. 2. Moderate sized left and small right pleural effusions. Associated bibasilar opacities could represent atelectasis or pneumonia. 3. Sacral decubitus ulcer. Interval development of bony erosion of the posterior cortex of the second coccygeal segment suggestive of osteomyelitis. 4. Small amount of fluid within the pelvis. 5. No bowel obstruction. 6. Bladder wall thickening, likely chronic. Several small bladder calculi. PG Care Time/CCT Total # of Minutes Spent Total Time Spent with Patient: Total time spent is greater than 50% in coordination of care (as documented) at patient's floor/unit and/or counseling patient: Coding Level of Care Code 03213 SUB INP/OBS CARE 2/35MIN Diagnoses Sepsis due to pneumonia J18.9; A41.9
[2024-12-25] MEDS: ACETAMINOPHEN 325 MG TAB PO PRN (21:08)
[2024-12-26 07:17] LABS: Hematocrit (blood only) 28.2 % (42.0-52.0); Hemoglobin 9.0 g/dl (14.0-18.0); Immature Granulocytes # (auto) 0.08 K/uL (0.01-0.20); Immature Granulocytes % (auto) 0.9 %; Mean Corpuscular Hemoglobin 28.3 pg (25.0-34.0); Mean Corpuscular Volume 88.7 fL (80.0-100.0); Platelet Count 421 K/uL (130-400); RDW Standard Deviation 50.1 fL (36.4-46.3); Red Blood Count 3.18 M/uL (4.70-6.10); White Blood Count 9.01 K/ul (4.8-10.8)
[2024-12-26] MEDS: TUBE FEEDING WATER FLUSH GT SCH ×2 (13:41→18:16)
--- NOTE | 2024-12-26 14:00 | Discharge Summary ---
Discharge Summary Date of Service December 26, 2024 Principal Dx & Hospital Course #1 = Principal Diagnosis (1) Sepsis due to pneumonia: Patient was subsequently admitted to the inpatient hospitalist service @ [facility] on 12/18/2024 with the following diagnoses: 1. Sepsis due to (a) acute multi-lobar CAP and (2) acute E. coli UTI; R/O gram negative wil-associated bacteremia; R/O sacral wound infection. 2. Acute hypovolemic hyponatremia with admission Na 131 mmol/L (12/18/2024, 9:25am). 3. Acute hypercalcemia with admission Ca 12.6 mg/dL (12/18/2024, 9:25am). 4. Acute kidney injury with admission creatinine 1.43 mg/dL, GFR 53.4 mL/min (12/18/2024, 9:25am). 5. Acute transaminitis with admission AST 60 U/L, ALT 91 U/L, ALK PHOS 153 U/L (12/18/2024, 9:25am). 6. Chronic stage III sacral decubitus ulcer (oblong, 7 cm x 13 cm), multiple stage II left lateral sole, left lateral 5th toe, and left lateral malleolar decubiti (circular, 1 cm in diameter or smaller), and central crown ulcer with scab formation (apple shape, 4 cm in diameter), excoriation/lichenification of penis and scrotum with diaper soaked in urine, present on admission date 12/18/2024. 7. Chronic fvwnojm-ec-rgpyef s/p PEG (09/05/2024, [facility]), s/p non-bilious emesis without hematemesis x 1 episode while receiving tube feeds via PEG on (12/15/2024), for which patient was tentatively being considered for modified barium swallow @ [facility] ([place]) to evaluate patient for possible aspiration, but which was never scheduled or performed. 8. Severe protein-calorie malnutrition with 30 pounds of unintentional weight loss over the past 3 months, R/O underlying severe depression. 9. 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 10.s/p decannulation of tracheostomy (10/06/2024, [facility] ([place]). To address #1 Sepsis due to (a) acute multi-lobar CAP and (2) acute E. coli UTI; R/O gram negative wil-associated bacteremia; R/O sacral wound infection, patient received zosyn 4.5g IV x 1 dose (12/18/2024, 12:31pm) and vancomycin 1.25g IV x 1 dose (12/18/2024, 12:41pm) in [facility] ER bed #C7. Patient continued with monotherapy utilizing zosyn 4.5g IV q8 (day #1/7 on 12/18/2024, 5:46pm) in [facility] PCU bed #E219-1. Given publication of urine culture (12/18/2024, 10:50am): > 100,000 cfu/mL ampicillin-resistant, ciprofloxacin-resistant, levofloxacin-resistant, ceftriaxone-sensitive E. coli, I chose to de-escalate antibiotic therapy from zosyn 4.5g IV q8 (day #3 on 12/20/2024, 3:19am) to ceftriaxone 1g IV daily (day #1/5 on 12/20/2024, 10:13am; day #5/ on 12/24/2024, 7:40pm). Subsequently, sepsis due to (a) acute multi-lobar CAP and (2) acute E. coli UTI, has RESOLVED. Patient was subsequently discharged to [facility] ([employer]) on 12/26/2024, without any need for additional antibiotics, parenteral or oral. To address #2 Acute hypovolemic hyponatremia with admission Na 131 mmol/L (12/18/2024, 9:25am), patient received 1 liter of 0.9% NS @ 125 mL/hr (12/18/2024, 10:47am) in [facility] ER bed #C7. Patient received 1 liter of 0.9% NS @ 125 mL/hr (12/18/2024, 5:46pm) in [facility] PCU bed #E219-1. Patient subsequently received his 4th liter of 0.9% NS @ 125 mL/hr (12/20/2024, 9:27pm) [facility]. Acute hypovolemic hyponatremia subsequently improved to Na 135 mmol/L (12/19/2024, 7:26am), and then RESOLVED with post-hydration Na 137 mmol/L (12/20/2024, 6:14am). Patient did not receive further IV fluid rehydration as patient was restarted on his home-scheduled Nutren 2.0 @ 1000 mL via PEG q8am (12/20/2024, 8:13am). In addition, patient did not receive his home-scheduled furosemide 20mg PO qam (given potential for this medication to exacerbate acute hypovolemic hyponatremia by inducing natri-uresis) while in [facility]. Patient also did not receive his home-scheduled NaCl 1g PO bid given potential risk for aspiration of his home-scheduled NaCl 1g PO bid, while in [facility]. Patient will not continue with his home- scheduled Nutren 2.0 @ 1000 mL via PEG q8am on hospital discharge to [facility] ([employer]) on 12/26/2024, as patient willfully decided of his own free volition and sense/sensibility to start eating/drinking a regular diet on 12/24/2024, 9:25pm. Of final note, patient will not resume his home- scheduled furosemide 20mg PO qam or home-scheduled NaCl 1g PO bid on hospital discharge to [facility] ([employer]) on 12/26/2024. To address #3 Acute hypercalcemia with admission Ca 12.6 mg/dL (12/18/2024, 9:25am), patient received 1 liter of 0.9% NS @ 125 mL/hr (12/18/2024, 10:47am) in [facility] ER bed #C7. Patient received 1 liter of 0.9% NS @ 125 mL/hr (12/18/2024, 5:46pm) in [facility] PCU bed #E219-1. Patient subsequently received his 4th liter of 0.9% NS @ 125 mL/hr (12/20/2024, 9:27pm) [facility]. Acute hypercalcemia subsequently improved to Ca 10.9 mg/dL (12/19/2024, 7:26am), and then RESOLVED with post-hydration Ca 9.8 mg/dL (12/20/2024, 6:14am). Patient did not receive further IV fluid rehydration as patient was restarted on his home-scheduled Nutren 2.0 @ 1000 mL via PEG q8am (12/20/2024, 8:13am). In addition, patient did not receive his home-scheduled furosemide 20mg PO qam (given potential for this medication to exacerbate acute hypercalcemia by causing further acute dehydration, which was the principal cause of patient's acute hypercalcemia). Of final note, patient will not resume his home-scheduled furosemide 20mg PO qam or home-scheduled NaCl 1g PO bid on hospital discharge to [facility] ([employer]) on 12/26/2024. To address #4 Acute kidney injury with admission creatinine 1.43 mg/dL, GFR 53.4 mL/min (12/18/2024, 9:25am), patient received 1 liter of 0.9% NS @ 125 mL/hr (12/18/2024, 10:47am) in [facility] ER bed #C7. Patient received 1 liter of 0.9% NS @ 125 mL/hr (12/18/2024, 5:46pm) in [facility] PCU bed #E219-1. Patient subsequently received his 4th liter of 0.9% NS @ 125 mL/hr (12/20/2024, 9:27pm) in [facility] PCU bed #E219-1. Acute kidney injury subsequently improved to creatinine 1.38 mg/dL (12/19/2024, 7:26am), and then RESOLVED with post-hydration creatinine 1.33 mg/dL (12/20/2024, 6:14am). Patient did not receive further IV fluid rehydration as patient was restarted on his home-scheduled Nutren 2.0 @ 1000 mL via PEG q8am (12/20/2024, 8:13am). In addition, patient did not receive his home-scheduled furosemide 20mg PO qam (given potential for this medication to cause further renal embarrassment, which was the principal cause of patient's acute kidney injury). Of final note, patient will not resume his home-scheduled furosemide 20mg PO qam or home-scheduled NaCl 1g PO bid on hospital discharge to [facility] [place]) on 12/26/2024. To address #5 Acute transaminitis with admission AST 60 U/L, ALT 91 U/L, ALK PHOS 153 U/L (12/18/2024, 9:25am), patient did not receive his home-scheduled mirtazapine 15mg PO qhs, which was a potential contributor to patient's acute transaminitis. Acute transaminitis subsequently RESOLVED with progressive decreases in AST to 39 U/L (12/19/2024, 7:26am) to 31 U/L (12/20/2024, 6:14am); progressive decreases in ALT to 63 U/L (12/19/2024, 7:26am) to 51 U/L (12/20/2024, 6:14am); initial decrease in ALK PHOS to 99 U/L (12/19/2024, 7:26am), followed by a spike up to 117 U/L (12/20/2024, 6:14am). Hence, patient will resume his home-scheduled mirtazapine 15mg PO qhs on hospital discharge to [facility] ([employer]) on 12/26/2024. to address #6 Chronic stage III sacral decubitus ulcer (oblong, 7 cm x 13 cm), multiple stage II left lateral sole, left lateral 5th toe, and left lateral malleolar decubiti (circular, 1 cm in diameter or smaller), and central crown ulcer with scab formation (apple shape, 4 cm in diameter), excoriation/lichenification of penis and scrotum with diaper soaked in urine, present on admission date 12/18/2024, patient underwent formal Wound Care Nurse re-evaluation in the 12/24/2024 am. In the interim, patient was started on (a) Santyl (collagenase) 250 units/gram, 1 application applied to sacral ulcer daily (12/21/2024, 4:56pm). In addition, patient was started on (b) Mepilex dressing to the sacral decubitus and bed position changes q2h to mitigate further skin breakdown. In addition, patient was placed on a (c) specialty bed with low air loss to off load pressure on patient's sacral decubitus and multiple stage II left lateral sole, left lateral 5th toe, and left lateral malleolar decubiti (circular, 1 cm in diameter or smaller). In addition, (d) olmedo catheter was subsequently inserted in [facility] PCU bed #E219-1 on 12/18/2024, 5:30pm, to mitigate further penile, scrotal, and gluteal skin breakdown given the finding of wet diaper soaked in urine on arrival of patient from [facility] ([place], [place]) to [facility] ER on 12/18/2024, 9:00am. Patient will continue with (a) Santyl (collagenase) 250 units/gram, 1 application applied to sacral ulcer daily, (c) specialty bed with low air loss to off load pressure on patient's sacral decubitus and multiple stage II left lateral sole, left lateral 5th toe, and left lateral malleolar decubiti (circular, 1 cm in diameter or smaller), and (d) olmedo catheter on hospital discharge to [facility] ([employer]) on 12/26/2024. To address #7 Chronic iykqisz-br-tyrdgx s/p PEG (09/05/2024, [facility]), s/p non-bilious emesis without hematemesis x 1 episode while receiving tube feeds via PEG on (12/15/2024), for which patient was tentatively being considered for modified barium swallow @ [facility] ([place], [place]) to evaluate patient for possible aspiration, but which was never scheduled or performed, patient underwent modified barium swallow (12/20/2024, 10:30am), which revealed: 1. Penetration with aspiration seen with thin barium. 2. 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 There was aspiration seen through this c onnection, which was visualized on all sampled textures. Correlation with direct visualization is recommended. Subsequently, Speech & Swallow Pathologist Dr. Lucy Carrasco shared with me the findings above, and with ENT Dr. Fred Hawkins, both of whom recommended that patient be transferred to [facility] to undergo ENT Service evaluation for possible repair of fistula connecting piriform sinus with trachea. Subsequently, I spoke with [facility] ENT Dr. Mati Rick, who reviewed the images of the modified barium swallow (12/20/2024, 10:30am), and who opined that patient is aspirating, but may not have a alanna kamila fistula connecting the piriform sinus with trachea. To test this hypothesis, Dr. Rick recommended that patient undergo gastrografin leak test and CT abd/pelvis with oral contrast to delineate patient's anatomy with higher resolution than that provided by the modified barium swallow (12/20/2024, 10:30am), and that if such fistulous connection between the piriform sinus and trachea is present on gastrografin leak test and/or CT abd/pelvis with oral contrast, that I call him back with such results before initiating/executing patient transfer from [facility] to [facility]. Subsequently, patient remained in [facility] on 12/20/2024 pm, and in order to allow passage of the barium through/out the patient's GI tract, patient did not undergo gastrografin leak test and CT abd/pelvis with oral contrast until the 12/21/2024 am/pm. Subsequently, patient underwent: CT neck with oral contrast (12/20/2024, 2:51pm): 1. No acute inflammatory changes or fluid collections. 2. Unremarkable appearance of the piriform sinuses. 3. Pulmonary edema with pleural effusions. 4. There are nonspecific subcentimeter lymph nodes measuring within the upper limits of normal within the upper mediastinum and right supraclavicular tissues, increased in size from the 07/01/[address] abd/pelvis with oral contrast (12/20/2024, 2:56pm): 1. Appropriately positioned PEG tube. No contrast extravasation. 2. Moderate sized left and small right pleural effusions. Associated bibasilar opacities could represent atelectasis or pneumonia. 3. Sacral decubitus ulcer. Interval development of bony erosion of the posterior cortex of the second coccygeal segment suggestive of osteomyelitis. 4. Small amount of fluid within the pelvis. 5. No bowel obstruction. 6. Bladder wall thickening, likely chronic. Several small bladder calculi. Consequently, patient does NOT have a fistulous tract connecting patient's piriform sinuses with his trachea. Subsequently, I discontinued NPO status and started patient on a regular diet consisting of sandwich and unsweetened, ice tea, as requested by the patient, on 12/24/2024, 9:25pm. Subsequently, patient tolerated sandwich and unsweetened, ice tea fine, as per patient's report on 12/24/2024, 9:25pm. Patient reports that he wants to continue eating food and drinking liquids by mouth, and acknowledges the risk of aspirating food/liquid when eating by mouth, and despite Speech & Swallow Service recommendations that patient remain NPO and receive only tube feeds via PEG. Patient reports that he understands that he is going against the recommendations of Speech & Swallow Service, but states, "It is my body and it's me who will be surviving or dying by not eating or drinking. I'm hungry, and I am gonna do what I want to do, aspiration or no aspiration. I hope you can understand my point." To address #8 Severe protein-calorie malnutrition with 30 pounds of unintentional weight loss over the past 3 months, R/O underlying severe depression, patient meets the criteria for definition of severe protein calorie malnutrition, as demonstrated by BMI 17.0 (height 182.9 cm; weight 56.8 kg), ongoing parenteral nutrition with PEG, multiple pressure ulcers present on admission date 12/18/2024, cachexia, vomiting/diarrhea, early satiety, and failure to thrive. Hence, patient awaits daily formal Co Founder Service evaluation in the 12/25/2024 am and will undergo daily weights and strict I/O while patient remains in [facility]. In the interim, patient underwent Psychiatry Service evaluation with Dr. Gricelda Mathis (12/23/2024, 5:06pm), and who recommended: a. stimulating antidepressant such as modafinil 100mg PO (crushed) daily, titrating up to 200mg PO (crushed) daily. b. SSRI antidepressant such as sertraline 50mg PO (crushed) daily. To this end, by treating patient's suspected major depression (no suicidal ideation on 12/23/2024), patient may be stimulated to eat more food, and consequently, gain weight. Hence, I started patient on modafinil 100mg PO (crushed) daily on 12/23/2024, 6:13pm, and sertraline 50mg PO (crushed) daily on 12/23/2024, 6:13pm. Subsequently, patient reports feeling "better" after starting modafinil 100mg PO (crushed) daily on 12/23/2024, 6:13pm, and sertraline 50mg PO (crushed) daily on 12/23/2024, 6:13pm, and moreover, "I want to eat now, Doc." Subsequently, I discontinued NPO status and started patient on a regular diet consisting of sandwich and unsweetened, ice tea, as requested by the patient, on 12/24/2024, 9:25pm. Subsequently, patient tolerated sandwich and unsweetened, ice tea fine, as per patient's report on 12/24/2024, 9:25pm. Patient reports that he wants to continue eating food and drinking liquids by mouth, and acknowledges the risk of aspirating food/liquid when eating by mouth, and despite Speech & Swallow Service recommendations that patient remain NPO and receive only tube feeds via PEG. Patient reports that he understands that he is going against the recommendations of Speech & Swallow Service, but states, "It is my body and it's me who will be surviving or dying by not eating or drinking. I'm hungry, and I am gonna do what I want to do, aspiration or no aspiration. I hope you can understand my point." Subsequently, patient will continue modafinil 100mg PO (crushed) daily and sertraline 50mg PO (crushed) daily on hospital discharge to [facility] ([employer]) on 12/26/2024. To address #9 Cachexia with BMI 17.0 (height 182.9 cm; weight 56.8 kg) with 30 pounds of unintentional weight loss over the past 3 months, R/O underlying severe depression. 10.s/p decannulation of tracheostomy (10/06/2024, [facility] ([place], [place]), patient meets the criteria for definition of cachexia, as demonstrated by BMI 17.0 (height 182.9 cm; weight 56.8 kg), ongoing parenteral nutrition with PEG, vomiting/diarrhea, early satiety, and failure to thrive. Hence, patient underwent daily formal Co Founder Service evaluations and daily weights while patient remained in [facility]. To address #10 s/p decannulation of tracheostomy (10/06/2024, [facility] ([place], [place]), patient's sister/POA Ms. Asia Henry ( ) requested ENT Service evaluation to see if patient's former tracheostomy site, now replaced with a tracheo-cutaneous fistula can be sutured/closed by ENT Service. Hence, I solicited formal ENT Service evaluation with Dr. Fred Hawkins ( ) in the 12/19/2024 am. Subsequently, Dr. Li evaluated the patient and Dr. Hawkins recommended holding OFF closure of tracheo-cutaneous fistula as closure of tracheo-cutaneous fistula in proximity to patient's acute multi-lobar CAP may actually entail development of skin infection. Admission HPI Per Admitting Provider 69 years old male with PMH of DNR/DNI @ [facility] ([place], [place]), since 11/19/2024, chronic macrocytic, hypochromic anemia with baseline Hb range, 9.3 - 9.8 g/dL (07/01/2024 - 07/08/2024), chronic hypovolemic hyponatremia with baseline Na range, 123-133 mmol/L (07/01/2024 - 07/04/2024), now on NaCl 1g PO bid with subsequent new baseline Na range, 136-138 mmol/L (07/05/2024 - 07/08/2024), former tobacco abuse with subsequent diagnosis of COPD, now on 5 liters/minute O2 via nasal cannula since admission to [facility] ([place], [place]) on 11/19/2024, not on home steroids, former ETOH abuse, abstinent since 06/15/2024, who was admitted to [facility] ([place], [place]) on 08/22/2024 with severe septic shock due to multi-lobar necrotizing CAP and acute hypoxic respiratory failure, followed by intubation (08/22/2024), failed extubation, s/p tracheostomy (09/05/2024, [facility] ([place], [place])), failure to thrive s/p PEG (09/05/2024, [facility]), followed by D/C to LTAC ([facility] ([place], [place])) on 10/01/2024, s/p decannulation of tracheostomy (10/06/2024, [facility] ([place]), followed by D/C to [facility] ([place]) on 11/19/2024, with patient unable to ambulate at all leading to subsequent development of chronic stage III sacral decubitus ulcer (oblong, 7 cm x 13 cm), multiple stage II left lateral sole, left lateral 5th toe, and left lateral malleolar decubiti (circular, 1 cm in diameter or smaller), and central crown ulcer with scab formation (apple shape, 4 cm in diameter), excoriation/lichenification of penis and scrotum with diaper soaked in urine, present on admission date 12/18/2024, and experiencing non-bilious emesis without hematemesis x 1 episode while receiving tube feeds via PEG on (12/15/2024), for which patient was tentatively being considered for modified barium swallow @ [facility] ([place], [place]) to evaluate patient for possible aspiration, but which was never scheduled or performed, followed by patient's complaints of: "I feel weak and chilly, and I'm coughing a lot now. No blood, no mucous; can't spit it out. No fevers or sweats. I had a chest x-ray done last night (12/17/2024, 8:00pm) @ [facility] ([place]), and it came back positive for pneumonia. They were treating me worse than an animal @ [facility] ([place]), so my sister/POA, Ms. Asia Henry ( ) stood up for me and got me out of there and into [facility] ER today. I don't wanna go back to [facility] ([place]). I only saw the doctor there once, and that was on the day I entered [facility] ([place])(11/19/2024). The data capture specialist never saw me once, and was ordering tube feeds for me on the basis of a 5' 1" tall man. I am 6' 1" tall. So, I was underfed @ [facility] ([place])." Patient also complains of 30 pounds of unintentional weight loss over the past 3 months with no complaints of early satiety, night sweats, or persistent vomiting/diarrhea/laxative (ab)use. Patient concedes to using lasix 20mg PO daily on a regular basis, but reports that he is "not peeing so much that I lost 30 pounds from peeing alone." Patient denies antecedent/coincident fevers, diaphoresis, wheeze, sore throat, hemoptysis, chest pains, palpitations, pleurisy, nausea, diarrhea, abdominal pain, pelvic pain, flank pain, hematemesis, hematochezia, melena, hematuria, dysuria, frequency, urgency, headaches, dizziness, lightheadedness, visual changes, hearing changes, falls, syncope, trauma, travel history, sick contacts, or food/drug ingestions novel or new. All other review of systems are reported as negative by the patient on admission date 12/18/2024. In [facility] ER bed #C7, patient was afebrile @ 37.0 degrees Celsius, HR 93, RR 20, O2 sat 98% on room air, and BP 130/70 (12/18/2024, 9:16am). Exam was noted for cachexia with bitemporal atrophy, dry skin with skin tenting, but no delay in capillary refill time > 2 seconds. In addition, patient's skin was in poor condition from head to toe, includin. Central crown ulcer with scab formation (apple shape, 4 cm in diameter), present on admission date 12/18/2024. 2. Multiple stage II left lateral sole, left lateral 5th toe, and left lateral malleolar decubiti (circular, 1 cm in diameter or smaller), present on admission date 12/18/2024. 3. Solitary stage III sacral decubitus ulcer (oblong, 7 cm x 13 cm) with surrounding erythema, warmth, and serous-suppurative discharge, but no tenderness, fluctuance, crepitus, malodor, or lymphangitic streaking, present on admission date 12/18/2024. 4. Excoriation/lichenification of penis and scrotum with diaper soaked in urine, present on admission date 12/18/2024. In addition, patient coughed frequently during my examination of the patient, but remained too weak to expectorate any mucous per se. Auscultation of chest revealed coarse breath sounds bilaterally, but no audible expiratory wheeze, egophony, pectoriloquy, increase in tactile fremitus, or flatness/dullness to percussion at the bases. Labs in [facility] ER bed #C7 included: WBC 13.42, N71 l12 M9 E7, Hb 10.7, MCV 91.2, MCHC 30.2, platelet 445 (12/18/2024, 9:25am). Lactic acid #1 0.9 mmol/L (12/18/2024, 9:48am). Lactic acid #2 0.9 mmol/L (12/18/2024, 1:06pm). Procalcitonin #1 0.24 ng/mL (12/18/2024, 9:25am). U/A: turbid yellow, LE 3+, nitrite+, WBC > 50, RBC 0-2, epithelial cells -2, bacteria 4+ (12/18/2024, 10:50am). Urine culture (12/18/2024, 10:50am): Blood culture #1 (12/18/2024, 9:25am): Blood culture #2 (12/18/2024, 9:48am): Sacral wound culture (12/18/2024, 7:16pm): __ MRSA nares negative (12/18/2024, 12:56pm). BIOFIRE respiratory pathogen panel negative (12/18/2024, 12:56pm). VBG 7.43 / 54 / 33 / 36 / O2 sat < 60% (12/18/2024, 9:48am). Na 131, K 4.2, BUN 63, creatinine 1.43, GFR 53.4 mL/min, glucose 101, Ca 12.6, Mg 2.1 (12/18/2024, 9:25am). AST 60, ALT 91, ALK PHOS 153, TBili 0.1 (12/18/2024, 9:25am). INR 1.0 (12/18/2024, 9:25am). Additional testing in [facility] ER bed #C7 included: Portable CXR (12/18/2024, 9:31am): 1. RUL, RLL, LLL infiltrates. Bilateral effusions. 2. No cardiomegaly, pulmonary vascular congestion, or pneumothorax. (by my review). EKG (12/18/2024, 9:22am): NSR @ 90, NV 140, QTC 423, no TWI, no acute ST depressions/elevations (by my review). EKG (07/01/2024, 12:21pm): NSR @ 71, NV 134, QTC 430, TWI in aVL, V2, no acute ST depressions/elevations (by my review). Patient was subsequently admitted to the inpatient hospitalist service @ [facility] on 12/18/2024 with the following diagnoses: 1. Sepsis due to (a) acute multi-lobar CAP and (2) acute UTI; R/O gram negative wil-associated bacteremia; R/O sacral wound infection. 2. Acute hypovolemic hyponatremia with admission Na 131 mmol/L (12/18/2024, 9:25am). 3. Acute hypercalcemia with admission Ca 12.6 mg/dL (12/18/2024, 9:25am). 4. Acute kidney injury with admission creatinine 1.43 mg/dL, GFR 53.4 mL/min (12/18/2024, 9:25am). 5. Acute transaminitis with admission AST 60 U/L, ALT 91 U/L, ALK PHOS 153 U/L (12/18/2024, 9:25am). 6. Chronic stage III sacral decubitus ulcer (oblong, 7 cm x 13 cm), multiple stage II left lateral sole, left lateral 5th toe, and left lateral malleolar decubiti (circular, 1 cm in diameter or smaller), and central crown ulcer with scab formation (apple shape, 4 cm in diameter), excoriation/lichenification of penis and scrotum with diaper soaked in urine, present on admission date 12/18/2024. 7. Chronic aadpawg-vx-gmjfhf s/p PEG (09/05/2024, [facility]), s/p non-bilious emesis without hematemesis x 1 episode while receiving tube feeds via PEG on (12/15/2024), for which patient was tentatively being considered for modified barium swallow @ [facility] ([place], [place]) to evaluate patient for possible aspiration, but which was never scheduled or performed. 8. s/p decannulation of tracheostomy (10/06/2024, [facility] ([place], [place]). To address #1, patient received zosyn 4.5g IV x 1 dose (12/18/2024, 12:31pm) and vancomycin 1.25g IV x 1 dose (12/18/2024, 12:41pm) in [facility] ER bed #C7. Patient will continue with monotherapy utilizing zosyn 4.5g IV q8 (day #06/21 on 12/18/2024, 5:46pm) in [facility] PCU bed #E219-1. I will check vitals, chest exam, genito-urinary exam (with olmedo catheter subsequently inserted in [facility] PCU bed #E219-1 on 12/18/2024, 5:30pm, to mitigate further penile, scrotal, and gluteal skin breakdown given the finding of wet diaper soaked in urine on arrival of patient from [facility] ([place], [place]) to [facility] ER on 12/18/2024, 9:00am), WBC w/diff, lactic acid, procalcitonin, urine culture (12/18/2024, 10:50am), blood culture #1 (12/18/2024, 9:25am), blood culture #2 (, 9:48am) and sacral wound culture (12/18/2024, 7:16pm) in the 12/19/2024 am. To address #2, patient received 1 liter of 0.9% NS @ 125 mL/hr (12/18/2024, 10:47am) in [facility] ER bed #C7. Patient was subsequently started on 1 liter of 0.9% NS @ 125 mL/hr (12/18/2024, 5:46pm) [facility]. I will check repeat Na level in the 12/19/2024 am while holding off patient's home-scheduled furosemide 20mg PO qam (given potential for this medication to exacerbate acute hypovolemic hyponatremia by inducing natri-uresis). Patient is also being held off his home-scheduled NaCl 1g PO bid given potential risk for aspiration of his home-scheduled NaCl 1g PO bid. To address #3, patient received 1 liter of 0.9% NS @ 125 mL/hr (12/18/2024, 10:47am) in [facility] ER bed #C7. Patient was subsequently started on 1 liter of 0.9 % NS @ 125 mL/hr (12/18/2024, 5:46pm) in [facility] bed #E219-1. I will check repeat Ca level in the 12/19/2024 am while holding off patient's home-scheduled furosemide 20mg PO qam (given potential for this medication to exacerbate acute hypercalcemia by causing further acute dehydration, which is the principal cause of patient's acute hypercalcemia). To address #4, patient received 1 liter of 0.9% NS @ 125 mL/hr (12/18/2024, 10:47am) in [facility] ER bed #C7. Patient was subsequently started on 1 liter of 0.9% NS @ 125 mL/hr (12/18/2024, 5:46pm) in [facility] bed #E219-1. I will check repeat creatinine level in the 12/19/2024 am while holding off patient's home- scheduled furosemide 20mg PO qam (given potential for this medication to cause further renal embarrassment, which is the principal cause of patient's acute kidney injury). To address #5, patient is being held off his home-scheduled mirtazapine 15mg PO qhs, which is a potential contributor to patient's acute transaminitis. I will check repeat LFT in the 12/19/2024 am. to address #6, patient awaits formal Wound Care Nurse evaluation in the 12/19/2024 am. In the interim, patient has been started on Mepilex dressing to the sacral decubitus and bed position changes q2h to mitigate further skin breakdown. In addition, patient was placed on a specialty bed with low air loss to offload pressure on patient's sacral decubitus and multiple stage II left lateral sole, left lateral 5th toe, and left lateral malleolar decubiti (circular, 1 cm in diameter or smaller). In addition, olmedo catheter was subseq uently inserted in [facility] PCU bed #E219-1 on 12/18/2024, 5:30pm, to mitigate further penile, scrotal, and gluteal skin breakdown given the finding of wet diaper soaked in urine on arrival of patient from [facility] ([place], [place]) to [facility] ER on 12/18/2024, 9:00am. To address #7, patient awaits bedside swallow exam by nursing staff in [facility] PCU bed #E219-1. Patient also awaits formal Co Founder Service evaluation in the 12/19/2024 am. To address #8, patient's sister/POA Ms. Asia Henry ( ) requested ENT Service evaluation to see if patient's former tracheostomy site can be sutured/closed by ENT Service. Hence, I have solicited formal ENT Service evaluation with Dr. Fred Hawkins ( ) for the 12/19/2024 am. Discharge Exam Constitutional General: Comfortable, coherent, and cooperative. Not confused or obt unded, but lethargic. Patient speaks very slowly, but in complete, fluent, and articulate 3-5 word sentences without pause, interruption, cough, or wheeze with O2 sat 99% on 5 liters/minute O2 via nasal cannula (12/21/2024, 7:31pm)(12/22/2024, 7:37pm). O2 sat 100% on 5 liters/minute O2 via nasal cannula (12/23/2024, 6:06pm). O2 sat 94% on room air (12/24/2024, 8:15pm)(12/25/2024, 8:13pm). O2 sat 96% on room air (12/26/2024, 2:19pm). Cachectic with bi-temporal atrophy. HEENT: Normocephalic, atraumatic. No nystagmus, gaze paresis, anisocoria, miosis, mydriasis, hyphema, scleral injection, conjunctivitis, or pterygium. No otorrhea or rhinorrhea. No pharyngeal erythema, edema, or discharge. Neck: Supple, no stridor, bruit, goiter, or hepato-jugular reflux. Jugular venous pressure is estimated to be 3 cm above the sternal angle of Burke, which in turn, is 5 cm above the level of the right atrium; with jugular venous pressure estimated to be 8 cm, then, there is no jugular venous distention on 12/25/2024. 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 Lymphatics: No cervical (anterior/posterior), supraclavicular, infraclavicular, axillary, epitrochlear, or inguinal adenopathy. Chest: Symmetric rise and fall with respirations. Non-tender to palpation. Lungs: Coarse breath sounds bilaterally. No audible expiratory wheeze, egophony, pectoriloquy, increase in tactile fremitus, or flatness/dullness to percussion at the bases. Heart: Regular rate and rhythm. S1 and S2 noted. No S3 or S4 summation gallop. No tripartite friction rub. Grade II/ early systolic murmur @ LLSB without radiation to the carotids, axilla, or back, and which remains invariant in regards to the respiratory cycle. Abdomen: Soft, non-tender, non-distended. No rebound, guarding, Warner's sign, or organomegaly. Bowel sounds auscultated in all 4 quadrants. PEG (inserted on 09/05/2024, [facility]) to treat rlslhwf-[id number]) in situ with no underlying erythema, edema, induration, warmth, tenderness, crepitus, fluctuance, discharge, or lymphangitic streaking on admission date 12/18/2024 through discharge date 12/26/2024. in situ Extremities: No clubbing, cyanosis, or edema. Skin: No exanthem or enanthem. Skin: 1. Central crown ulcer with scab formation (apple shape, 4 cm in diameter), present on admission date 12/18/2024. 2. Multiple stage II left lateral sole, left lateral 5th toe, and left lateral malleolar decubiti (circular, 1 cm in diameter or smaller), present on admission date 12/18/2024. 3. Solitary stage III sacral decubitus ulcer (oblong, 7 cm x 13 cm) with surrounding erythema, warmth, and serous-suppurative discharge, but no tenderness, fluctuance, crepitus, malodor, or lymphangitic streaking, present on admission date 12/18/2024. 4. Excoriation/lichenification of penis and scrotum with diaper soaked in urine, present on admission date 12/18/2024.Neuro: Awake and oriented in regards to person, place, time, and situation. DTR+. 5/5 motor strength in all 4 extremities, both proximally and distally. No myoclonus, tremors, or tics.Genito-urinary: No urethral discharge. No olmedo catheter in [facility] ER bed #C7. Olmedo catheter subsequently inserted in [facility] PCU bed #E219-1 on 12/18/2024, 5:30pm, to mitigate further penile, scrotal, and gluteal skin breakdown given the finding of wet diaper soaked in urine on arrival of patient from [place], [place]) to [facility] ER on 12/18/2024, 9:00am. Neurology: Alert and oriented in regards to person, place, time, and situation. DTR+. 5/5 motor strength in all 4 extremities, proximally and distally. Urology: + olmedo inserted in [facility] PCU bed #E219-1 on 12/18/2024, 5:30pm, to mitigate further penile, scrotal, and gluteal skin breakdown given the finding of wet diaper soaked in urine on arrival of patient from [place], [place]) to [facility] ER on 12/18/2024, 9:00am. No urethral discharge. Discharge Plan Discharge Items Patient Disposition: Transfer to LTAC Reason For Visit: SEPSIS DUE TO ACUTE MULTI-LOBAR CAP Discharge Diagnosis: 1. Sepsis due to (a) acute multi-lobar CAP and (2) acute E. coli UTI; R/O gram negative wil-associated bacteremia; R/O sacral wound infection. 2. Acute hypovolemic hyponatremia with admission Na 131 mmol/L (12/18/2024, 9:25am). 3. Acute hypercalcemia with admission Ca 12.6 mg/dL (12/18/2024, 9:25am). 4. Acute kidney injury with admission creatinine 1.43 mg/dL, GFR 53.4 mL/min (12/18/2024, 9:25am). 5. Acute transaminitis with admission AST 60 U/L, ALT 91 U/L, ALK PHOS 153 U/L (12/18/2024, 9:25am). 6. Chronic stage III sacral decubitus ulcer (oblong, 7 cm x 13 cm), multiple stage II left lateral sole, left lateral 5th toe, and left lateral malleolar decubiti (circular, 1 cm in diameter or smaller), and central crown ulcer with scab formation (apple shape, 4 cm in diameter), excoriation/lichenification of penis and scrotum with diaper soaked in urine, present on admission date 12/18/2024. 7. Chronic jdnearb-pu-nhdezs s/p PEG (09/05/2024, [facility]), s/p non-bilious emesis without hematemesis x 1 episode while receiving tube feeds via PEG on (12/15/2024), for which patient was tentatively being considered for modified barium swallow @ [facility] ([place], [place]) to evaluate patient for possible aspiration, but which was never scheduled or performed. 8. Severe protein-calorie malnutrition with 30 pounds of unintentional weight loss over the past 3 months, R/O underlying severe depression. 9. 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 10.s/p decannulation of tracheostomy (10/06/2024, [facility] ([place], [place]). Condition on Discharge: Fair Activity: Resume your previous activity Lifting: Gradually increase as tolerated Bathing: No limitations Exercise/Sports: Gradually increase as tolerated Weightbearing: Full weightbearing Non-emergency contact: Primary Care Provider Call non-emergency contact if: you have any medication questions Follow-up/Referrals: Jose Eduardo Allen DO [Primary Care Provider] - Diet: Heart Healthy Addtl Attending Provider Instructions: See your PCP Dr. Jose Eduardo Allen within 5-7 days of discharge from [facility] @ [place], [place]. Pending Studies at Discharge: No Stand-Alone Forms: My [facility] Skilled Items Patient informed of condition?: Yes DNR: Yes Discharge Level of Care: Skilled Communicable Disease: No Discharge Prognosis: Stable Lines: None Urinary Catheter: No Medications and DC Order Prescriptions: New Santyl 250 unit/gram Ointment 1 applic EXT DAILY Qty: 30 0RF lidocaine [Anecream] 4 % Cream 1 applic EXT DAILY Qty: 30 0RF sertraline 50 mg Tablet 50 mg PO QAM Qty: 30 0RF modafinil 100 mg Tablet 100 mg PO QAM Qty: 30 0RF Continued mirtazapine 15 mg Tablet 15 mg PO HS Qty: 30 0RF Discontinued nicotine 7 mg/24 hr Patch 24 Hour 1 patch transdermal QAM Qty: 28 0RF furosemide 20 mg Tablet 20 mg PO QAM Qty: 30 0RF pantoprazole 40 mg Tablet,Delayed Release (Dr/Ec) 40 mg PO BID Qty: 60 0RF sodium chloride 1,000 mg Tablet,Soluble 1,000 mg PO BID Qty: 60 0RF thiamine HCl (vitamin B1) 100 mg Tablet 100 mg PO QAM Qty: 30 0RF folic acid 1 mg Tablet 1 mg PO QAM Qty: 30 0RF Discharge Orders: Discharge Order (Routine); Ordered 12/26/24 Ordered By: Josr Melgar Admission Data Admit Date/Time: 12/18/24 12:22 Attending Provider: Josr Melgar Admit Provider: Josr Melgar Primary Care Provider: Jose Eduardo Allen Other Providers: Josr Melgar; Fred Hawkins; [facility]; Aleksandra Key; Gricelda Mathis; [place]; [facility] Stay Data Consultations 12/18/24 12:12 ED Decision to Admit Stat 12/19/24 08:00 Consult Otolaryngology (Head and Neck) Routine 12/23/24 12:56 Consult Psychiatry Routine 12/23/24 13:11 Consult Palliative Care Routine Diagnostic Imagining Performed 12/18/24 11:53 US venous doppler LE LT Stat 12/20/24 10:30 Fluoro video [FL video swallow] Routine 12/20/24 14:51 CT soft tissue neck w con Stat 12/20/24 14:56 CT abdomen pelvis wo/w con Stat Pending Results Patient Have Any Pending Studies at Discharge: No Discharge Instructions Given to Patient (Per Discharging Provider) See your PCP Dr. Jose Eduardo Allen within 5-7 days of discharge from [facility] @ [place]. Total Time Total Time Spent Total Time Spent (In Minutes): 35 minutes. Of this time period, 19 minutes were spent in coordinating patient's discharge. Coding Level of Care Code 31392 INP/OBS DISCH >30 MIN Diagnoses Sepsis due to pneumonia J18.9; A41.9
[2024-12-26] MEDS: KETOROLAC TROMETHAMINE 15 MG/ML VIAL IV ONE (15:08)
--- NOTE | 2024-12-26 15:10 | Palliative Care Progress Note ---
Date of Service December 26, 2024 Assessment & Plan (1) Palliative care by specialist: Plan: We will sign off on this patient as goals of care are clearly established for DNR/DNI but continue all other life prolonging therapies Thank you for including Palliative Care in the management of this patient. Please call with any questions or concerns regarding this consultation. (2) Counseling regarding advanced directives and goals of care: Plan: met with pt from 0830- 0910 today. we discussed his plan to work aggressively with ST/PT/OT in hopes of regaining mobility and ability to eat. He shared that he had tried to eat over weekend but the taste and smell of food turned him off and made him not wish to eat. He shared desire to continue tube feeds for his total nutrition while he works with ST and does exercises independently to improve his ability to swallow. we discussed at length risk reduction (of aspiration pneumonia) through aggressive oral hygiene routine. Pt expressed desire for discharge to [facility] or SNF with PT/OT/ST. His goals of care are clearly established for DNR/DNI but continue all other life prolonging therapies. Again encouraged pt complete an advanced directive when able to document his wishes for DNR/DNI as well as his choice of HCPOA in event he lacks decisional capacity in future. Plan as above Admission and Anticipated Discharge Date Admission Date: December 18, 2024 Subjective Met with pt at bedside, no acute events overnight. He was awake and alert, pleasantly communicative and denied complaint. Review of Systems Review of Systems: All systems reviewed & are unremarkable except as noted in Subjective Physical Exam Constitutional: + ill appearing and + cachectic; no acut e distress Eyes: PERRL, conjunctivae normal, anicteric sclerae ENMT: external ear and nose normal, oropharynx normal Neck: trachea midline, no thyromegaly Respiratory: normal respiratory effort, lungs clear to auscultation Cardiovascular: RRR, no murmur, no edema Gastrointestinal (Abdomen): normal bowel sounds, soft, nontender, no hepatosplenomegaly Musculoskeletal: Extremities: no cyanosis and no clubbing Skin: no rashes, warm and dry Neurologic: Speech / Cognition: normal speech and normal cognition Psychiatric: Affect: euthymic affect Results & Data Vital Signs (Past 12 Hours) Vital Signs Temp Pulse Pulse Resp BP Pulse Ox O2 Del Method 12/26/24 14:19 98 H 12/26/24 10:45 36.4 C L 102 H 17 139/82 96 Room Air 12/26/24 08:07 36.7 C 97 H 18 147/76 H 95 Room Air 12/26/24 07:51 98 H 12/26/24 04:25 36.7 C 88 18 165/75 H 96 Room Air Laboratory Results Abnormal lab results 12/26/24 Range/Units 07:03 RBC 3.18 L (4.70-6.10) M/uL Hgb 9.0 L (14.0-18.0) g/dl Hct 28.2 L (42.0-52.0) % MCHC 31.9 L (32.0-36.0) g/dL RDW Std Deviation 50.1 H (36.4-46.3) fL RDW Coeff of Selvin 15.5 H (11.5-14.5) % Plt Count 421 H (130-400) K/uL MPV 8.9 L (9.4-12.4) fL Hardee # (Auto) 0.82 H (0.11-0.59) K/uL Eos # (Auto) 0.90 H (0.00-0.50) K/uL Diagnostic Findings Chest X-Ray 12/18/24 09:31 XR chest 1V portable CLINICAL HISTORY: Sepsis. COMPARISON STUDY: Chest CT July 01, 2024. FINDINGS: There is no pneumothorax. Small bilateral pleural effusions have developed. Cardiomediastinal silhouette is normal. Interstitial thickening has developed and there are bibasilar and right upper lung airspace opacities. IMPRESSION: 1. Interval development of interstitial pulmonary edema and small bilateral pleural effusions. 2. Right upper lung airspace opacity which is new since prior exam. This could represent pneumonia or alveolar pulmonary edema. Radiographic follow-up is recommended. Bibasilar opacities could represent atelectasis or pneumonia can be assessed on follow-up exams. ACT 112: Negative or not required by law. Electronically signed by: Neil Darden M.D. 12/18/2024 10:24 AM Venous Doppler Study 12/18/24 11:53 DVT ULTRASOUND OF THE LEFT LOWER EXTREMITY INDICATION: Pain TECHNIQUE: Grayscale and color Doppler evaluation of the LEFT femoral-popliteal venous system was performed. A duplex Doppler study was performed, consisting of integrated two-dimensional (2D) real-time imaging: Color flow Doppler and Doppler spectral analysis. COMPARISON: None. FINDINGS: LEFT common femoral, femoral and popliteal veins: Normal compressibility, color flow, respiratory variation. No intraluminal echogenic material. IMPRESSION: No evidence of deep venous thrombus in the left femoral-popliteal venous system. Electronically signed by Riley Toledo 12-18-2024 7:09 PM Videofluoroscopic Swallow 12/20/24 10:30 VIDEO SWALLOW STUDY CLINICAL HISTORY: History of aspiration pneumonia. Intubations. Fluoro time: 2.29 minutes. Ka,r: 9.3 mGy FINDINGS: Fluoroscopic guidance is provided to the Department of speech pathology in performing a video swallow study. The patient consumed barium- impregnated pudding, nectar-thick liquids, and thin barium with the swallowing mechanism was observed in real-time. Pharyngeal penetration and aspiration was seen with thin barium. No aspiration was clearly seen with the remaining sampled textures on the swallows. There is an apparent abnormal/fistulous subglottic connection between the lower larynx/upper esophagus and the trachea suggestive of fistula formation. There was saturnnio aspiration to this connection with all sampled textures. This included aspiration pharyngeal residuals. IMPRESSION: 1. There is penetration with aspiration seen with thin barium. 2. 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 There was aspiration seen through this connection, which was visualized on all sampled textures. Correlation with direct visualization is recommended. Dictated: 12/20/2024 2:30 PM Transcribed: 12/20/2024 2:46 PM Ashok [id number] [email or web address] Electronically signed by: Chad Be M.D. 12/20/2024 3:[address] 12/20/24 14:51 CT soft tissue neck w con HISTORY: 69 years-old Male R/O fistula from piriform sinus to trachea acute neck pain COMPARISON: CT chest and head 07/01/2024 TECHNIQUE: Multiple axial CT images of the soft tissues of the neck were obtained with IV contrast. A dose lowering technique was used consistent with the principals of ALARA. FINDINGS: Moderate right and large left pleural effusions. Intralobular septal thickening. No pneumothorax. Right paratracheal lymph nodes measure up to 1.2 x 0.9 cm. Subcentimeter supraclavicular lymph nodes measure up to 9 mm on the right, image 27 series 10. Subcentimeter cervical chain lymph nodes. Mild nonspecific asymmetric prominence of the right sternocleidomastoid muscle. Patent airway. No acute inflammatory changes or fluid collections. Normal epiglottis, glottis and subglottic airway. The vallecula and piriform sinuses are within normal limits. No prevertebral edema. Possible old tracheostomy site, image 290 series 10. The imaged intracranial structures are within normal limits. There is atherosclerosis with at least mild stenosis of the proximal internal carotid arteries. Rightward bowing and spurring of the nasal septum. Severe mucosal thickening of the left sphenoid sinus. Unremarkable imaged upper esophagus. Dege nerative changes of the cervical spine result in multilevel central canal and neural foraminal stenosis. Levoscoliosis of the cervicothoracic junction. No suspicious bone lesions. IMPRESSION: 1. No acute inflammatory changes or fluid collections. 2. Unremarkable appearance of the piriform sinuses. 3. Pulmonary edema with pleural effusions. 4. There are nonspecific subcentimeter lymph nodes measuring within the upper limits of normal within the upper mediastinum and right supraclavicular tissues, increased in size from the 07/01/2024 study. Attention at follow-up recommended. ACT 112: Negative or not required by law. The above report was generated using voice recognition software. It may contain grammatical, syntax or spelling errors. Electronically signed by: Michael Rangel M.D. 12/21/2024 10:21 AM Abdomen/Pelvis CT 12/20/24 14:56 CT OF THE ABDOMEN AND PELVIS WITH AND WITHOUT CONTRAST CLINICAL HISTORY: gastrografin leak test COMPARISON STUDY: CT of the abdomen and pelvis July 05, 2024. TECHNIQUE: Axial images of the abdomen and pelvis were obtained before and after intravenous administration of 93 cc Optiray 320 IV. Water-soluble contrast was injected into the gastrostomy tube. Automated exposure control was utilized for the study. A dose lowering technique was utilized adhering to the principles of ALARA. CT DOSE: 1753.13 mGy.cm FINDINGS: Moderate left and small right pleural effusions are partially imaged. Associated bibasilar lateral lower lobe airspace opacity is present. There is no pneumatosis, free air or portal venous gas. Percutaneous gastrostomy tube is well-positioned. No extraluminal contrast is identified. There is opacification of the stomach and proximal small bowel following water-soluble contrast injection. Liver, spleen, adrenal glands, kidneys and pancreas are unremarkable. Is no biliary or pancreatic ductal dilatation. There is a small amount of fluid within the pelvis. There is no evidence for a bowel obstruction. There is moderate aortoiliac atherosclerotic plaque. A White balloon and small amount of gas within the bladder is noted. There are small bladder calculi. Bladder wall thickening is likely chronic. Sacral decubitus ulcer is noted. Subtle erosion of the posterior cortex of the second coccygeal segment is new since CT of July 05, 2024. IMPRESSION: 1. Appropriately positioned PEG tube. No contrast extravasation. 2. Moderate sized left and small right pleural effusions. Associated bibasilar opacities could represent atelectasis or pneumonia. 3. Sacral decubitus ulcer. Interval development of bony erosion of the posterior cortex of the second coccygeal segment suggestive of osteomyelitis. 4. Small amount of fluid within the pelvis. 5. No bowel obstruction. 6. Bladder wall thickening, likely chronic. Several small bladder calculi. ACT 112: Negative or not required by law. Electronically signed by: Neil Darden M.D. 12/21/2024 10:35 AM Medications Administered Current Inpatient Medications Acetaminophen (Acetaminophen 325 Mg Tab) 650 mg PO Q4H PRN PRN Reason: Pain or Fever Stop: 01/24/25 20:20 Last Admin: 12/25/24 21:08 Dose: 650 mg Albuterol (Albut/Ipratrop 3mg/0.5mg Neb 3 Ml Vial) 3 ml NEB Q6R PRN; Protocol PRN Reason: Wheezing Stop: 01/17/25 20:27 Collagenase (Collagenase Oint 30 Gm Tube) 1 appln EXT DAILY [facility] Stop: 01/20/25 14:29 Last Admin: 12/26/24 08:41 Dose: 1 appln Heparin Sodium (Porcine) (Heparin Sod 5,000 Unit/0.5 Ml Vial) 5,000 units SQ Q12 RAKAN Stop: 01/17/25 20:59 Last Admin: 12/26/24 08:43 Dose: Not Given Lidocaine (Lidocaine 4% Cream 15 Gm Tube) 1 appln EXT DAILY [facility] Stop: 01/23/25 21:24 Last Admin: 12/26/24 08:32 Dose: 1 appln Modafinil (Modafinil 100 Mg Tab) 100 mg PO QAM [facility] Stop: 01/23/25 10:29 Last Admin: 12/26/24 08:32 Dose: 100 mg Nutritional Formula (Nutren Liqd 2.0 1,000 Ml Bag) 1,000 ml GT DAILY@0800 [facility]; Protocol Stop: 01/19/25 07:59 Last Admin: 12/26/24 09:28 Dose: 1,000 ml Sertraline HCl (Sertraline Hcl 50 Mg Tablet) 50 mg PO QAM [facility] Stop: 01/23/25 10:29 Last Admin: 12/26/24 08:32 Dose: 50 mg Sterile Water (Tube Feeding Water Flush) 250 ml GT Q6 [facility] Stop: 01/25/25 17:59 PG Care Time/CCT Total # of Minutes Spent Total Time Spent with Patient: Total time spent is greater than 50% in coordination of care (as documented) at patient's floor/unit and/or counseling patient: Advanced Care Planning 81021 Advanced Care Planning 30 Min C[place] [address] SUB INP/OBS CARE 2/35MIN Patient Type Established History Problem Focused Exam Problem Focused Medical Decision Making Low Complexity Diagnoses Palliative care by specialist Z51.5 Counseling regarding advanced directives and goals of care Z71.89 Additional Codes Advanced Care Planning - 42599 Advanced Care Planning 30 Min: 10080 Advanced Care Planning 30 Min ([id number])
[2024-12-27 03:53] VITALS: RESP 16
[2024-12-27 07:48] VITALS: BP 132/78; PULSE 102; TEMP 98.4; O2SAT 96
[2024-12-27 09:33] LABS: Anion Gap 9.0 (3-11); Blood Urea Nitrogen 38.0 mg/dl (6-23); Calcium 10.0 mg/dl (8.6-10.3); Carbon Dioxide 25.0 mmol/L (21-32); Chloride 95.0 mmol/L (98-107); Creatinine Clr Calc Pharmacy 50.7 ml/min; Glucose 109.0 mg/dl (70-99(Fasting)); Potassium 4.9 mmol/L (3.5-5.1); Sodium 129.0 mmol/L (136-145)
--- NOTE | 2024-12-27 11:11 | Discharge Summary ---
Discharge Summary Date of Service December 27, 2024 Principal Dx & Hospital Course #1 = Principal Diagnosis (1) Sepsis due to pneumonia: Patient was subsequently admitted to the inpatient hospitalist service @ [facility] on 12/18/2024 with the following diagnoses: 1. Sepsis due to (a) acute multi-lobar CAP and (2) acute E. coli UTI; R/O gram negative wil-associated bacteremia; R/O sacral wound infection. 2. Acute hypovolemic hyponatremia with admission Na 131 mmol/L (12/18/2024, 9:25am). 3. Acute hypercalcemia with admission Ca 12.6 mg/dL (12/18/2024, 9:25am). 4. Acute kidney injury with admission creatinine 1.43 mg/dL, GFR 53.4 mL/min (12/18/2024, 9:25am). 5. Acute transaminitis with admission AST 60 U/L, ALT 91 U/L, ALK PHOS 153 U/L (12/18/2024, 9:25am). 6. Chronic stage III sacral decubitus ulcer (oblong, 7 cm x 13 cm), multiple stage II left lateral sole, left lateral 5th toe, and left lateral malleolar decubiti (circular, 1 cm in diameter or smaller), and central crown ulcer with scab formation (apple shape, 4 cm in diameter), excoriation/lichenification of penis and scrotum with diaper soaked in urine, present on admission date 12/18/2024. 7. Chronic ceeobbp-uw-cydemn s/p PEG (09/05/2024, [facility]), s/p non-bilious emesis without hematemesis x 1 episode while receiving tube feeds via PEG on (12/15/2024), for which patient was tentatively being considered for modified barium swallow @ [facility] (LAVELL Rodas) to evaluate patient for possible aspiration, but which was never scheduled or performed. 8. Severe protein-calorie malnutrition with 30 pounds of unintentional weight loss over the past 3 months, R/O underlying severe depression. 9. 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 10.s/p decannulation of tracheostomy (10/06/2024, [facility] ([place]). To address #1 Sepsis due to (a) acute multi-lobar CAP and (2) acute E. coli UTI; R/O gram negative wil-associated bacteremia; R/O sacral wound infection, patient received zosyn 4.5g IV x 1 dose (12/18/2024, 12:31pm) and vancomycin 1.25g IV x 1 dose (12/18/2024, 12:41pm) in [facility] ER bed #C7. Patient continued with monotherapy utilizing zosyn 4.5g IV q8 (day #1/ on 12/18/2024, 5:46pm) in [facility] PCU bed #E219-1. Given publication of urine culture (12/18/2024, 10:50am): > 100,000 cfu/mL ampicillin-resistant, ciprofloxacin-resistant, levofloxacin-resistant, ceftriaxone-sensitive E. coli, I chose to de-escalate antibiotic therapy from zosyn 4.5g IV q8 (day #3 on 12/20/2024, 3:19am) to ceftriaxone 1g IV daily (day #1/5 on 12/20/2024, 10:13am; day #5/ on 12/24/2024, 7:40pm). Subsequently, sepsis due to (a) acute multi-lobar CAP and (2) acute E. coli UTI, has RESOLVED. Patient was subsequently discharged to [facility] ([place], [place]) on 12/27/2024, 12:00pm, without any need for additional antibiotics, parenteral or oral. To address #2 Acute hypovolemic hyponatremia with admission Na 131 mmol/L (12/18/2024, 9:25am), patient received 1 liter of 0.9% NS @ 125 mL/hr (12/18/2024, 10:47am) in [facility] ER bed #C7. Patient received 1 liter of 0.9% NS @ 125 mL/hr (12/18/2024, 5:46pm) in [facility] PCU bed #E219-1. Patient subsequently received his 4th liter of 0.9% NS @ 125 mL/hr (12/20/2024, 9:27pm) [facility]. Acute hypovolemic hyponatremia subsequently improved to Na 135 mmol/L (12/19/2024, 7:26am), and then RESOLVED with post-hydration Na 137 mmol/L (12/20/2024, 6:14am). Patient did not receive further IV fluid rehydration as patient was restarted on his home-scheduled Nutren 2.0 @ 1000 mL via PEG q8am (12/20/2024, 8:13am). In addition, patient did not receive his home-scheduled furosemide 20mg PO qam (given potential for this medication to exacerbate acute hypovolemic hyponatremia by inducing natri-uresis) while in [facility]. Patient also did not receive his home-scheduled NaCl 1g PO bid given potential risk for aspiration of his home-scheduled NaCl 1g PO bid, while in [facility]. Patient will not continue with his home- scheduled Nutren 2.0 @ 1000 mL via PEG q8am on hospital discharge to [facility] ([place], [place]) on 12/26/2024, as patient willfully decided of his own free volition and sense/sensibility to start eating/drinking a regular diet on 12/24/2024, 9:25pm. Of final note, patient will not resume his home- scheduled furosemide 20mg PO qam or home-scheduled NaCl 1g PO bid on hospital discharge to [facility] ([place]) on 12/27/2024, 12:00pm. To address #3 Acute hypercalcemia with admission Ca 12.6 mg/dL (12/18/2024, 9:25am), patient received 1 liter of 0.9% NS @ 125 mL/hr (12/18/2024, 10:47am) in [facility] ER bed #C7. Patient received 1 liter of 0.9% NS @ 125 mL/hr (0 12/18/2024, 5:46pm) [facility]. Patient subsequently received his 4th liter of 0.9% NS @ 125 mL/hr (12/20/2024, 9:27pm) [facility]. Acute hypercalcemia subsequently improved to Ca 10.9 mg/dL (12/19/2024, 7:26am), and then RESOLVED with post-hydration Ca 9.8 mg/dL (12/20/2024, 6:14am). Patient did not receive further IV fluid rehydration as patient was restarted on his home-scheduled Nutren 2.0 @ 1000 mL via PEG q8am (12/20/2024, 8:13am). In addition, patient did not receive his home-scheduled furosemide 20mg PO qam (given potential for this medication to exacerbate acute hypercalcemia by causing further acute dehydration, which was the principal cause of patient's acute hypercalcemia). Of final note, patient will not resume his home-scheduled furosemide 20mg PO qam or home-scheduled NaCl 1g PO bid on hospital discharge to [facility] ([place], [place]) on 12/27/2024, 12:00pm. To address #4 Acute kidney injury with admission creatinine 1.43 mg/dL, GFR 53.4 mL/min (12/18/2024, 9:25am), patient received 1 liter of 0.9% NS @ 125 mL/hr (12/18/2024, 10:47am) in [facility] ER bed #C7. Patient received 1 liter of 0.9% NS @ 125 mL/hr (12/18/2024, 5:46pm) in [facility] PCU bed #E219-1. Patient subsequently received his 4th liter of 0.9% NS @ 125 mL/hr (12/20/2024, 9:27pm) in [facility] PCU bed #E219-1. Acute kidney injury subsequently improved to creatinine 1.38 mg/dL (12/19/2024, 7:26am), and then RESOLVED with post-hydration creatinine 1.33 mg/dL (12/20/2024, 6:14am). Patient did not receive further IV fluid rehydration as patient was restarted on his home-scheduled Nutren 2.0 @ 1000 mL via PEG q8am (12/20/2024, 8:13am). In addition, patient did not receive his home-scheduled furosemide 20mg PO qam (given potential for this medication to cause further renal embarrassment, which was the principal cause of patient's acute kidney injury). Of final note, patient will not resume his home-scheduled furosemide 20mg PO qam or home-scheduled NaCl 1g PO bid on hospital discharge to [facility] ([place]) on 12/27/2024, 12:00pm. To address #5 Acute transaminitis with admission AST 60 U/L, ALT 91 U/L, ALK PHOS 153 U/L (12/18/2024, 9:25am), patient did not receive his home-scheduled mirtazapine 15mg PO qhs, which was a potential contributor to patient's acute transaminitis. Acute transaminitis subsequently RESOLVED with progressive decreases in AST to 39 U/L (12/19/2024, 7:26am) to 31 U/L (12/20/2024, 6:14am); progressive decreases in ALT to 63 U/L (12/19/2024, 7:26am) to 51 U/L (12/20/2024, 6:14am); initial decrease in ALK PHOS to 99 U/L (12/19/2024, 7:26am), followed by a spike up to 117 U/L (12/20/2024, 6:14am). Hence, patient will resume his home-scheduled mirtazapine 15mg PO qhs on hospital discharge to [facility] ([place]) on 12/27/2024, 12:00pm. to address #6 Chronic stage III sacral decubitus ulcer (oblong, 7 cm x 13 cm), multiple stage II left lateral sole, left lateral 5th toe, and left lateral m alleolar decubiti (circular, 1 cm in diameter or smaller), and central crown ulcer with scab formation (apple shape, 4 cm in diameter), excoriation/lichenification of penis and scrotum with diaper soaked in urine, present on admission date 12/18/2024, patient underwent formal Wound Care Nurse re-evaluation in the 12/24/2024 am. In the interim, patient was started on (a) Santyl (collagenase) 250 units/gram, 1 application applied to sacral ulcer daily (12/21/2024, 4:56pm). In addition, patient was started on (b) Mepilex dressing to the sacral decubitus and bed position changes q2h to mitigate further skin breakdown. In addition, patient was placed on a (c) specialty bed with low air loss to off load pressure on patient's sacral decubitus and multiple stage II left lateral sole, left lateral 5th toe, and left lateral malleolar decubiti (circular, 1 cm in diameter or smaller). In addition, (d) olmedo catheter was subsequently inserted in [facility] PCU bed #E219-1 on 12/18/2024, 5:30pm, to mitigate further penile, scrotal, and gluteal skin breakdown given the finding of wet diaper soaked in urine on arrival of patient from [facility] ([place]) to [facility] ER on 12/18/2024, 9:00am. Patient will continue with (a) Santyl (collagenase) 250 units/gram, 1 application applied to sacral ulcer daily, (c) specialty bed with low air loss to off load pressure on patient's sacral decubitus and multiple stage II left lateral sole, left lateral 5th toe, and left lateral malleolar decubiti (circular, 1 cm in diameter or smaller), and (d) olmedo catheter on hospital discharge to [facility] ([place]) on 12/27/2024, 12:00pm. To address #7 Chronic fzwoxjt-zy-eivcfm s/p PEG (09/05/2024, [facility]), s/p non-bilious emesis without hematemesis x 1 episode while receiving tube feeds via PEG on (12/15/2024), for which patient was tentatively being considered for modified barium swallow @ [facility] (LAVE[place] Rodas) to evaluate patient for possible aspiration, but which was never scheduled or performed, patient underwent modified barium swallow (12/20/2024, 10:30am), which revealed: 1. Penetration with aspiration seen with thin barium. 2. 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 There was aspiration seen through this connection, which was visualized on all sampled textures. Correlation with direct visualization is recommended. Subsequently, Speech & Swallow Pathologist Dr. Lucy Carrasco shared with me the findings above, and with ENT Dr. Fred Hawkins, both of whom recommended that patient be transferred to [facility] to undergo ENT Service evaluation for possible repair of fistula connecting piriform sinus with trachea. Subsequently, I spoke with [facility] ENT Dr. Mati Rick, who reviewed the images of the modified barium swallow (12/20/2024, 10:30am), and who opined that patient is aspirating, but may not have a alanna kamila fistula connecting the piriform sinus with trachea. To test this hypothesis, Dr. Donald Johnson recommended that patient undergo gastrografin leak test and CT abd/pelvis with oral contrast to delineate patient's anatomy with higher resolution than that provided by the modified barium swallow (12/20/2024, 10:30am), and that if such fistulous connection between the piriform sinus and trachea is present on gastrografin leak test and/or CT abd/pelvis with oral contrast, that I call him back with such results before initiating/executing patient transfer from [facility] to [facility]. Subsequently, patient remained in [facility] on 12/20/2024 pm, and in order to allow passage of the barium through/out the patient's GI tract, patient did not undergo gastrografin leak test and CT abd/pelvis with oral contrast until the 12/21/2024 am/pm. Subsequently, patient underwent: CT neck with oral contrast (12/20/2024, 2:51pm): 1. No acute inflammatory changes or fluid collections. 2. Unremarkable appearance of the piriform sinuses. 3. Pulmonary edema with pleural effusions. 4. There are nonspecific subcentimeter lymph nodes measuring within the upper limits of normal within the upper mediastinum and right supraclavicular tissues, increased in size from the 07/01/[address] abd/pelvis with oral contrast (12/20/2024, 2:56pm): 1. Appropriately positioned PEG tube. No contrast extravasation. 2. Moderate sized left and small right pleural effusions. Associated bibasilar opacities could represent atelectasis or pneumonia. 3. Sacral decubitus ulcer. Interval development of bony erosion of the posterior cortex of the second coccygeal segment suggestive of osteomyelitis. 4. Small amount of fluid within the pelvis. 5. No bowel obstruction. 6. Bladder wall thickening, likely chronic. Several small bladder calculi. Consequently, patient does NOT have a fistulous tract connecting patient's piriform sinuses with his trachea. Subsequently, I discontinued NPO status and started patient on a regular diet consisting of sandwich and unsweetened, ice tea, as requested by the patient, on 12/24/2024, 9:25pm. Subsequently, patient tolerated sandwich and unsweetened, ice tea fine, as per patient's report on 12/24/2024, 9:25pm. Patient reports that he wants to continue eating food and drinking liquids by mouth, and acknowledges the risk of aspirating food/liquid when eating by mouth, and despite Speech & Swallow Service recommendations that patient remain NPO and receive only tube feeds via PEG. Patient reports that he understands that he is going against the recommendations of Speech & Swallow Service, but states, "It is my body and it's me who will be surviving or dying by not eating or drinking. I'm hungry, and I am gonna do what I want to do, aspiration or no aspiration. I hope you can understand my point." Subsequently, patient was discharged to [facility] ([place], [place]) on 12/27/2024, 12:00pm ON a regular diet and OFF Nutren 2.0 @ 1000 mL PEG daily. To address #8 Severe protein-calorie malnutrition with 30 pounds of unintentional weight loss over the past 3 months, R/O underlying severe depression, patient meets the criteria for definition of severe protein calorie malnutrition, as demonstrated by BMI 17.0 (height 182.9 cm; weight 56.8 kg), ongoing parenteral nutrition with PEG, multiple pressure ulcers present on admission date 12/18/2024, cachexia, vomiting/diarrhea, early satiety, and failure to thrive. Hence, patient awaits daily formal Director Of Real Estate Service evaluation in the 12/25/2024 am and will undergo daily weights and strict I/O while patient remains in [facility]. In the interim, patient underwent Psychiatry Service evaluation with Dr. Gricelda Mathis (12/23/2024, 5:06pm), and who recommended: a. stimulating antidepressant such as modafinil 100mg PO (crushed) daily, titrating up to 200mg PO (crushed) daily. b. SSRI antidepressant such as sertraline 50mg PO (crushed) daily. To this end, by treating patient's suspected major depression (no suicidal ideation on 12/23/2024), patient may be stimulated to eat more food, and consequently, gain weight. Hence, I started patient on modafinil 100mg PO (crushed) daily on 12/23/2024, 6:13pm, and sertraline 50mg PO (crushed) daily on 12/23/2024, 6:13pm. Subsequently, patient reports feeling "better" after starting modafinil 100mg PO (crushed) daily on 12/23/2024, 6:13pm, and sertraline 50mg PO (crushed) daily on 12/23/2024, 6:13pm, and moreover, "I want to eat now, Doc." Subsequently, I discontinued NPO status and started patient on a regular diet consisting of sandwich and unsweetened, ice tea, as requested by the patient, on 12/24/2024, 9:25pm. Subsequently, patient tolerated sandwich and unsweetened, ice tea fine, as per patient's report on 12/24/2024, 9:25pm. Patient reports that he wants to continue eating food and drinking liquids by mouth, and acknowledges the risk of aspirating food/liquid when eating by mouth, and despite Speech & Swallow Service recommendations that patient remain NPO and receive only tube feeds via PEG. Patient reports that he understands that he is going against the recommendations of Speech & Swallow Service, but states, "It is my body and it's me who will be surviving or dying by not eating or drinking. I'm hungry, and I am gonna do what I want to do, aspiration or no aspiration. I hope you can understand my point." Subsequently, patient was discharged to [facility] ([place], [place]) on 12/27/2024, 12:00pm ON a regular diet and OFF Nutren 2.0 @ 1000 mL PEG daily. Subsequently, patient will continue modafinil 100mg PO (crushed) daily and sertraline 50mg PO (crushed) daily on hospital discharge to [facility] ([place], [place]) on 12/27/2024, 12:00pm. To address #9 Cachexia with BMI 17.0 (height 182.9 cm; weight 56.8 kg) with 30 pounds of unintentional weight loss over the past 3 months, R/O underlying severe depression. 10.s/p decannulation of tracheostomy (10/06/2024, [facility] ([place], [place]), patient meets the criteria for definition of cachexia, as demonstrated by BMI 17.0 (height 182.9 cm; weight 56.8 kg), ongoing parenteral nutrition with PEG, vomiting/diarrhea, early satiety, and failure to thrive. Hence, patient underwent daily formal Director Of Real Estate Service evaluations and daily weights while patient remained in [facility]. To address #10 s/p decannulation of tracheostomy (10/06/2024, [facility] ([place], [place]), patient's sister/POA Ms. Asia Henry ( ) requested ENT Service evaluation to see if patient's former tracheostomy site, now replaced with a tracheo-cutaneous fistula can be sutured/closed by ENT Service. Hence, I solicited formal ENT Service evaluation with Dr. Fred Hawkins ( ) in the 12/19/2024 am. Subsequently, Dr. Li evaluated the patient and Dr. Hawkins recommended holding OFF closure of tracheo-cutaneous fistula as closure of tracheo-cutaneous fistula in proximity to patient's acute multi-lobar CAP may actually entail development of skin infection. Admission HPI Per Admitting Provider 69 years old male with PMH of DNR/DNI @ [facility] ([place], [place]), since 11/19/2024, chronic macrocytic, hypochromic anemia with baseline Hb range, 9.3 - 9.8 g/dL (07/01/2024 - 07/08/2024), chronic hypovolemic hyponatremia with baseline Na range, 123-133 mmol/L (07/01/2024 - 07/04/2024), now on NaCl 1g PO bid with subsequent new baseline Na range, 136-138 mmol/L (07/05/2024 - 07/08/2024), former tobacco abuse with subsequent diagnosis of COPD, now on 5 liters/minute O2 via nasal cannula since admission to [facility] ([place], [place]) on 11/19/2024, not on home steroids, former ETOH abuse, abstinent since 06/15/2024, who was admitted to [facility] ([place], [place]) on 08/22/2024 with severe septic shock due to multi-lobar necrotizing CAP and acute hypoxic respiratory failure, followed by intubation (08/22/2024), failed extubation, s/p tracheostomy (09/05/2024, [facility] ([place], [place])), failure to thrive s/p PEG (09/05/2024, [facility]), followed by D/C to LTAC ([facility] ([place], [place])) on 10/01/2024, s/p decannulation of tracheostomy (10/06/2024, [facility] ([place]), followed by D/C to [facility] ([place]) on 11/19/2024, with patient unable to ambulate at all leading to subsequent development of chronic stage III sacral decubitus ulcer (oblong, 7 cm x 13 cm), multiple stage II left lateral sole, left lateral 5th toe, and left lateral malleolar decubiti (circular, 1 cm in diameter or smaller), and central crown ulcer with scab formation (apple shape, 4 cm in diameter), excoriation/lichenification of penis and scrotum with diaper soaked in urine, present on admission date 12/18/2024, and experiencing non-bilious emesis without hematemesis x 1 episode while receiving tube feeds via PEG on (12/15/2024), for which patient was tentatively being considered for modified barium swallow @ [facility] ([place], [place]) to evaluate patient for possible aspiration, but which was never scheduled or performed, followed by patient's complaints of: "I feel weak and chilly, and I'm coughing a lot now. No blood, no mucous; can't spit it out. No fevers or sweats. I had a chest x-ray done last night (12/17/2024, 8:00pm) @ [facility] ([place], [place]), and it came back positive for pneumonia. They were treating me worse than an animal @ [facility] (LAVELL Lay), so my sister/POA, Ms. Asia Henry ( ) stood up for me and got me out of there and into [facility] ER today. I don't wanna go back to [facility] ([place] Lay). I only saw the doctor there once, and that was on the day I entered [facility] ([place] Lay)(11/19/2024). The land development project manager never saw me once, and was ordering tube feeds for me on the basis of a 5' 1" tall man. I am 6' 1" tall. So, I was underfed @ [facility] ([place] Lay)." Patient also complains of 30 pounds of unintentional weight loss over the past 3 months with no complaints of early satiety, night sweats, or persistent vomiting/diarrhea/laxative (ab)use. Patient concedes to using lasix 20mg PO daily on a regular basis, but reports that he is "not peeing so much that I lost 30 pounds from peeing alone." Patient denies antecedent/coincident fevers, diaphoresis, wheeze, sore throat, hemoptysis, chest pains, palpitations, pleurisy, nausea, diarrhea, abdominal pain, pelvic pain, flank pain, hematemesis, hematochezia, melena, hematuria, dysuria, frequency, urgency, headaches, dizziness, lightheadedness, visual changes, hearing changes, falls, syncope, trauma, travel history, sick contacts, or food/drug ingestions novel or new. All other review of systems are reported as negative by the patient on admission date 12/18/2024. In [facility] ER bed #C7, patient was afebrile @ 37.0 degrees Celsius, HR 93, RR 20, O2 sat 98% on room air, and BP 130/70 (12/18/2024, 9:16am). Exam was noted for cachexia with bitemporal atrophy, dry skin with skin tenting, but no delay in capillary refill time > 2 seconds. In addition, patient's skin was in poor condition from head to toe, includin. Central crown ulcer with scab formation (apple shape, 4 cm in diameter), present on admission date 12/18/2024. 2. Multiple stage II left lateral sole, left lateral 5th toe, and left lateral malleolar decubiti (circular, 1 cm in diameter or smaller), present on admission date 12/18/2024. 3. Solitary stage III sacral decubitus ulcer (oblong, 7 cm x 13 cm) with surrounding erythema, warmth, and serous-suppurative discharge, but no tenderness, fluctuance, crepitus, malodor, or lymphangitic streaking, present on admission date 12/18/2024. 4. Excoriation/lichenification of penis and scrotum with diaper soaked in urine, present on admission date 12/18/2024. In addition, patient coughed frequently during my examination of the patient, but remained too weak to expectorate any mucous per se. Auscultation of chest revealed coarse breath sounds bilaterally, but no audible expiratory wheeze, egophony, pectoriloquy, increase in tactile fremitus, or flatness/dullness to percussion at the bases. Labs in [facility] ER bed #C7 included: WBC 13.42, N71 l12 M9 E7, Hb 10.7, MCV 91.2, MCHC 30.2, platelet 445 (12/18/2024, 9:25am). Lactic acid #1 0.9 mmol/L (12/18/2024, 9:48am). Lactic acid #2 0.9 mmol/L (12/18/2024, 1:06pm). Procalcitonin #1 0.24 ng/mL (12/18/2024, 9:25am). U/A: turbid yellow, LE 3+, nitrite+, WBC > 50, RBC 0-2, epithelial cells -2, bacteria 4+ (12/18/2024, 10:50am). Urine culture (12/18/2024, 10:50am): Blood culture #1 (12/18/2024, 9:25am): Blood culture #2 (12/18/2024, 9:48am): Sacral wound culture (12/18/2024, 7:16pm): __ MRSA nares negative (12/18/2024, 12:56pm). BIOFIRE respiratory pathogen panel negative (12/18/2024, 12:56pm). VBG 7.43 / 54 / 33 / 36 / O2 sat < 60% (12/18/2024, 9:48am). Na 131, K 4.2, BUN 63, creatinine 1.43, GFR 53.4 mL/min, glucose 101, Ca 12.6, Mg 2.1 (12/18/2024, 9:25am). AST 60, ALT 91, ALK PHOS 153, TBili 0.1 (12/18/2024, 9:25am). INR 1.0 (12/18/2024, 9:25am). Additional testing in [facility] ER bed #C7 included: Portable CXR (12/18/2024, 9:31am): 1. RUL, RLL, LLL infiltrates. Bilateral effusions. 2. No cardiomegaly, pulmonary vascular congestion, or pneumothorax. (by my review). EKG (12/18/2024, 9:22am): NSR @ 90, DE 140, QTC 423, no TWI, no acute ST depressions/elevations (by my review). EKG (07/01/2024, 12:21pm): NSR @ 71, DE 134, QTC 430, TWI in aVL, V2, no acute ST depressions/elevations (by my review). Patient was subsequently admitted to the inpatient hospitalist service @ [facility] on 12/18/2024 with the following diagnoses: 1. Sepsis due to (a) acute multi-lobar CAP and (2) acute UTI; R/O gram negative wil-associated bacteremia; R/O sacral wound infection. 2. Acute hypovolemic hyponatremia with admission Na 131 mmol/L (12/18/2024, 9:25am). 3. Acute hypercalcemia with admission Ca 12.6 mg/dL (12/18/2024, 9:25am). 4. Acute kidney injury with admission creatinine 1.43 mg/dL, GFR 53.4 mL/min (12/18/2024, 9:25am). 5. Acute transaminitis with admission AST 60 U/L, ALT 91 U/L, ALK PHOS 153 U/L (12/18/2024, 9:25am). 6. Chronic stage III sacral decubitus ulcer (oblong, 7 cm x 13 cm), multiple stage II left lateral sole, left lateral 5th toe, and left lateral malleolar decubiti (circular, 1 cm in diameter or smaller), and central crown ulcer with scab formation (apple shape, 4 cm in diameter), excoriation/lichenification of penis and scrotum with diaper soaked in urine, present on admission date 12/18/2024. 7. Chronic ymzyofa-wo-pqnizq s/p PEG (09/05/2024, [facility]), s/p non-bilious emesis without hematemesis x 1 episode while receiving tube feeds via PEG on (12/15/2024), for which patient was tentatively being considered for modified barium swallow @ [facility] ([place], [place]) to evaluate patient for possible aspiration, but which was never scheduled or performed. 8. s/p decannulation of tracheostomy (10/06/2024, [facility] ([place], [place]). To address #1, patient received zosyn 4.5g IV x 1 dose (12/18/2024, 12:31pm) and vancomycin 1.25g IV x 1 dose (12/18/2024, 12:41pm) in [facility] ER bed #C7. Patient will continue with monotherapy utilizing zosyn 4.5g IV q8 (day #06/21 on 12/18/2024, 5:46pm) in [facility] PCU bed #E219-1. I will check vitals, chest exam, genito-urinary exam (with olmedo catheter subsequently inserted in [facility] PCU bed #E219-1 on 12/18/2024, 5:30pm, to mitigate further penile, scrotal, and gluteal skin breakdown given the finding of wet diaper soaked in urine on arrival of patient from [facility] ([place], [place]) to [facility] ER on 12/18/2024, 9:00am), WBC w/diff, lactic acid, procalcitonin, urine culture (12/18/2024, 10:50am), blood culture #1 (12/18/2024, 9:25am), blood culture #2 (, 9:48am) and sacral wound culture (12/18/2024, 7:16pm) in the 12/19/2024 am. To address #2, patient received 1 liter of 0.9% NS @ 125 mL/hr (12/18/2024, 10:47am) in [facility] ER bed #C7. Patient was subsequently started on 1 liter of 0.9% NS @ 125 mL/hr (12/18/2024, 5:46pm) [facility]. I will check repeat Na level in the 12/19/2024 am while holding off patient's home-scheduled furosemide 20mg PO qam (given potential for this medication to exacerbate acute hypovolemic hyponatremia by inducing natri-uresis). Patient is also being held off his home-scheduled NaCl 1g PO bid given potential risk for aspiration of his home-scheduled NaCl 1g PO bid. To address #3, patient received 1 liter of 0.9% NS @ 125 mL/hr (12/18/2024, 10:47am) in [facility] ER bed #C7. Patient was subsequently started on 1 liter of 0.9% NS @ 125 mL/hr (12/18/2024, 5:46pm) [facility]. I will check repeat Ca level in the 12/19/2024 am while holding off patient's home-scheduled furosemide 20mg PO qam (given potential for this medication to exacerbate acute hypercalcemia by causing further acute dehydration, which is the principal cause of patient's acute hypercalcemia). To address #4, patient received 1 liter of 0.9% NS @ 125 mL/hr (12/18/2024, 10:47am) in [facility] ER bed #C7. Patient was subsequently started on 1 liter of 0.9% NS @ 125 mL/hr (12/18/2024, 5:46pm) in [facility] bed #E219-1. I will check repeat creatinine level in the 12/19/2024 am while holding off patient's home- scheduled furosemide 20mg PO qam (given potential for this medication to cause further renal embarrassment, which is the principal cause of patient's acute kidney injury). To address #5, patient is being held off his home-scheduled mirtazapine 15mg PO qhs, which is a potential contributor to patient's acute transaminitis. I will check repeat LFT in the 12/19/2024 am. to address #6, patient awaits formal Wound Care Nurse evaluation in the 12/19/2024 am. In the interim, patient has been started on Mepilex dressing to the sacral decubitus and bed position changes q2h to mitigate further skin breakdown. In addition, patient was placed on a specialty bed with low air loss to offload pressure on patient's sacral decubitus and multiple stage II left lateral sole, left lateral 5th toe, and left lateral malleolar decubiti (circular, 1 cm in diameter or smaller). In addition, olmedo catheter was subsequently inserted in [facility] PCU bed #E219-1 on 12/18/2024, 5:30pm, to mitigate further penile, scrotal, and gluteal skin breakdown given the finding of wet diaper soaked in urine on arrival of patient from [facility] ([place]) to [facility] ER on 12/18/2024, 9:00am. To address #7, patient awaits bedside swallow exam by nursing staff in [facility] PCU bed #E219-1. Patient also awaits formal Director Of [employer] Service evaluation in the 12/19/2024 am. To address #8, patient's sister/POA Ms. Asia Henry ( ) requested ENT Service evaluation to see if patient's former tracheostomy site can be sutured/closed by ENT Service. Hence, I have solicited formal ENT Service evaluation with Dr. Fred Hawkins ( ) for the 12/19/2024 am. Discharge Exam Constitutional General: Comfortable, coherent, and cooperative. Not confused or obtunded, but lethargic. Patient speaks very slowly, but in complete, fluent, and articulate 3-5 word sentences without pause, interruption, cough, or wheeze with O2 sat 99% on 5 liters/minute O2 via nasal cannula (12/21/2024, 7:31pm)(12/22/2024, 7:37pm). O2 sat 100% on 5 liters/minute O2 via nasal cannula (12/23/2024, 6:06pm). O2 sat 94% on room air (12/24/2024, 8:15pm)(12/25/2024, 8:13pm). O2 sat 96% on room air (12/26/2024, 2:19pm). O2 sat 96% on room air (12/27/2024, 7:47am). Cachectic with bi-temporal atrophy. HEENT: Normocephalic, atraumatic. No nystagmus, gaze paresis, anisocoria, miosis, mydriasis, hyphema, scleral injection, conjunctivitis, or pterygium. No otorrhea or rhinorrhea. No pharyngeal erythema, edema, or discharge. Neck: Supple, no stridor, bruit, goiter, or hepato-jugular reflux. Jugular venous pressure is estimated to be 3 cm above the sternal angle of Burke, which in turn, is 5 cm above the level of the right atrium; with jugular venous pressure estimated to be 8 cm, then, there is no jugular venous distention on 12/27/2024. 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 Lymphatics: No cervical (anterior/posterior), supraclavicular, infraclavicular, axillary, epitrochlear, or inguinal adenopathy. Chest: Symmetric rise and fall with respirations. Non-tender to palpation. Lungs: Coarse breath sounds bilaterally. No audible expiratory wheeze, egophony, pectoriloquy, increase in tactile fremitus, or flatness/dullness to percussion at the bases. Heart: Regular rate and rhythm. S1 and S2 noted. No S3 or S4 summation gallop. No tripartite friction rub. Grade II/ early systolic murmur @ LLSB without radiation to the carotids, axilla, or back, and which remains invariant in regards to the respiratory cycle. Abdomen: Soft, non-tender, non-distended. No rebound, guarding, Warner's sign, or organomegaly. Bowel sounds auscultated in all 4 quadrants. PEG (inserted on 09/05/2024, [facility]) to treat [id number]) in situ with no underlying erythema, edema, induration, warmth, tenderness, crepitus, fluctuance, discharge, or lymphangitic streaking on admission date 12/18/2024 through discharge date 12/27/2024. in situ Extremities: No clubbing, cyanosis, or edema. Skin: No exanthem or enanthem. Skin: 1. Central crown ulcer with scab formation (apple shape, 4 cm in diameter), present on admission date 12/18/2024. 2. Multiple stage II left lateral sole, left lateral 5th toe, and left lateral malleolar decubiti (circular, 1 cm in diameter or smaller), present on admission date 12/18/2024. 3. Solitary stage III sacral decubitus ulcer (oblong, 7 cm x 13 cm) with surrounding erythema, warmth, and serous-suppurative discharge, but no tenderness, fluctuance, crepitus, malodor, or lymphangitic streaking, present on admission date 12/18/2024. 4. Excoriation/lichenification of penis and scrotum with diaper soaked in urine, present on admission date 12/18/2024.Neuro: Awake and oriented in regards to person, place, time, and situation. DTR+. 5/5 motor strength in all 4 extremities, both proximally and distally. No myoclonus, tremors, or tics.Genito-urinary: No urethral discharge. No olmedo catheter in [facility] ER bed #C7. Olmedo catheter subsequently inserted in [facility] PCU bed #E219-1 on 12/18/2024, 5:30pm, to mitigate further penile, scrotal, and gluteal skin breakdown given the finding of wet diaper soaked in urine on arrival of patient from [facility] ([place]) to [facility] ER on 12/18/2024, 9:00am. Neurology: Alert and oriented in regards to person, place, time, and situation. DTR+. 5/5 motor strength in all 4 extremities, proximally and distally. Urology: + olmedo inserted in [facility] PCU bed #E219-1 on 12/18/2024, 5:30pm, to mitigate further penile, scrotal, and gluteal skin breakdown given the finding of wet diaper soaked in urine on arrival of patient from [facility] ([place]) to [facility] ER on 12/18/2024, 9:00am. No urethral discharge. Discharge Plan Discharge Items Patient Disposition: Transfer to LTAC Reason For Visit: SEPSIS DUE TO ACUTE MULTI-LOBAR CAP Discharge Diagnosis: 1. Sepsis due to (a) acute multi-lobar CAP and (2) acute E. coli UTI; R/O gram negative wil-associated bacteremia; R/O sacral wound infection. 2. Acute hypovolemic hyponatremia with admission Na 131 mmol/L (12/18/2024, 9:25am). 3. Acute hypercalcemia with admission Ca 12.6 mg/dL (12/18/2024, 9:25am). 4. Acute kidney injury with admission creatinine 1.43 mg/dL, GFR 53.4 mL/min (12/18/2024, 9:25am). 5. Acute transaminitis with admission AST 60 U/L, ALT 91 U/L, ALK PHOS 153 U/L (12/18/2024, 9:25am). 6. Chronic stage III sacral decubitus ulcer (oblong, 7 cm x 13 cm), multiple stage II left lateral sole, left lateral 5th toe, and left lateral malleolar decubiti (circular, 1 cm in diameter or smaller), and central crown ulcer with scab formation (apple shape, 4 cm in diameter), excoriation/lichenification of penis and scrotum with diaper soaked in urine, present on admission date 12/18/2024. 7. Chronic eysupnr-do-xfgttu s/p PEG (09/05/2024, [facility]), s/p non-bilious emesis without hematemesis x 1 episode while receiving tube feeds via PEG on (12/15/2024), for which patient was tentatively being considered for modified barium swallow @ [facility] ([place], [place]) to evaluate patient for possible aspiration, but which was never scheduled or performed. 8. Severe protein-calorie malnutrition with 30 pounds of unintentional weight loss over the past 3 months, R/O underlying severe depression. 9. 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 10.s/p decannulation of tracheostomy (10/06/2024, [facility] ([place], [place]). Condition on Discharge: Fair Activity: Resume your previous activity Lifting: Gradually increase as tolerated Bathing: No limitations Exercise/Sports: Gradually increase as tolerated Weightbearing: Full weightbearing Non-emergency contact: Primary Care Provider Call non-emergency contact if: you have any medication questions Follow-up/Referrals: Jose Eduardo Allen, DO [Primary Care Provider] - Diet: Heart Healthy Addtl Attending Provider Instructions: See your PCP Dr. Jose Eduardo Allen within 5-7 days of discharge from [facility] @ [place], [place]. Pending Studies at Discharge: No Stand-Alone Forms: My [facility] Skilled Items Patient informed of condition?: Yes DNR: Yes Discharge Level of Care: Skilled Communicable Disease: No Discharge Prognosis: Stable Lines: None Urinary Catheter: No Medications and DC Order Prescriptions: New Santyl 250 unit/gram Ointment 1 applic EXT DAILY Qty: 30 0RF lidocaine [Anecream] 4 % Cream 1 applic EXT DAILY Qty: 30 0RF sertraline 50 mg Tablet 50 mg PO QAM Qty: 30 0RF modafinil 100 mg Tablet 100 mg PO QAM Qty: 30 0RF Continued mirtazapine 15 mg Tablet 15 mg PO HS Qty: 30 0RF Discontinued nicotine 7 mg/24 hr Patch 24 Hour 1 patch transdermal QAM Qty: 28 0RF furosemide 20 mg Tablet 20 mg PO QAM Qty: 30 0RF pantoprazole 40 mg Tablet,Delayed Release (Dr/Ec) 40 mg PO BID Qty: 60 0RF sodium chloride 1,000 mg Tablet,Soluble 1,000 mg PO BID Qty: 60 0RF thiamine HCl (vitamin B1) 100 mg Tablet 100 mg PO QAM Qty: 30 0RF folic acid 1 mg Tablet 1 mg PO QAM Qty: 30 0RF Discharge Orders: Discharge Order (Routine); Ordered 12/26/24 Ordered By: Josr Melgar Admission Data Admit Date/Time: 12/18/24 12:22 Attending Provider: Josr Melgar Admit Provider: Josr Melgar Primary Care Provider: Jose Eduardo Allen Other Providers: Josr Melgar; Fred Hawkins; [facility]; Gricelda Mathis; Mike Martinez [place]; [facility] Hospital Stay Data Consultations 12/18/24 12:12 ED Decision to Admit Stat 12/19/24 08:00 Consult Otolaryngology (Head and Neck) Routine 12/23/24 12:56 Consult Psychiatry Routine 12/23/24 13:11 Consult Palliative Care Routine Diagnostic Imagining Performed 12/18/24 11:53 US venous doppler LE LT Stat 12/20/24 10:30 Fluoro video [FL video swallow] Routine 12/20/24 14:51 CT soft tissue neck w con Stat 12/20/24 14:56 CT abdomen pelvis wo/w con Stat Pending Results Patient Have Any Pending Studies at Discharge: No Discharge Instructions Given to Patient (Per Discharging Provider) See your PCP Dr. Jose Eduardo Allen within 5-7 days of discharge from [facility] @ [place], [place]. Total Time Total Time Spent Total Time Spent (In Minutes): 35 minutes. Of this time period, 19 minutes were spent in coordinating patient's discharge. Coding Level of Care Code 40292 INP/OBS DISCH >30 MIN Diagnoses Sepsis due to pneumonia J18.9; A41.9
== END 2024-12-27 13:01 | DRG 871 ==
LOC: ED 09:09 → 2S 12:22
DX: L89.153 Pressure ulcer of sacral region, stage 3; A41.51 Sepsis due to Escherichia coli [E. coli]; L89.520 Pressure ulcer of left ankle, unstageable; N39.0 Urinary tract infection, site not specified; J95.04 Tracheo-esophageal fistula following tracheostomy; R62.7 Adult failure to thrive; Z91.048 Other nonmedicinal substance allergy status; R74.01 Elevation of levels of liver transaminase levels; F43.21 Adjustment disorder with depressed mood; Z87.891 Personal history of nicotine dependence; Z66 Do not resuscitate; N17.9 Acute kidney failure, unspecified; Z79.899 Other long term (current) drug therapy; E83.52 Hypercalcemia; L89.890 Pressure ulcer of other site, unstageable; Z51.5 Encounter for palliative care; Z68.1 Body mass index [BMI] 19.9 or less, adult; E43 Unspecified severe protein-calorie malnutrition; J18.9 Pneumonia, unspecified organism; J96.11 Chronic respiratory failure with hypoxia; R64 Cachexia; J44.0 Chronic obstructive pulmonary disease with (acute) lower respiratory infection; N48.0 Leukoplakia of penis; E87.1 Hypo-osmolality and hyponatremia